=== PATIENT | male | born 1960 | race Caucasian/White ===

== ENCOUNTER 2021-09-23 22:47 | Emergency (ER) | payer OTHER ==
--- OUTSIDE RECORDS SUMMARY | 2021-09-23 22:50 | XMS REPORT | Continuity of Care Document ---
:1960 Author Organization [facility] t Address [address] [place] [address] Care Team Providers Name Role Phone CUCA ARANGO Attending Clinician Unavailable Payers Payer Name Policy Type Policy Number Effective Date Expiration Date [place] [employer] 2 [id number] 2021 00:00:00 Problems This patient has no known problems. Allergies, Adverse Reactions, Alerts This patient has no known allergies or adverse reactions. Medications This patient has no known medications. Procedures This patient has no known procedures. Encounters Start End Encounter Admission Attending Care Care Encounter Source Date/Time Date/Time Type Type Clinicians Facility Department ID 2021-05-01 2021-05-01 Outpatient GADIEL ARANGO [id number] 10:00:00 10:00:00 JOSH valentin Results This patient has no known results.
[2021-09-23] MEDS ORDERED: NA CHLORIDE 0.9% 1,000 ML ONE (23:38)
[2021-09-23 23:56] LABS: Absolute Lymphocytes (CBC) 0.7 K/uL (0.7-4.9); Hematocrit 44.9 % (39.6-49.0); Lymphocytes % 9.6 % (15.3-44.8); MPV 7.2 fL (7.6-11.3)
[2021-09-24 00:09] LABS: Urine Blood 3+ (Negative); Urine Glucose 2+ (Negative); Urine Protein Negative (Negative)
[2021-09-24 00:12] LABS: Albumin 3.4 g/dL (3.4-5.0); Bilirubin Direct 0.1 mg/dL (0-0.2); Bilirubin Total 0.4 mg/dL (0.2-1.0); Potassium 4.2 mmol/L (3.5-5.1); Protein, Total 7.1 g/dL (6.4-8.2)
--- NOTE | 2021-09-24 00:56 | ER ---
Nurse's Notes [facility] Name: Jamie Echavarria Age: 60 yrs Sex: Male : 1960 Arrival Date: 09/23/2021 Time: 22:54 Bed 10 Private MD: Diagnosis: Kidney Stone/ Calculus in bladder Presentation: 09/23 23:11 Chief complaint: Patient states: lower back pain started around 2200 causing some bb nausea. pain at time of onset 10/. once arriving to ER the pain is 1/10. no complaints of nausea. 23:11 Coronavirus screen: Vaccine status: Patient reports being unvaccinated. Client denies bb travel out of the [place] in the last 14 days. At this time, the client does not indicate any symptoms associated with coronavirus-19. Ebola Screen: No symptoms or risks identified at this time. Initial Sepsis Screen: Does the patient meet any 2 criteria? No. Patient's initial sepsis screen is negative. Does the patient have a suspected source of infection? No. Patient's initial sepsis screen is negative. Risk Assessment: Do you want to hurt yourself or someone else? Patient reports no desire to harm self or others. Onset of symptoms was September 23, 2021 at 22:00. 23:11 Method Of Arrival: Ambulatory bb 23:11 Acuity: MARTIN 4 bb Triage Assessment: 23:16 General: Appears in no apparent distress. comfortable, Behavior is calm, cooperative. bb Pain: Complains of pain in lumbar area, left low back and right low back. Neuro: Level of Consciousness is awake, alert, obeys commands, Oriented to person, place, time, situation. Cardiovascular: Respiratory: Airway is patent Trachea midline Respiratory effort is even, unlabored, Respiratory pattern is regular, symmetrical. GI: Reports Patient currently denies. : No deficits noted. Derm: No deficits noted. Musculoskeletal: No deficits noted. Historical: - Allergies: 23:16 No Known Allergies; bb - Home Meds: 23:16 levothyroxine 200 mcg tab [Active]; ramipril 10 mg Oral tab [Active]; Jardiance 25 mg bb oral tab [Active]; celecoxib 200 mg Oral cap [Active]; simvastatin 20 mg Oral tab [Active]; Janumet 50-1,000 mg oral tab [Active]; - PMHx: 23:16 Diabetes mellitus; bb - PSHx: 23:16 Operative procedure on knee; Cholecystectomy; bb - Immunization history:: Adult Immunizations up to date. - Social history:: Smoking status: Patient reports use of chewing tobacco. Screenin:50 Abuse screen: Denies threats or abuse. Nutritional screening: No deficits noted. bb Tuberculosis screening: No symptoms or risk factors identified. Fall Risk None identified. Assessment: 23:50 General: Appears in no apparent distress. obese, Behavior is calm, cooperative. Neuro: bb Level of Consciousness is awake, alert, obeys commands, Oriented to person, place, time, situation. Cardiovascular: Capillary refill < 3 seconds Patient's skin is warm and dry. Respiratory: Respiratory effort is even, unlabored, Respiratory pattern is regular. GI:. GI: Abdomen is obese. Derm: Skin is pink, warm \T\ dry. Musculoskeletal: Circulation, motion, and sensation intact. 09/24 01:47 Reassessment: Patient is alert, oriented x 3, equal unlabored respirations, skin bb warm/dry/pink. pt verbalized understanding of and agrees to plan of care discharge instructions given pt ambulated with steady gait to exit. Vital Signs: 09/23 23:11 BP 125 / 65; Pulse 102; Resp 20; Temp 97.7; Pulse Ox 96% on R/A; Weight 145.15 kg (R); bb Height 6 ft. 1 in. (185.42 cm) (R); Pain /; 09/24 01:24 BP 120 / 63; Pulse 90; Resp 16; Temp 98.8; Pulse Ox 96% ; lt3 09/23 23:11 Body Mass Index 42.22 (145.15 kg, 185.42 cm) bb ED Course: 09/23 22:54 Patient arrived in ED. bp1 23:16 Triage completed. bb 23:16 Arm band placed on. bb 23:30 Guillermo Lamb NP is PHCP. pm1 23:30 Raymond Bella MD is Attending Physician. pm1 23:50 Isabella Ackerman RN is Primary Nurse. bb 23:50 Patient has correct armband on for positive identification. Call light in reach. bb 23:50 Initial lab(s) drawn, by me, sent to lab. Inserted saline lock: 20 gauge in right bb antecubital area, using aseptic technique. Blood collected. 09/24 00:25 CT Stone Protocol In Process Unspecified. EDMS 01:47 No provider procedures requiring assistance completed. IV discontinued, intact, bb bleeding controlled, No redness/swelling at site. Pressure dressing applied. Administered Medications: 09/23 23:54 Drug: NS 0.9% 1000 ml Route: IV; Rate: 1000 ml; Site: right antecubital; bb 09/24 01:00 Follow up: IV Status: Completed infusion; IV Intake: 1000ml bb Intake: 01:00 IV: 1000ml; Total: 1000ml. bb Outcome: 00:56 Discharge ordered by MD. pm1 01:47 Discharged to home ambulatory. bb 01:47 Condition: stable 01:47 Discharge instructions given to patient, Instructed on discharge instructions, follow up and referral plans. medication usage, Demonstrated understanding of instructions, follow-up care, medications, Prescriptions given X 1. 01:50 Patient left the ED. bb Signatures: Dispatcher [employer] EDMS Isabella Ackerman RN RN bb Guillermo Lamb, [employer]ORY [employer]ESS ENGINEER pm1 Katalina Vogel [facility] Radha Wilkerson lt3
--- NOTE | 2021-09-24 00:56 | EDPHYS ---
Physician Documentation [facility] Name: Jamie Echavarria Age: 60 yrs Sex: Male : 1960 Arrival Date: 09/23/2021 Time: 22:54 Bed 10 Private MD: ED Physician Raymond Bella HPI: 09/23 23:33 This 60 yrs old Male presents to ER via Ambulatory with complaints of Low Back Pain, pm1 Nausea. 23:33 The patient presents with pain that is acute, with no known mechanism of injury. The pm1 symptoms are located in the left low back. The pain radiates to the left upper quadrant. The problem was sustained from unknown cause. Onset: The symptoms/episode began/occurred 1.5 hr prior to arrival. Modifying factors: The patient symptoms are alleviated by nothing, the patient symptoms are aggravated by nothing. Associated signs and symptoms: Pertinent positives: nausea, Pertinent negatives: dysuria, fever, vomiting. Severity of symptoms: in the emergency department the symptoms have resolved, in triage room. The patient has not experienced similar symptoms in the past. The patient has not recently seen a physician. Historical: - Allergies: 23:16 No Known Allergies; bb - Home Meds: 23:16 levothyroxine 200 mcg tab [Active]; ramipril 10 mg Oral tab [Active]; Jardiance 25 mg bb oral tab [Active]; celecoxib 200 mg Oral cap [Active]; simvastatin 20 mg Oral tab [Active]; Janumet 50-1,000 mg oral tab [Active]; - PMHx: 23:16 Diabetes mellitus; bb - PSHx: 23:16 Operative procedure on knee; Cholecystectomy; bb - Immunization history:: Adult Immunizations up to date. - Social history:: Smoking status: Patient reports use of chewing tobacco. ROS: 23:33 Constitutional: Negative for fever, chills, and weight loss, Cardiovascular: Negative pm1 for chest pain, palpitations, and edema, Respiratory: Negative for shortness of breath, cough, wheezing, and pleuritic chest pain. 23:33 : Negative for injury, bleeding, discharge, and swelling, MS/Extremity: Negative for injury and deformity, Skin: Negative for injury, rash, and discoloration, Neuro: Negative for headache, weakness, numbness, tingling, and seizure. 23:33 Abdomen/GI: Positive for nausea, Negative for abdominal pain, diarrhea, constipation. 23:33 Back: Positive for flank pain, on the left. 23:33 All other systems are negative. Exam: 23:33 Constitutional: This is a well developed, well nourished patient who is awake, alert, pm1 and in no acute distress. Head/Face: Normocephalic, atraumatic. 23:33 Skin: Warm, dry with normal turgor. Normal color with no rashes, no lesions, and no evidence of cellulitis. MS/ Extremity: Pulses equal, no cyanosis. Neurovascular intact. Full, normal range of motion. 23:33 Eyes: Exam is negative for acute changes, Extraocular movements: no acute changes, Conjunctiva: no acute changes, no injection. 23:33 ENT: Exam is negative for acute changes, Mouth: no acute changes, Lips: normal, moist, Oral mucosa: normal, pink and intact, moist. 23:33 Cardiovascular: Exam negative for acute changes, Rate: normal, Rhythm: regular, Pulses: no pulse deficits are appreciated. 23:33 Respiratory: Exam negative for acute changes, respiratory distress, shortness of breath, Breath sounds: are clear throughout. 23:33 Abdomen/GI: Inspection: abdomen appears normal, Palpation: abdomen is soft and non-tender, in all quadrants. 23:33 Back: CVA tenderness, that is mild, is noted on the left, vertebral tenderness, is not appreciated. 23:33 Neuro: Exam negative for acute changes, Orientation: is normal, Mentation: is normal, Motor: moves all fours. Vital Signs: 23:11 BP 125 / 65; Pulse 102; Resp 20; Temp 97.7; Pulse Ox 96% on R/A; Weight 145.15 kg (R); bb Height 6 ft. 1 in. (185.42 cm) (R); Pain 09/25; 09/24 01:24 BP 120 / 63; Pulse 90; Resp 16; Temp 98.8; Pulse Ox 96% ; lt3 09/23 23:11 Body Mass Index 42.22 (145.15 kg, 185.42 cm) bb MDM: 09/23 23:32 Patient medically screened. pm1 09/24 00:55 Data reviewed: vital signs. Data interpreted: Pulse oximetry: on room air is 96 %. pm1 Interpretation: normal. Counseling: I had a detailed discussion with the patient and/or guardian regarding: the historical points, exam findings, and any diagnostic results supporting the discharge/admit diagnosis, lab results, radiology results, the need for outpatient follow up, a urologist, to return to the emergency department if symptoms worsen or persist or if there are any questions or concerns that arise at home. 09/23 23:33 Order name: Basic Metabolic Panel; Complete Time: 00:19 pm1 09/23 23:33 Order name: CBC with Diff; Complete Time: 00:09 pm1 09/23 23:33 Order name: Hepatic Function; Complete Time: 00:19 pm1 09/23 23:33 Order name: Lipase; Complete Time: 00:19 pm1 09/23 23:33 Order name: CT Stone Protocol pm1 09/24 00:09 Order name: Urine Dipstick-Ancillary; Complete Time: 00:09 EDMS 09/23 23:33 Order name: IV Saline Lock; Complete Time: 23:54 pm1 09/23 23:33 Order name: Labs collected and sent; Complete Time: 23:54 pm1 09/23 23:33 Order name: Urine Dipstick-Ancillary (obtain specimen); Complete Time: 00:10 pm1 Administered Medications: 09/23 23:54 Drug: NS 0.9% 1000 ml Route: IV; Rate: 1000 ml; Site: right antecubital; bb 09/24 01:00 Follow up: IV Status: Completed infusion; IV Intake: 1000ml bb Disposition: 05:33 Co-signature as Attending Physician, Raymond Bella MD I agree with the assessment and kdr plan of care. Disposition Summary: 09/24/21 00:56 Discharge Ordered Location: Home pm1 Problem: new pm1 Symptoms: have improved pm1 Condition: Stable pm1 Diagnosis - Kidney Stone/ Calculus in bladder pm1 Followup: pm1 - With: Emergency Department - When: As needed - Reason: Worsening of condition Followup: pm1 - With: Private Physician - When: 2 - 3 days - Reason: Recheck today's complaints, Continuance of care, Re-evaluation by your physician Discharge Instructions: - Discharge Summary Sheet pm1 - Kidney Stones pm1 - Dietary Guidelines to Help Prevent Kidney Stones pm1 Forms: - Medication Reconciliation Form pm1 - Thank You Letter pm1 - Antibiotic Education pm1 - Prescription Opioid Use pm1 Prescriptions: - Cipro 500 mg Oral Tablet - take 1 tablet by ORAL route every 12 hours for 7 days; 14 tablet; Refills: 0, pm1 Product Selection Permitted Signatures: Dispatcher [employer] Raymond Turk MD MD kdr Ballard, Brenda, SON RN bb Guillermo Lamb, MOLD MAKER [employer] MOLDS [employer]OL[employer] pm1
[2021-09-24 02:11] VITALS: O2SAT 96
[2021-09-24 02:13] VITALS: BP 120/63; TEMP 98.8
--- NOTE | 2021-09-24 15:24 | RAD REPORT ---
EXAM DESCRIPTION: CT - Stone Protocol - 09/24/2021 8:02 am CLINICAL HISTORY: 60 years, Male, FLANK PAIN COMPARISON: 04/01/2015 TECHNIQUE: Multiple transaxial tomograms of the abdomen and pelvis were performed from the lung base s to the symphysis pubis 3 mm slice thickness at the 3 mm interval reconstruction, without administra tion of IV and oral contrast. Multiplanar reformats in the sagittal and coronal plane were generated and reviewed. This exam was performed according to our departmental dose-optimization protocol, which includes auto mated exposure control, adjustment of the mA and/or kV according to patient size and/or use of iterat ute reconstruction technique. FINDINGS: The lack of IV and oral contrast limits evaluation of solid organs, subtle lesions cannot be excluded. The lung bases demonstrate to be clear. Minimal coronary artery calcification and aortic valvular paco cification. Grossly the unopacified liver, pancreas, spleen and adrenal glands demonstrate to be within normal li mits, no significant focal lesions were identified. Surgical clips within the gallbladder fossa cor respond to previous cholecystectomy The right kidney demonstrate no evidence for hydronephrosis and/or nephrolithiasis. The left kidney demonstrate a 4 mm lower pole renal calculus on axial image 83. There is a mid/upper pole renal cyst measuring 4.2 x 3.7 cm on image 64. There is no evidence for left hydronephrosis and/ or left hydroureter. Both kidneys demonstrate bilateral perinephric haziness suggesting fluid/or inflammation. Grossly the unopacified stomach, small bowel and large bowel demonstrate to be within normal limits. There is no evidence for bowel dilatation and/or free air. The appendix is normal. There is minimal d iverticulosis within the left site colon/sigmoid colon. The urinary bladder demonstrate to be suboptimal in distention. There is a 3.6 mm calculus within the right posterior urinary bladder wall corresponding to a urinary bladder calculus. The prostate gland demonstrate to be within normal limits. The aorta demonstrate minimal atheromatous plaque formation. There is no retroperitoneal lymphadeno brianna. There is no evidence for ascites. The rest of the soft tissue demonstrate to be grossly unre markable. IMPRESSION: 3.6 mm calculus within the right posterior urinary bladder wall corresponding to a urina ry bladder calculus-recent passage of a calculus. 4 mm nonobstructing calculus lower pole of the left kidney. Left renal cyst. Status post cholecystectomy. Minimal diverticulosis without evidence for acute diverticulitis. Electronically signed by: Stiven Medina MD 09/24/2021 12:41 AM PEDIATRIC PATHOLOGIST Due to temporary technical issues with the PACS/Fluency reporting system, reports are being signed by the in house radiologists without review as a courtesy to insure prompt reporting. The interpreting radiologist is fully responsible for the content of the report.
== END 2021-09-24 01:50 | disposition home or self-care (01) ==
LOC: ER 22:47
DX: N20.0 Calculus of kidney (principal); N21.0 Calculus in bladder; E11.9 Type 2 diabetes mellitus without complications; F17.220 Nicotine dependence, chewing tobacco, uncomplicated
CPT/HCPCS: 85025; 80048; 36415; 80076; 81003; 83690; 76377; 74176; 96360; 99284; J7030

== ENCOUNTER 2021-10-25 15:33 | Emergency (ER) | payer OTHER ==
--- OUTSIDE RECORDS SUMMARY | 2021-10-25 15:35 | XMS REPORT | Continuity of Care Document ---
:1960 Author Organization [facility] t Address [address] [place] [address] Care Team Providers Name Role Phone CUCA ARANGO Attending Clinician Unavailable Payers Payer Name Policy Type Policy Number Effective Date Expiration Date [place] [employer] 2 [id number] 2021 00:00:00 Problems This patient has no known problems. Allergies, Adverse Reactions, Alerts This patient has no known allergies or adverse reactions. Medications This patient has no known medications. Procedures This patient has no known procedures. Encounters Start End Encounter Admission Attending Care Care Encounter Source Date/Time Date/Time Type Type Clinicians Facility Department ID 2021-05-01 2021-05-01 Outpatient GADIEL ARANGO [id number] 10:00:00 10:00:00 JOSH valentin Results This patient has no known results.
[2021-10-25] MEDS ORDERED: NA CHLORIDE 0.9% 1,000 ML ONE (15:59)
[2021-10-25] MEDS ORDERED: METHYLPREDNISOLONE 125 MG INJ ONE (15:59)
[2021-10-25] MEDS ORDERED: ASPIRIN 81 MG CHEWABLE TABLET ONE (15:59)
[2021-10-25] MEDS ORDERED: AZITHROMYCIN 500 MG INJ IVPB ONE (15:59)
[2021-10-25] MEDS ORDERED: NA CHLORIDE 0.9% 250 ML ONE (15:59)
[2021-10-25] MEDS ORDERED: FAMOTIDINE 20 MG/2 ML VIAL IV ONE (15:59)
[2021-10-25 16:24] LABS: Absolute Lymphocytes (CBC) 0.7 K/uL (0.7-4.9); Hematocrit 44.7 % (39.6-49.0); RBC Red Blood Cell Count 4.67 M/uL (4.33-5.43)
[2021-10-25 16:26] LABS: Protime INR 1.19
--- NOTE | 2021-10-25 16:26 | RAD REPORT ---
EXAM DESCRIPTION: RAD - Chest Single View - 10/25/2021 3:58 pm CLINICAL HISTORY: COUGH COMPARISON: Stone Protocol dated 09/24/2021 FINDINGS: Lines: None. Lungs: Hazy opacity at the right lung base. Pleural: Nonspecific thickening at the right minor fissure. Cardiac: The heart size is within normal limits. Bones: No acute fractures. Other: IMPRESSION: Mild basilar airspace disease could reflect pneumonia.
[2021-10-25 16:39] LABS: Albumin 2.9 g/dL (3.4-5.0); Bilirubin Direct 0.2 mg/dL (0-0.2); Bilirubin Total 0.7 mg/dL (0.2-1.0); C-Reactive Protein 88.7 mg/L (<3.00); Ferritin 877.5 ng/mL (26-388); Potassium 3.9 mmol/L (3.5-5.1); Protein, Total 7.9 g/dL (6.4-8.2); Troponin High Sensitivity 14.1 pg/mL (<58.9)
--- NOTE | 2021-10-25 17:28 | RAD REPORT ---
EXAM DESCRIPTION: CT - Chest For Pe Angio - 10/25/2021 5:12 pm CLINICAL HISTORY: Chest pain;Cough;Dyspnea;PE COMPARISON: Chest Single View dated 10/25/2021 FINDINGS: Chest Wall: No suspicious thyroid nodules or pathologic lymphadenopathy. Lungs: Mild patchy bilateral ground-glass opacities. Pleura: No significant effusions or pneumothorax. Mediastinum/roland: No pathologic lymphadenopathy. Pulmonary arteries/Aorta: No filling defect identified. No aortic aneurysm. Heart: No significant pericardial effusion. Normal heart size. Multi-vessel coronary artery disease. Aortic valve calcifications. Upper abdomen: Cholecystectomy. Bones: No acute abnormality. All CT scans are performed using dose optimization technique as appropriate and may include automated exposure control or mA/KV adjustment according to patient size. IMPRESSION: Negative for pulmonary embolism. Mild patchy bilateral ground-glass opacities a pattern concerning for multifocal pneumonia, particularly Covid-19.
[2021-10-25] MEDS ORDERED: MONTELUKAST 10 MG TAB PO ONE (18:00)
--- NOTE | 2021-10-25 18:17 | EDPHYS ---
Physician Documentation [facility] Name: Jamie Echavarria Age: 61 yrs Sex: Male : 1960 Arrival Date: 10/25/2021 Time: 15:33 Bed 2 Private MD: ED Physician Billy Richard HPI: 10/25 17:46 This 61 yrs old Male presents to ER via Wheelchair with complaints of omar Shortness Of Breath - covid+. 17:46 The patient has shortness of breath at rest, with light activity. Onset: The omar symptoms/episode began/occurred 13 day(s) ago. Duration: The symptoms are continuous, and are steadily getting worse. The patient's shortness of breath is aggravated by coughing, walking. Associated signs and symptoms: Pertinent positives: non-productive cough, fever. Severity of symptoms: At their worst the symptoms were mild moderate in the emergency department the symptoms are unchanged. The patient has not experienced similar symptoms in the past. Historical: - Allergies: 15:46 No Known Allergies; vg1 - Home Meds: 15:46 celecoxib 200 mg Oral cap [Active]; Janumet 50-1,000 mg Oral tab [Active]; Jardiance 25 vg1 mg Oral tab [Active]; levothyroxine 200 mcg tab [Active]; ramipril 10 mg Oral tab [Active]; simvastatin 20 mg Oral tab [Active]; Victoza [Active]; - Immunization history:: Adult Immunizations up to date. - Social history:: Smoking status: Patient denies any tobacco usage or history of. ROS: 17:49 Constitutional: Negative for fever, chills, and weight loss, Eyes: Negative for injury, omar pain, redness, and discharge, ENT: Negative for injury, pain, and discharge, Neck: Negative for injury, pain, and swelling, Cardiovascular: Negative for chest pain, palpitations, and edema, Abdomen/GI: Negative for abdominal pain, nausea, vomiting, diarrhea, and constipation, Back: Negative for injury and pain, : Negative for injury, bleeding, discharge, and swelling, MS/Extremity: Negative for injury and deformity, Skin: Negative for injury, rash, and discoloration, Neuro: Negative for headache, weakness, numbness, tingling, and seizure, Psych: Negative for depression, anxiety, suicide ideation, homicidal ideation, and hallucinations, Allergy/Immunology: Negative for hives, rash, and allergies, Endocrine: Negative for neck swelling, polydipsia, polyuria, polyphagia, and marked weight changes, Hematologic/Lymphatic: Negative for swollen nodes, abnormal bleeding, and unusual bruising. 17:49 Respiratory: Positive for cough, shortness of breath, at rest. Exam: 17:49 Constitutional: This is a well developed, well nourished patient who is awake, alert, omar and in no acute distress. Head/Face: Normocephalic, atraumatic. Eyes: Pupils equal round and reactive to light, extra-ocular motions intact. Lids and lashes normal. Conjunctiva and sclera are non-icteric and not injected. Cornea within normal limits. Periorbital areas with no swelling, redness, or edema. ENT: Nares patent. No nasal discharge, no septal abnormalities noted. Tympanic membranes are normal and external auditory canals are clear. Oropharynx with no redness, swelling, or masses, exudates, or evidence of obstruction, uvula midline. Mucous membranes moist. Neck: Trachea midline, no thyromegaly or masses palpated, and no cervical lymphadenopathy. Supple, full range of motion without nuchal rigidity, or vertebral point tenderness. No Meningismus. Chest/axilla: Normal chest wall appearance and motion. Nontender with no deformity. No lesions are appreciated. Cardiovascular: Regular rate and rhythm with a normal S1 and S2. No gallops, murmurs, or rubs. Normal PMI, no JVD. No pulse deficits. Abdomen/GI: Soft, non-tender, with normal bowel sounds. No distension or tympany. No guarding or rebound. No evidence of tenderness throughout. Back: No spinal tenderness. No costovertebral tenderness. Full range of motion. Male : Normal genitalia with no discharge or lesions. Skin: Warm, dry with normal turgor. Normal color with no rashes, no lesions, and no evidence of cellulitis. MS/ Extremity: Pulses equal, no cyanosis. Neurovascular intact. Full, normal range of motion. Neuro: Awake and alert, GCS 15, oriented to person, place, time, and situation. Cranial nerves II-XII grossly intact. Motor strength 5/5 in all extremities. Sensory grossly intact. Cerebellar exam normal. Normal gait. Psych: Awake, alert, with orientation to person, place and time. Behavior, mood, and affect are within normal limits. 17:49 Respiratory: the patient does not display signs of respiratory distress, Respirations: normal, no acute changes, Breath sounds: decreased breath sounds, that are mild, are located in both bases, rhonchi, that are mild, are scattered, stridor, is not appreciated, + upper airway congestion. Respiratory rate: 20 Vital Signs: 15:44 BP 114 / 77; Pulse 105; Resp 18; Temp 98.4(O); Pulse Ox 96% ; Weight 97.52 kg; Height 6 vg1 ft. 1 in. (185.42 cm); 16:12 BP 119 / 72; Pulse 99; Resp 18; Pulse Ox 94% on R/A; ic1 17:43 BP 125 / 69; Pulse 92; Resp 20; Pulse Ox 96% on R/A; ic1 15:44 Body Mass Index 28.37 (97.52 kg, 185.42 cm) vg1 MDM: 15:38 Patient medically screened. [facility] 17:50 Data reviewed: vital signs, nurses notes. [facility] 10/25 15:43 Order name: Basic Metabolic Panel [facility] 10/25 15:43 Order name: CBC with Diff 10/25 15:43 Order name: LFT's 10/25 15:43 Order name: Magnesium 10/25 15:43 Order name: NT PRO-BNP 10/25 15:43 Order name: PT-INR; Complete Time: 16:51 10/25 15:43 Order name: Troponin HS 10/25 15:43 Order name: Blood Culture Adult (2) 10/25 15:43 Order name: Lipase 10/25 15:43 Order name: CRP 10/25 15:43 Order name: Ferritin 10/25 15:43 Order name: Lactate; Complete Time: 16:51 [facility] 10/25 15:43 Order name: D-Dimer; Complete Time: 16:51 [facility] 10/25 15:44 Order name: Basic Metabolic Panel [facility] 10/25 15:43 Order name: XRAY Chest (1 view); Complete Time: 16:30 10/25 15:43 Order name: EKG; Complete Time: 15:44 [facility] 10/25 15:43 Order name: Cardiac monitoring; Complete Time: 16:03 [facility] 10/25 15:43 Order name: EKG - Nurse/Tech; Complete Time: 16:03 [facility] 10/25 15:43 Order name: IV Saline Lock [facility] 10/25 15:43 Order name: Labs collected and sent [facility] 10/25 15:44 Order name: CBC with Automated Diff; Complete Time: 18:06 EDMS 10/25 16:52 Order name: US Extremity Venous W Compression Ho [facility] 10/25 16:52 Order name: CT Chest For PE Angio; Complete Time: 18:06 [facility] 10/25 15:43 Order name: O2 Sat Monitoring; Complete Time: 16:03 [facility] 10/25 15:44 Order name: Urine Dipstick-Ancillary (obtain specimen) omar Administered Medications: 16:09 Drug: Zithromax (azithromycin) 500 mg Route: IVPB; Infused Over: 1 hrs; Site: right ic1 antecubital; 16:09 Drug: SOLU-Medrol (methylPrednisoLONE) 125 mg Route: IVP; Site: right antecubital; ic1 16:10 Drug: NS 0.9% 1000 ml Route: IV; Rate: 125 ml/hr; Site: right antecubital; ic1 16:10 Drug: Pepcid (famotidine) 40 mg Route: IVP; Site: right antecubital; ic1 16:10 Drug: Aspirin Chewable Tablet 324 mg Route: PO; ic1 18:51 Drug: predniSONE 60 mg Route: PO; ic1 Disposition Summary: 10/25/21 18:16 Discharge Ordered Location: Home omar Problem: new omar Symptoms: have improved omar Condition: Stable omar Diagnosis - Coronavirus infection, unspecified omar - Pneumonia due to SARS-associated coronavirus omar - Fever, unspecified omar - Dyspnea omar - Type 2 diabetes mellitus with hyperglycemia omar - Other obesity omar Followup: omar - With: Private Physician - When: 2 - 3 days - Reason: Recheck today's complaints, Continuance of care, Re-evaluation by your physician Followup: omar - With: - When: 2 - 3 days - Reason: Recheck today's complaints, Re-evaluation by your physician Discharge Instructions: - Discharge Summary Sheet omar - Type 2 Diabetes Mellitus, Diagnosis, Adult omar - Hyperglycemia omar - Viral Respiratory Infection, [id number] omar - Aspirin and Your Heart omar - COVID-19 omar - COVID-19 Frequently Asked Questions omar - 10 Things You Can Do to Manage Your COVID-19 Symptoms at Home - [facility] omar - COVID-19: Quarantine vs. Isolation - [facility] Forms: - Medication Reconciliation Form omar - Thank You Letter omar - Antibiotic Education [facility] - Prescription Opioid Use [facility] Prescriptions: - budesonide 180 mcg/actuation Inhalation aerosol powdr breath activated - inhale 3 puff by INHALATION route 2 times per day; 1 Pump; Refills: 0, Product omar Selection Permitted - fluvoxamine 100 mg Oral tablet - take 1 tablet by ORAL route 2 times per day; 14 tablet; Refills: 0, Product omar Selection Permitted - ivermectin 3 mg Oral tablet - take 5 tablet by ORAL route once daily 15 mg po daily on days 1,3 and 5; 15 [facility] tablet; Refills: 0, Product Selection Permitted - melatonin - take 10 milligram by ORAL route At bedtime; 30 milligram; Refills: 0, Product omar Selection Permitted - Pepcid 20 mg Oral Tablet - take 1 tablet by ORAL route every 12 hours for 30 days; 60 tablet; Refills: 0, [facility] Product Selection Permitted - Singulair 10 mg Oral Tablet - take 1 tablet by ORAL route At bedtime; 30 tablet; Refills: 0, Product omar Selection Permitted - Zithromax 500 mg Oral Tablet - take 1 tablet by ORAL route once daily for 5 days; 5 tablet; Refills: 0, [facility] Product Selection Permitted - Prednisone 20 mg Oral Tablet - take 2 tablets by ORAL route once daily for 5 days; 10 tablet; Refills: 0, [facility] Product Selection Permitted Signatures: Dispatcher [employer] Billy Lau MD MD cha Garcia, Victoria RN RN vg1 Alessandra Weaver RN RN ic1
--- NOTE | 2021-10-25 18:17 | ER ---
Nurse's Notes [facility] Name: Jamie Echavarria Age: 61 yrs Sex: Male : 1960 Arrival Date: 10/25/2021 Time: 15:33 Bed 2 Private MD: Diagnosis: Coronavirus infection, unspecified;Pneumonia due to SARS-associated coronavirus;Fever, unspecified;Dyspnea;Type 2 diabetes mellitus with hyperglycemia;Other obesity Presentation: 10/25 15:44 Chief complaint: Patient states: Tested Covid Positive on ; states has not been vg1 getting any better; states SOB upon exertion, cough, congestion and fever. Coronavirus screen: Client denies travel out of the [place] in the last 14 days. Ebola Screen: Patient negative for fever greater than or equal to 101.5 degrees Fahrenheit, and additional compatible Ebola Virus Disease symptoms. Initial Sepsis Screen: Does the patient meet any 2 criteria? HR > 90 bpm. Does the patient have a suspected source of infection? No. Patient's initial sepsis screen is negative. Risk Assessment: Do you want to hurt yourself or someone else? Patient reports no desire to harm self or others. Onset of symptoms was October 12, 2021. 15:44 Method Of Arrival: Wheelchair vg1 15:44 Acuity: MARTIN 3 vg1 Triage Assessment: 15:46 General: Appears uncomfortable, Behavior is calm, cooperative. Respiratory: Reports vg1 shortness of breath on exertion cough that is Onset: The symptoms/episode began/occurred 10/12/2021, the patient has mild shortness of breath. Historical: - Allergies: 15:46 No Known Allergies; vg1 - Home Meds: 15:46 celecoxib 200 mg Oral cap [Active]; Janumet 50-1,000 mg Oral tab [Active]; Jardiance 25 vg1 mg Oral tab [Active]; levothyroxine 200 mcg tab [Active]; ramipril 10 mg Oral tab [Active]; simvastatin 20 mg Oral tab [Active]; Victoza [Active]; - Immunization history:: Adult Immunizations up to date. - Social history:: Smoking status: Patient denies any tobacco usage or history of. Screenin:40 Abuse screen: Denies threats or abuse. Denies injuries from another. Nutritional ic1 screening: No deficits noted. Tuberculosis screening: No symptoms or risk factors identified. Fall Risk None identified. Assessment: 16:11 Pain: Denies pain. Neuro: Level of Consciousness is awake, alert, obeys commands, ic1 Oriented to person, place, time, situation. Cardiovascular: Rhythm is sinus rhythm. Respiratory: Airway is patent Respiratory effort is even, unlabored, Respiratory: Reports shortness of breath cough that is. GI: No deficits noted. GI: Reports diarrhea. : No deficits noted. EENT: No deficits noted. Derm: No deficits noted. Musculoskeletal: No deficits noted. Vital Signs: 15:44 BP 114 / 77; Pulse 105; Resp 18; Temp 98.4(O); Pulse Ox 96% ; Weight 97.52 kg; Height 6 vg1 ft. 1 in. (185.42 cm); 16:12 BP 119 / 72; Pulse 99; Resp 18; Pulse Ox 94% on R/A; ic1 17:43 BP 125 / 69; Pulse 92; Resp 20; Pulse Ox 96% on R/A; ic1 15:44 Body Mass Index 28.37 (97.52 kg, 185.42 cm) vg1 ED Course: 15:33 Patient arrived in ED. as 15:38 Billy Richard MD is Attending Physician. omar 15:45 Triage completed. vg1 15:46 Arm band placed on. vg1 15:58 XRAY Chest (1 view) In Process Unspecified. EDMS 16:09 Basic Metabolic Panel Sent. ic1 16:09 CBC with Automated Diff Sent. ic1 16:09 D-Dimer Sent. ic1 16:10 Blood Culture Adult (2) Sent. ic1 16:10 CRP Sent. ic1 16:10 Lipase Sent. ic1 16:10 Ferritin Sent. ic1 16:10 Lactate Sent. ic1 16:10 Inserted saline lock: 20 gauge in right antecubital area, using aseptic technique. ic1 Blood collected. 16:10 No provider procedures requiring assistance completed. ic1 16:33 Notified ED physician of a critical lab result(s). D-Dimer 2113. jl7 17:12 CT Chest For PE Angio In Process Unspecified. EDMS 18:14 Jonathan Jorge MD is Referral Physician. omar 18:19 US Extremity Venous W Compression Ho In Process Unspecified. EDMS 18:52 Patient has correct armband on for positive identification. ic1 18:52 IV discontinued, intact, bleeding controlled, No redness/swelling at site. Pressure ic1 dressing applied. Administered Medications: 16:09 Drug: Zithromax (azithromycin) 500 mg Route: IVPB; Infused Over: 1 hrs; Site: right ic1 antecubital; 16:09 Drug: SOLU-Medrol (methylPrednisoLONE) 125 mg Route: IVP; Site: right antecubital; ic1 16:10 Drug: NS 0.9% 1000 ml Route: IV; Rate: 125 ml/hr; Site: right antecubital; ic1 16:10 Drug: Pepcid (famotidine) 40 mg Route: IVP; Site: right antecubital; ic1 16:10 Drug: Aspirin Chewable Tablet 324 mg Route: PO; ic1 18:51 Drug: predniSONE 60 mg Route: PO; ic1 Outcome: 18:16 Discharge ordered by . omar 18:51 Discharged to home ambulatory. ic1 18:51 Condition: stable 18:51 Discharge instructions given to patient, Instructed on discharge instructions, follow up and referral plans. medication usage, Demonstrated understanding of instructions, follow-up care, medications, Prescriptions given X 6 18:52 Patient left the ED. ic1 Signatures: Dispatcher [employer] EDMS Billy Richard MD MD cha Martinez, Amelia as Leal, Jahala RN RN jl7 Sharifa Burgos RN RN vg1 Alessandra Weaver RN RN ic1
--- NOTE | 2021-10-25 18:35 | RAD REPORT ---
EXAM DESCRIPTION: US - Extrem Venous W Compress Ho - 10/25/2021 6:19 pm CLINICAL HISTORY: Pain;Swelling COMPARISON: No comparisons TECHNIQUE: Real-time sonographic evaluation of the lower extremity deep venous systems was performed using color Doppler, grayscale, and compression. FINDINGS: Bilateral lower extremities. Normal compressibility, flow augmentation, phasic flow and spontaneous flow is identified in both the left and right lower extremity deep venous systems. No intraluminal filling defects seen. IMPRESSION: No DVT in either lower extremity.
[2021-10-25] MEDS ORDERED: predniSONE 20 MG TAB ONE (18:51)
[2021-10-25 18:58] VITALS: TEMP 98.4
[2021-10-25 19:00] VITALS: BP 125/69; O2SAT 96
[2021-10-25 23:58] LABS: Magnesium 1.8
== END 2021-10-25 18:52 | disposition home or self-care (01) ==
LOC: ER 15:33
DX: U07.1 COVID-19 (principal); J12.82 Pneumonia due to coronavirus disease 2019; R50.9 Fever, unspecified; E11.65 Type 2 diabetes mellitus with hyperglycemia; E66.8 Other obesity
CPT/HCPCS: 87040 ×2; 85025; 80048; 36415; 83735; 85610; 85379; 80076; 83605; 84484; 82728; 83690; 83880; 86140; 71275; 71045; 93970; Q9967; J7512; J0456; J7050; J7030; J2930; 96374; 96375; 99284

== ENCOUNTER 2025-04-22 08:59 | Observation (INO) | payer OTHER ==
--- OUTSIDE RECORDS SUMMARY | 2025-04-22 09:23 | XMS REPORT | Continuity of Care Document ---
Author Name Unknown Address [address] [facility] [address] [place] [address] [facility] Address [address] [facility] [address] [place] [address] Care Team Providers Care Clinical Director Name Role Phone Marlene Padilla Attending Clinician JOSH Lane Attending Clinician Marlene Romano Admitting Clinician Berenice hutchinson Physician, No Primary or Family Admitting Clinic deep Unavailable Payers Payer Name Policy Type Policy Number Effective Date Expirati on Date Source [employer] HMO/CHOICE COMM [id number] 2002 00:00:00 [employer] 2 [id number] 2021 00:00:00 Allergies, Adverse Reactions, Alerts Allergy Name Allergy Type Status Severity Reaction(s) Onset Date Inactive Date Treating Clinician Comments Source nitrofur antoin DA Active U RASH 03-11 00:00: 00 [facility] nitrogly cerin DA Active MO RASH 03-11 00:00: 00 [facility] Procedures Procedure Date / Time Performed Performing Clinicia n Source GAIT TRAINING/AMBULAT TREATMENT USING ASSIST EQUIP 2025-03-26 00:00:00 [facility]01 [facility] HOME MANAGEMENT TREATMENT USING ASSIST EQUIPMENT 2025-03-23 00:00:00 [facility]01 [facility] REPLACEMENT OF AORTIC VALVE WITH ZOOPLASTIC, OPEN 2025-03-16 00:00:00 [facility]01 [facility] BYPASS 1 COR ART FROM L INT MAMMARY W AUTOL ART, O 2025-03-16 00:00:00 [facility]01 [facility] EXCISION OF RIGHT SAPHENOUS VEIN, PERC ENDO APPROA 2025-03-16 00:00:00 [facility]01 [facility] BYPASS 3 COR ART FROM COR ART WITH AUTOL VN, OPEN 2025-03-16 00:00:00 [facility]01 [facility] EXCISION OF LEFT ATRIAL APPENDAGE, OPEN APPROACH 2025-03-16 00:00:00 [facility]01 [facility] PERFORMANCE OF CARDIAC OUTPUT, CONTINUOUS 2025-03-16 00:00:00 [facility]01 [facility] INSERT INFUSION DEV IN R INT JUGULAR VEIN, PERC 2025-03-16 00:00:00 [facility]01 [facility] INSERTION OF MONITORING DEVICE INTO UP ART, PERC A 2025-03-16 00:00:00 [facility]01 [facility] MONITORING OF ARTERIAL PRESSURE, PERIPHERAL, PERC 2025-03-16 00:00:00 [facility]01 [facility] MONITORING OF ARTERIAL PULSE, PERIPHERAL, PERC ANA PAULA 2025-03-16 00:00:00 [facility]01 [facility] BYPASS 4+ COR ART FROM AORTA WITH AUTOL VN, OPEN A 2025-03-16 00:00:00 [facility]01 [facility] BYPASS 1 COR ART FROM L INT MAMMARY, OPEN APPROACH 2025-03-16 00:00:00 [facility]01 [facility] RESPIRATORY VENTILATION, LESS THAN 24 CONSECUTIVE 2025-03-15 00:00:00 [facility]01 [facility] INSERTION OF ENDOTRACHEAL AIRWAY INTO TRACHEA, VIA 2025-03-15 00:00:00 [facility]01 [facility] Encounters Start Date/Time End Date/Time Encounter Type Admission Type Attending Clinicians Care Facility Care Department Encounter ID Source 2025-03-11 09:30:00 Inpatient Marlene MosherCL [facility] [id number] 54 [facility] 2025-04-08 12:59:00 2025-04-08 12:59:00 Outpatient Marlene Padilla [facility] [id number] 17 [facility] 2025-04-08 12:56:00 2025-04-08 12:56:00 Outpatient Marlene Mosher [facility] [id number] 54 [facility] 2025-04-07 13:32:00 2025-04-07 13:32:00 [id number] [facility] 2025-03-15 06:06:00 2025-03-27 15:25:00 Inpatient Marlene Mosher [facility] INTE.02 [id number] [facility] 2025-03-10 07:58:00 2025-03-10 07:58:00 Outpatient Marlene Mosher [facility]AR [id number] 19 [facility] 2025-03-04 08:50:12 2025-03-04 09:14:56 Outpatient Elective [facility]OUT M[facility]OUT [id number] [facility] 2021-05-01 10:00:00 2021-05-01 10:00:00 Outpatient JOSH ARANGO [id number] Maida Castro Results Test Description Test Time Test Comments Results Result Co mments Source GLUCOSE [id number] 08:43:00* Test Item Value Reference Range Interpretation Comme nts GLUCOSE BEDSIDE (test code = GLUBED) 145 MG/DL 70-110 H Performed by cer tified screwdown operator at [facility] BASIC METABOLIC [id number] 05:21:00* Test Item Value Reference Range Interpretation Comme nts SODIUM (test code = NA) 136 mEq/L 134-147 N POTASSIUM (test code = K) 4.2 mEq/L 3.4-5.0 N CHLORIDE (test code = CL) 105 mEq/L 100-108 N CARBON DIOXIDE (test code = CO2) 22 mEq/l 21-33 N ANION GAP (test code = GAP) 13 0-20 N GLUCOSE (test code = GLU) 150 mg/dL 77-141 H BLOOD UREA NITROGEN (test code = BUN) 16 mg/dL 7-25 N GLOMERULAR FILTRATION RATE (test code = GFR) 67.1 80-90 L The Glomerular Filtration Rate is a calculated parameterbased on serum Creatinine, patient age and sex. GFR valuesless than 60 mL/min/1.73 square meters are indicative ofChronic Kidney Disease. Values less than 15 mL/min/1.73square meters indicate Kidney failure. The calculation forGFR is based on the CKD-EPI (202) calculation. This formulais race indifferent and is the recommended formula for GFRby the National Kidney Foundation for Adults.The GFR will not calculate if the sex is unknown or if thepatient's age is <18 years. CREATININE (test code = CREAT) 1.2 mg/dL 0.6-1.3 N CALCIUM (test code = CA) 8.7 mg/dL 8.0-10.5 N [id number] 05:21:00* Test Item Value Reference Range Interpretation Comme nts MAGNESIUM (test code = MAG) 2.06 mg/dL 1.6-2.6 N CBC W/AUTO [id number] 05:05:00* Test Item Value Reference Range Interpretation Comme nts WHITE BLOOD CELL (test code = WBC) 9.2 x10 3/uL 4.5-11.0 N RED BLOOD CELL (test code = RBC) 3.24 x10 6/uL 4.00-5.60 L HEMOGLOBIN (test code = HGB) 10.3 g/dL 12.5-16.9 L HEMATOCRIT (test code = HCT) 31.6 % 37.5-50.7 L MEAN CELL VOLUME (test code = MCV) 97.5 fL 81.0-99.0 N MEAN CELL HGB (test code = MCH) 31.8 pg 27.0-33.0 N MEAN CELL HGB CONCETRATION (test code = MCHC) 32.6 g/dL 33.0-37.0 L RED CELL DISTRIBUTION WIDTH CV (test code = RDW) 12.7 % 11.5-14.5 N RED CELL DISTRIBUTION WIDTH SD (test code = RDW-SD) 45.3 fL 37.0-54.0 N PLATELET COUNT (test code = PLT) 367 x10 3/uL 150-400 N MEAN PLATELET VOLUME (test c ode = MPV) 8.9 fL 7.0-9.0 N NEUTROPHIL % (test code = NT%) 65.4 % 56.0-77.0 N IMMATURE GRANULOCYTE % (test code = IG%) 1.2 % 0.0-2.0 N LYMPHOCYTE % (test code = LY%) 16.7 % 14.0-32.0 N MONOCYTE % (test code = MO%) 11.9 % 4.8-9.0 H EOSINOPHIL % (test code = EO%) 4.3 % 0.3-3.7 H BASOPHIL % (test code = BA%) 0.5 % 0.0-2.0 N NUCLEATED RBC % (test code = NRBC%) 0.0 % 0-0 N NEUTROPHIL # (test code = NT#) 6.03 x10 3/uL 2.0-7.6 N IMMATURE GRANULOCYTE # (test code = IG#) 0.11 x10 3/uL 0.00-0.03 H LYMPHOCYTE # (test code = LY#) 1.54 x10 3/uL 1.0-3.8 N MONOCYTE # (test code = MO#) 1.10 x10 3/uL 0.1-0.8 H EOSINOPHIL # (test code = EO#) 0.40 x10 3/uL 0.0-0.2 H BASOPHIL # (test code = BA#) 0.05 x10 3/uL 0.0-0.2 N NUCLEATED RBC # (test code = NRBC#) 0.00 x10 3/uL 0.0-0.1 N GLUCOSE [id number] 20:24:00* Test Item Value Reference Range Interpretation Comme [facility] GLUCOSE BEDSIDE (test code = GLUBED) 140 MG/DL 70-110 H Performed by cer tified screwdown operator at [facility] GLUCOSE [id number] 16:59:00* Test Item Value Reference Range Interpretation Comme nts GLUCOSE BEDSIDE (test code = GLUBED) 179 MG/DL 70-110 H Performed by cer tified screwdown operator at [facility] GLUCOSE [id number] 12:09:00* Test Item Value Reference Range Interpretation Comme nts GLUCOSE BEDSIDE (test code = GLUBED) 142 MG/DL 70-110 H Performed by cer tified screwdown operator at [facility] GLUCOSE [id number] 07:41:00* Test Item Value Reference Range Interpretation Comme nts GLUCOSE BEDSIDE (test code = GLUBED) 158 MG/DL 70-110 H Performed by [facility] tified screwdown operator at [facility] BASIC METABOLIC [id number] 06:59:00* Test Item Value Reference Range Interpretation Comme nts SODIUM (test code = NA) 136 mEq/L 134-147 N POTASSIUM (test code = K) 4.1 mEq/L 3.4-5.0 N CHLORIDE (test code = CL) 104 mEq/L 100-108 N CARBON DIOXIDE (test code = CO2) 23 mEq/l 21-33 N ANION GAP (test code = GAP) 13 0-20 N GLUCOSE (test code = GLU) 145 mg/dL 77-141 H BLOOD UREA NITROGEN (test code = BUN) 13 mg/dL 7-25 N GLOMERULAR FILTRATION RATE (test code = GFR) 67.1 80-90 L The Glomerular Filtration Rate is a calculated parameterbased on serum Creatinine, patient age and sex. GFR valuesless than 60 mL/min/1.73 square meters are indicative ofChronic Kidney Disease. Values less than 15 mL/min/1.73square meters indicate Kidney failure. The calculation forGFR is based on the CKD-EPI (202) calculation. This formulais race indifferent and is the recommended formula for GFRby the National Kidney Foundation for Adults.The GFR will not calculate if the sex is unknown or if thepatient's age is <18 years. CREATININE (test code = CREAT) 1.2 mg/dL 0.6-1.3 N CALCIUM (test code = CA) 9.0 mg/dL 8.0-10.5 N [id number] 06:59:00* Test Item Value Reference Range Interpretation Comme nts MAGNESIUM (test code = MAG) 2.17 mg/dL 1.6-2.6 N CBC W/AUTO [id number] 06:44:00* Test Item Value Reference Range Interpretation Comme nts WHITE BLOOD CELL (test code = WBC) 8.4 x10 3/uL 4.5-11.0 N RED BLOOD CELL (test code = RBC) 3.37 x10 6/uL 4.00-5.60 L HEMOGLOBIN (test code = HGB) 10.5 g/dL 12.5-16.9 L HEMATOCRIT (test code = HCT) 32.8 % 37.5-50.7 L MEAN CELL VOLUME (test code = MCV) 97.3 fL 81.0-99.0 N MEAN CELL HGB (test code = MCH) 31.2 pg 27.0-33.0 N MEAN CELL HGB CONCETRATION (test code = MCHC) 32.0 g/dL 33.0-37.0 L RED CELL DISTRIBUTION WIDTH CV (test code = RDW) 12.7 % 11.5-14.5 N RED CELL DISTRIBUTION WIDTH SD (test code = RDW-SD) 45.8 fL 37.0-54.0 N PLATELET COUNT (test code = PLT) 351 x10 3/uL 150-400 N MEAN PLATELET VOLUME (test c ode = MPV) 9.3 fL 7.0-9.0 H NEUTROPHIL % (test code = NT%) 68.1 % 56.0-77.0 N IMMATURE GRANULOCYTE % (test code = IG%) 1.4 % 0.0-2.0 N LYMPHOCYTE % (test code = LY%) 13.9 % 14.0-32.0 L MONOCYTE % (test code = MO%) 12.0 % 4.8-9.0 H EOSINOPHIL % (test code = EO%) 4.0 % 0.3-3.7 H BASOPHIL % (test code = BA%) 0.6 % 0.0-2.0 N NUCLEATED RBC % (test code = NRBC%) 0.0 % 0-0 N NEUTROPHIL # (test code = NT#) 5.72 x10 3/uL 2.0-7.6 N IMMATURE GRANULOCYTE # (test code = IG#) 0.12 x10 3/uL 0.00-0.03 H LYMPHOCYTE # (test code = LY#) 1.17 x10 3/uL 1.0-3.8 N MONOCYTE # (test code = MO#) 1.01 x10 3/uL 0.1-0.8 H EOSINOPHIL # (test code = EO#) 0.34 x10 3/uL 0.0-0.2 H BASOPHIL # (test code = BA#) 0.05 x10 3/uL 0.0-0.2 N NUCLEATED RBC # (test code = NRBC#) 0.00 x10 3/uL 0.0-0.1 N GLUCOSE [id number] 19:56:00* Test Item Value Reference Range Interpretation Comme nts GLUCOSE BEDSIDE (test code = GLUBED) 189 MG/DL 70-110 H Performed by cer tified screwdown operator at [facility] GLUCOSE [id number] 16:55:00* Test Item Value Reference Range Interpretation Comme nts GLUCOSE BEDSIDE (test code = GLUBED) 126 MG/DL 70-110 H Performed by cer tified screwdown operator at [facility] GLUCOSE [id number] 13:32:00* Test Item Value Reference Range Interpretation Comme nts GLUCOSE BEDSIDE (test code = GLUBED) 170 MG/DL 70-110 H Performed by cer tified screwdown operator at [facility] GLUCOSE [id number] 07:51:00* Test Item Value Reference Range Interpretation Comme nts GLUCOSE BEDSIDE (test code = GLUBED) 166 MG/DL 70-110 H Performed by cer tified screwdown operator at [facility] BASIC METABOLIC [id number] 06:22:00* Test Item Value Reference Range Interpretation Comme nts SODIUM (test code = NA) 135 mEq/L 134-147 N POTASSIUM (test code = K) 4.2 mEq/L 3.4-5.0 N CHLORIDE (test code = CL) 101 mEq/L 100-108 N CARBON DIOXIDE (test code = CO2) 26 mEq/l 21-33 N ANION GAP (test code = GAP) 12 0-20 N GLUCOSE (test code = GLU) 145 mg/dL 77-141 H BLOOD UREA NITROGEN (test code = BUN) 15 mg/dL 7-25 N GLOMERULAR FILTRATION RATE (test code = GFR) 74.5 80-90 L The Glomerular Filtration Rate is a calculated parameterbased on serum Creatinine, patient age and sex. GFR valuesless than 60 mL/min/1.73 square meters are indicative ofChronic Kidney Disease. Values less than 15 mL/min/1.73square meters indicate Kidney failure. The calculation forGFR is based on the CKD-EPI (202) calculation. This formulais race indifferent and is the recommended formula for GFRby the National Kidney Foundation for Adults.The GFR will not calculate if the sex is unknown or if thepatient's age is <18 years. CREATININE (test code = CREAT) 1.1 mg/dL 0.6-1.3 N CALCIUM (test code = CA) 8.4 mg/dL 8.0-10.5 N [id number] 06:22:00* Test Item Value Reference Range Interpretation Comme nts MAGNESIUM (test code = MAG) 2.01 mg/dL 1.6-2.6 N CBC W/AUTO [id number] 05:50:00* Test Item Value Reference Range Interpretation Comme nts WHITE BLOOD CELL (test code = WBC) 9.0 x10 3/uL 4.5-11.0 N RED BLOOD CELL (test code = RBC) 3.22 x10 6/uL 4.00-5.60 L HEMOGLOBIN (test code = HGB) 10.3 g/dL 12.5-16.9 L HEMATOCRIT (test code = HCT) 30.7 % 37.5-50.7 L MEAN CELL VOLUME (test code = MCV) 95.3 fL 81.0-99.0 N MEAN CELL HGB (test code = MCH) 32.0 pg 27.0-33.0 N MEAN CELL HGB CONCETRATION (test code = MCHC) 33.6 g/dL 33.0-37.0 N RED CELL DISTRIBUTION WIDTH CV (test code = RDW) 12.6 % 11.5-14.5 N RED CELL DISTRIBUTION WIDTH SD (test code = RDW-SD) 43.8 fL 37.0-54.0 N PLATELET COUNT (test code = PLT) 305 x10 3/uL 150-400 N MEAN PLATELET VOLUME (test c ode = MPV) 9.5 fL 7.0-9.0 H NEUTROPHIL % (test code = NT%) 67.8 % 56.0-77.0 N IMMATURE GRANULOCYTE % (test code = IG%) 1.3 % 0.0-2.0 N LYMPHOCYTE % (test code = LY%) 14.5 % 14.0-32.0 N MONOCYTE % (test code = MO%) 12.5 % 4.8-9.0 H EOSINOPHIL % (test code = EO%) 3.6 % 0.3-3.7 N BASOPHIL % (test code = BA%) 0.3 % 0.0-2.0 N NUCLEATED RBC % (test code = NRBC%) 0.0 % 0-0 N NEUTROPHIL # (test code = NT#) 6.09 x10 3/uL 2.0-7.6 N IMMATURE GRANULOCYTE # (test code = IG#) 0.12 x10 3/uL 0.00-0.03 H LYMPHOCYTE # (test code = LY#) 1.30 x10 3/uL 1.0-3.8 N MONOCYTE # (test code = MO#) 1.12 x10 3/uL 0.1-0.8 H EOSINOPHIL # (test code = EO#) 0.32 x10 3/uL 0.0-0.2 H BASOPHIL # (test code = BA#) 0.03 x10 3/uL 0.0-0.2 N NUCLEATED RBC # (test code = NRBC#) 0.00 x10 3/uL 0.0-0.1 N GLUCOSE [id number] 21:17:00* Test Item Value Reference Range Interpretation Comme nts GLUCOSE BEDSIDE (test code = GLUBED) 215 MG/DL 70-110 H Performed by cer tified screwdown operator at [facility] GLUCOSE [id number] 17:09:00* Test Item Value Reference Range Interpretation Comme nts GLUCOSE BEDSIDE (test code = GLUBED) 142 MG/DL 70-110 H Performed by cer tified screwdown operator at [facility] GLUCOSE [id number] 11:57:00* Test Item Value Reference Range Interpretation Comme nts GLUCOSE BEDSIDE (test code = GLUBED) 234 MG/DL 70-110 H Performed by cer tified screwdown operator at [facility] GLUCOSE [id number] 11:57:00* Test Item Value Reference Range Interpretation Comme nts GLUCOSE BEDSIDE (test code = GLUBED) 168 MG/DL 70-110 H Performed by cer tified screwdown operator at [facility] BASIC METABOLIC [id number] 06:22:00* Test Item Value Reference Range Interpretation Comme nts SODIUM (test code = NA) 136 mEq/L 134-147 N POTASSIUM (test code = K) 4.1 mEq/L 3.4-5.0 N CHLORIDE (test code = CL) 102 mEq/L 100-108 N CARBON DIOXIDE (test code = CO2) 26 mEq/l 21-33 N ANION GAP (test code = GAP) 12 0-20 N GLUCOSE (test code = GLU) 152 mg/dL 77-141 H BLOOD UREA NITROGEN (test code = BUN) 14 mg/dL 7-25 N GLOMERULAR FILTRATION RATE (test code = GFR) 74.5 80-90 L The Glomerular Filtration Rate is a calculated parameterbased on serum Creatinine, patient age and sex. GFR valuesless than 60 mL/min/1.73 square meters are indicative ofChronic Kidney Disease. Values less than 15 mL/min/1.73square meters indicate Kidney failure. The calculation forGFR is based on the CKD-EPI (202) calculation. This formulais race indifferent and is the recommended formula for GFRby the National Kidney Foundation for Adults.The GFR will not calculate if the sex is unknown or if thepatient's age is <18 years. CREATININE (test code = CREAT) 1.1 mg/dL 0.6-1.3 N CALCIUM (test code = CA) 8.8 mg/dL 8.0-10.5 N [id number] 06:22:00* Test Item Value Reference Range Interpretation Comme nts MAGNESIUM (test code = MAG) 1.92 mg/dL 1.6-2.6 N CBC W/AUTO [id number] 05:43:00* Test Item Value Reference Range Interpretation Comme nts WHITE BLOOD CELL (test code = WBC) 8.9 x10 3/uL 4.5-11.0 N RED BLOOD CELL (test code = RBC) 3.20 x10 6/uL 4.00-5.60 L HEMOGLOBIN (test code = HGB) 10.3 g/dL 12.5-16.9 L HEMATOCRIT (test code = HCT) 30.6 % 37.5-50.7 L MEAN CELL VOLUME (test code = MCV) 95.6 fL 81.0-99.0 N MEAN CELL HGB (test code = MCH) 32.2 pg 27.0-33.0 N MEAN CELL HGB CONCETRATION (test code = MCHC) 33.7 g/dL 33.0-37.0 N RED CELL DISTRIBUTION WIDTH CV (test code = RDW) 12.6 % 11.5-14.5 N RED CELL DISTRIBUTION WIDTH SD (test code = RDW-SD) 44.0 fL 37.0-54.0 N PLATELET COUNT (test code = PLT) 263 x10 3/uL 150-400 N MEAN PLATELET VOLUME (test c ode = MPV) 9.6 fL 7.0-9.0 H NEUTROPHIL % (test code = NT%) 65.5 % 56.0-77.0 N IMMATURE GRANULOCYTE % (test code = IG%) 1.3 % 0.0-2.0 N LYMPHOCYTE % (test code = LY%) 15.3 % 14.0-32.0 N MONOCYTE % (test code = MO%) 13.7 % 4.8-9.0 H EOSINOPHIL % (test code = EO%) 3.9 % 0.3-3.7 H BASOPHIL % (test code = BA%) 0.3 % 0.0-2.0 N NUCLEATED RBC % (test code = NRBC%) 0.0 % 0-0 N NEUTROPHIL # (test code = NT#) 5.81 x10 3/uL 2.0-7.6 N IMMATURE GRANULOCYTE # (test code = IG#) 0.12 x10 3/uL 0.00-0.03 H LYMPHOCYTE # (test code = LY#) 1.36 x10 3/uL 1.0-3.8 N MONOCYTE # (test code = MO#) 1.22 x10 3/uL 0.1-0.8 H EOSINOPHIL # (test code = EO#) 0.35 x10 3/uL 0.0-0.2 H BASOPHIL # (test code = BA#) 0.03 x10 3/uL 0.0-0.2 N NUCLEATED RBC # (test code = NRBC#) 0.00 x10 3/uL 0.0-0.1 N GLUCOSE [id number] 20:13:00* Test Item Value Reference Range Interpretation Comme [facility] GLUCOSE BEDSIDE (test code = GLUBED) 231 MG/DL 70-110 H Performed by cer tified screwdown operator at [facility] GLUCOSE [id number] 16:54:00* Test Item Value Reference Range Interpretation Comme nts GLUCOSE BEDSIDE (test code = GLUBED) 189 MG/DL 70-110 H Performed by cer tified screwdown operator at [facility] GLUCOSE [id number] 11:38:00* Test Item Value Reference Range Interpretation Comme nts GLUCOSE BEDSIDE (test code = GLUBED) 192 MG/DL 70-110 H Performed by mk root screwdown operator at [facility] BASIC METABOLIC [id number] 05:57:00* Test Item Value Reference Range Interpretation Comme nts SODIUM (test code = NA) 137 mEq/L 134-147 N POTASSIUM (test code = K) 4.3 mEq/L 3.4-5.0 N CHLORIDE (test code = CL) 102 mEq/L 100-108 N CARBON DIOXIDE (test code = CO2) 25 mEq/l 21-33 N ANION GAP (test code = GAP) 14 0-20 N GLUCOSE (test code = GLU) 173 mg/dL 77-141 H BLOOD UREA NITROGEN (test code = BUN) 17 mg/dL 7-25 N GLOMERULAR FILTRATION RATE (test code = GFR) 67.1 80-90 L The Glomerular Filtration Rate is a calculated parameterbased on serum Creatinine, patient age and sex. GFR valuesless than 60 mL/min/1.73 square meters are indicative ofChronic Kidney Disease. Values less than 15 mL/min/1.73square meters indicate Kidney failure. The calculation forGFR is based on the CKD-EPI (202) calculation. This formulais race indifferent and is the recommended formula for GFRby the National Kidney Foundation for Adults.The GFR will not calculate if the sex is unknown or if thepatient's age is <18 years. CREATININE (test code = CREAT) 1.2 mg/dL 0.6-1.3 N CALCIUM (test code = CA) 9.0 mg/dL 8.0-10.5 N [id number] 05:57:00* Test Item Value Reference Range Interpretation Comme nts MAGNESIUM (test code = MAG) 1.96 mg/dL 1.6-2.6 N CBC W/AUTO [id number] 05:40:00* Test Item Value Reference Range Interpretation Comme nts WHITE BLOOD CELL (test code = WBC) 9.5 x10 3/uL 4.5-11.0 N RED BLOOD CELL (test code = RBC) 3.26 x10 6/uL 4.00-5.60 L HEMOGLOBIN (test code = HGB) 10.3 g/dL 12.5-16.9 L HEMATOCRIT (test code = HCT) 31.3 % 37.5-50.7 L MEAN CELL VOLUME (test code = MCV) 96.0 fL 81.0-99.0 N MEAN CELL HGB (test code = MCH) 31.6 pg 27.0-33.0 N MEAN CELL HGB CONCETRATION (test code = MCHC) 32.9 g/dL 33.0-37.0 L RED CELL DISTRIBUTION WIDTH CV (test code = RDW) 12.7 % 11.5-14.5 N RED CELL DISTRIBUTION WIDTH SD (test code = RDW-SD) 44.7 fL 37.0-54.0 N PLATELET COUNT (test code = PLT) 249 x10 3/uL 150-400 N MEAN PLATELET VOLUME (test c ode = MPV) 9.5 fL 7.0-9.0 H NEUTROPHIL % (test code = NT%) 67.0 % 56.0-77.0 N IMMATURE GRANULOCYTE % (test code = IG%) 0.9 % 0.0-2.0 N LYMPHOCYTE % (test code = LY%) 14.5 % 14.0-32.0 N MONOCYTE % (test code = MO%) 14.3 % 4.8-9.0 H EOSINOPHIL % (test code = EO%) 2.8 % 0.3-3.7 N BASOPHIL % (test code = BA%) 0.5 % 0.0-2.0 N NUCLEATED RBC % (test code = NRBC%) 0.0 % 0-0 N NEUTROPHIL # (test code = NT#) 6.39 x10 3/uL 2.0-7.6 N IMMATURE GRANULOCYTE # (test code = IG#) 0.09 x10 3/uL 0.00-0.03 H LYMPHOCYTE # (test code = LY#) 1.38 x10 3/uL 1.0-3.8 N MONOCYTE # (test code = MO#) 1.36 x10 3/uL 0.1-0.8 H EOSINOPHIL # (test code = EO#) 0.27 x10 3/uL 0.0-0.2 H BASOPHIL # (test code = BA#) 0.05 x10 3/uL 0.0-0.2 N NUCLEATED RBC # (test code = NRBC#) 0.00 x10 3/uL 0.0-0.1 N GLUCOSE [id number] 20:25:00* Test Item Value Reference Range Interpretation Comme nts GLUCOSE BEDSIDE (test code = GLUBED) 186 MG/DL 70-110 H Performed by cer tified screwdown operator at [facility] GLUCOSE [id number] 17:33:00* Test Item Value Reference Range Interpretation Comme nts GLUCOSE BEDSIDE (test code = GLUBED) 153 MG/DL 70-110 H Performed by cer tified screwdown operator at [facility] GLUCOSE [id number] 12:04:00* Test Item Value Reference Range Interpretation Comme nts GLUCOSE BEDSIDE (test code = GLUBED) 287 MG/DL 70-110 H Performed by [facility] tified screwdown operator at [facility] BASIC METABOLIC [id number] 04:51:00* Test Item Value Reference Range Interpretation Comme nts SODIUM (test code = NA) 137 mEq/L 134-147 N POTASSIUM (test code = K) 4.0 mEq/L 3.4-5.0 CHLORIDE (test code = CL) 103 mEq/L 100-108 N CARBON DIOXIDE (test code = CO2) 24 mEq/l 21-33 N ANION GAP (test code = GAP) 14 0-20 N GLUCOSE (test code = GLU) 180 mg/dL 77-141 H BLOOD UREA NITROGEN (test code = BUN) 20 mg/dL 7-25 N GLOMERULAR FILTRATION RATE (test code = GFR) 67.1 80-90 L The Glomerular Filtration Rate is a calculated parameterbased on serum Creatinine, patient age and sex. GFR valuesless than 60 mL/min/1.73 square meters are indicative ofChronic Kidney Disease. Values less than 15 mL/min/1.73square meters indicate Kidney failure. The calculation forGFR is based on the CKD-EPI (2020) calculation. This formulais race indifferent and is the recommended formula for GFRby the National Kidney Foundation for Adults.The GFR will not calculate if the sex is unknown or if thepatient's age is <18 years. CREATININE (test code = CREAT) 1.2 mg/dL 0.6-1.3 N CALCIUM (test code = CA) 8.9 mg/dL 8.0-10.5 N [id number] 04:51:00* Test Item Value Reference Range Interpretation Comme nts PHOSPHOROUS (test code = PHOS) 3.5 MG/DL 2.5-4.9 N [id number] 04:51:00* Test Item Value Reference Range Interpretation Comme nts MAGNESIUM (test code = MAG) 2.14 mg/dL 1.6-2.6 N CALCIUM [id number] 04:51:00* Test Item Value Reference Range Interpretation Comme nts CALCIUM IONIZED (test code = STACY) 1.15 MMOL/L 1.09-1.30 N CBC W/AUTO [id number] 04:10:00* Test Item Value Reference Range Interpretation Comme nts WHITE BLOOD CELL (test code = WBC) 8.0 x10 3/uL 4.5-11.0 N RED BLOOD CELL (test code = RBC) 3.32 x10 6/uL 4.00-5.60 L HEMOGLOBIN (test code = HGB) 10.6 g/dL 12.5-16.9 L HEMATOCRIT (test code = HCT) 31.3 % 37.5-50.7 L MEAN CELL VOLUME (test code = MCV) 94.3 fL 81.0-99.0 N MEAN CELL HGB (test code = MCH) 31.9 pg 27.0-33.0 N MEAN CELL HGB CONCETRATION (test code = MCHC) 33.9 g/dL 33.0-37.0 N RED CELL DISTRIBUTION WIDTH CV (test code = RDW) 12.5 % 11.5-14.5 N RED CELL DISTRIBUTION WIDTH SD (test code = RDW-SD) 43.4 fL 37.0-54.0 N PLATELET COUNT (test code = PLT) 207 x10 3/uL 150-400 N MEAN PLATELET VOLUME (test c ode = MPV) 9.7 fL 7.0-9.0 H NEUTROPHIL % (test code = NT%) 69.0 % 56.0-77.0 N IMMATURE GRANULOCYTE % (test code = IG%) 0.8 % 0.0-2.0 N LYMPHOCYTE % (test code = LY%) 12.5 % 14.0-32.0 L MONOCYTE % (test code = MO%) 14.8 % 4.8-9.0 H EOSINOPHIL % (test code = EO%) 2.6 % 0.3-3.7 N BASOPHIL % (test code = BA%) 0.3 % 0.0-2.0 N NUCLEATED RBC % (test code = NRBC%) 0.0 % 0-0 N NEUTROPHIL # (test code = NT#) 5.52 x10 3/uL 2.0-7.6 N IMMATURE GRANULOCYTE # (test code = IG#) 0.06 x10 3/uL 0.00-0.03 H LYMPHOCYTE # (test code = LY#) 1.00 x10 3/uL 1.0-3.8 N MONOCYTE # (test code = MO#) 1.18 x10 3/uL 0.1-0.8 H EOSINOPHIL # (test code = EO#) 0.21 x10 3/uL 0.0-0.2 H BASOPHIL # (test code = BA#) 0.02 x10 3/uL 0.0-0.2 N NUCLEATED RBC # (test code = NRBC#) 0.00 x10 3/uL 0.0-0.1 N GLUCOSE [id number] 20:24:00* Test Item Value Reference Range Interpretation Comme [facility] GLUCOSE BEDSIDE (test code = GLUBED) 185 MG/DL 70-110 H Performed by cer Knowrom screwdown operator at [facility] GLUCOSE [id number] 16:42:00* Test Item Value Reference Range Interpretation Comme [facility] GLUCOSE BEDSIDE (test code = GLUBED) 179 MG/DL 70-110 H Performed by [employer] screwdown operator at [facility] GLUCOSE [id number] 11:50:00* Test Item Value Reference Range Interpretation Comme [facility] GLUCOSE BEDSIDE (test code = GLUBED) 255 MG/DL 70-110 H Performed by cer Knowrom screwdown operator at [facility] BASIC METABOLIC [id number] 06:24:00* Test Item Value Reference Range Interpretation Comme nts SODIUM (test code = NA) 137 mEq/L 134-147 N POTASSIUM (test code = K) 3.3 mEq/L 3.4-5.0 L CHLORIDE (test code = CL) 98 mEq/L 100-108 L CARBON DIOXIDE (test code = CO2) 29 mEq/l 21-33 N ANION GAP (test code = GAP) 13 0-20 N GLUCOSE (test code = GLU) 190 mg/dL 77-141 H BLOOD UREA NITROGEN (test code = BUN) 24 mg/dL 7-25 N GLOMERULAR FILTRATION RATE (test code = GFR) 55.8 80-90 L The Glomerular Filtration Rate is a calculated parameterbased on serum Creatinine, patient age and sex. GFR valuesless than 60 mL/min/1.73 square meters are indicative ofChronic Kidney Disease. Values less than 15 mL/min/1.73square meters indicate Kidney failure. The calculation forGFR is based on the CKD-EPI (2021) calculation. This formulais race indifferent and is the recommended formula for GFRby the National Kidney Foundation for Adults.The GFR will not calculate if the sex is unknown or if thepatient's age is <18 years. CREATININE (test code = CREAT) 1.4 mg/dL 0.6-1.3 H CALCIUM (test code = CA) 8.6 mg/dL 8.0-10.5 N BASIC METABOLIC [id number] 05:21:00* Test Item Value Reference Range Interpretation Comme nts SODIUM (test code = NA) 136 mEq/L 134-147 N POTASSIUM (test code = K) 5.2 mEq/L 3.4-5.0 H SPECIMEN 1+ HEMOLYZED.Results known to be adversely affected by hemolysis are: Potassium Magnesium LDH Phosphorus CHLORIDE (test code = CL) 98 mEq/L 100-108 L CARBON DIOXIDE (test code = CO2) 29 mEq/l 21-33 N ANION GAP (test code = GAP) 14 0-20 N GLUCOSE (test code = GLU) 190 mg/dL 77-141 H BLOOD UREA NITROGEN (test code = BUN) 23 mg/dL 7-25 N GLOMERULAR FILTRATION RATE (test code = GFR) 51.3 80-90 L The Glomerular Filtration Rate is a calculated parameterbased on serum Creatinine, patient age and sex. GFR valuesless than 60 mL/min/1.73 square meters are indicative ofChronic Kidney Disease. Values less than 15 mL/min/1.73square meters indicate Kidney failure. The calculation forGFR is based on the CKD-EPI (2021) calculation. This formulais race indifferent and is the recommended formula for GFRby the National Kidney Foundation for Adults.The GFR will not calculate if the sex is unknown or if thepatient's age is <18 years. CREATININE (test code = CREAT) 1.5 mg/dL 0.6-1.3 H CALCIUM (test code = CA) 8.3 mg/dL 8.0-10.5 N [id number] 05:21:00* Test Item Value Reference Range Interpretation Comme nts PHOSPHOROUS (test code = PHOS) 3.6 MG/DL 2.5-4.9 N [id number] 05:21:00* Test Item Value Reference Range Interpretation Comme nts MAGNESIUM (test code = MAG) 2.13 mg/dL 1.6-2.6 N CALCIUM [id number] 05:21:00* Test Item Value Reference Range Interpretation Comme nts CALCIUM IONIZED (test code = STACY) 1.07 MMOL/L 1.09-1.30 L CBC W/AUTO [id number] 04:38:00* Test Item Value Reference Range Interpretation Comme nts WHITE BLOOD CELL (test code = WBC) 8.7 x10 3/uL 4.5-11.0 N RED BLOOD CELL (test code = RBC) 3.51 x10 6/uL 4.00-5.60 L HEMOGLOBIN (test code = HGB) 11.4 g/dL 12.5-16.9 L HEMATOCRIT (test code = HCT) 33.3 % 37.5-50.7 L MEAN CELL VOLUME (test code = MCV) 94.9 fL 81.0-99.0 N MEAN CELL HGB (test code = MCH) 32.5 pg 27.0-33.0 N MEAN CELL HGB CONCETRATION (test code = MCHC) 34.2 g/dL 33.0-37.0 N RED CELL DISTRIBUTION WIDTH CV (test code = RDW) 12.6 % 11.5-14.5 N RED CELL DISTRIBUTION WIDTH SD (test code = RDW-SD) 43.9 fL 37.0-54.0 N PLATELET COUNT (test code = PLT) 179 x10 3/uL 150-400 N MEAN PLATELET VOLUME (test c ode = MPV) 10.1 fL 7.0-9.0 H NEUTROPHIL % (test code = NT%) 70.0 % 56.0-77.0 N IMMATURE GRANULOCYTE % (test code = IG%) 0.5 % 0.0-2.0 N LYMPHOCYTE % (test code = LY%) 11.8 % 14.0-32.0 L MONOCYTE % (test code = MO%) 15.0 % 4.8-9.0 H EOSINOPHIL % (test code = EO%) 2.5 % 0.3-3.7 N BASOPHIL % (test code = BA%) 0.2 % 0.0-2.0 N NUCLEATED RBC % (test code = NRBC%) 0.2 % 0-0 H NEUTROPHIL # (test code = NT#) 6.11 x10 3/uL 2.0-7.6 N IMMATURE GRANULOCYTE # (test code = IG#) 0.04 x10 3/uL 0.00-0.03 H LYMPHOCYTE # (test code = LY#) 1.03 x10 3/uL 1.0-3.8 N MONOCYTE # (test code = MO#) 1.31 x10 3/uL 0.1-0.8 H EOSINOPHIL # (test code = EO#) 0.22 x10 3/uL 0.0-0.2 H BASOPHIL # (test code = BA#) 0.02 x10 3/uL 0.0-0.2 N NUCLEATED RBC # (test code = NRBC#) 0.02 x10 3/uL 0.0-0.1 N GLUCOSE [id number] 20:49:00* Test Item Value Reference Range Interpretation Comme nts GLUCOSE BEDSIDE (test code = GLUBED) 218 MG/DL 70-110 H Performed by cer ivett screwdown operator at [facility] BASIC METABOLIC [id number] 17:49:00* Test Item Value Reference Range Interpretation Comme nts SODIUM (test code = NA) 134 mEq/L 134-147 N POTASSIUM (test code = K) 3.5 mEq/L 3.4-5.0 N CHLORIDE (test code = CL) 95 mEq/L 100-108 L CARBON DIOXIDE (test code = CO2) 27 mEq/l 21-33 N ANION GAP (test code = GAP) 15 0-20 N GLUCOSE (test code = GLU) 248 mg/dL 77-141 H BLOOD UREA NITROGEN (test code = BUN) 23 mg/dL 7-25 N GLOMERULAR FILTRATION RATE (test code = GFR) 55.8 80-90 L The Glomerular Filtration Rate is a calculated parameterbased on serum Creatinine, patient age and sex. GFR valuesless than 60 mL/min/1.73 square meters are indicative ofChronic Kidney Disease. Values less than 15 mL/min/1.73square meters indicate Kidney failure. The calculation forGFR is based on the CKD-EPI (202) calculation. This formulais race indifferent and is the recommended formula for GFRby the National Kidney Foundation for Adults.The GFR will not calculate if the sex is unknown or if thepatient's age is <18 years. CREATININE (test code = CREAT) 1.4 mg/dL 0.6-1.3 H CALCIUM (test code = CA) 8.6 mg/dL 8.0-10.5 N GLUCOSE [id number] 16:34:00* Test Item Value Reference Range Interpretation Comme nts GLUCOSE BEDSIDE (test code = GLUBED) 174 MG/DL 70-110 H Performed by [employer] screwdown operator at [facility] GLUCOSE [id number] 11:25:00* Test Item Value Reference Range Interpretation Comme nts GLUCOSE BEDSIDE (test code = GLUBED) 246 MG/DL 70-110 H Performed by [employer] screwdown operator at [facility] GLUCOSE [id number] 07:51:00* Test Item Value Reference Range Interpretation Comme nts GLUCOSE BEDSIDE (test code = GLUBED) 221 MG/DL 70-110 H Performed by [employer] screwdown operator at [facility] BASIC METABOLIC [id number] 02:40:00* Test Item Value Reference Range Interpretation Comme nts SODIUM (test code = NA) 134 mEq/L 134-147 N POTASSIUM (test code = K) 3.6 mEq/L 3.4-5.0 N CHLORIDE (test code = CL) 96 mEq/L 100-108 L CARBON DIOXIDE (test code = CO2) 28 mEq/l 21-33 N ANION GAP (test code = GAP) 14 0-20 N GLUCOSE (test code = GLU) 187 mg/dL 77-141 H BLOOD UREA NITROGEN (test code = BUN) 20 mg/dL 7-25 N GLOMERULAR FILTRATION RATE (test code = GFR) 74.5 80-90 L The Glomerular Filtration Rate is a calculated parameterbased on serum Creatinine, patient age and sex. GFR valuesless than 60 mL/min/1.73 square meters are indicative ofChronic Kidney Disease. Values less than 15 mL/min/1.73square meters indicate Kidney failure. The calculation forGFR is based on the CKD-EPI (2020) calculation. This formulais race indifferent and is the recommended formula for GFRby the National Kidney Foundation for Adults.The GFR will not calculate if the sex is unknown or if thepatient's age is <18 years. CREATININE (test code = CREAT) 1.1 mg/dL 0.6-1.3 N CALCIUM (test code = CA) 8.4 mg/dL 8.0-10.5 N [id number] 02:40:00* Test Item Value Reference Range Interpretation Comme nts PHOSPHOROUS (test code = PHOS) 2.6 MG/DL 2.5-4.9 N [id number] 02:40:00* Test Item Value Reference Range Interpretation Comme nts MAGNESIUM (test code = MAG) 1.83 mg/dL 1.6-2.6 N CALCIUM [id number] 02:40:00* Test Item Value Reference Range Interpretation Comme nts CALCIUM IONIZED (test code = STACY) 1.10 MMOL/L 1.09-1.30 N CBC W/AUTO [id number] 02:26:00* Test Item Value Reference Range Interpretation Comme nts WHITE BLOOD CELL (test code = WBC) 10.4 x10 3/uL 4.5-11.0 N RED BLOOD CELL (test code = RBC) 3.41 x10 6/uL 4.00-5.60 L HEMOGLOBIN (test code = HGB) 10.9 g/dL 12.5-16.9 L HEMATOCRIT (test code = HCT) 32.3 % 37.5-50.7 L MEAN CELL VOLUME (test code = MCV) 94.7 fL 81.0-99.0 MEAN CELL HGB (test code = MCH) 32.0 pg 27.0-33.0 N MEAN CELL HGB CONCETRATION (test code = MCHC) 33.7 g/dL 33.0-37.0 N RED CELL DISTRIBUTION WIDTH CV (test code = RDW) 12.4 % 11.5-14.5 N RED CELL DISTRIBUTION WIDTH SD (test code = RDW-SD) 43.2 fL 37.0-54.0 N PLATELET COUNT (test code = PLT) 144 x10 3/uL 150-400 L MEAN PLATELET VOLUME (test c ode = MPV) 10.2 fL 7.0-9.0 H NEUTROPHIL % (test code = NT%) 73.7 % 56.0-77.0 N IMMATURE GRANULOCYTE % (test code = IG%) 0.7 % 0.0-2.0 N LYMPHOCYTE % (test code = LY%) 10.5 % 14.0-32.0 L MONOCYTE % (test code = MO%) 12.7 % 4.8-9.0 H EOSINOPHIL % (test code = EO%) 2.1 % 0.3-3.7 N BASOPHIL % (test code = BA%) 0.3 % 0.0-2.0 N NUCLEATED RBC % (test code = NRBC%) 0.0 % 0-0 N NEUTROPHIL # (test code = NT#) 7.66 x10 3/uL 2.0-7.6 H IMMATURE GRANULOCYTE # (test code = IG#) 0.07 x10 3/uL 0.00-0.03 H LYMPHOCYTE # (test code = LY#) 1.09 x10 3/uL 1.0-3.8 N MONOCYTE # (test code = MO#) 1.32 x10 3/uL 0.1-0.8 H EOSINOPHIL # (test code = EO#) 0.22 x10 3/uL 0.0-0.2 H BASOPHIL # (test code = BA#) 0.03 x10 3/uL 0.0-0.2 N NUCLEATED RBC # (test code = NRBC#) 0.00 x10 3/uL 0.0-0.1 N GLUCOSE [id number] 20:39:00* Test Item Value Reference Range Interpretation Comme nts GLUCOSE BEDSIDE (test code = GLUBED) 195 MG/DL 70-110 H Performed by cer tified screwdown operator at [facility] GLUCOSE [id number] 16:33:00* Test Item Value Reference Range Interpretation Comme nts GLUCOSE BEDSIDE (test code = GLUBED) 204 MG/DL 70-110 H Performed by cer Knowrom screwdown operator at [facility] GLUCOSE [id number] 12:02:00* Test Item Value Reference Range Interpretation Comme nts GLUCOSE BEDSIDE (test code = GLUBED) 283 MG/DL 70-110 H Performed by [employer] screwdown operator at [facility] BASIC METABOLIC [id number] 05:05:00* Test Item Value Reference Range Interpretation Comme nts SODIUM (test code = NA) 132 mEq/L 134-147 L POTASSIUM (test code = K) 4.5 mEq/L 3.4-5.0 N CHLORIDE (test code = CL) 99 mEq/L 100-108 L CARBON DIOXIDE (test code = CO2) 25 mEq/l 21-33 N ANION GAP (test code = GAP) 13 0-20 N GLUCOSE (test code = GLU) 199 mg/dL 77-141 H BLOOD UREA NITROGEN (test code = BUN) 17 mg/dL 7-25 N GLOMERULAR FILTRATION RATE (test code = GFR) 74.5 80-90 L The Glomerular Filtration Rate is a calculated parameterbased on serum Creatinine, patient age and sex. GFR valuesless than 60 mL/min/1.73 square meters are indicative ofChronic Kidney Disease. Values less than 15 mL/min/1.73square meters indicate Kidney failure. The calculation forGFR is based on the CKD-EPI (2020) calculation. This formulais race indifferent and is the recommended formula for GFRby the National Kidney Foundation for Adults.The GFR will not calculate if the sex is unknown or if thepatient's age is <18 years. CREATININE (test code = CREAT) 1.1 mg/dL 0.6-1.3 N CALCIUM (test code = CA) 8.6 mg/dL 8.0-10.5 N HEPATIC FUNCTION [id number] 05:05:00* Test Item Value Reference Range Interpretation Comme nts TOTAL PROTEIN (test code = PROT) 6.5 g/dL 5.7-8.2 N Note change in REFERENCE RANGE due to change in REAGENT. ALBUMIN (test code = ALB) 3.50 g/dL 3.4-5.0 N BILIRUBIN TOTAL (test code = BILT) 0.80 mg/dL 0.0-1.0 N BILIRUBIN DIRECT (test code = BILD) 0.40 MG/DL 0.1-0.3 H BILIRUBIN INDIRECT (test code = BILIND) 0.40 MG/DL SGOT/AST (test code = AST) 29 IUnit/L 8-34 N SGPT/ALT (test code = ALT) 24 IUnit/L 10-49 N ALKALINE PHOSPHATASE TOTAL (test code = ALKP) 57 IUnit/L 20-125 N [id number] 05:05:00* Test Item Value Reference Range Interpretation Comme nts MAGNESIUM (test code = MAG) 1.93 mg/dL 1.6-2.6 N CBC W/AUTO [id number] 04:32:00* Test Item Value Reference Range Interpretation Comme nts WHITE BLOOD CELL (test code = WBC) 12.4 x10 3/uL 4.5-11.0 H RED BLOOD CELL (test code = RBC) 3.58 x10 6/uL 4.00-5.60 L HEMOGLOBIN (test code = HGB) 11.7 g/dL 12.5-16.9 L HEMATOCRIT (test code = HCT) 35.0 % 37.5-50.7 L MEAN CELL VOLUME (test code = MCV) 97.8 fL 81.0-99.0 N MEAN CELL HGB (test code = MCH) 32.7 pg 27.0-33.0 N MEAN CELL HGB CONCETRATION (test code = MCHC) 33.4 g/dL 33.0-37.0 N RED CELL DISTRIBUTION WIDTH CV (test code = RDW) 12.9 % 11.5-14.5 N RED CELL DISTRIBUTION WIDTH SD (test code = RDW-SD) 46.2 fL 37.0-54.0 N PLATELET COUNT (test code = PLT) 101 x10 3/uL 150-400 L MEAN PLATELET VOLUME (test c ode = MPV) 10.6 fL 7.0-9.0 H NEUTROPHIL % (test code = NT%) 75.0 % 56.0-77.0 N IMMATURE GRANULOCYTE % (test code = IG%) 0.6 % 0.0-2.0 N LYMPHOCYTE % (test code = LY%) 11.0 % 14.0-32.0 L MONOCYTE % (test code = MO%) 12.4 % 4.8-9.0 H EOSINOPHIL % (test code = EO%) 0.7 % 0.3-3.7 N BASOPHIL % (test code = BA%) 0.3 % 0.0-2.0 N NUCLEATED RBC % (test code = NRBC%) 0.0 % 0-0 N NEUTROPHIL # (test code = NT#) 9.26 x10 3/uL 2.0-7.6 H IMMATURE GRANULOCYTE # (test code = IG#) 0.07 x10 3/uL 0.00-0.03 H LYMPHOCYTE # (test code = LY#) 1.36 x10 3/uL 1.0-3.8 N MONOCYTE # (test code = MO#) 1.53 x10 3/uL 0.1-0.8 H EOSINOPHIL # (test code = EO#) 0.09 x10 3/uL 0.0-0.2 N BASOPHIL # (test code = BA#) 0.04 x10 3/uL 0.0-0.2 N NUCLEATED RBC # (test code = NRBC#) 0.00 x10 3/uL 0.0-0.1 N GLUCOSE [id number] 20:21:00* Test Item Value Reference Range Interpretation Comme [facility] GLUCOSE BEDSIDE (test code = GLUBED) 199 MG/DL 70-110 H Performed by cer tified screwdown operator at [facility] GLUCOSE [id number] 16:54:00* Test Item Value Reference Range Interpretation Comme [facility] GLUCOSE BEDSIDE (test code = GLUBED) 236 MG/DL 70-110 H Performed by cer tified screwdown operator at [facility] [id number] 15:29:00* Test Item Value Reference Range Interpretation Comments SURGICAL (test code = SR) RUN DATE: 03/18/25 [facility] - LAB PAGE 1 RUN TIME: 1529 Specimen Inquiry RUN USER: INTERFACE PATIENT: LAKEISHA NORRIS LOC: [place] U #: [id number] AGE/SX: 64/M [place] [facility] [place] DR: Marlene Padilla MD : 58 BED: 1 DIS: STATUS: ADM IN TLOC: SPEC #: [id number] RECD: 03/17/25 STATUS: TA REQ #: [id number] HEMA: 03/16/25- DR: Marlene Padilla MD ENTERED: 03/17/25 SP TYPE: SURGICAL OTHR DR: No Primary or Family Physician Self Referred Gaviota Winston MD, Curtis S DO Lee, Gabriel MD Voloyiannis, Theodoros MDORDERED: [id number], [id number], [id number], ANATOMIC SPEC COPIES TO: No Primary or Family Physician Self Referred Gaviota Winston MD [address] [place] [address] Marlene Padilal MD [address] [place] [address] Thierno Bradley DO [phone] Keenan Carter MD [address] [facility] [address] [place] [address] Earnestine Bean MD [address] [place] [address] [email or web address] PROCEDURES: [id number] (03/18/25-1522) 46563 (03/17/25-929) 28520 (03/18/25-151) CONTINUED ON NEXT PAGE RUN DATE: 03/18/25 [facility] - LAB PAGE 2 RUN TIME: 1529 Specimen Inquiry RUN USER: INTERFACE SPEC #: [id number] PATIENT: LAKEISHA NORRIS #[id number] (Continued) - TISSUES: A. ATRIUM - APPENDAGE, LEFT B. AORTIC VALVE CLINICAL HISTORY SAME FINAL DIAGNOSIS 1. Heart, left atrial appendage, wedge biopsy: - Myocardium with focal mild ischemic change. 2. Aortic valve leaflets, excision: - Fibrous valvular tissue with extensive calcification, dense fibrosis and focal myxoidchange GROSS DESCRIPTION Specimen is received in formalin, in 2 parts each labeled with patient's name, MRN, date ofbirth.1. specimen is labeled left atrial appendage. It consists of an irregular fragment ofsoft cordova-brown -yellow tissue. It measures 3.1 x 2.2 x 0.7 cm in maximal dimensions. Snow Removing Supervisor sections are submitted in cassette A. 2. Specimen is labeled aortic valve leaflets. A it consists of a 3.9 x 3.1 x 0.4 cmaggregate of multiple fragments of soft cordova-askew leaflet like tissue with focalcalcifications. The fragments range from 0.4 cm to 3.2 cm in greatest dimension. Snow Removing Supervisor sections are submitted in cassette B after decalcification. Technical component performed at [facility],[address] [place] [address], [place] [address] Unless gross only, the diagnosis is based upon microscopic examination.Immunohistochemistry: This test was developed and its performance characteristicsdetermined by this laboratory. It has not been approved nor does it need approvalby the [place] FDA. Appropriate positive and negative controls are reviewed and judgedto be acceptable for performedimmunohistochemistry and/or special stains. This laboratoryis certified under the Clinical Laboratory Improvement Amendments (CLIA-88) as qualified toperform high complexity clinical laboratory testing. MICROSCOPIC DESCRIPTION A microscopic examination was performed. CONTINUED ON NEXT PAGE RUN DATE: 03/18/25 [facility] - LAB PAGE 3 RUN TIME: 1529 Specimen Inquiry RUN USER: INTERFACE SPEC #: [id number] PATIENT: LAKEISHA NORRIS #[id number] (Continued) - CLINICAL INFORMATION AORTIC STENOSIS Signed Sommer WeinsteinShelly 03/18/25 1529 END OF REPORT GLUCOSE [id number] 12:03:00* Test Item Value Reference Range Interpretation Comme nts GLUCOSE BEDSIDE (test code = GLUBED) 252 MG/DL 70-110 H Performed by cer ivett screwdown operator at [facility] BASIC METABOLIC [id number] 03:35:00* Test Item Value Reference Range Interpretation Comme [facility] SODIUM (test code = NA) 136 mEq/L 134-147 N POTASSIUM (test code = K) 4.4 mEq/L 3.4-5.0 N CHLORIDE (test code = CL) 102 mEq/L 100-108 N CARBON DIOXIDE (test code = CO2) 24 mEq/l 21-33 N ANION GAP (test code = GAP) 15 0-20 N GLUCOSE (test code = GLU) 174 mg/dL 77-141 H BLOOD UREA NITROGEN (test code = BUN) 12 mg/dL 7-25 N GLOMERULAR FILTRATION RATE (test code = GFR) 74.5 80-90 L The Glomerular Filtration Rate is a calculated parameterbased on serum Creatinine, patient age and sex. GFR valuesless than 60 mL/min/1.73 square meters are indicative ofChronic Kidney Disease. Values less than 15 mL/min/1.73square meters indicate Kidney failure. The calculation forGFR is based on the CKD-EPI (2020) calculation. This formulais race indifferent and is the recommended formula for GFRby the National Kidney Foundation for Adults.The GFR will not calculate if the sex is unknown or if thepatient's age is <18 years. CREATININE (test code = CREAT) 1.1 mg/dL 0.6-1.3 N CALCIUM (test code = CA) 9.0 mg/dL 8.0-10.5 N HEPATIC FUNCTION [id number] 03:35:00* Test Item Value Reference Range Interpretation Comme nts TOTAL PROTEIN (test code = PROT) 6.9 g/dL 5.7-8.2 Note change in REFERENCE RANGE due to change in REAGENT. ALBUMIN (test code = ALB) 4.10 g/dL 3.4-5.0 N BILIRUBIN TOTAL (test code = BILT) 1.20 mg/dL 0.0-1.0 H BILIRUBIN DIRECT (test code = BILD) 0.50 MG/DL 0.1-0.3 H BILIRUBIN INDIRECT (test code = BILIND) 0.70 MG/DL SGOT/AST (test code = AST) 34 IUnit/L 8-34 N SGPT/ALT (test code = ALT) 21 IUnit/L 10-49 N ALKALINE PHOSPHATASE TOTAL (test code = ALKP) 50 IUnit/L 20-125 N [id number] 03:35:00* Test Item Value Reference Range Interpretation Comme nts MAGNESIUM (test code = MAG) 2.09 mg/dL 1.6-2.6 N CBC W/AUTO [id number] 03:20:00* Test Item Value Reference Range Interpretation Comme nts WHITE BLOOD CELL (test code = WBC) 13.6 x10 3/uL 4.5-11.0 H RED BLOOD CELL (test code = RBC) 4.02 x10 6/uL 4.00-5.60 N HEMOGLOBIN (test code = HGB) 13.0 g/dL 12.5-16.9 N HEMATOCRIT (test code = HCT) 40.4 % 37.5-50.7 N MEAN CELL VOLUME (test code = MCV) 100.5 fL 81.0-99.0 H MEAN CELL HGB (test code = MCH) 32.3 pg 27.0-33.0 N MEAN CELL HGB CONCETRATION (test code = MCHC) 32.2 g/dL 33.0-37.0 L RED CELL DISTRIBUTION WIDTH CV (test code = RDW) 13.2 % 11.5-14.5 N RED CELL DISTRIBUTION WIDTH SD (test code = RDW-SD) 48.8 fL 37.0-54.0 N PLATELET COUNT (test code = PLT) 101 x10 3/uL 150-400 L MEAN PLATELET VOLUME (test c ode = MPV) 9.7 fL 7.0-9.0 H NEUTROPHIL % (test code = NT%) 72.3 % 56.0-77.0 N IMMATURE GRANULOCYTE % (test code = IG%) 0.5 % 0.0-2.0 N LYMPHOCYTE % (test code = LY%) 11.9 % 14.0-32.0 L MONOCYTE % (test code = MO%) 14.8 % 4.8-9.0 H EOSINOPHIL % (test code = EO%) 0.1 % 0.3-3.7 L BASOPHIL % (test code = BA%) 0.4 % 0.0-2.0 N NUCLEATED RBC % (test code = NRBC%) 0.0 % 0-0 N NEUTROPHIL # (test code = NT#) 9.79 x10 3/uL 2.0-7.6 H IMMATURE GRANULOCYTE # (test code = IG#) 0.07 x10 3/uL 0.00-0.03 H LYMPHOCYTE # (test code = LY#) 1.61 x10 3/uL 1.0-3.8 N MONOCYTE # (test code = MO#) 2.01 x10 3/uL 0.1-0.8 H EOSINOPHIL # (test code = EO#) 0.02 x10 3/uL 0.0-0.2 N BASOPHIL # (test code = BA#) 0.06 x10 3/uL 0.0-0.2 N NUCLEATED RBC # (test code = NRBC#) 0.00 x10 3/uL 0.0-0.1 N GLUCOSE [id number] 20:54:00* Test Item Value Reference Range Interpretation Comme nts GLUCOSE BEDSIDE (test code = GLUBED) 192 MG/DL 70-110 H Performed by cer tified screwdown operator at [facility] GLUCOSE [id number] 17:31:00* Test Item Value Reference Range Interpretation Comme nts GLUCOSE BEDSIDE (test code = GLUBED) 207 MG/DL 70-110 H Performed by cer tified screwdown operator at [facility] BASIC METABOLIC [id number] 16:06:00* Test Item Value Reference Range Interpretation Comme nts SODIUM (test code = NA) 136 mEq/L 134-147 N POTASSIUM (test code = K) 4.4 mEq/L 3.4-5.0 N CHLORIDE (test code = CL) 104 mEq/L 100-108 N CARBON DIOXIDE (test code = CO2) 23 mEq/l 21-33 N ANION GAP (test code = GAP) 14 0-20 N GLUCOSE (test code = GLU) 210 mg/dL 77-141 H BLOOD UREA NITROGEN (test code = BUN) 14 mg/dL 7-25 N GLOMERULAR FILTRATION RATE (test code = GFR) 74.5 80-90 L The Glomerular Filtration Rate is a calculated parameterbased on serum Creatinine, patient age and sex. GFR valuesless than 60 mL/min/1.73 square meters are indicative ofChronic Kidney Disease. Values less than 15 mL/min/1.73square meters indicate Kidney failure. The calculation forGFR is based on the CKD-EPI (2020) calculation. This formulais race indifferent and is the recommended formula for GFRby the [employer] for Adults.The GFR will not calculate if the sex is unknown or if thepatient's age is <18 years. CREATININE (test code = CREAT) 1.1 mg/dL 0.6-1.3 N CALCIUM (test code = CA) 8.3 mg/dL 8.0-10.5 N [id number] 16:06:00* Test Item Value Reference Range Interpretation Comme nts PHOSPHOROUS (test code = PHOS) 2.2 MG/DL 2.5-4.9 L [id number] 16:06:00* Test Item Value Reference Range Interpretation Comme nts MAGNESIUM (test code = MAG) 1.97 mg/dL 1.6-2.6 N GLUCOSE [id number] 11:53:00* Test Item Value Reference Range Interpretation Comme nts GLUCOSE BEDSIDE (test code = GLUBED) 215 MG/DL 70-110 H Performed by cer tified screwdown operator at [facility] GLUCOSE [id number] 07:33:00* Test Item Value Reference Range Interpretation Comme nts GLUCOSE BEDSIDE (test code = GLUBED) 132 MG/DL 70-110 H Performed by cer tified screwdown operator at [facility] GLUCOSE [id number] 06:30:00* Test Item Value Reference Range Interpretation Comme nts GLUCOSE BEDSIDE (test code = GLUBED) 162 MG/DL 70-110 H Performed by cer tified screwdown operator at [facility] POC ARTERIAL BLOOD [id number] 04:34:00* Test Item Value Reference Range Interpretation Comme [facility] POC ARTERIAL BLOOD GAS PH (test code = POCPHA) 7.423 7.35-7.45 N POC ARTERIAL BLOOD GAS PCO2 (test code = HAICTD2A) 39.9 mmHg 35.0-45 N POC TCO2 ARTERIAL (test code = POCTCO2) 27.1 22-29 N POC ARTERIAL BLOOD GAS PO2 (test code = HWVLU2X) 92.1 mmHg 80-100.0 N POC HCO3 ARTERIAL (test code = TIKECQ4P) 25.9 MMOL/L 22.0-26.0 N POC BASE EXCESS (test code = POCBEA) 1.6 MMOL/L See_Comment N [Automated messa ge] The system which generated this result transmitted reference range: 0-+/-4. The reference range was not used to interpret this result as normal/abnormal. POC O2 SATURATION (test code = POCO2S) 97.0 % 90-100 N ABG DELIVERY (test code = TYLER) Cannula ABG TEMPERATURE (test code = TEMPA) 99.9 F ABG SITE (test code = SITEA) Art Line VALDEMAR'S TEST (test code = ALLENS) N/A BASIC METABOLIC [id number] 04:34:00* Test Item Value Reference Range Interpretation Comme [facility] SODIUM (test code = NA/ABG) 143 mmol/L 134-147 N POTASSIUM (test code = K/ABG) 4.0 mmol/L 3.4-5.0 N CHLORIDE (test code = CL/ABG) 112 mmol/L 100-108 H CREATININE ABG (test code = CREAABG) 1.1 mg/dL 0.6-1.3 N POC IONIZED CALCIUM (test co de = POCCA) 1.19 MMOL/L 1.12-1.32 N POC GLUCOSE (test code = POCGLU) 184 MG/DL 70-110 H HEMOGLOBIN [id number] 04:34:00* Test Item Value Reference Range Interpretation Comme nts HEMOGLOBIN ABG (test code = HGB/ABG) 12.0 G/DL 12.5-16.9 L [id number] 04:34:00* Test Item Value Reference Range Interpretation Comme nts HEMATOCRIT (test code = HCT/ABG) 35 % 38-51 L BASIC METABOLIC [id number] 03:25:00* Test Item Value Reference Range Interpretation Comme nts SODIUM (test code = NA) 141 mEq/L 134-147 N POTASSIUM (test code = K) 4.5 mEq/L 3.4-5.0 N CHLORIDE (test code = CL) 108 mEq/L 100-108 N CARBON DIOXIDE (test code = CO2) 24 mEq/l 21-33 N ANION GAP (test code = GAP) 14 0-20 N GLUCOSE (test code = GLU) 183 mg/dL 77-141 H BLOOD UREA NITROGEN (test code = BUN) 15 mg/dL 7-25 N GLOMERULAR FILTRATION RATE (test code = GFR) 55.8 80-90 L The Glomerular Filtration Rate is a calculated parameterbased on serum Creatinine, patient age and sex. GFR valuesless than 60 mL/min/1.73 square meters are indicative ofChronic Kidney Disease. Values less than 15 mL/min/1.73square meters indicate Kidney failure. The calculation forGFR is based on the CKD-EPI (2020) calculation. This formulais race indifferent and is the recommended formula for GFRby the National [employer] for Adults.The GFR will not calculate if the sex is unknown or if thepatient's age is <18 years. CREATININE (test code = CREAT) 1.4 mg/dL 0.6-1.3 H CALCIUM (test code = CA) 8.4 mg/dL 8.0-10.5 N HEPATIC FUNCTION [id number] 03:25:00* Test Item Value Reference Range Interpretation Comme nts TOTAL PROTEIN (test code = PROT) 5.9 g/dL 5.7-8.2 N Note change in REFERENCE RANGE due to change in REAGENT. ALBUMIN (test code = ALB) 3.50 g/dL 3.4-5.0 N BILIRUBIN TOTAL (test code = BILT) 0.50 mg/dL 0.0-1.0 N BILIRUBIN DIRECT (test code = BILD) 0.20 MG/DL 0.1-0.3 N BILIRUBIN INDIRECT (test code = BILIND) 0.30 MG/DL SGOT/AST (test code = AST) 47 IUnit/L 8-34 H SGPT/ALT (test code = ALT) 17 IUnit/L 10-49 N ALKALINE PHOSPHATASE TOTAL (test code = ALKP) 41 IUnit/L 20-125 N [id number] 03:25:00* Test Item Value Reference Range Interpretation Comme nts MAGNESIUM (test code = MAG) 2.15 mg/dL 1.6-2.6 N CBC W/AUTO [id number] 03:06:00* Test Item Value Reference Range Interpretation Comme nts WHITE BLOOD CELL (test code = WBC) 15.0 x10 3/uL 4.5-11.0 H RED BLOOD CELL (test code = RBC) 3.77 x10 6/uL 4.00-5.60 L HEMOGLOBIN (test code = HGB) 12.3 g/dL 12.5-16.9 L HEMATOCRIT (test code = HCT) 36.6 % 37.5-50.7 L MEAN CELL VOLUME (test code = MCV) 97.1 fL 81.0-99.0 N MEAN CELL HGB (test code = MCH) 32.6 pg 27.0-33.0 N MEAN CELL HGB CONCETRATION (test code = MCHC) 33.6 g/dL 33.0-37.0 N RED CELL DISTRIBUTION WIDTH CV (test code = RDW) 13.2 % 11.5-14.5 N RED CELL DISTRIBUTION WIDTH SD (test code = RDW-SD) 46.9 fL 37.0-54.0 N PLATELET COUNT (test code = PLT) 129 x10 3/uL 150-400 L MEAN PLATELET VOLUME (test code = MPV) 9.7 fL 7.0-9.0 H NEUTROPHIL % (test code = NT%) 80.1 % 56.0-77.0 H IMMATURE GRANULOCYTE % (test code = IG%) 0.5 % 0.0-2.0 N LYMPHOCYTE % (test code = LY%) 7.5 % 14.0-32.0 L MONOCYTE % (test code = MO%) 11.8 % 4.8-9.0 H EOSINOPHIL % (test code = EO%) 0.0 % 0.3-3.7 L BASOPHIL % (test code = BA%) 0.1 % 0.0-2.0 N NUCLEATED RBC % (test code = NRBC%) 0.0 % 0-0 N NEUTROPHIL # (test code = NT#) 12.03 x10 3/uL 2.0-7.6 H IMMATURE GRANULOCYTE # (test code = IG#) 0.08 x10 3/uL 0.00-0.03 H LYMPHOCYTE # (test code = LY#) 1.12 x10 3/uL 1.0-3.8 N MONOCYTE # (test code = MO#) 1.78 x10 3/uL 0.1-0.8 H EOSINOPHIL # (test code = EO#) 0.00 x10 3/uL 0.0-0.2 N BASOPHIL # (test code = BA#) 0.02 x10 3/uL 0.0-0.2 N NUCLEATED RBC # (test code = NRBC#) 0.00 x10 3/uL 0.0-0.1 N GLUCOSE [id number] 01:28:00* Test Item Value Reference Range Interpretation Comme [facility] GLUCOSE BEDSIDE (test code = GLUBED) 177 MG/DL 70-110 H Performed by cer ivett screwdown operator at [facility] POC ARTERIAL BLOOD [id number] 21:19:00* Test Item Value Reference Range Interpretation Comme [facility] POC ARTERIAL BLOOD GAS PH (test code = POCPHA) 7.391 7.35-7.45 N POC ARTERIAL BLOOD GAS PCO2 (test code = UTCCXR6A) 40.6 mmHg 35.0-45 N POC TCO2 ARTERIAL (test code = POCTCO2) 25.6 22-29 N POC ARTERIAL BLOOD GAS PO2 (test code = OBHEI8N) 168.2 mmHg 80-100.0 H POC HCO3 ARTERIAL (test code = CLOYFY0I) 24.4 MMOL/L 22.0-26.0 N POC BASE EXCESS (test code = POCBEA) -0.3 MMOL/L See_Comment L [Automated messa ge] The system which generated this result transmitted reference range: 0-+/-4. The reference range was not used to interpret this result as normal/abnormal. POC O2 SATURATION (test code = POCO2S) 99.5 % 90-100 N FIO2 (test code = FIO2A) 60 % PaO2/FiO2 (test code = ZZW2YCB0) 280.33 mm/Hg ABG DELIVERY (test code = TYLER) BiPAP ABG PEEP (test code = PEEPA) 10 cmH2O ABG TEMPERATURE (test code = TEMPA) 100 F ABG SITE (test code = SITEA) Art Line VALDEMAR'S TEST (test code = ALLENS) N/A BASIC METABOLIC [id number] 21:19:00* Test Item Value Reference Range Interpretation Comme nts SODIUM (test code = NA/ABG) 142 mmol/L 134-147 N POTASSIUM (test code = K/ABG) 4.4 mmol/L 3.4-5.0 N CHLORIDE (test code = CL/ABG) 110 mmol/L 100-108 H CREATININE ABG (test code = CREAABG) 1.0 mg/dL 0.6-1.3 N POC IONIZED CALCIUM (test co de = POCCA) 1.29 MMOL/L 1.12-1.32 N POC GLUCOSE (test code = POCGLU) 184 MG/DL 70-110 H HEMOGLOBIN [id number] 21:19:00* Test Item Value Reference Range Interpretation Comme nts HEMOGLOBIN ABG (test code = HGB/ABG) 12.7 G/DL 12.5-16.9 N [id number] 21:19:00* Test Item Value Reference Range Interpretation Comme nts HEMATOCRIT (test code = HCT/ABG) 37 % 38-51 L POC LACTIC [id number] 21:19:00* Test Item Value Reference Range Interpretation Comme nts POC LACTIC ACID (test code = POCLAC) 2.0 mmol/l 0.9-1.7 H GLUCOSE [id number] 20:12:00* Test Item Value Reference Range Interpretation Comme nts GLUCOSE BEDSIDE (test code = GLUBED) 163 MG/DL 70-110 H Performed by cer tified screwdown operator at [facility] BASIC METABOLIC [id number] 18:54:00* Test Item Value Reference Range Interpretation Comme nts SODIUM (test code = NA) 143 mEq/L 134-147 N POTASSIUM (test code = K) 4.0 mEq/L 3.4-5.0 N CHLORIDE (test code = CL) 107 mEq/L 100-108 N CARBON DIOXIDE (test code = CO2) 24 mEq/l 21-33 N ANION GAP (test code = GAP) 16 0-20 N GLUCOSE (test code = GLU) 185 mg/dL 77-141 H BLOOD UREA NITROGEN (test code = BUN) 13 mg/dL 7-25 N GLOMERULAR FILTRATION RATE (test code = GFR) 67.1 80-90 L The Glomerular Filtration Rate is a calculated parameterbased on serum Creatinine, patient age and sex. GFR valuesless than 60 mL/min/1.73 square meters are indicative ofChronic Kidney Disease. Values less than 15 mL/min/1.73square meters indicate Kidney failure. The calculation forGFR is based on the CKD-EPI (2020) calculation. This formulais race indifferent and is the recommended formula for GFRby the National Kid[employer] Foundation for Adults.The GFR will not calculate if the sex is unknown or if thepatient's age is <18 years. CREATININE (test code = CREAT) 1.2 mg/dL 0.6-1.3 N CALCIUM (test code = CA) 8.8 mg/dL 8.0-10.5 N COMMENTS: On arrivalComment: On [id number] 18:54:00* Test Item Value Reference Range Interpretation Comme nts MAGNESIUM (test code = MAG) 2.69 mg/dL 1.6-2.6 H COMMENTS: On arrivalComment: On arrivalPROTHROMBIN [id number] 18:48:00* Test Item Value Reference Range Interpretation Comme nts PROTHROMBIN TIME PATIENT (test code = PTP) 14.6 SECONDS 9.3-12.9 H INTERNATIONAL NORMAL RATIO (test code = INR) 1.3 0.8-1.2 H TARGET INR BY INDICATION Indication INR1. Prophylaxis of venous thrombosis 2.0 - 3.0 (orthopedic surgery), Prophylaxis of venous thrombosis (other than high-risk surgery), Treatment of Deep Vein Thrombosis/Pulmonary Embolism, Prevention of systemic embolism - Tissue heart valves, Acute Myocardial Infarction (to prevent systemic embolism), Valvular heart disease, Atrial Fibrillation, Bileaflet mechanical valve in aortic position.2. Mechanical prosthetic valves (high risk), 2.5 - 3.5 Presence of Lupus Anticoagulant or Antiphospholipid Antibodies, Prevention of systemic embolism - Acute Myocardial Infarction (to prevent recurrent infarct). COMMENTS: On arrivalTHROMBOPLASTIN TIME [id number] 18:48:00* Test Item Value Reference Range Interpretation Comme nts THROMBOPLASTIN TIME PARTIAL (test code = PTT) 32.1 Seconds 25.0-39.5 N Therapeutic Rang e: 56.0 - 87.0 Seconds Effective 02/11/2025 COMMENTS: On arrivalCBC W/AUTO [id number] 18:37:00* Test Item Value Reference Range Interpretation Comme nts WHITE BLOOD CELL (test code = WBC) 28.0 x10 3/uL 4.5-11.0 H RED BLOOD CELL (test code = RBC) 4.02 x10 6/uL 4.00-5.60 N HEMOGLOBIN (test code = HGB) 13.1 g/dL 12.5-16.9 N HEMATOCRIT (test code = HCT) 39.6 % 37.5-50.7 N MEAN CELL VOLUME (test code = MCV) 98.5 fL 81.0-99.0 N MEAN CELL HGB (test code = MCH) 32.6 pg 27.0-33.0 N MEAN CELL HGB CONCETRATION (test code = MCHC) 33.1 g/dL 33.0-37.0 N RED CELL DISTRIBUTION WIDTH CV (test code = RDW) 13.0 % 11.5-14.5 N RED CELL DISTRIBUTION WIDTH SD (test code = RDW-SD) 46.9 fL 37.0-54.0 N PLATELET COUNT (test code = PLT) 141 x10 3/uL 150-400 L MEAN PLATELET VOLUME (test code = MPV) 10.1 fL 7.0-9.0 H NEUTROPHIL % (test code = NT%) 80.2 % 56.0-77.0 H IMMATURE GRANULOCYTE % (test code = IG%) 1.1 % 0.0-2.0 N LYMPHOCYTE % (test code = LY%) 10.2 % 14.0-32.0 L MONOCYTE % (test code = MO%) 7.9 % 4.8-9.0 N EOSINOPHIL % (test code = EO%) 0.3 % 0.3-3.7 N BASOPHIL % (test code = BA%) 0.3 % 0.0-2.0 N NUCLEATED RBC % (test code = NRBC%) 0.0 % 0-0 N NEUTROPHIL # (test code = NT#) 22.47 x10 3/uL 2.0-7.6 H IMMATURE GRANULOCYTE # (test code = IG#) 0.30 x10 3/uL 0.00-0.03 H LYMPHOCYTE # (test code = LY#) 2.86 x10 3/uL 1.0-3.8 N MONOCYTE # (test code = MO#) 2.22 x10 3/uL 0.1-0.8 H EOSINOPHIL # (test code = EO#) 0.08 x10 3/uL 0.0-0.2 N BASOPHIL # (test code = BA#) 0.08 x10 3/uL 0.0-0.2 N NUCLEATED RBC # (test code = NRBC#) 0.00 x10 3/uL 0.0-0.1 N [facility] [id number] 18:21:00* Test Item Value Reference Range Interpretation Comme nts POC ARTERIAL BLOOD GAS PH (test code = POCPHA) 7.259 7.35-7.45 LL POC ARTERIAL BLOOD GAS PCO2 (test code = SIXQDW8I) 51.7 mmHg 35.0-45 HH POC TCO2 ARTERIAL (test code = POCTCO2) 25.0 22-29 N POC ARTERIAL BLOOD GAS PO2 (test code = LYGCB2T) 320.8 mmHg 80-100.0 HH POC HCO3 ARTERIAL (test code = JNZCXY5O) 23.4 MMOL/L 22.0-26.0 N POC BASE EXCESS (test code = POCBEA) -3.9 MMOL/L See_Comment L [Automated messa ge] The system which generated this result transmitted reference range: 0-+/-4. The reference range was not used to interpret this result as normal/abnormal. POC O2 SATURATION (test code = POCO2S) 99.9 % 90-100 N FIO2 (test code = FIO2A) 100.0 % PaO2/FiO2 (test code = [id number]) 320.80 mm/Hg ABG DELIVERY (test code = TYLER) BiPAP ABG VENT MODE (test code = MODEA) NIV ABG PEEP (test code = PEEPA) 10 cmH2O ABG PRESSURE SUPPORT (test code = PSABG) 18 cmH2O ABG TEMPERATURE (test code = TEMPA) 97.2 F ABG SITE (test code = SITEA) Art Line VALDEMAR'S TEST (test code = ALLENS) N/A BASIC METABOLIC [id number] 18:21:00* Test Item Value Reference Range Interpretation Comme nts SODIUM (test code = NA/ABG) 145 mmol/L 134-147 N POTASSIUM (test code = K/ABG) 4.0 mmol/L 3.4-5.0 N CHLORIDE (test code = CL/ABG) 107 mmol/L 100-108 N CREATININE ABG (test code = CREAABG) 1.0 mg/dL 0.6-1.3 N POC IONIZED CALCIUM (test co de = POCCA) 1.32 MMOL/L 1.12-1.32 N POC GLUCOSE (test code = POCGLU) 210 MG/DL 70-110 H HEMOGLOBIN [id number] 18:21:00* Test Item Value Reference Range Interpretation Comme nts HEMOGLOBIN ABG (test code = HGB/ABG) 13.5 G/DL 12.5-16.9 N [id number] 18:21:00* Test Item Value Reference Range Interpretation Comme nts HEMATOCRIT (test code = HCT/ABG) 40 % 38-51 N [id number] 17:31:00* Test Item Value Reference Range Interpretation Comme nts ACT-ISTAT (test code = ACTI) 112 SEC 74-137 N Performed by cer tified screwdown operator at [facility] BASIC METABOLIC [id number] 17:24:00* Test Item Value Reference Range Interpretation Comme nts SODIUM (test code = NA/ABG) 142 mmol/L 134-147 N POTASSIUM (test code = K/ABG) 3.3 mmol/L 3.4-5.0 L CHLORIDE (test code = CL/ABG) 110 mmol/L 100-108 H CREATININE ABG (test code = CREAABG) 0.8 mg/dL 0.6-1.3 N POC IONIZED CALCIUM (test co de = POCCA) 1.31 MMOL/L 1.12-1.32 N POC GLUCOSE (test code = POCGLU) 221 MG/DL 70-110 H HEMOGLOBIN [id number] 17:24:00* Test Item Value Reference Range Interpretation Comme [facility] HEMOGLOBIN ABG (test code = HGB/ABG) 11.0 G/DL 12.5-16.9 L [id number] 17:24:00* Test Item Value Reference Range Interpretation Comme [facility] HEMATOCRIT (test code = HCT/ABG) 32 % 38-51 L POC LACTIC [id number] 17:24:00* Test Item Value Reference Range Interpretation Comme [facility] POC LACTIC ACID (test code = POCLAC) 3.2 mmol/l 0.9-1.7 H POC ARTERIAL BLOOD [id number] 17:24:00* Test Item Value Reference Range Interpretation Comme [facility] POC ARTERIAL BLOOD GAS PH (test code = POCPHA) 7.358 7.35-7.45 N POC ARTERIAL BLOOD GAS PCO2 (test code = WDYWAE2C) 38.1 mmHg 35.0-45 N POC TCO2 ARTERIAL (test code = POCTCO2) 22.6 22-29 N POC ARTERIAL BLOOD GAS PO2 (test code = OVMFU5A) 179.8 mmHg 80-100.0 H POC HCO3 ARTERIAL (test code = NHYDDG5H) 21.4 MMOL/L 22.0-26.0 L POC BASE EXCESS (test code = POCBEA) -3.7 MMOL/L See_Comment L [Automated messa ge] The system which generated this result transmitted reference range: 0-+/-4. The reference range was not used to interpret this result as normal/abnormal. POC O2 SATURATION (test code = POCO2S) 99.6 % 90-100 N [id number] 17:10:00* Test Item Value Reference Range Interpretation Comme [facility] ACT-ISTAT (test code = ACTI) 469 SEC 74-137 H Performed by cer tified screwdown operator at [facility] POC ARTERIAL BLOOD [id number] 17:05:00* Test Item Value Reference Range Interpretation Comme [facility] POC ARTERIAL BLOOD GAS PH (test code = POCPHA) 7.456 7.35-7.45 H POC ARTERIAL BLOOD GAS PCO2 (test code = YMGQNA1S) 31.1 mmHg 35.0-45 L POC TCO2 ARTERIAL (test code = POCTCO2) 22.8 22-29 N POC ARTERIAL BLOOD GAS PO2 (test code = DXSYY1J) 541.5 mmHg 80-100.0 HH POC HCO3 ARTERIAL (test code = TBFAJM7M) 21.9 MMOL/L 22.0-26.0 L POC BASE EXCESS (test code = POCBEA) -1.4 MMOL/L See_Comment L [Automated messa ge] The system which generated this result transmitted reference range: 0-+/-4. The reference range was not used to interpret this result as normal/abnormal. POC O2 SATURATION (test code = POCO2S) 100.0 % 90-100 N BASIC METABOLIC [id number] 17:05:00* Test Item Value Reference Range Interpretation Comme nts SODIUM (test code = NA/ABG) 139 mmol/L 134-147 N POTASSIUM (test code = K/ABG) 4.2 mmol/L 3.4-5.0 N CHLORIDE (test code = CL/ABG) 107 mmol/L 100-108 N CREATININE ABG (test code = CREAABG) 0.9 mg/dL 0.6-1.3 N POC IONIZED CALCIUM (test co de = POCCA) 1.44 MMOL/L 1.12-1.32 H POC GLUCOSE (test code = POCGLU) 194 MG/DL 70-110 H HEMOGLOBIN [id number] 17:05:00* Test Item Value Reference Range Interpretation Comme nts HEMOGLOBIN ABG (test code = HGB/ABG) 10.8 G/DL 12.5-16.9 L [id number] 17:05:00* Test Item Value Reference Range Interpretation Comme nts HEMATOCRIT (test code = HCT/ABG) 32 % 38-51 L POC LACTIC [id number] 17:05:00* Test Item Value Reference Range Interpretation Comme nts POC LACTIC ACID (test code = POCLAC) 3.0 mmol/l 0.9-1.7 H [id number] 16:27:00* Test Item Value Reference Range Interpretation Comme nts ACT-ISTAT (test code = ACTI) 487 SEC 74-137 H Performed by cer tified screwdown operator at [facility] POC ARTERIAL BLOOD [id number] 16:25:00* Test Item Value Reference Range Interpretation Comme nts POC ARTERIAL BLOOD GAS PH (test code = POCPHA) 7.423 7.35-7.45 N POC ARTERIAL BLOOD GAS PCO2 (test code = ICELJE4D) 35.7 mmHg 35.0-45 N POC TCO2 ARTERIAL (test code = POCTCO2) 24.4 22-29 N POC ARTERIAL BLOOD GAS PO2 (test code = TFPHM4I) 352.6 mmHg 80-100.0 HH POC HCO3 ARTERIAL (test code = TFDZLJ2O) 23.3 MMOL/L 22.0-26.0 N POC BASE EXCESS (test code = POCBEA) -0.8 MMOL/L See_Comment L [Automated messa ge] The system which generated this result transmitted reference range: 0-+/-4. The reference range was not used to interpret this result as normal/abnormal. POC O2 SATURATION (test code = POCO2S) 100.0 % 90-100 N BASIC METABOLIC [id number] 16:25:00* Test Item Value Reference Range Interpretation Comme nts SODIUM (test code = NA/ABG) 142 mmol/L 134-147 N POTASSIUM (test code = K/ABG) 4.7 mmol/L 3.4-5.0 N CHLORIDE (test code = CL/ABG) 106 mmol/L 100-108 N CREATININE ABG (test code = CREAABG) 0.9 mg/dL 0.6-1.3 N POC IONIZED CALCIUM (test co de = POCCA) 1.18 MMOL/L 1.12-1.32 N POC GLUCOSE (test code = POCGLU) 198 MG/DL 70-110 H HEMOGLOBIN [id number] 16:25:00* Test Item Value Reference Range Interpretation Comme nts HEMOGLOBIN ABG (test code = HGB/ABG) 11.6 G/DL 12.5-16.9 L [id number] 16:25:00* Test Item Value Reference Range Interpretation Comme nts HEMATOCRIT (test code = HCT/ABG) 34 % 38-51 L POC LACTIC [id number] 16:25:00* Test Item Value Reference Range Interpretation Comme nts POC LACTIC ACID (test code = POCLAC) 1.7 mmol/l 0.9-1.7 N [id number] 15:51:00* Test Item Value Reference Range Interpretation Comme nts ACT-ISTAT (test code = ACTI) 504 SEC 74-137 H Performed by cer tified screwdown operator at [facility] POC ARTERIAL BLOOD [id number] 15:48:00* Test Item Value Reference Range Interpretation Comme nts POC ARTERIAL BLOOD GAS PH (test code = POCPHA) 7.391 7.35-7.45 N POC ARTERIAL BLOOD GAS PCO2 (test code = HASWQM0H) 42.9 mmHg 35.0-45 N POC TCO2 ARTERIAL (test code = POCTCO2) 27.3 22-29 N POC ARTERIAL BLOOD GAS PO2 (test code = RGBWZ2R) 384.2 mmHg 80-100.0 HH POC HCO3 ARTERIAL (test code = SEAUMS3D) 26.0 MMOL/L 22.0-26.0 N POC BASE EXCESS (test code = POCBEA) 0.8 MMOL/L See_Comment N [Automated messa ge] The system which generated this result transmitted reference range: 0-+/-4. The reference range was not used to interpret this result as normal/abnormal. POC O2 SATURATION (test code = POCO2S) 100.0 % 90-100 N BASIC METABOLIC [id number] 15:48:00* Test Item Value Reference Range Interpretation Comme nts SODIUM (test code = NA/ABG) 141 mmol/L 134-147 N POTASSIUM (test code = K/ABG) 4.1 mmol/L 3.4-5.0 N CHLORIDE (test code = CL/ABG) 106 mmol/L 100-108 N CREATININE ABG (test code = CREAABG) 1.0 mg/dL 0.6-1.3 N POC IONIZED CALCIUM (test co de = POCCA) 1.18 MMOL/L 1.12-1.32 N POC GLUCOSE (test code = POCGLU) 198 MG/DL 70-110 H HEMOGLOBIN [id number] 15:48:00* Test Item Value Reference Range Interpretation Comme nts HEMOGLOBIN ABG (test code = HGB/ABG) 11.8 G/DL 12.5-16.9 L [id number] 15:48:00* Test Item Value Reference Range Interpretation Comme nts HEMATOCRIT (test code = HCT/ABG) 35 % 38-51 L POC LACTIC [id number] 15:48:00* Test Item Value Reference Range Interpretation Comme nts POC LACTIC ACID (test code = POCLAC) 1.8 mmol/l 0.9-1.7 H [id number] 15:13:00* Test Item Value Reference Range Interpretation Comme nts ACT-ISTAT (test code = ACTI) 475 SEC 74-137 H Performed by cer tified screwdown operator at [facility] POC ARTERIAL BLOOD [id number] 15:06:00* Test Item Value Reference Range Interpretation Comme nts POC ARTERIAL BLOOD GAS PH (test code = POCPHA) 7.366 7.35-7.45 N POC ARTERIAL BLOOD GAS PCO2 (test code = TKLZOQ8Y) 44.8 mmHg 35.0-45 N POC TCO2 ARTERIAL (test code = POCTCO2) 27.1 22-29 N POC ARTERIAL BLOOD GAS PO2 (test code = RTOHW4X) 379.2 mmHg 80-100.0 HH POC HCO3 ARTERIAL (test code = NBMWKK1U) 25.7 MMOL/L 22.0-26.0 N POC BASE EXCESS (test code = POCBEA) 0.1 MMOL/L See_Comment N [Automated messa ge] The system which generated this result transmitted reference range: 0-+/-4. The reference range was not used to interpret this result as normal/abnormal. POC O2 SATURATION (test code = POCO2S) 100.0 % 90-100 N BASIC METABOLIC [id number] 15:06:00* Test Item Value Reference Range Interpretation Comme nts SODIUM (test code = NA/ABG) 141 mmol/L 134-147 N POTASSIUM (test code = K/ABG) 4.2 mmol/L 3.4-5.0 N CHLORIDE (test code = CL/ABG) 104 mmol/L 100-108 N CREATININE ABG (test code = CREAABG) 1.0 mg/dL 0.6-1.3 N POC IONIZED CALCIUM (test co de = POCCA) 1.19 MMOL/L 1.12-1.32 N POC GLUCOSE (test code = POCGLU) 185 MG/DL 70-110 H HEMOGLOBIN [id number] 15:06:00* Test Item Value Reference Range Interpretation Comme nts HEMOGLOBIN ABG (test code = HGB/ABG) 11.6 G/DL 12.5-16.9 L [id number] 15:06:00* Test Item Value Reference Range Interpretation Comme nts HEMATOCRIT (test code = HCT/ABG) 34 % 38-51 L POC LACTIC [id number] 15:06:00* Test Item Value Reference Range Interpretation Comme nts POC LACTIC ACID (test code = POCLAC) 1.9 mmol/l 0.9-1.7 H [id number] 14:46:00* Test Item Value Reference Range Interpretation Comme nts ACT-ISTAT (test code = ACTI) 493 SEC 74-137 H Performed by cer tified screwdown operator at [facility] POC ARTERIAL BLOOD [id number] 14:38:00* Test Item Value Reference Range Interpretation Comme nts POC ARTERIAL BLOOD GAS PH (test code = POCPHA) 7.335 7.35-7.45 L POC ARTERIAL BLOOD GAS PCO2 (test code = ZFKUPZ1U) 50.5 mmHg 35.0-45 HH POC TCO2 ARTERIAL (test code = POCTCO2) 28.5 22-29 N POC ARTERIAL BLOOD GAS PO2 (test code = EYXDZ9R) 385.3 mmHg 80-100.0 HH POC HCO3 ARTERIAL (test code = HCUHUW9S) 27.0 MMOL/L 22.0-26.0 H POC BASE EXCESS (test code = POCBEA) 0.5 MMOL/L See_Comment N [Automated messa ge] The system which generated this result transmitted reference range: 0-+/-4. The reference range was not used to interpret this result as normal/abnormal. POC O2 SATURATION (test code = POCO2S) 99.9 % 90-100 N BASIC METABOLIC [id number] 14:38:00* Test Item Value Reference Range Interpretation Comme nts SODIUM (test code = NA/ABG) 141 mmol/L 134-147 N POTASSIUM (test code = K/ABG) 4.4 mmol/L 3.4-5.0 N CHLORIDE (test code = CL/ABG) 105 mmol/L 100-108 N CREATININE ABG (test code = CREAABG) 1.0 mg/dL 0.6-1.3 N POC IONIZED CALCIUM (test co de = POCCA) 1.18 MMOL/L 1.12-1.32 N POC GLUCOSE (test code = POCGLU) 158 MG/DL 70-110 H HEMOGLOBIN [id number] 14:38:00* Test Item Value Reference Range Interpretation Comme nts HEMOGLOBIN ABG (test code = HGB/ABG) 11.6 G/DL 12.5-16.9 L [id number] 14:38:00* Test Item Value Reference Range Interpretation Comme nts HEMATOCRIT (test code = HCT/ABG) 34 % 38-51 L POC LACTIC [id number] 14:38:00* Test Item Value Reference Range Interpretation Comme nts POC LACTIC ACID (test code = POCLAC) 1.3 mmol/l 0.9-1.7 N [id number] 14:10:00* Test Item Value Reference Range Interpretation Comme nts ACT-ISTAT (test code = ACTI) 504 SEC 74-137 H Performed by cer tified screwdown operator at [facility] POC ARTERIAL BLOOD [id number] 14:01:00* Test Item Value Reference Range Interpretation Comme nts POC ARTERIAL BLOOD GAS PH (test code = POCPHA) 7.382 7.35-7.45 N POC ARTERIAL BLOOD GAS PCO2 (test code = NKDXRV9C) 37.0 mmHg 35.0-45 N POC TCO2 ARTERIAL (test code = POCTCO2) 23.1 22-29 N POC ARTERIAL BLOOD GAS PO2 (test code = CXCNR1O) 254.9 mmHg 80-100.0 HH POC HCO3 ARTERIAL (test code = MGLEHQ2Y) 22.0 MMOL/L 22.0-26.0 N POC BASE EXCESS (test code = POCBEA) -2.7 MMOL/L See_Comment L [Automated messa ge] The system which generated this result transmitted reference range: 0-+/-4. The reference range was not used to interpret this result as normal/abnormal. POC O2 SATURATION (test code = POCO2S) 99.9 % 90-100 N BASIC METABOLIC [id number] 14:01:00* Test Item Value Reference Range Interpretation Comme nts SODIUM (test code = NA/ABG) 142 mmol/L 134-147 N POTASSIUM (test code = K/ABG) 3.5 mmol/L 3.4-5.0 N CHLORIDE (test code = CL/ABG) 109 mmol/L 100-108 H CREATININE ABG (test code = CREAABG) 0.8 mg/dL 0.6-1.3 N POC IONIZED CALCIUM (test co de = POCCA) 1.18 MMOL/L 1.12-1.32 N POC GLUCOSE (test code = POCGLU) 160 MG/DL 70-110 H HEMOGLOBIN [id number] 14:01:00* Test Item Value Reference Range Interpretation Comme nts HEMOGLOBIN ABG (test code = HGB/ABG) 13.2 G/DL 12.5-16.9 N [id number] 14:01:00* Test Item Value Reference Range Interpretation Comme nts HEMATOCRIT (test code = HCT/ABG) 39 % 38-51 N POC LACTIC [id number] 14:01:00* Test Item Value Reference Range Interpretation Comme nts POC LACTIC ACID (test code = POCLAC) 1.2 mmol/l 0.9-1.7 N [id number] 12:15:00* Test Item Value Reference Range Interpretation Comme nts ACT-ISTAT (test code = ACTI) 135 SEC 74-137 N Performed by cer tified screwdown operator at [facility] POC ARTERIAL BLOOD [id number] 12:03:00* Test Item Value Reference Range Interpretation Comme nts POC ARTERIAL BLOOD GAS PH (test code = POCPHA) 7.360 7.35-7.45 N POC ARTERIAL BLOOD GAS PCO2 (test code = RDWHZT4A) 40.4 mmHg 35.0-45 N POC TCO2 ARTERIAL (test code = POCTCO2) 24.0 22-29 N POC ARTERIAL BLOOD GAS PO2 (test code = SRBEY1O) 416.2 mmHg 80-100.0 HH POC HCO3 ARTERIAL (test code = KZNDBR5R) 22.8 MMOL/L 22.0-26.0 N POC BASE EXCESS (test code = POCBEA) -2.5 MMOL/L See_Comment L [Automated messa ge] The system which generated this result transmitted reference range: 0-+/-4. The reference range was not used to interpret this result as normal/abnormal. POC O2 SATURATION (test code = POCO2S) 100.0 % 90-100 N BASIC METABOLIC [id number] 12:03:00* Test Item Value Reference Range Interpretation Comme nts SODIUM (test code = NA/ABG) 140 mmol/L 134-147 N POTASSIUM (test code = K/ABG) 3.5 mmol/L 3.4-5.0 N CHLORIDE (test code = CL/ABG) 106 mmol/L 100-108 N CREATININE ABG (test code = CREAABG) 0.9 mg/dL 0.6-1.3 N POC IONIZED CALCIUM (test co de = POCCA) 1.21 MMOL/L 1.12-1.32 N POC GLUCOSE (test code = POCGLU) 211 MG/DL 70-110 H HEMOGLOBIN [id number] 12:03:00* Test Item Value Reference Range Interpretation Comme nts HEMOGLOBIN ABG (test code = HGB/ABG) 13.6 G/DL 12.5-16.9 N [id number] 12:03:00* Test Item Value Reference Range Interpretation Comme nts HEMATOCRIT (test code = HCT/ABG) 40 % 38-51 N POC LACTIC [id number] 12:03:00* Test Item Value Reference Range Interpretation Comme nts POC LACTIC ACID (test code = POCLAC) < 0.3 mmol/l 0.9-1.7 L GLUCOSE [id number] 11:26:00* Test Item Value Reference Range Interpretation Comme nts GLUCOSE BEDSIDE (test code = GLUBED) 217 MG/DL 70-110 H Performed by cer tified screwdown operator at [facility] GLUCOSE [id number] 08:35:00* Test Item Value Reference Range Interpretation Comme nts GLUCOSE BEDSIDE (test code = GLUBED) 157 MG/DL 70-110 H Performed by cer tified screwdown operator at [facility] BASIC METABOLIC [id number] 06:25:00* Test Item Value Reference Range Interpretation Comme nts SODIUM (test code = NA) 138 mEq/L 134-147 N POTASSIUM (test code = K) 4.2 mEq/L 3.4-5.0 N CHLORIDE (test code = CL) 106 mEq/L 100-108 N CARBON DIOXIDE (test code = CO2) 24 mEq/l 21-33 N ANION GAP (test code = GAP) 12 0-20 N GLUCOSE (test code = GLU) 167 mg/dL 77-141 H BLOOD UREA NITROGEN (test code = BUN) 12 mg/dL 7-25 N GLOMERULAR FILTRATION RATE (test code = GFR) 83.5 80-90 N The Glomerular Filtration Rate is a calculated parameterbased on serum Creatinine, patient age and sex. GFR valuesless than 60 mL/min/1.73 square meters are indicative ofChronic Kidney Disease. Values less than 15 mL/min/1.73square meters indicate Kidney failure. The calculation forGFR is based on the CKD-EPI (202) calculation. This formulais race indifferent and is the recommended formula for GFRby the National Kidney Foundation for Adults.The GFR will not calculate if the sex is unknown or if thepatient's age is <18 years. CREATININE (test code = CREAT) 1.0 mg/dL 0.6-1.3 N CALCIUM (test code = CA) 9.1 mg/dL 8.0-10.5 N HEPATIC FUNCTION [id number] 06:25:00* Test Item Value Reference Range Interpretation Comme nts TOTAL PROTEIN (test code = PROT) 6.7 g/dL 5.7-8.2 N Note change in REFERENCE RANGE due to change in REAGENT. ALBUMIN (test code = ALB) 3.70 g/dL 3.4-5.0 N BILIRUBIN TOTAL (test code = BILT) 0.60 mg/dL 0.0-1.0 N BILIRUBIN DIRECT (test code = BILD) 0.20 MG/DL 0.1-0.3 N SGOT/AST (test code = AST) 13 IUnit/L 8-34 N SGPT/ALT (test code = ALT) 16 IUnit/L 10-49 N ALKALINE PHOSPHATASE TOTAL (test code = ALKP) 55 IUnit/L 20-125 N BILIRUBIN INDIRECT (test code = BILIND) 0.40 MG/DL [id number] 06:25:00* Test Item Value Reference Range Interpretation Comme nts MAGNESIUM (test code = MAG) 1.85 mg/dL 1.6-2.6 N CALCIUM [id number] 06:25:00* Test Item Value Reference Range Interpretation Comme nts CALCIUM IONIZED (test code = STACY) 1.22 MMOL/L 1.09-1.30 N BASIC METABOLIC [id number] 04:36:00* Test Item Value Reference Range Interpretation Comme nts SODIUM (test code = NA) 137 mEq/L 134-147 N POTASSIUM (test code = K) 5.2 mEq/L 3.4-5.0 H SPECIMEN 1+ HEMOLYZED.Results known to be adversely affected by hemolysis are: Potassium Magnesium LDH Phosphorus CHLORIDE (test code = CL) 105 mEq/L 100-108 N CARBON DIOXIDE (test code = CO2) 24 mEq/l 21-33 N ANION GAP (test code = GAP) 13 0-20 N GLUCOSE (test code = GLU) 179 mg/dL 77-141 H BLOOD UREA NITROGEN (test code = BUN) 13 mg/dL 7-25 N GLOMERULAR FILTRATION RATE (test code = GFR) 83.5 80-90 N The Glomerular Filtration Rate is a calculated parameterbased on serum Creatinine, patient age and sex. GFR valuesless than 60 mL/min/1.73 square meters are indicative ofChronic Kidney Disease. Values less than 15 mL/min/1.73square meters indicate Kidney failure. The calculation forGFR is based on the CKD-EPI (2020) calculation. This formulais race indifferent and is the recommended formula for GFRby the National Kidney Foundation for Adults.The GFR will not calculate if the sex is unknown or if thepatient's age is <18 years. CREATININE (test code = CREAT) 1.0 mg/dL 0.6-1.3 N CALCIUM (test code = CA) 9.1 mg/dL 8.0-10.5 N COMMENTS: POD #1HEPATIC FUNCTION [id number] 04:36:00* Test Item Value Reference Range Interpretation Comme nts TOTAL PROTEIN (test code = PROT) 6.9 g/dL 5.7-8.2 N Note change in REFERENCE RANGE due to change in REAGENT. ALBUMIN (test code = ALB) 3.70 g/dL 3.4-5.0 N BILIRUBIN TOTAL (test code = BILT) 0.50 mg/dL 0.0-1.0 N BILIRUBIN DIRECT (test code = BILD) 0.20 MG/DL 0.1-0.3 N BILIRUBIN INDIRECT (test code = BILIND) 0.30 MG/DL SGOT/AST (test code = AST) 24 IUnit/L 8-34 N SGPT/ALT (test code = ALT) 17 IUnit/L 10-49 N ALKALINE PHOSPHATASE TOTAL (test code = ALKP) 53 IUnit/L 20-125 N COMMENTS: POD #[id number] 04:36:00* Test Item Value Reference Range Interpretation Comme nts MAGNESIUM (test code = MAG) 1.89 mg/dL 1.6-2.6 N COMMENTS: POD #1CALCIUM [id number] 04:36:00* Test Item Value Reference Range Interpretation Comme nts CALCIUM IONIZED (test code = STACY) 1.19 MMOL/L 1.09-1.30 N COMMENTS: POD #1CBC W/AUTO [id number] 03:23:00* Test Item Value Reference Range Interpretation Comme nts WHITE BLOOD CELL (test code = WBC) 7.4 x10 3/uL 4.5-11.0 N RED BLOOD CELL (test code = RBC) 4.44 x10 6/uL 4.00-5.60 N HEMOGLOBIN (test code = HGB) 14.4 g/dL 12.5-16.9 N HEMATOCRIT (test code = HCT) 42.6 % 37.5-50.7 N MEAN CELL VOLUME (test code = MCV) 95.9 fL 81.0-99.0 N MEAN CELL HGB (test code = MCH) 32.4 pg 27.0-33.0 N MEAN CELL HGB CONCETRATION (test code = MCHC) 33.8 g/dL 33.0-37.0 N RED CELL DISTRIBUTION WIDTH CV (test code = RDW) 13.0 % 11.5-14.5 N RED CELL DISTRIBUTION WIDTH SD (test code = RDW-SD) 46.1 fL 37.0-54.0 N PLATELET COUNT (test code = PLT) 185 x10 3/uL 150-400 N MEAN PLATELET VOLUME (test c ode = MPV) 9.9 fL 7.0-9.0 H NEUTROPHIL % (test code = NT%) 79.0 % 56.0-77.0 H IMMATURE GRANULOCYTE % (test code = IG%) 0.4 % 0.0-2.0 N LYMPHOCYTE % (test code = LY%) 13.1 % 14.0-32.0 L MONOCYTE % (test code = MO%) 7.4 % 4.8-9.0 N EOSINOPHIL % (test code = EO%) 0.0 % 0.3-3.7 L BASOPHIL % (test code = BA%) 0.1 % 0.0-2.0 N NUCLEATED RBC % (test code = NRBC%) 0.0 % 0-0 N NEUTROPHIL # (test code = NT#) 5.83 x10 3/uL 2.0-7.6 N IMMATURE GRANULOCYTE # (test code = IG#) 0.03 x10 3/uL 0.00-0.03 N LYMPHOCYTE # (test code = LY#) 0.97 x10 3/uL 1.0-3.8 L MONOCYTE # (test code = MO#) 0.55 x10 3/uL 0.1-0.8 N EOSINOPHIL # (test code = EO#) 0.00 x10 3/uL 0.0-0.2 N BASOPHIL # (test code = BA#) 0.01 x10 3/uL 0.0-0.2 N NUCLEATED RBC # (test code = NRBC#) 0.00 x10 3/uL 0.0-0.1 N POC ARTERIAL BLOOD [id number] 02:47:00* Test Item Value Reference Range Interpretation Comme nts POC ARTERIAL BLOOD GAS PH (test code = POCPHA) 7.408 7.35-7.45 N POC ARTERIAL BLOOD GAS PCO2 (test code = AEHCUR3B) 40.1 mmHg 35.0-45 N POC TCO2 ARTERIAL (test code = POCTCO2) 26.5 22-29 N POC ARTERIAL BLOOD GAS PO2 (test code = BGMFC2F) 111.5 mmHg 80-100.0 H POC HCO3 ARTERIAL (test code = QOHBFZ0L) 25.3 MMOL/L 22.0-26.0 N POC BASE EXCESS (test code = POCBEA) 0.6 MMOL/L See_Comment N [Automated messa ge] The system which generated this result transmitted reference range: 0-+/-4. The reference range was not used to interpret this result as normal/abnormal. POC O2 SATURATION (test code = POCO2S) 98.4 % 90-100 N ABG DELIVERY (test code = TYLER) Cannula ABG TEMPERATURE (test code = TEMPA) 98 F ABG SITE (test code = SITEA) Art Line BASIC METABOLIC [id number] 02:47:00* Test Item Value Reference Range Interpretation Comme nts SODIUM (test code = NA/ABG) 140 mmol/L 134-147 N POTASSIUM (test code = K/ABG) 4.5 mmol/L 3.4-5.0 N CHLORIDE (test code = CL/ABG) 106 mmol/L 100-108 N CREATININE ABG (test code = CREAABG) 0.8 mg/dL 0.6-1.3 N POC IONIZED CALCIUM (test co de = POCCA) 1.31 MMOL/L 1.12-1.32 N POC GLUCOSE (test code = POCGLU) 184 MG/DL 70-110 H HEMOGLOBIN [id number] 02:47:00* Test Item Value Reference Range Interpretation Comme nts HEMOGLOBIN ABG (test code = HGB/ABG) 15.0 G/DL 12.5-16.9 N [id number] 02:47:00* Test Item Value Reference Range Interpretation Comme nts HEMATOCRIT (test code = HCT/ABG) 44 % 38-51 N GLUCOSE [id number] 18:20:00* Test Item Value Reference Range Interpretation Comme nts GLUCOSE BEDSIDE (test code = GLUBED) 161 MG/DL 70-110 H Performed by cer tified screwdown operator at [facility] BASIC METABOLIC [id number] 16:27:00* Test Item Value Reference Range Interpretation Comme nts SODIUM (test code = NA) 140 mEq/L 134-147 N POTASSIUM (test code = K) 3.7 mEq/L 3.4-5.0 N CHLORIDE (test code = CL) 107 mEq/L 100-108 N CARBON DIOXIDE (test code = CO2) 23 mEq/l 21-33 N ANION GAP (test code = GAP) 14 0-20 N GLUCOSE (test code = GLU) 155 mg/dL 77-141 H BLOOD UREA NITROGEN (test code = BUN) 15 mg/dL 7-25 N GLOMERULAR FILTRATION RATE (test code = GFR) 83.5 80-90 N The Glomerular Filtration Rate is a calculated parameterbased on serum Creatinine, patient age and sex. GFR valuesless than 60 mL/min/1.73 square meters are indicative ofChronic Kidney Disease. Values less than 15 mL/min/1.73square meters indicate Kidney failure. The calculation forGFR is based on the CKD-EPI (2020) calculation. This formulais race indifferent and is the recommended formula for GFRby the National Kidney Foundation for Adults.The GFR will not calculate if the sex is unknown or if thepatient's age is <18 years. CREATININE (test code = CREAT) 1.0 mg/dL 0.6-1.3 N CALCIUM (test code = CA) 8.6 mg/dL 8.0-10.5 N [id number] 16:27:00* Test Item Value Reference Range Interpretation Comme nts MAGNESIUM (test code = MAG) 1.73 mg/dL 1.6-2.6 N PROTHROMBIN [id number] 16:25:00* Test Item Value Reference Range Interpretation Comme nts PROTHROMBIN TIME PATIENT (test code = PTP) 13.4 SECONDS 9.3-12.9 H INTERNATIONAL NORMAL RATIO (test code = INR) 1.2 0.8-1.2 N TARGET INR BY INDICATION Indication INR1. Prophylaxis of venous thrombosis 2.0 - 3.0 (orthopedic surgery), Prophylaxis of venous thrombosis (other than high-risk surgery), Treatment of Deep Vein Thrombosis/Pulmonary Embolism, Prevention of systemic embolism - Tissue heart valves, Acute Myocardial Infarction (to prevent systemic embolism), Valvular heart disease, Atrial Fibrillation, Bileaflet mechanical valve in aortic position.2. Mechanical prosthetic valves (high risk), 2.5 - 3.5 Presence of Lupus Anticoagulant or Antiphospholipid Antibodies, Prevention of systemic embolism - Acute Myocardial Infarction (to prevent recurrent infarct). THROMBOPLASTIN TIME [id number] 16:25:00* Test Item Value Reference Range Interpretation Comme nts THROMBOPLASTIN TIME PARTIAL (test code = PTT) 31.4 Seconds 25.0-39.5 N Therapeutic Rang e: 56.0 - 87.0 Seconds Effective 02/11/2025 CBC W/AUTO [id number] 16:11:00* Test Item Value Reference Range Interpretation Comme nts WHITE BLOOD CELL (test code = WBC) 5.4 x10 3/uL 4.5-11.0 N RED BLOOD CELL (test code = RBC) 4.38 x10 6/uL 4.00-5.60 N HEMOGLOBIN (test code = HGB) 14.3 g/dL 12.5-16.9 N HEMATOCRIT (test code = HCT) 42.1 % 37.5-50.7 N MEAN CELL VOLUME (test code = MCV) 96.1 fL 81.0-99.0 N MEAN CELL HGB (test code = MCH) 32.6 pg 27.0-33.0 N MEAN CELL HGB CONCETRATION (test code = MCHC) 34.0 g/dL 33.0-37.0 N RED CELL DISTRIBUTION WIDTH CV (test code = RDW) 13.0 % 11.5-14.5 N RED CELL DISTRIBUTION WIDTH SD (test code = RDW-SD) 45.9 fL 37.0-54.0 N PLATELET COUNT (test code = PLT) 164 x10 3/uL 150-400 N MEAN PLATELET VOLUME (test c ode = MPV) 9.2 fL 7.0-9.0 H NEUTROPHIL % (test code = NT%) 60.5 % 56.0-77.0 N IMMATURE GRANULOCYTE % (test code = IG%) 0.2 % 0.0-2.0 N LYMPHOCYTE % (test code = LY%) 26.7 % 14.0-32.0 N MONOCYTE % (test code = MO%) 10.0 % 4.8-9.0 H EOSINOPHIL % (test code = EO%) 2.0 % 0.3-3.7 N BASOPHIL % (test code = BA%) 0.6 % 0.0-2.0 N NUCLEATED RBC % (test code = NRBC%) 0.0 % 0-0 N NEUTROPHIL # (test code = NT#) 3.27 x10 3/uL 2.0-7.6 N IMMATURE GRANULOCYTE # (test code = IG#) 0.01 x10 3/uL 0.00-0.03 N LYMPHOCYTE # (test code = LY#) 1.44 x10 3/uL 1.0-3.8 N MONOCYTE # (test code = MO#) 0.54 x10 3/uL 0.1-0.8 N EOSINOPHIL # (test code = EO#) 0.11 x10 3/uL 0.0-0.2 N BASOPHIL # (test code = BA#) 0.03 x10 3/uL 0.0-0.2 N NUCLEATED RBC # (test code = NRBC#) 0.00 x10 3/uL 0.0-0.1 N POC ARTERIAL BLOOD [id number] 15:56:00* Test Item Value Reference Range Interpretation Comme nts POC ARTERIAL BLOOD GAS PH (test code = POCPHA) 7.383 7.35-7.45 N POC ARTERIAL BLOOD GAS PCO2 (test code = KOBVAH5T) 40.1 mmHg 35.0-45 N POC TCO2 ARTERIAL (test code = POCTCO2) 25.6 22-29 N POC ARTERIAL BLOOD GAS PO2 (test code = BZHCM3E) 125.8 mmHg 80-100.0 H POC HCO3 ARTERIAL (test code = NDLBZG7U) 24.2 MMOL/L 22.0-26.0 N POC BASE EXCESS (test code = POCBEA) -1.2 MMOL/L See_Comment L [Automated messa ge] The system which generated this result transmitted reference range: 0-+/-4. The reference range was not used to interpret this result as normal/abnormal. POC O2 SATURATION (test code = POCO2S) 98.9 % 90-100 N FIO2 (test code = FIO2A) 50 % PaO2/FiO2 (test code = RVO5YUS5) 251.60 mm/Hg ABG DELIVERY (test code = TYLER) Adult Vent ABG VENT MODE (test code = MODEA) AC ABG VENT RESP RATE (test code = RRA) 18 /MIN ABG TIDAL VOLUME (test code = TVA) 550 ml ABG PEEP (test code = PEEPA) 5 cmH2O ABG TEMPERATURE (test code = TEMPA) 96.1 F ABG SITE (test code = SITEA) Art Line VALDEMAR'S TEST (test code = ALLENS) N/A BASIC METABOLIC [id number] 15:56:00* Test Item Value Reference Range Interpretation Comme nts SODIUM (test code = NA/ABG) 141 mmol/L 134-147 N POTASSIUM (test code = K/ABG) 3.7 mmol/L 3.4-5.0 N CHLORIDE (test code = CL/ABG) 107 mmol/L 100-108 N CREATININE ABG (test code = CREAABG) 0.9 mg/dL 0.6-1.3 N POC IONIZED CALCIUM (test co de = POCCA) 1.28 MMOL/L 1.12-1.32 N POC GLUCOSE (test code = POCGLU) 167 MG/DL 70-110 H HEMOGLOBIN [id number] 15:56:00* Test Item Value Reference Range Interpretation Comme nts HEMOGLOBIN ABG (test code = HGB/ABG) 14.2 G/DL 12.5-16.9 N [id number] 15:56:00* Test Item Value Reference Range Interpretation Comme nts HEMATOCRIT (test code = HCT/ABG) 42 % 38-51 N [id number] 15:19:00* Test Item Value Reference Range Interpretation Comme nts ACT-ISTAT (test code = ACTI) 124 SEC 74-137 N Performed by cer tified screwdown operator at [facility] POC ARTERIAL BLOOD [id number] 15:17:00* Test Item Value Reference Range Interpretation Comme nts POC ARTERIAL BLOOD GAS PH (test code = POCPHA) 7.362 7.35-7.45 N POC ARTERIAL BLOOD GAS PCO2 (test code = IHQSDE9R) 39.7 mmHg 35.0-45 N POC TCO2 ARTERIAL (test code = POCTCO2) 23.7 22-29 N POC ARTERIAL BLOOD GAS PO2 (test code = DXADN9Y) 175.5 mmHg 80-100.0 H POC HCO3 ARTERIAL (test code = KPSTXF2O) 22.5 MMOL/L 22.0-26.0 N POC BASE EXCESS (test code = POCBEA) -2.7 MMOL/L See_Comment L [Automated messa ge] The system which generated this result transmitted reference range: 0-+/-4. The reference range was not used to interpret this result as normal/abnormal. POC O2 SATURATION (test code = POCO2S) 99.5 % 90-100 N BASIC METABOLIC [id number] 15:17:00* Test Item Value Reference Range Interpretation Comme nts SODIUM (test code = NA/ABG) 143 mmol/L 134-147 N POTASSIUM (test code = K/ABG) 3.7 mmol/L 3.4-5.0 N CHLORIDE (test code = CL/ABG) 110 mmol/L 100-108 H CREATININE ABG (test code = CREAABG) 0.7 mg/dL 0.6-1.3 N POC IONIZED CALCIUM (test co de = POCCA) 1.01 MMOL/L 1.12-1.32 L POC GLUCOSE (test code = POCGLU) 142 MG/DL 70-110 H HEMOGLOBIN [id number] 15:17:00* Test Item Value Reference Range Interpretation Comme nts HEMOGLOBIN ABG (test code = HGB/ABG) 14.0 G/DL 12.5-16.9 N [id number] 15:17:00* Test Item Value Reference Range Interpretation Comme nts HEMATOCRIT (test code = HCT/ABG) 41 % 38-51 N POC LACTIC [id number] 15:17:00* Test Item Value Reference Range Interpretation Comme nts POC LACTIC ACID (test code = POCLAC) 0.5 mmol/l 0.9-1.7 L GLUCOSE [id number] 14:27:00* Test Item Value Reference Range Interpretation Comme nts GLUCOSE BEDSIDE (test code = GLUBED) 137 MG/DL 70-110 H Performed by cer ivett screwdown operator at [facility] LIPID PROFILE (CORONARY RISK)2025-03-15 10:36:00* Test Item Value Reference Range Interpretation Comme nts TRIGLYCERIDES (test code = TRIG) 94 mg/dL 40-150 N CHOLESTEROL (test code = CHOL) 150 mg/dL <200 CHOLESTEROL/HDL RATIO (test code = CHOLHDL) 3.47 RATIO 3.43-4.97 N RISK ASSOCIATED WITH CHOL/HDL RATIOS: RISK MALE FEMALE1/2 AVERAGE 3.43 3.27AVERAGE 4.97 4.442X AVERAGE 9.55 7.053X AVERAGE 23.39 11.04 NOTE THAT THE REFERENCE VALUE IS RELATEDTO RISK LEVELS RECOMMENDED BY THE NATL.HEART, LUNG, AND BLOOD INST. HDL CHOLESTEROL (test code = HDL) 43.2 MG/DL 40-60 N HDL Interpreta tion < 40.0 mg/dL Low (undesirable, high risk)> 60.0 mg/dL High (desirable, low risk) Reference interval for healthy adults was established by theNational Cholesterol Education Program (NCEP). LIPOPROTEIN LDL (test code = LDL) 97.0 mg/dL 0-100 N <100 [id number] 0-129 NEAR OPTIMAL/ABOVE [id number] HIGH>FQ=876 VERY HIGH*Guidelines provided by the National Cholesterol EducationProgram Adult Treatment Panel III GLUCOSE [id number] 10:22:00* Test Item Value Reference Range Interpretation Comme nts GLUCOSE BEDSIDE (test code = GLUBED) 171 MG/DL 70-110 H Performed by cer tified screwdown operator at [facility] UA RFLX MICR CULT IF [id number] 11:56:00* Test Item Value Reference Range Interpretation Comme nts UA COLOR (test code = COLU) YELLOW YEL/STRAW UA APPEARANCE (test code = APPU) CLEAR CLEAR UA GLUCOSE DIPSTICK (test code = DGLUU) 3+ NEGATIVE A UA BILIRUBIN DIPSTICK (test code = BILU) NEGATIVE NEGATIVE UA KETONE DIPSTICK (test code = KETU) NEGATIVE NEGATIVE UA SPECIFIC GRAVITY (test code = SGU) 1.016 1.005-1.030 N UA BLOOD DIPSTICK (test code = KETAN) NEGATIVE NEGATIVE UA PH DIPSTICK (test code = KIKE) 5.0 5.0-7.0 N UA PROTEIN DIPSTICK (test code = PROU) NEGATIVE NEGATIVE UA UROBILINIOGEN DIPSTICK (test code = URO) 0.2 mg/dL 0.2-1.0 UA NITRITE DIPSTICK (test code = LLUVIA) NEGATIVE NEGATIVE UA LEUKOCYTE ESTERASE DIPSTICK (test code = LEUU) NEGATIVE NEGATIVE UA WBC (test code = WBCU) 0-3 WBC/HPF 0-3 UA RBC (test code = RBCU) NONE SEEN RBC/HPF 0-3 UA WBC NO REFLEX (test code = WBCUCL) 0-3 WBC/HPF 0-3 UA BACTERIA (test code = BACU) NONE SEEN /HPF NONE SEEN UA SQUAMOUS CELLS (test code = SQU) 0-5 /HPF NONE SEEN UA MUCUS (test code = MUCU) TRACE /LPF NONE SEEN Indication for culture: RiskForSepsis-no oth srcSpecimen Description: CLEAN CATCHCREATININE W ESTIMATED [id number] 11:43:00* Test Item Value Reference Range Interpretation Comme nts BEDSIDE CREATININE (test code = CREATBED) 1.3 MG/DL 0.6-1.3 N [facility] GLOMERULAR FILTRATION RATE POC (test code = GFRBED) 61 ML/MIN Performed b y certified screwdown operator [facility]The Glomerular Filtration Rate is a calculated parameterbased on serum Creatinine, patient age and sex. GFR valuesless than 60 mL/min/1.73 square meters are indicative ofChronic Kidney Disease. Values less than 15 mL/min/1.73square meters indicate Kidney failure. The calculation forGFR is based on the CKD-EPI (2021) calculation. This formulais race indifferent and is the recommended formula for GFRby the National Kidney Foundation for Adults.The GFR will not calculate if the sex is unknown or if thepatient's age is <18 years.Previously reported result: 61 ML/MINEdited by: VIVEK on 03/11/25:[id number]/ 1143: GFRBED previously reported as: 61 ML/MIN COMPREHENSIVE METABOLIC [id number] 10:43:00* Test Item Value Reference Range Interpretation Comme nts SODIUM (test code = NA) 138 mEq/L 134-147 N POTASSIUM (test code = K) 4.4 mEq/L 3.4-5.0 N CHLORIDE (test code = CL) 105 mEq/L 100-108 N CARBON DIOXIDE (test code = CO2) 24 mEq/l 21-33 N ANION GAP (test code = GAP) 13 0-20 N GLUCOSE (test code = GLU) 119 mg/dL 77-141 N BLOOD UREA NITROGEN (test code = BUN) 22 mg/dL 7-25 N GLOMERULAR FILTRATION RATE (test code = GFR) 61.0 80-90 L The Glomerular Filtration Rate is a calculated parameterbased on serum Creatinine, patient age and sex. GFR valuesless than 60 mL/min/1.73 square meters are indicative ofChronic Kidney Disease. Values less than 15 mL/min/1.73square meters indicate Kidney failure. The calculation forGFR is based on the CKD-EPI (2021) calculation. This formulais race indifferent and is the recommended formula for GFRby the National Kidney Foundation for Adults.The GFR will not calculate if the sex is unknown or if thepatient's age is <18 years. CREATININE (test code = CREAT) 1.3 mg/dL 0.6-1.3 N TOTAL PROTEIN (test code = PROT) 7.8 g/dL 5.7-8.2 N Note change in REFERENCE RANGE due to change in REAGENT. ALBUMIN (test code = ALB) 4.60 g/dL 3.4-5.0 N CALCIUM (test code = CA) 10.0 mg/dL 8.0-10.5 N BILIRUBIN TOTAL (test code = BILT) 0.70 mg/dL 0.0-1.0 N SGOT/AST (test code = AST) 20 IUnit/L 8-34 N SGPT/ALT (test code = ALT) 24 IUnit/L 10-49 N ALKALINE PHOSPHATASE TOTAL (test code = ALKP) 61 IUnit/L 20-125 N B-TYPE NATRIURETIC [id number] 10:42:00* Test Item Value Reference Range Interpretation [facility] B-TYPE NATRIURETIC PEPTIDE ( test code = BNP) 19.0 PG/ML 0-100 N [id number] 10:40:00* Test Item Value Reference Range Interpretation [facility] HGBA1C% (test code = HGBA1C%) 6.1 %A1C 4.8-6.0 H PROTHROMBIN [id number] 10:40:00* Test Item Value Reference Range Interpretation [facility] PROTHROMBIN TIME PATIENT (test code = PTP) 11.7 SECONDS 9.3-12.9 N INTERNATIONAL NORMAL RATIO (test code = INR) 1.0 0.8-1.2 N TARGET INR BY INDICATION Indication INR1. Prophylaxis of venous thrombosis 2.0 - 3.0 (orthopedic surgery), Prophylaxis of venous thrombosis (other than high-risk surgery), Treatment of Deep Vein Thrombosis/Pulmonary Embolism, Prevention of systemic embolism - Tissue heart valves, Acute Myocardial Infarction (to prevent systemic embolism), Valvular heart disease, Atrial Fibrillation, Bileaflet mechanical valve in aortic position.2. Mechanical prosthetic valves (high risk), 2.5 - 3.5 Presence of Lupus Anticoagulant or Antiphospholipid Antibodies, Prevention of systemic embolism - Acute Myocardial Infarction (to prevent recurrent infarct). THROMBOPLASTIN TIME [id number] 10:40:00* Test Item Value Reference Range Interpretation [facility] THROMBOPLASTIN TIME PARTIAL (test code = PTT) 31.6 Seconds 25.0-39.5 N Therapeutic Rang e: 56.0 - 87.0 Seconds Effective 02/11/2025 CBC W/AUTO [id number] 10:26:00* Test Item Value Reference Range Interpretation Comme nts WHITE BLOOD CELL (test code = WBC) 6.3 x10 3/uL 4.5-11.0 N RED BLOOD CELL (test code = RBC) 4.97 x10 6/uL 4.00-5.60 N HEMOGLOBIN (test code = HGB) 15.9 g/dL 12.5-16.9 N HEMATOCRIT (test code = HCT) 48.3 % 37.5-50.7 N MEAN CELL VOLUME (test code = MCV) 97.2 fL 81.0-99.0 N MEAN CELL HGB (test code = MCH) 32.0 pg 27.0-33.0 N MEAN CELL HGB CONCETRATION (test code = MCHC) 32.9 g/dL 33.0-37.0 L RED CELL DISTRIBUTION WIDTH CV (test code = RDW) 13.0 % 11.5-14.5 N RED CELL DISTRIBUTION WIDTH SD (test code = RDW-SD) 46.5 fL 37.0-54.0 N PLATELET COUNT (test code = PLT) 209 x10 3/uL 150-400 N MEAN PLATELET VOLUME (test c ode = MPV) 9.7 fL 7.0-9.0 H NEUTROPHIL % (test code = NT%) 65.3 % 56.0-77.0 N IMMATURE GRANULOCYTE % (test code = IG%) 0.6 % 0.0-2.0 N LYMPHOCYTE % (test code = LY%) 19.8 % 14.0-32.0 N MONOCYTE % (test code = MO%) 11.3 % 4.8-9.0 H EOSINOPHIL % (test code = EO%) 2.4 % 0.3-3.7 N BASOPHIL % (test code = BA%) 0.6 % 0.0-2.0 N NUCLEATED RBC % (test code = NRBC%) 0.0 % 0-0 N NEUTROPHIL # (test code = NT#) 4.08 x10 3/uL 2.0-7.6 N IMMATURE GRANULOCYTE # (test code = IG#) 0.04 x10 3/uL 0.00-0.03 H LYMPHOCYTE # (test code = LY#) 1.24 x10 3/uL 1.0-3.8 N MONOCYTE # (test code = MO#) 0.71 x10 3/uL 0.1-0.8 N EOSINOPHIL # (test code = EO#) 0.15 x10 3/uL 0.0-0.2 N BASOPHIL # (test code = BA#) 0.04 x10 3/uL 0.0-0.2 N NUCLEATED RBC # (test code = NRBC#) 0.00 x10 3/uL 0.0-0.1 N Notes Date/Time Note Provider Source 2025-04-08 13:42:00 [facility] ([facility]) Brief Op Note REPORT#:[id number] REPORT STATUS: Signed REPORT INITIALIZATION DATE:04/08/25 TIME: 1341 PATIENT: LAKEISHA NORRIS UNIT #: [id number] ROOM/BED: : 58 AGE: 64 SEX: M ATTEND: Marlene Padilla MD ADM AUTHOR: Mario Askew REPT SERVICE DT/TIME: 04/08/25 1342 * ALL edits or amendments must be made on the electronic/computer document * Op/Inv Proc Note - Brief Pre-procedure diagnosis: Pleural effusion Post-procedure diagnosis: same as pre procedure dx Procedures performed: Ultrasound guided thoracentesis Primary Surgeon: Idalia Askew PA-C [place] Miner(s): none Anesthesia: local anesthesia Findings: The risks and benefits of Thoracentesis were discussed and consent was granted. Risks of bleeding, infection, damage to solid organs, pneumothorax and hemothorax were discussed and patient s questions were answered. Time out was performed. Procedure site was selected using imaging. Site was prepped and draped in the usual fashion. 1% lidocaine was used to anesthetize the site and needle tract. A 5 Slovenian one-step needle and catheter was used to access the pleural cavity. Pleural fluid was aspirated with vacuum suction. There were no complications. The patient left the room in good condition. 1500 mL of blood tinged fluid were aspirated. Complications: none Estimated blood loss in ml's: none Specimens removed/altered: none at 1348 RPT #:[id number] END OF REPORT [facility] 2025-03-27 13:38:00 [facility] ([facility]) Discharge Summary REPORT#:[id number] REPORT STATUS: Signed REPORT INITIALIZATION DATE:03/27/25 TIME: 133 PATIENT: LAKEISHA NORRIS UNIT #: [id number] ROOM/BED: [place] [id number] : 58 AGE: 64 SEX: M ATTEND: Marlene Padilla MD ADM AUTHOR: Laurent Vuong DO R2 REPT SERVICE DT/TIME: 03/27/25 1338 * ALL edits or amendments must be made on the electronic/computer document * General Information Discharge date: 03/27/25 Discharge diagnosis: 1. Hypertension 2. Hyperlipidemia 3. Diabetes mellitus 4. Hypothyroidism 5. Nicotine dependence 6. Coronary artery disease 7. Moderate Hospital course: Patient is a 64 year old male with a pmhx of HTN, HLD, DM, hypothyroidism, and current chewing tobacco use. Patient initially went to corporate ethics officer Dr. Milian for cardiac clearance for R knee replacement. He was found to have abnormal results on stress testing with inferior and inferiolateral areas of reversible ischemia. Echo shows EF 55-60% with moderate . Patient denies blood thinner use. Left heart cath was completed on 03/05/2025 showing severe multivessel coronary artery disease. Denies hx of chest pain or dypsnea. He ambulates without assistance. Patient will be admitted today for a CABG with aortic valve replacement. Assessment/plan: 1. Hypertension 2. Hyperlipidemia 3. Diabetes mellitus 4. Hypothyroidism 5. Nicotine dependence 6. Coronary artery disease 7. Moderate Admit to CVICU postoperatively Closely monitor hemodynamics Consult hothouse worker Dr. Padilla has seen and examined the patient. The patient will benefit from revascularization to coronary arteries and replacement of aortic valve. Dr. Padilla has explained in great detail the operation, risks, risk STS calculator, benefits, complications, alternatives and complications. The patient acknowledges understanding is willing to proceed with surgery. All questions have been answered. 03/16/25 1. Coronary artery bypass graft surgery x5 (MCGUIRE to LAD, saphenous vein to diagonal, saphenous vein to first marginal, saphenous vein to second marginal, saphenous vein to PDA). 2. Aortic valve replacement (29-mm Inspiris valve). 3. Amputation of left atrial appendage. 4. Posterior pericardiotomy. 5. Endoscopic vein harvest of the right greater saphenous vein. 03/17/25 POD 1 AAO x 3, denies complaints, multimodal pain management On 4LNC, wean as tolerated, encourage I-S use and deep breathing, CXR reviewed, ABG reviewed CTs in place, drained 95/335 cc overnight, will reassess after ambulation Sinus rhythm, monitor hemodynamics closely, epicardial pacing wires on standby, on levo gtt @2 Continue DAPT, metoprolol, amiodarone, and Lipitor Advance diet as tolerated, nutritional supplements, bowel regimen, glycemic control with insulin drip, transition to SSI UOP 660cc overnight, strict I's O's, daily weights DVT Prophylaxis with SCDs, GI prophylaxis with PPI PT/OT, OOB to chair, encourage ambulation Labs reviewed, replace electrolytes as needed Discharge disposition: home with good family support Plan to deline once off insulin and levo gtt Patient seen and examined by Dr Padilla. Plan of care discussed with nurse, patient and interdisciplinary team. All questions answered. 03/18/25 POD 2 AAO x 3, denies complaints, multimodal pain management On 1LNC, wean as tolerated, encourage I-S use and deep breathing, CXR reviewed, ABG reviewed CT in place, drained 60 cc overnight, will DC after ambulation Sinus rhythm, monitor hemodynamics closely, epicardial pacing wires on standby Continue DAPT, metoprolol, amiodarone, and Lipitor Advance diet as tolerated, nutritional supplements, bowel regimen, glycemic control SSI, MOM today UOP 575cc overnight, strict I's O's, daily weights DVT Prophylaxis with SCDs, GI prophylaxis with PPI PT/OT, OOB to chair, encourage ambulation Labs reviewed, replace electrolytes as needed Discharge disposition: home with good family support Continue close monitoring in CCU Patient seen and examined by Dr Padilla. Plan of care discussed with nurse, patient and interdisciplinary team. All questions answered. 03/19/25 POD 3 AAO x 3, reports shortness of breath, denies chest pain On 4LNC, wean as tolerated, encourage I-S use and deep breathing, CXR reviewed, ABG reviewed Went into A-fib RVR, given amio bolus and continued amio gtt, push of metoprolol , monitor hemodynamics closely, epicardial pacing wires on standby Continue DAPT, metoprolol 12.5 Q8H, amiodarone, and Lipitor Tolerating diet, nutritional supplements, bowel regimen, glycemic control SSI, suppository today UOP 1125cc overnight, strict I's O's, daily weights, weight up, Lasix today DVT Prophylaxis with SCDs, GI prophylaxis with PPI DVT study ordered PT/OT, OOB to chair, encourage ambulation Labs reviewed, replace electrolytes as needed Discharge disposition: home with good family support Continue close monitoring in CCU Patient seen and examined by Dr Padilla. Plan of care discussed with nurse, patient and interdisciplinary team. All questions answered. 03/20/25 POD 4 AAO x 3, reports shortness of breath, denies chest pain On RA, encourage I-S use and deep breathing, CXR reviewed, ABG reviewed Back in NSR today, monitor hemodynamics closely, epicardial pacing wires on standby Continue DAPT, metoprolol 12.5 Q8H, amiodarone, and Lipitor Tolerating diet, nutritional supplements, bowel regimen, glycemic control SSI, suppository today Good UOP overnight, strict I's O's, daily weights, on Lasix gtt, weight trending down, Diamox today DVT Prophylaxis with SCDs, GI prophylaxis with PPI PT/OT, OOB to chair, encourage ambulation Labs reviewed, replace electrolytes as needed Discharge disposition: home with good family support Continue close monitoring in CCU Patient seen and examined by Dr Padilla. Plan of care discussed with nurse, patient and interdisciplinary team. All questions answered. 03/21/25 POD 5 AAO x 3, reports shortness of breath, denies chest pain On RA, encourage I-S use and deep breathing, CXR reviewed Back in NSR today, monitor hemodynamics closely, epicardial pacing wires Dc'd, echocardiogram limited Continue DAPT, metoprolol 25mg BID, amiodarone, and Lipitor Tolerating diet, nutritional supplements, bowel regimen, glycemic control SSI, suppository today Good UOP overnight, strict I's O's, daily weights, weight back to baseline DVT Prophylaxis with SCDs, GI prophylaxis with PPI DVT study ordered PT/OT, OOB to chair, encourage ambulation Labs reviewed, replace electrolytes as needed Discharge disposition: home with good family support Okay to transfer to [facility] Patient seen and examined by Dr Padilla. Plan of care discussed with nurse, patient and interdisciplinary team. All questions answered. 03/22/25 POD 6, reports right leg pain, noted swelling AAO x 3, reports shortness of breath, denies chest pain On RA, encourage I-S use and deep breathing, CXR reviewed Back in NSR today, monitor hemodynamics closely, echocardiogram shows Ef 50-54%, small pericardial effusion Continue DAPT, metoprolol 25mg BID, amiodarone, and Lipitor Tolerating diet, nutritional supplements, bowel regimen, glycemic control SSI, suppository today Good UOP overnight, strict I's O's, daily weights, weight back to baseline, Lasix today DVT Prophylaxis with SCDs, GI prophylaxis with PPI DVT study negative, ordered arterial duplex as well as patient's right leg is swollen and extremely painful PT/OT, OOB to chair, encourage ambulation Labs reviewed, replace electrolytes as needed Discharge disposition: home with good family support Okay to transfer to [facility] Patient seen and examined by Dr Padilla. Plan of care discussed with nurse, patient and interdisciplinary team. All questions answered. 03/23/25 POD 7, reports right leg pain, noted swelling AAO x 3, reports shortness of breath, denies chest pain On RA, encourage I-S use and deep breathing, CXR reviewed Back in NSR today, monitor hemodynamics closely, echocardiogram shows Ef 50-54%, small pericardial effusion Continue DAPT, metoprolol 25mg BID, amiodarone, and Lipitor Tolerating diet, nutritional supplements, bowel regimen, glycemic control SSI, reports BM Good UOP overnight, strict I's O's, daily weights, weight below baseline DVT Prophylaxis with SCDs, GI prophylaxis with PPI DVT study negative, arterial duplex- possible mild nonocclusive peripheral arterial disease on right, no evidence of PAD on left. PT/OT, OOB to chair, encourage ambulation Labs reviewed, replace electrolytes as needed Discharge disposition: home with good family support Okay to transfer to [facility] CM working on rehab for patient, patient okay to discharge once approved/chose [facility]. Patient seen and examined by Dr Padilla. Plan of care discussed with nurse, patient and interdisciplinary team. All questions answered. 03/26/25 POD 10 CABG/AVR, continues to report improved right leg pain and swelling, on Cefazolin day 3 AAO x 3, reports shortness of breath, denies chest pain On RA, encourage I-S use and deep breathing NSR today, monitor hemodynamics closely, echocardiogram shows Ef 50-54%, small pericardial effusion Continue DAPT, metoprolol 25mg BID, amiodarone, and Lipitor Tolerating diet, nutritional supplements, bowel regimen, glycemic control SSI, reports BM voiding well,l Good UOP overnight, strict I's O's, daily weights, weight below baseline, 24-hour fluid balance -1850 DVT Prophylaxis with SCDs, GI prophylaxis with PPI DVT study negative, arterial duplex- possible mild nonocclusive peripheral arterial disease on right, no evidence of PAD on left. PT/OT, OOB to chair, encourage ambulation Labs reviewed, replace electrolytes as needed Discharge disposition: home lives alone, consider home health if denied rehab, patient refuses SNF CM working on rehab for patient, patient okay to discharge once approved/chose [facility]. Given post op apt, instructions, all questions answered. Patient seen and examined by Dr Padilla. Plan of care discussed with nurse, patient and interdisciplinary team. All questions answered. 03/27/25 POD 11 CABG/AVR, continues to report improved right leg pain and swelling, on Cefazolin day 3 AAO x 3, reports shortness of breath, denies chest pain On RA, encourage I-S use and deep breathing NSR today, monitor hemodynamics closely, echocardiogram shows Ef 50-54%, small pericardial effusion Continue DAPT, metoprolol 25mg BID, amiodarone, and Lipitor Tolerating diet, nutritional supplements, bowel regimen, glycemic control SSI, reports BM voiding well,l Good UOP overnight, strict I's O's, daily weights, DVT Prophylaxis with SCDs, GI prophylaxis with PPI DVT study negative, arterial duplex- possible mild nonocclusive peripheral arterial disease on right, no evidence of PAD on left. PT/OT, OOB to chair, encourage ambulation Labs reviewed, replace electrolytes as needed Discharge disposition: Patient has found arrangements for someone to watch over him at home for the next week. Patient can DC home today Given post op apt, instructions, all questions answered. Patient seen and examined by Dr Padilla. Plan of care discussed with nurse, patient and interdisciplinary team. All questions answered. Med Rec Med Rec Discharge meds: Continue taking these medications: LEVOTHYROXINE (SYNTHROID) 200 MCG TAB 200 MICROGRAM ORAL DAILY. RAMIPRIL (ALTACE) 10 MG CAP 10 MILLIGRAM ORAL DAILY. EMPAGLIFLOZIN (JARDIANCE) 25 MG TAB 25 MILLIGRAM ORAL DAILY. SIMVASTATIN (SIMVASTATIN) 20 MG TAB 20 MILLIGRAM ORAL BEDTIME. metFORMIN (GLUCOPHAGE) 1,000 MG TAB 1,000 MILLIGRAM ORAL DAILY. TIRZEPATIDE (MOUNJARO PEN (2mL)) 2.5 MG/0.5 ML PEN.INJCTR 2.5 MILLIGRAM SUBCUTANEOUS EVERY 7 DAYS. Start taking the following new medications: CLOPIDOGREL (PLAVIX) 75 MG TAB 75 MILLIGRAM ORAL DAILY. Qty = 30 No Refills FERROUS SULFATE (FEOSOL) 325 MG (65 MG IRON) TAB 325 MILLIGRAM ORAL DAILY. Qty = 30 No Refills AMIODARONE (PACERONE) 200 MG TAB 200 MILLIGRAM ORAL TWICE DAILY AT 9AM AND 5PM. Qty = 30 No Refills Instructions: 200 mg twice daily for 1 week 200mg daily for 1 week ATORVASTATIN (LIPITOR) 40 MG TAB 40 MILLIGRAM ORAL 2100 Qty = 30 No Refills METOPROLOL TARTRATE (LOPRESSOR) 25 MG TAB 25 MILLIGRAM ORAL EVERY 12 HOURS. Qty = 14 No Refills ASPIRIN (ASPIRIN) 81 MG TAB.CHEW 81 MILLIGRAM ORAL DAILY. Qty = 30 No Refills CYANOCOBALAMIN (VITAMIN B-12) 500 MCG TAB 500 MICROGRAM ORAL DAILY. Qty = 30 No Refills Objective VS/I O Last Documented: Result Date Time Pulse Ox 96 03/27 1116 B/P 114/55 03/27 1116 B/P Mean 0.0 03/27 111 O2 Delivery Room air 03/27 1116 Temp 36.5 03/27 1116 Pulse 55 03/27 1116 Resp 16 03/27 1116 FiO2 21 03/24 1142 O2 Flow Rate 1 07/05 0810 24 hour I O ending at 0700: 03/27 0700 03/26 1900 Intake Total 350 550 Output Total 1475 480 Balance -1125 70 Intake, Oral 350 550 Number 0 Bowel Movements Output, Urine 1475 480 Patient 140.3 kg Weight Weight Standing scale Measurement Method PATIENT WEIGHT: Weight (lb): 309 Weight (oz): 4.94 Weight (kg): 140.300 Discharge Instructions PCP )( Discharge to: Home/Self Care Discharge Instructions Additional Discharge Routines: PCP Follow-Up, Attending Follow-Up, Assemblyman Or Woman Follow-Up )( Diet: Resume Home Diet/Feeds, Regular )( Activity: As Tolerated Follow-up Appointments PCP follow up: PCP: No Primary or Family Physician PCP follow up timeframe: In 1-2 weeks Attending Physician: Attending Physician: Marlene Padilla MD Attending physician follow up timeframe: In 1-2 weeks Special instructions: call to confirm appointment, April 07 Quality: Discharge Advanced Care Plan 65 or Older Discussed with: patient Current Medications Current medication review: I attest that the foregoing medication list in the medical record is true, accurate, and complete to the best of my knowledge. at 1340 at 1036 RPT #:[id number] END OF REPORT [facility] 2025-03-27 09:53:00 [facility] Progress Note REPORT#:[id number] REPORT STATUS: Signed REPORT INITIALIZATION DATE:03/27/25 TIME: 952 PATIENT: LAKEISHA NORRIS UNIT #: [id number] ROOM/BED: [place] [address] : 58 AGE: 64 SEX: M ATTEND: Marlene Padilla MD ADM AUTHOR: Yara Graham APRN REPT SERVICE DT/TIME: 03/27/25 0953 * ALL edits or amendments must be made on the electronic/computer document * Subjective Chief complaint: Weak Free Text Subj Notes Free Text Subj Notes: NAD Noted. Objective General VS/I O: 24 hour I O ending at 0700: 03/27 0700 07 1900 Intake Total 350 550 Output Total 1475 480 Balance -1125 70 Intake, Oral 350 550 Number 0 Bowel Movements Output, Urine 1475 480 Patient 140.3 kg Weight Weight Standing scale Measurement Method Vital Signs: Date Time Temp Pulse Resp B/P B/P Pulse O2 O2 Flow FiO2 Mean Ox Delivery Rate 03/27 0757 97.9 56 14 104/55 0.0 99 Room air 03/27 0419 98.6 53 14 105/57 0.0 95 Room air 03/26 2355 98.6 53 14 106/54 0.0 96 Nasal cannula 03/26 1925 94 Room air 03/26 1922 98.2 58 14 109/58 0.0 95 Room air 03/26 1800 56 21 03/26 1745 98.6 80 20 108/62 67 03/26 1700 53 22 03/26 1600 51 22 03/26 1500 55 22 03/26 1400 55 17 03/26 1300 51 21 03/26 1200 55 23 03/26 1127 98.1 84 22 125/56 99 03/26 1100 56 21 03/26 1000 57 17 PATIENT WEIGHT: Weight (lb): 309 Weight (oz): 4.94 Weight (kg): 140.300 Medications: Active Meds + DC'd Last 24 Hrs Sterile Water (WATER FOR INJECTION) 5 ML ASDIR PRN IV Cefazolin Sodium (KEFZOL OR ANCEF) 1 GM Q8H IV Sodium Chloride (SODIUM CHLORIDE) 10 ML Insulin Glargine (Semglee) 5 UNIT BID SUBQ Metoprolol Tartrate (LOPRESSOR) 25 MG Q12HR PO Amiodarone HCl (CORDARONE) 200 MG BID 9A 5P PO Oxycodone HCl (Oxycodone HCl) 10 MG Q4H PRN PRN PO Oxycodone HCl (ROXICODONE) 5 MG Q4H PRN PRN PO (DC) Ipratropium [place] (ATROVENT) 500 MCG RTQ2H PRN PRN INH Cyanocobalamin (Vitamin B-12 500 mcg tab) 500 MCG DAILY PO Ferrous Sulfate (FERROUS SULFATE) 325 MG DAILY PO Bisacodyl (DULCOLAX) 10 MG ONCE PRN RECTAL Insulin Human Lispro (Admelog) 0 AC HS SUBQ Gabapentin (NEURONTIN) 200 MG TID PO Clopidogrel Bisulfate (Plavix) 75 MG DAILY PO Polyethylene Glycol (MIRALAX) 17 GM DAILY PO Levothyroxine Sodium (Synthroid) 200 MCG DAILY 0600 PO Pantoprazole (PROTONIX) 40 MG DAILY@0600 PO Atorvastatin Calcium (LIPITOR) 40 MG 2100 PO Docusate Sodium (COLACE) 100 MG BID PO Sennosides (Senna Lax 8.6 MG TABLET) 17.2 MG BEDTIME PO Aspirin (ASPIRIN) 81 MG DAILY PO Acetaminophen (TYLENOL) 650 MG Q4H PRN PRN PO Acetaminophen (TYLENOL) 650 MG Q4H PRN PRN RECTAL Dextrose/Water (DEXTROSE 10% IN WATER) 125 ML ASDIR PRN IV (CKD) Dextrose/Water (DEXTROSE 10% IN WATER) 250 ML ASDIR PRN IV (CKD) Glucagon (GLUCAGON) 1 MG ASDIR PRN IM Ondansetron HCl (ZOFRAN) 4 MG Q6H PRN PRN IV Physical Exam Head/Eyes: atraumatic Neck: no JVD, no masses or swelling Cardiovascular: CV assessment: regular rate and rhythm Respiratory: decreased breath sounds, on oxygen, no distress Abdomen: obese Genitourinary: urinary catheter, urine Lower extremity: LE assessment: edema Musculoskeletal: normal inspection Neuro/BANKING MANAGER: alert, oriented X 3 Skin: dry Psychiatry: normal affect, normal mood Results Findings/Data: Laboratory Tests 03/27 03/27 03/26 03/26 03/26 0755 441 2007 1640 1158 Chemistry Sodium (134 - 147 mEq/L) 136 Potassium (3.4 - 5.0 mEq/L) 4.2 Chloride (100 - 108 mEq/L) 105 Carbon Dioxide (21 - 33 mEq/l) 22 Anion Gap (0 - 20) 13 BUN (7 - 25 mg/dL) 16 Creatinine (0.6 - 1.3 mg/dL) 1.2 Glomerular Filtr Rate (80 - 90) 67.1 L Glucose (77 - 141 mg/dL) 150 H POC Glucose (70 - 110 MG/DL) 145 H 140 H 179 H 142 H Calcium (8.0 - 10.5 mg/dL) 8.7 Magnesium (1.6 - 2.6 mg/dL) 2.06 Laboratory Tests 03/27 044 Hematology WBC (4.5 - 11.0 x10 3/uL) 9.2 RBC (4.00 - 5.60 x10 6/uL) 3.24 L Hgb (12.5 - 16.9 g/dL) 10.3 L Hct (37.5 - 50.7 %) 31.6 L MCV (81.0 - 99.0 fL) 97.5 MCH (27.0 - 33.0 pg) 31.8 MCHC (33.0 - 37.0 g/dL) 32.6 L RDW (11.5 - 14.5 %) 12.7 Plt Count (150 - 400 x10 3/uL) 367 MPV (7.0 - 9.0 fL) 8.9 Neut % (Auto) (56.0 - 77.0 %) 65.4 Lymph % (Auto) (14.0 - 32.0 %) 16.7 Potter % (Auto) (4.8 - 9.0 %) 11.9 H Eos % (Auto) (0.3 - 3.7 %) 4.3 H Baso % (Auto) (0.0 - 2.0 %) 0.5 Neut # (Auto) (2.0 - 7.6 x10 3/uL) 6.03 Lymph # (Auto) (1.0 - 3.8 x10 3/uL) 1.54 Potter # (Auto) (0.1 - 0.8 x10 3/uL) 1.10 H Eos # (Auto) (0.0 - 0.2 x10 3/uL) 0.40 H Baso # (Auto) (0.0 - 0.2 x10 3/uL) 0.05 Abs Immat Gran (auto) (0.00 - 0.03 x10 3/uL) 0.11 H Immature Gran % (0.0 - 2.0 %) 1.2 Nucleated RBC % (0 - 0 %) 0.0 Nucleated RBCs # (Man) (0.0 - 0.1 x10 3/uL) 0.00 Laboratory Tests 03/27 0442 Chemistry Magnesium (1.6 - 2.6 mg/dL) 2.06 Diagnosis, Assessment Plan Free Text DxA P Notes Free Text DxA P Notes: 1. CAD and aortic valve stenosis s/p CABG x5 plus AVR plus ALAA * DAPT, BB, statin * CXR: Shallow inspiration with mild progression of pulmonary congestion and small left effusion. * post-op care per CTS and critical care * vs stable- in NSR 2. Hypetension * bp soft- monitor 3. Hypelipidemia * continue statin 4. Diabetes mellitus * glycemic control per critical care 5. Rectal bleed attributed to external hemorrhoid * GI and colorectal surgery following continue supportive care dc home when cleared by CTS Weekend Coverage for 03/27/2025 Vital signs stable Continue to monitor MDM per Dr. Ordoñez. at 1454 at 1713 RPT #:[id number] END OF REPORT [facility] 2025-03-27 08:51:00 [facility] ([facility]) Hospitalist Progress Note REPORT#:[id number] REPORT STATUS: Signed REPORT INITIALIZATION DATE:03/27/25 TIME: 850 PATIENT: LAKEISHA NORRIS UNIT #: [id number] ROOM/BED: [place] [address] : 58 AGE: 64 SEX: M ATTEND: Marlene Padilla MD ADM AUTHOR: Phuong Avalos APRN REPT SERVICE DT/TIME: 03/27/25 0851 * ALL edits or amendments must be made on the electronic/computer document * Subjective Chief complaint: RLE pain, swelling Review of Systems Musculoskeletal: Reports: extremity pain, extremity swelling. All systems rev neg: except as noted Objective General VS/I O: Vital Signs: Date Time Temp Pulse Resp B/P B/P Pulse O2 O2 Flow FiO2 Mean Ox Delivery Rate 03/27 0757 36.6 56 14 104/55 0.0 99 Room air 03/27 0419 37.0 53 14 105/57 0.0 95 Room air 03/26 2355 37.0 53 14 106/54 0.0 96 Nasal cannula 03/26 1925 94 Room air 03/26 1922 36.8 58 14 109/58 0.0 95 Room air 03/26 1800 56 21 03/26 1745 37.0 80 20 108/62 67 03/26 1700 53 22 03/26 1600 51 22 03/26 1500 55 22 03/26 1400 55 17 03/26 1300 51 21 03/26 1200 55 23 03/26 1127 36.7 84 22 125/56 99 03/26 1100 56 21 07/11 1000 57 17 03/26 0900 59 16 24 hour I O ending at 0700: 03/27 0700 03/26 1900 Intake Total 350 550 Output Total 1475 480 Balance -1125 70 Intake, Oral 350 550 Number 0 Bowel Movements Output, Urine 1475 480 Patient 140.3 kg Weight Weight Standing scale Measurement Method PATIENT WEIGHT: Weight (lb): 309 Weight (oz): 4.94 Weight (kg): 140.300 Medications: Active Meds + DC'd Last 24 Hrs Sterile Water (WATER FOR INJECTION) 5 ML ASDIR PRN IV Cefazolin Sodium (KEFZOL OR ANCEF) 1 GM Q8H IV Sodium Chloride (SODIUM CHLORIDE) 10 ML Insulin Glargine (Semglee) 5 UNIT BID SUBQ Metoprolol Tartrate (LOPRESSOR) 25 MG Q12HR PO Amiodarone HCl (CORDARONE) 200 MG BID 9A 5P PO Oxycodone HCl (Oxycodone HCl) 10 MG Q4H PRN PRN PO Oxycodone HCl (ROXICODONE) 5 MG Q4H PRN PRN PO (DC) Ipratropium [place] (ATROVENT) 500 MCG RTQ2H PRN PRN INH Cyanocobalamin (Vitamin B-12 500 mcg tab) 500 MCG DAILY PO Ferrous Sulfate (FERROUS SULFATE) 325 MG DAILY PO Bisacodyl (DULCOLAX) 10 MG ONCE PRN RECTAL Insulin Human Lispro (Admelog) 0 AC HS SUBQ Gabapentin (NEURONTIN) 200 MG TID PO Clopidogrel Bisulfate (Plavix) 75 MG DAILY PO Polyethylene Glycol (MIRALAX) 17 GM DAILY PO Levothyroxine Sodium (Synthroid) 200 MCG DAILY 0600 PO Pantoprazole (PROTONIX) 40 MG DAILY@0600 PO Atorvastatin Calcium (LIPITOR) 40 MG 2100 PO Docusate Sodium (COLACE) 100 MG BID PO Sennosides (Senna Lax 8.6 MG TABLET) 17.2 MG BEDTIME PO Aspirin (ASPIRIN) 81 MG DAILY PO Acetaminophen (TYLENOL) 650 MG Q4H PRN PRN PO Acetaminophen (TYLENOL) 650 MG Q4H PRN PRN RECTAL Dextrose/Water (DEXTROSE 10% IN WATER) 125 ML ASDIR PRN IV (CKD) Dextrose/Water (DEXTROSE 10% IN WATER) 250 ML ASDIR PRN IV (CKD) Glucagon (GLUCAGON) 1 MG ASDIR PRN IM Ondansetron HCl (ZOFRAN) 4 MG Q6H PRN PRN IV Physical Exam General appearance: alert, awake, oriented, no acute distress, mental status normal, no respiratory distress Head/Eyes: clear cornea, EOMI Neck: non-tender Cardiovascular: normal heart sounds, regular rate rhythm Respiratory: aerating well, clear to auscultation Abdomen: non-tender, normal bowel sounds, soft, no distention Extremities: edema, moves all, right leg swelling , warm and redness Neuro/BANKING MANAGER: alert, oriented X 3, CNII-XII intact, normal speech, no motor deficits, no sensory deficits Skin: abnormal color, abnormal temperature Psychiatry: normal affect, normal mood Results Findings/Data: Laboratory Tests 03/27 03/27 03/26 03/26 03/26 3805 441 2006 1640 1158 Chemistry Sodium (134 - 147 mEq/L) 136 Potassium (3.4 - 5.0 mEq/L) 4.2 Chloride (100 - 108 mEq/L) 105 Carbon Dioxide (21 - 33 mEq/l) 22 Anion Gap (0 - 20) 13 BUN (7 - 25 mg/dL) 16 Creatinine (0.6 - 1.3 mg/dL) 1.2 Glomerular Filtr Rate (80 - 90) 67.1 L Glucose (77 - 141 mg/dL) 150 H POC Glucose (70 - 110 MG/DL) 145 H 140 H 179 H 142 H Calcium (8.0 - 10.5 mg/dL) 8.7 Magnesium (1.6 - 2.6 mg/dL) 2.06 Laboratory Tests 03/27 442 Hematology WBC (4.5 - 11.0 x10 3/uL) 9.2 RBC (4.00 - 5.60 x10 6/uL) 3.24 L Hgb (12.5 - 16.9 g/dL) 10.3 L Hct (37.5 - 50.7 %) 31.6 L MCV (81.0 - 99.0 fL) 97.5 MCH (27.0 - 33.0 pg) 31.8 MCHC (33.0 - 37.0 g/dL) 32.6 L RDW (11.5 - 14.5 %) 12.7 Plt Count (150 - 400 x10 3/uL) 367 MPV (7.0 - 9.0 fL) 8.9 Neut % (Auto) (56.0 - 77.0 %) 65.4 Lymph % (Auto) (14.0 - 32.0 %) 16.7 Potter % (Auto) (4.8 - 9.0 %) 11.9 H Eos % (Auto) (0.3 - 3.7 %) 4.3 H Baso % (Auto) (0.0 - 2.0 %) 0.5 Neut # (Auto) (2.0 - 7.6 x10 3/uL) 6.03 Lymph # (Auto) (1.0 - 3.8 x10 3/uL) 1.54 Potter # (Auto) (0.1 - 0.8 x10 3/uL) 1.10 H Eos # (Auto) (0.0 - 0.2 x10 3/uL) 0.40 H Baso # (Auto) (0.0 - 0.2 x10 3/uL) 0.05 Abs Immat Gran (auto) (0.00 - 0.03 x10 3/uL) 0.11 H Immature Gran % (0.0 - 2.0 %) 1.2 Nucleated RBC % (0 - 0 %) 0.0 Nucleated RBCs # (Man) (0.0 - 0.1 x10 3/uL) 0.00 Diagnosis, Assessment Plan Free Text DxA P Notes Free text DxA P notes: 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 may be reaction post surgery pain control PT/OT rectal bleeding -- resolve rectal surgeon consult monitor H H DM-- sliding scale now HTN-- stable . on metoprolol hypothyroid -- continue home med 03/18- sit on the chair . no sob . pain is fair control . no fever -- on O2 . hemodynamic stable . chest tube are out -- review lab and image -- continue monitor in ccu 03/19 - cont to mobilize as braden - afib rvr, cont on amio gtt - management per CTS and ICC recs 03/22 Continue PO beta ash and amiodarone, off amio gtt. To floor if OK with cardio team. Continue PT/OT. Pain control PRN. 03/23- leg pain . post CABG continue PT/OT -transfer to CV1 -- HR- back to sinus -- IP rehab --pending as CM 03/24- right leg pain , swelling , redness and tender -- start ancef iv -- doppler -- no DVT --afib /rate control -- continue monitor in cv1 - PT/OT -- rehab consult /CM consult -- rehab evaluation 03/25- less redness and swelling on right leg -- continue antibiotic -- monitor in tele -- rehab --pending insurance 03/26 Continue cardiac meds and rehab therapy. Pending insurance approval for rehab. 03/27 Rehab not approved. Home with [facility]. Labs stable. at 1521 at 2057 RPT #:[id number] END OF REPORT [facility] 2025-03-27 05:47:00 [facility] ([facility]) Rehab Progress Note REPORT#:[id number] REPORT STATUS: Signed REPORT INITIALIZATION DATE:03/27/25 TIME: 546 PATIENT: LAKEISHA NORRIS UNIT #: [id number] ROOM/BED: [place] [phone] : 58 AGE: 64 SEX: M ATTEND: Marlene Padilla MD ADM AUTHOR: Abel Kelly REPT SERVICE DT/TIME: 03/27/25 0547 * ALL edits or amendments must be made on the electronic/computer document * Subjective Chief complaint: PMR follow-up NAD O2 sats 95% on room air Doing well Eating fair Denies RANKIN/N/V/D/CP 14 systems reviewed and neg. except that above. Objective General VS: Vital Signs: Date Time Temp Pulse Resp B/P B/P Pulse O2 O2 Flow FiO2 Mean Ox Delivery Rate 03/27 0419 98.6 53 14 105/57 0.0 95 Room air 03/26 2355 98.6 53 14 106/54 0.0 96 Nasal cannula 03/26 1925 94 Room air 03/26 1922 98.2 58 14 109/58 0.0 95 Room air 03/26 1800 56 21 03/26 1745 98.6 80 20 108/62 67 / 1700 53 22 03/26 1600 51 22 03/26 1500 55 22 03/26 1400 55 17 03/26 1300 51 21 03/26 1200 55 23 03/26 1127 98.1 84 22 125/56 99 / 1100 56 21 03/26 1000 57 17 03/26 0900 59 16 03/26 0800 63 23 03/26 0729 98.1 62 19 107/62 77.4 96 03/26 0700 62 22 03/26 0600 51 13 95 PATIENT WEIGHT: Weight (lb): 309 Weight (oz): 4.94 Weight (kg): 140.300 Medications: Active Meds + DC'd Last 24 Hrs Sterile Water (WATER FOR INJECTION) 5 ML ASDIR PRN IV Cefazolin Sodium (KEFZOL OR ANCEF) 1 GM Q8H IV Sodium Chloride (SODIUM CHLORIDE) 10 ML Insulin Glargine (Semglee) 5 UNIT BID SUBQ Metoprolol Tartrate (LOPRESSOR) 25 MG Q12HR PO Amiodarone HCl (CORDARONE) 200 MG BID 9A 5P PO Oxycodone HCl (Oxycodone HCl) 10 MG Q4H PRN PRN PO Oxycodone HCl (ROXICODONE) 5 MG Q4H PRN PRN PO Ipratropium [place] (ATROVENT) 500 MCG RTQ2H PRN PRN INH Cyanocobalamin (Vitamin B-12 500 mcg tab) 500 MCG DAILY PO Ferrous Sulfate (FERROUS SULFATE) 325 MG DAILY PO Bisacodyl (DULCOLAX) 10 MG ONCE PRN RECTAL Insulin Human Lispro (Admelog) 0 AC HS SUBQ Gabapentin (NEURONTIN) 200 MG TID PO Clopidogrel Bisulfate (Plavix) 75 MG DAILY PO Polyethylene Glycol (MIRALAX) 17 GM DAILY PO Levothyroxine Sodium (Synthroid) 200 MCG DAILY 0600 PO Pantoprazole (PROTONIX) 40 MG DAILY@0600 PO Atorvastatin Calcium (LIPITOR) 40 MG 2100 PO Docusate Sodium (COLACE) 100 MG BID PO Sennosides (Senna Lax 8.6 MG TABLET) 17.2 MG BEDTIME PO Aspirin (ASPIRIN) 81 MG DAILY PO Acetaminophen (TYLENOL) 650 MG Q4H PRN PRN PO Acetaminophen (TYLENOL) 650 MG Q4H PRN PRN RECTAL Dextrose/Water (DEXTROSE 10% IN WATER) 125 ML ASDIR PRN IV (CKD) Dextrose/Water (DEXTROSE 10% IN WATER) 250 ML ASDIR PRN IV (CKD) Glucagon (GLUCAGON) 1 MG ASDIR PRN IM Ondansetron HCl (ZOFRAN) 4 MG Q6H PRN PRN IV Functional Progress Functional progress: Weightbearing: No Restriction Ambulation Distance: 250 FEET Progression: Forward Assistance Level: Supervision or Set-up Gait Deviations: WBOS Antalgic Gait Right Effects of Treatment: Cardio tolerance improved Balance Improved Safety awareness improved Self management improved Tolerance increased Post Treatment Precautions: In Chair Call Light in Reach Nursing Notified Family at Bedside Telephone in Reach Other Review Plan of Care: Yes PT charges: Gait Training 02315 Gait Cmt: PATIENT SITTING IN RECLINER CHAIR UPON ARRIVAL WITH FRIENDS PRESENT. PATIENT REPORTS OF PAIN WITH RLE BUT AGREEABLE TO PT. PATIENT PERFORMED SIT<>STAND WITH SBA USING BUE FOR LIFT OFF. PATIENT AMBULATED 250FT WITH RW AND WC TO FOLLOW SBA WITH NO EPISODES OF LOB. PATIENT DEMONSTRATES ANTALGIC GAIT AND FORWARD FLEXED POSTURE. PATIENT THEN RETURNED BACK TO RECLINER AND LEFT WITH ALL NEEDS. RN NOTIFIED AND AWARE OF TX SESSION. Physical Exam General appearance: alert, awake Psych: alert, normal affect, oriented x 3 HEENT: anicteric, sclera clear Neck: supple, no JVD Cardiovascular: regular rate rhythm, S1/S2 Respiratory: aerating well, clear bilaterally Abdomen: bowel sounds present, non-distended, soft Skin: no rash, surgical incisions healing Musculoskeletal - general: Musculoskeletal - general: normal muscle mass, normal tone Neuro/BANKING MANAGER: alert, oriented X 3 Genitourinary: not examined Results Findings/Data: Laboratory Tests: 03/27 3311 2772 7375 Chemistry Sodium (134 - 147 mEq/L) 136 Potassium (3.4 - 5.0 mEq/L) 4.2 Chloride (100 - 108 mEq/L) 105 Carbon Dioxide (21 - 33 mEq/l) 22 Anion Gap (0 - 20) 13 BUN (7 - 25 mg/dL) 16 Creatinine (0.6 - 1.3 mg/dL) 1.2 Glomerular Filtr Rate (80 - 90) 67.1 L Glucose (77 - 141 mg/dL) 150 H POC Glucose (70 - 110 MG/DL) 140 H 179 H 142 H 158 H Calcium (8.0 - 10.5 mg/dL) 8.7 Magnesium (1.6 - 2.6 mg/dL) 2.06 Hematology WBC (4.5 - 11.0 x10 3/uL) 9.2 RBC (4.00 - 5.60 x10 6/uL) 3.24 L Hgb (12.5 - 16.9 g/dL) 10.3 L Hct (37.5 - 50.7 %) 31.6 L MCV (81.0 - 99.0 fL) 97.5 MCH (27.0 - 33.0 pg) 31.8 MCHC (33.0 - 37.0 g/dL) 32.6 L RDW (11.5 - 14.5 %) 12.7 Plt Count (150 - 400 x10 3/uL) 367 MPV (7.0 - 9.0 fL) 8.9 Neut % (Auto) (56.0 - 77.0 %) 65.4 Lymph % (Auto) (14.0 - 32.0 %) 16.7 Potter % (Auto) (4.8 - 9.0 %) 11.9 H Eos % (Auto) (0.3 - 3.7 %) 4.3 H Baso % (Auto) (0.0 - 2.0 %) 0.5 Neut # (Auto) (2.0 - 7.6 x10 3/uL) 6.03 Lymph # (Auto) (1.0 - 3.8 x10 3/uL) 1.54 Potter # (Auto) (0.1 - 0.8 x10 3/uL) 1.10 H Eos # (Auto) (0.0 - 0.2 x10 3/uL) 0.40 H Baso # (Auto) (0.0 - 0.2 x10 3/uL) 0.05 Abs Immat Gran (auto) (0.00 - 0.03 0.11 H x10 3/uL) Immature Gran % (0.0 - 2.0 %) 1.2 Nucleated RBC % (0 - 0 %) 0.0 Nucleated RBCs # (Man) (0.0 - 0.1 0.00 x10 3/uL) 03/26 0610 Chemistry Sodium (134 - 147 mEq/L) 136 Potassium (3.4 - 5.0 mEq/L) 4.1 Chloride (100 - 108 mEq/L) 104 Carbon Dioxide (21 - 33 mEq/l) 23 Anion Gap (0 - 20) 13 BUN (7 - 25 mg/dL) 13 Creatinine (0.6 - 1.3 mg/dL) 1.2 Glomerular Filtr Rate (80 - 90) 67.1 L Glucose (77 - 141 mg/dL) 145 H Calcium (8.0 - 10.5 mg/dL) 9.0 Magnesium (1.6 - 2.6 mg/dL) 2.17 Hematology WBC (4.5 - 11.0 x10 3/uL) 8.4 RBC (4.00 - 5.60 x10 6/uL) 3.37 L Hgb (12.5 - 16.9 g/dL) 10.5 L Hct (37.5 - 50.7 %) 32.8 L MCV (81.0 - 99.0 fL) 97.3 MCH (27.0 - 33.0 pg) 31.2 MCHC (33.0 - 37.0 g/dL) 32.0 L RDW (11.5 - 14.5 %) 12.7 Plt Count (150 - 400 x10 3/uL) 351 MPV (7.0 - 9.0 fL) 9.3 H Neut % (Auto) (56.0 - 77.0 %) 68.1 Lymph % (Auto) (14.0 - 32.0 %) 13.9 L Potter % (Auto) (4.8 - 9.0 %) 12.0 H Eos % (Auto) (0.3 - 3.7 %) 4.0 H Baso % (Auto) (0.0 - 2.0 %) 0.6 Neut # (Auto) (2.0 - 7.6 x10 3/uL) 5.72 Lymph # (Auto) (1.0 - 3.8 x10 3/uL) 1.17 Potter # (Auto) (0.1 - 0.8 x10 3/uL) 1.01 H Eos # (Auto) (0.0 - 0.2 x10 3/uL) 0.34 H Baso # (Auto) (0.0 - 0.2 x10 3/uL) 0.05 Abs Immat Gran (auto) (0.00 - 0.03 x10 3/uL) 0.12 H Immature Gran % (0.0 - 2.0 %) 1.4 Nucleated RBC % (0 - 0 %) 0.0 Nucleated RBCs # (Man) (0.0 - 0.1 x10 3/uL) 0.00 Diagnosis, Assessment Plan Free Text A P: Multivessel CAD S/p CABG x 5 /post valve replacement Cardiac debility Generalized weakness Impaired mobility, ADLs, balance, and endurance Leukocytosis rectal bleeding rupture thrombosed external hemorrhoid CAD HTN DM HLD hypothyroid Continue PT/OT Out of bed to chair Work on ADLs, strength, bed mobility, transfers, gait Sternal precaution Increase endurance Fall precautions Monitor PO intake and nutrition Strict decubitus precautions Cont. current medications Monitor labs Advance therapies as tolerated IRF consulted. Denied. Home with home health. The patient is supervision with transfers and ambulating 250 feet. He should do well Greater than 50% of time spent examining pt, discussing therapies, poc, goals, medications, labs, disposition. All questions answered. Rehab attestation: . at 0405 RPT #:[id number] END OF REPORT [facility] 2025-03-26 14:07:00 [facility] Cardiothoracic Surgery Prog REPORT#:[id number] REPORT STATUS: Signed REPORT INITIALIZATION DATE:03/26/25 TIME: 1406 PATIENT: LAKEISHA NORRIS UNIT #: [id number] ROOM/BED: [place] [address] : 58 AGE: 64 SEX: M ATTEND: Marlene Padilla MD ADM AUTHOR: Jackelyn Bauman APRN REPT SERVICE DT/TIME: 03/26/25 1407 * ALL edits or amendments must be made on the electronic/computer document * General Post-op: day 9 Status post: 03/16/25 1. Coronary artery bypass graft surgery x5 (MCGUIRE to LAD, saphenous vein to diagonal, saphenous vein to first marginal, saphenous vein to second marginal, saphenous vein to PDA). 2. Aortic valve replacement (29-mm Inspiris valve). 3. Amputation of left atrial appendage. 4. Posterior pericardiotomy. 5. Endoscopic vein harvest of the right greater saphenous vein. Subjective Chief complaint: s/p cabg Review of Systems Constitutional: Reports: fatigue. Denies: chills. Skin: Denies: abrasion, bruising. Allergy/Immun: Denies: allergic reaction. Respiratory: Denies: VALDOVINOS (dyspnea on exertion), parox nocturnal dyspnea. Cardiovascular: Denies: chest pain. GI: Denies: abdominal pain. : Denies: dysuria. Musculoskeletal: Reports: extremity pain, extremity swelling. Denies: arthritis. All systems rev neg: except as marked Objective General VS/I O Last Documented: Result Date Time Pulse Ox 96 03/26 729 B/P 107/62 03/26 729 B/P Mean 77.4 03/26 729 Temp 98.1 03/26 729 Pulse 62 03/26 07 Resp 19 03/26 729 O2 Delivery Room air 03/26 0322 FiO2 21 03/24 1142 O2 Flow Rate 1 03/20 0810 24 hour I O ending at 0700: 03/26 0700 03/25 1900 Intake Total 350 1100 Output Total 1700 1600 Balance -1350 -500 Intake, Oral 350 1100 Output, Urine 1700 1600 Patient 140.3 kg Weight Weight Standing scale Measurement Method PATIENT WEIGHT: Weight (lb): 309 Weight (oz): 4.94 Weight (kg): 140.300 Dietitian Nutrition assessment The data set between the solid lines has been imported from the dietitian's assessment. BMI Calculated: 40.8 Nutrition related diagnosis: Morbid obesity Nutrition diagnosis details: BMI 40 or more Nutrition problem: Increased nutrient needs Nutrition etiology: Acute illness Nutrition signs and symptoms: S/P CABG X 5, W/ AVR Nutrition prescription: 1. CONTINUE CARDIAC DIET. ENCOURAGE PO INTAKE DIET ADHERENCE. 2. PROVIDE ENSURE MAX PROTEIN BID Dietitian name: Suzie Valencia RD, LD Assessment completed: 03/22/25 Physical Exam General appearance: alert, awake, oriented Wound/incision: Location: sternum Site condition: edges approximated, no drainage, no ecchymosis HEENT: anicteric, mucosal membranes moist, pupils reactive to light Neck: full range of motion, non-tender Cardiovascular: BP/pulses equal bilat. Respiratory: symmetric expansion, no distress Abdomen: soft, non-tender Genitourinary: urine Extremities: edema, dry, moves all, normal capillary refill, normal temperature Musculoskeletal: full range of motion, painless range of motion Neuro/BANKING MANAGER: alert, oriented X 3 Skin: dry, intact, normal temperature Psychiatry: normal affect, normal mood Current Medications Medications: Active Meds + DC'd Last 24 Hrs Sterile Water (WATER FOR INJECTION) 5 ML ASDIR PRN IV Cefazolin Sodium (KEFZOL OR ANCEF) 1 GM Q8H IV Sodium Chloride (SODIUM CHLORIDE) 10 ML Insulin Glargine (Semglee) 5 UNIT BID SUBQ Metoprolol Tartrate (LOPRESSOR) 25 MG Q12HR PO Amiodarone HCl (CORDARONE) 200 MG BID 9A 5P PO Oxycodone HCl (Oxycodone HCl) 10 MG Q4H PRN PRN PO Oxycodone HCl (ROXICODONE) 5 MG Q4H PRN PRN PO Ipratropium [place] (ATROVENT) 500 MCG RTQ2H PRN PRN INH Cyanocobalamin (Vitamin B-12 500 mcg tab) 500 MCG DAILY PO Ferrous Sulfate (FERROUS SULFATE) 325 MG DAILY PO Bisacodyl (DULCOLAX) 10 MG ONCE PRN RECTAL Insulin Human Lispro (Admelog) 0 AC HS SUBQ Gabapentin (NEURONTIN) 200 MG TID PO Clopidogrel Bisulfate (Plavix) 75 MG DAILY PO Polyethylene Glycol (MIRALAX) 17 GM DAILY PO Levothyroxine Sodium (Synthroid) 200 MCG DAILY 0600 PO Pantoprazole (PROTONIX) 40 MG DAILY@0600 PO Atorvastatin Calcium (LIPITOR) 40 MG 2100 PO Docusate Sodium (COLACE) 100 MG BID PO Sennosides (Senna Lax 8.6 MG TABLET) 17.2 MG BEDTIME PO Aspirin (ASPIRIN) 81 MG DAILY PO Acetaminophen (TYLENOL) 650 MG Q4H PRN PRN PO Acetaminophen (TYLENOL) 650 MG Q4H PRN PRN RECTAL Dextrose/Water (DEXTROSE 10% IN WATER) 125 ML ASDIR PRN IV (CKD) Dextrose/Water (DEXTROSE 10% IN WATER) 250 ML ASDIR PRN IV (CKD) Glucagon (GLUCAGON) 1 MG ASDIR PRN IM Ondansetron HCl (ZOFRAN) 4 MG Q6H PRN PRN IV Results Findings/Data: Laboratory Tests 03/26 03/26 03/26 03/25 03/25 1158 0722 0610 1932 1640 Chemistry Sodium (134 - 147 mEq/L) 136 Potassium (3.4 - 5.0 mEq/L) 4.1 Chloride (100 - 108 mEq/L) 104 Carbon Dioxide (21 - 33 mEq/l) 23 Anion Gap (0 - 20) 13 BUN (7 - 25 mg/dL) 13 Creatinine (0.6 - 1.3 mg/dL) 1.2 Glomerular Filtr Rate (80 - 90) 67.1 L Glucose (77 - 141 mg/dL) 145 H POC Glucose (70 - 110 MG/DL) 142 H 158 H 189 H 126 H Calcium (8.0 - 10.5 mg/dL) 9.0 Magnesium (1.6 - 2.6 mg/dL) 2.17 Laboratory Tests 03/26 0610 Hematology WBC (4.5 - 11.0 x10 3/uL) 8.4 RBC (4.00 - 5.60 x10 6/uL) 3.37 L Hgb (12.5 - 16.9 g/dL) 10.5 L Hct (37.5 - 50.7 %) 32.8 L MCV (81.0 - 99.0 fL) 97.3 MCH (27.0 - 33.0 pg) 31.2 MCHC (33.0 - 37.0 g/dL) 32.0 L RDW (11.5 - 14.5 %) 12.7 Plt Count (150 - 400 x10 3/uL) 351 MPV (7.0 - 9.0 fL) 9.3 H Neut % (Auto) (56.0 - 77.0 %) 68.1 Lymph % (Auto) (14.0 - 32.0 %) 13.9 L Potter % (Auto) (4.8 - 9.0 %) 12.0 H Eos % (Auto) (0.3 - 3.7 %) 4.0 H Baso % (Auto) (0.0 - 2.0 %) 0.6 Neut # (Auto) (2.0 - 7.6 x10 3/uL) 5.72 Lymph # (Auto) (1.0 - 3.8 x10 3/uL) 1.17 Potter # (Auto) (0.1 - 0.8 x10 3/uL) 1.01 H Eos # (Auto) (0.0 - 0.2 x10 3/uL) 0.34 H Baso # (Auto) (0.0 - 0.2 x10 3/uL) 0.05 Abs Immat Gran (auto) (0.00 - 0.03 x10 3/uL) 0.12 H Immature Gran % (0.0 - 2.0 %) 1.4 Nucleated RBC % (0 - 0 %) 0.0 Nucleated RBCs # (Man) (0.0 - 0.1 x10 3/uL) 0.00 Results: labs reviewed, vital signs stable, rythm personally rev'd, x-ray personally reviewed, current med profile rev'd Treatment Prophylaxis Treatment Prophylaxis CVC/PICC documentation: The data below has been imported from nursing documentation. Any exceptions have been noted below under Provider comments. CVC/PICC insertion date/time: No CVC/PICC Provider comments on imported nursing data: [] Quality: Trauma Gen Surg Advanced Care Plan 65 or Older Discussed with: patient Current Medications Current medication review: I attest that the foregoing medication list in the medical record is true, accurate, and complete to the best of my knowledge. Diagnosis, Assessment Plan Free Text A P: Patient is a 64 year old male with a pmhx of HTN, HLD, DM, hypothyroidism, and current chewing tobacco use. Patient initially went to corporate ethics officer Dr. Milian for cardiac clearance for R knee replacement. He was found to have abnormal results on stress testing with inferior and inferiolateral areas of reversible ischemia. Echo shows EF 55-60% with moderate . Patient denies blood thinner use. Left heart cath was completed on 03/05/2025 showing severe multivessel coronary artery disease. Denies hx of chest pain or dypsnea. He ambulates without assistance. Patient will be admitted today for a CABG with aortic valve replacement. Assessment/plan: 1. Hypertension 2. Hyperlipidemia 3. Diabetes mellitus 4. Hypothyroidism 5. Nicotine dependence 6. Coronary artery disease 7. Moderate Admit to CVICU postoperatively Closely monitor hemodynamics Consult hothouse worker Dr. Padilla has seen and examined the patient. The patient will benefit from revascularization to coronary arteries and replacement of aortic valve. Dr. Padilla has explained in great detail the operation, risks, risk STS calculator, benefits, complications, alternatives and complications. The patient acknowledges understanding is willing to proceed with surgery. All questions have been answered. 03/16/25 1. Coronary artery bypass graft surgery x5 (MCGUIRE to LAD, saphenous vein to diagonal, saphenous vein to first marginal, saphenous vein to second marginal, saphenous vein to PDA). 2. Aortic valve replacement (29-mm Inspiris valve). 3. Amputation of left atrial appendage. 4. Posterior pericardiotomy. 5. Endoscopic vein harvest of the right greater saphenous vein. 03/17/25 POD 1 AAO x 3, denies complaints, multimodal pain management On 4LNC, wean as tolerated, encourage I-S use and deep breathing, CXR reviewed, ABG reviewed CTs in place, drained 95/335 cc overnight, will reassess after ambulation Sinus rhythm, monitor hemodynamics closely, epicardial pacing wires on standby, on levo gtt @2 Continue DAPT, metoprolol, amiodarone, and Lipitor Advance diet as tolerated, nutritional supplements, bowel regimen, glycemic control with insulin drip, transition to SSI UOP 660cc overnight, strict I's O's, daily weights DVT Prophylaxis with SCDs, GI prophylaxis with PPI PT/OT, OOB to chair, encourage ambulation Labs reviewed, replace electrolytes as needed Discharge disposition: home with good family support Plan to deline once off insulin and levo gtt Patient seen and examined by Dr Padilla. Plan of care discussed with nurse, patient and interdisciplinary team. All questions answered. 03/18/25 POD 2 AAO x 3, denies complaints, multimodal pain management On 1LNC, wean as tolerated, encourage I-S use and deep breathing, CXR reviewed, ABG reviewed CT in place, drained 60 cc overnight, will DC after ambulation Sinus rhythm, monitor hemodynamics closely, epicardial pacing wires on standby Continue DAPT, metoprolol, amiodarone, and Lipitor Advance diet as tolerated, nutritional supplements, bowel regimen, glycemic control SSI, MOM today UOP 575cc overnight, strict I's O's, daily weights DVT Prophylaxis with SCDs, GI prophylaxis with PPI PT/OT, OOB to chair, encourage ambulation Labs reviewed, replace electrolytes as needed Discharge disposition: home with good family support Continue close monitoring in CCU Patient seen and examined by Dr Padilla. Plan of care discussed with nurse, patient and interdisciplinary team. All questions answered. 03/19/25 POD 3 AAO x 3, reports shortness of breath, denies chest pain On 4LNC, wean as tolerated, encourage I-S use and deep breathing, CXR reviewed, ABG reviewed Went into A-fib RVR, given amio bolus and continued amio gtt, push of metoprolol , monitor hemodynamics closely, epicardial pacing wires on standby Continue DAPT, metoprolol 12.5 Q8H, amiodarone, and Lipitor Tolerating diet, nutritional supplements, bowel regimen, glycemic control SSI, suppository today UOP 1125cc overnight, strict I's O's, daily weights, weight up, Lasix today DVT Prophylaxis with SCDs, GI prophylaxis with PPI DVT study ordered PT/OT, OOB to chair, encourage ambulation Labs reviewed, replace electrolytes as needed Discharge disposition: home with good family support Continue close monitoring in CCU Patient seen and examined by Dr Padilla. Plan of care discussed with nurse, patient and interdisciplinary team. All questions answered. 03/20/25 POD 4 AAO x 3, reports shortness of breath, denies chest pain On RA, encourage I-S use and deep breathing, CXR reviewed, ABG reviewed Back in NSR today, monitor hemodynamics closely, epicardial pacing wires on standby Continue DAPT, metoprolol 12.5 Q8H, amiodarone, and Lipitor Tolerating diet, nutritional supplements, bowel regimen, glycemic control SSI, suppository today Good UOP overnight, strict I's O's, daily weights, on Lasix gtt, weight trending down, Diamox today DVT Prophylaxis with SCDs, GI prophylaxis with PPI PT/OT, OOB to chair, encourage ambulation Labs reviewed, replace electrolytes as needed Discharge disposition: home with good family support Continue close monitoring in CCU Patient seen and examined by Dr Padilla. Plan of care discussed with nurse, patient and interdisciplinary team. All questions answered. 03/21/25 POD 5 AAO x 3, reports shortness of breath, denies chest pain On RA, encourage I-S use and deep breathing, CXR reviewed Back in NSR today, monitor hemodynamics closely, epicardial pacing wires Dc'd, echocardiogram limited Continue DAPT, metoprolol 25mg BID, amiodarone, and Lipitor Tolerating diet, nutritional supplements, bowel regimen, glycemic control SSI, suppository today Good UOP overnight, strict I's O's, daily weights, weight back to baseline DVT Prophylaxis with SCDs, GI prophylaxis with PPI DVT study ordered PT/OT, OOB to chair, encourage ambulation Labs reviewed, replace electrolytes as needed Discharge disposition: home with good family support Okay to transfer to [facility] Patient seen and examined by Dr Padilla. Plan of care discussed with nurse, patient and interdisciplinary team. All questions answered. 03/22/25 POD 6, reports right leg pain, noted swelling AAO x 3, reports shortness of breath, denies chest pain On RA, encourage I-S use and deep breathing, CXR reviewed Back in NSR today, monitor hemodynamics closely, echocardiogram shows Ef 50-54%, small pericardial effusion Continue DAPT, metoprolol 25mg BID, amiodarone, and Lipitor Tolerating diet, nutritional supplements, bowel regimen, glycemic control SSI, suppository today Good UOP overnight, strict I's O's, daily weights, weight back to baseline, Lasix today DVT Prophylaxis with SCDs, GI prophylaxis with PPI DVT study negative, ordered arterial duplex as well as patient's right leg is swollen and extremely painful PT/OT, OOB to chair, encourage ambulation Labs reviewed, replace electrolytes as needed Discharge disposition: home with good family support Okay to transfer to [facility] Patient seen and examined by Dr Padilla. Plan of care discussed with nurse, patient and interdisciplinary team. All questions answered. 03/23/25 POD 7, reports right leg pain, noted swelling AAO x 3, reports shortness of breath, denies chest pain On RA, encourage I-S use and deep breathing, CXR reviewed Back in NSR today, monitor hemodynamics closely, echocardiogram shows Ef 50-54%, small pericardial effusion Continue DAPT, metoprolol 25mg BID, amiodarone, and Lipitor Tolerating diet, nutritional supplements, bowel regimen, glycemic control SSI, reports BM Good UOP overnight, strict I's O's, daily weights, weight below baseline DVT Prophylaxis with SCDs, GI prophylaxis with PPI DVT study negative, arterial duplex- possible mild nonocclusive peripheral arterial disease on right, no evidence of PAD on left. PT/OT, OOB to chair, encourage ambulation Labs reviewed, replace electrolytes as needed Discharge disposition: home with good family support Okay to transfer to [facility] CM working on rehab for patient, patient okay to discharge once approved/chose [facility]. Patient seen and examined by Dr Padilla. Plan of care discussed with nurse, patient and interdisciplinary team. All questions answered. 03/26/25 POD 10 CABG/AVR, continues to report improved right leg pain and swelling, on Cefazolin day 3 AAO x 3, reports shortness of breath, denies chest pain On RA, encourage I-S use and deep breathing NSR today, monitor hemodynamics closely, echocardiogram shows Ef 50-54%, small pericardial effusion Continue DAPT, metoprolol 25mg BID, amiodarone, and Lipitor Tolerating diet, nutritional supplements, bowel regimen, glycemic control SSI, reports BM voiding well,l Good UOP overnight, strict I's O's, daily weights, weight below baseline, 24-hour fluid balance -1850 DVT Prophylaxis with SCDs, GI prophylaxis with PPI DVT study negative, arterial duplex- possible mild nonocclusive peripheral arterial disease on right, no evidence of PAD on left. PT/OT, OOB to chair, encourage ambulation Labs reviewed, replace electrolytes as needed Discharge disposition: home lives alone, consider home health if denied rehab, patient refuses SNF CM working on rehab for patient, patient okay to discharge once approved/[facility]ose [facility]. Given post op apt, instructions, all questions answered. Patient seen and examined by Dr Padilla. Plan of care discussed with nurse, patient and interdisciplinary team. All questions answered. Code status: full code Plan discussed with: patient, collaborating MD, nurse at 1412 at 1741 RPT #:[id number] END OF REPORT [facility] 2025-03-26 09:41:00 [facility] ([facility] Hospitalist Progress Note REPORT#:[id number] REPORT STATUS: Signed REPORT INITIALIZATION DATE:03/26/25 TIME: 940 PATIENT: LAKEISHA NORRIS UNIT #: [id number] ROOM/BED: [place] [address] : 58 AGE: 64 SEX: M ATTEND: Marlene Padilla MD ADM AUTHOR: Phuong Avalos APRN REPT SERVICE DT/TIME: 03/26/25 09 * ALL edits or amendments must be made on the electronic/computer document * Subjective Chief complaint: RLE pain, swelling Review of Systems Constitutional: Denies: chills, fever. Respiratory: Denies: SOB. Cardiovascular: Denies: chest pain. GI: Denies: nausea, vomiting. Musculoskeletal: Reports: extremity pain, extremity swelling. Neuro: Denies: dizziness, headache. All systems rev neg: except as noted Objective General VS/I O: Vital Signs: Date Time Temp Pulse Resp B/P B/P Pulse O2 O2 Flow FiO2 Mean Ox Delivery Rate 03/26 0729 36.7 62 19 107/62 77.4 96 03/26 0322 36.8 51 17 109/54 0.0 96 Room air 03/25 2304 36.5 56 15 118/56 0.0 95 Room air 03/25 1940 95 Room air 03/25 1806 36.5 59 21 119/56 0.0 95 Room air 03/25 1643 36.6 57 16 108/52 0.0 96 24 hour I O ending at 0700: 03/26 0700 03/25 1900 Intake Total 350 1100 Output Total 1700 1600 Balance -1350 -500 Intake, Oral 350 1100 Output, Urine 1700 1600 Patient 140.3 kg Weight Weight Standing scale Measurement Method PATIENT WEIGHT: Weight (lb): 309 Weight (oz): 4.94 Weight (kg): 140.300 Medications: Active Meds + DC'd Last 24 Hrs Acetazolamide (DIAMOX) 250 MG ONCE ONE IV (DC) Sterile Water (WATER FOR INJECTION) 5 ML ASDIR PRN IV Cefazolin Sodium (KEFZOL OR ANCEF) 1 GM Q8H IV Sodium Chloride (SODIUM CHLORIDE) 10 ML Insulin Glargine (Semglee) 5 UNIT BID SUBQ Metoprolol Tartrate (LOPRESSOR) 25 MG Q12HR PO Amiodarone HCl (CORDARONE) 200 MG BID 9A 5P PO Oxycodone HCl (Oxycodone HCl) 10 MG Q4H PRN PRN PO Oxycodone HCl (ROXICODONE) 5 MG Q4H PRN PRN PO Ipratropium [place] (ATROVENT) 500 MCG RTQ2H PRN PRN INH Cyanocobalamin (Vitamin B-12 500 mcg tab) 500 MCG DAILY PO Ferrous Sulfate (FERROUS SULFATE) 325 MG DAILY PO Bisacodyl (DULCOLAX) 10 MG ONCE PRN RECTAL Insulin Human Lispro (Admelog) 0 AC HS SUBQ Gabapentin (NEURONTIN) 200 MG TID PO Clopidogrel Bisulfate (Plavix) 75 MG DAILY PO Polyethylene Glycol (MIRALAX) 17 GM DAILY PO Levothyroxine Sodium (Synthroid) 200 MCG DAILY 0600 PO Pantoprazole (PROTONIX) 40 MG DAILY@0600 PO Atorvastatin Calcium (LIPITOR) 40 MG 2100 PO Docusate Sodium (COLACE) 100 MG BID PO Sennosides (Senna Lax 8.6 MG TABLET) 17.2 MG BEDTIME PO Aspirin (ASPIRIN) 81 MG DAILY PO Acetaminophen (TYLENOL) 650 MG Q4H PRN PRN PO Acetaminophen (TYLENOL) 650 MG Q4H PRN PRN RECTAL Dextrose/Water (DEXTROSE 10% IN WATER) 125 ML ASDIR PRN IV (CKD) Dextrose/Water (DEXTROSE 10% IN WATER) 250 ML ASDIR PRN IV (CKD) Glucagon (GLUCAGON) 1 MG ASDIR PRN IM Ondansetron HCl (ZOFRAN) 4 MG Q6H PRN PRN IV Physical Exam General appearance: alert, awake, oriented, no acute distress, mental status normal, no respiratory distress Head/Eyes: clear cornea, EOMI Neck: non-tender Cardiovascular: normal heart sounds, regular rate rhythm Respiratory: aerating well, clear to auscultation Abdomen: non-tender, normal bowel sounds, soft, no distention Extremities: edema, moves all, right leg swelling , warm and redness Neuro/BANKING MANAGER: alert, oriented X 3, CNII-XII intact, normal speech, no motor deficits, no sensory deficits Skin: abnormal color, abnormal temperature Psychiatry: normal affect, normal mood Results Findings/Data: Laboratory Tests 03/26 03/26 03/25 03/25 03/25 0722 0610 1932 1640 1116 Chemistry Sodium (134 - 147 mEq/L) 136 Potassium (3.4 - 5.0 mEq/L) 4.1 Chloride (100 - 108 mEq/L) 104 Carbon Dioxide (21 - 33 mEq/l) 23 Anion Gap (0 - 20) 13 BUN (7 - 25 mg/dL) 13 Creatinine (0.6 - 1.3 mg/dL) 1.2 Glomerular Filtr Rate (80 - 90) 67.1 L Glucose (77 - 141 mg/dL) 145 H POC Glucose (70 - 110 MG/DL) 158 H 189 H 126 H 170 H Calcium (8.0 - 10.5 mg/dL) 9.0 Magnesium (1.6 - 2.6 mg/dL) 2.17 Laboratory Tests 03/26 0610 Hematology WBC (4.5 - 11.0 x10 3/uL) 8.4 RBC (4.00 - 5.60 x10 6/uL) 3.37 L Hgb (12.5 - 16.9 g/dL) 10.5 L Hct (37.5 - 50.7 %) 32.8 L MCV (81.0 - 99.0 fL) 97.3 MCH (27.0 - 33.0 pg) 31.2 MCHC (33.0 - 37.0 g/dL) 32.0 L RDW (11.5 - 14.5 %) 12.7 Plt Count (150 - 400 x10 3/uL) 351 MPV (7.0 - 9.0 fL) 9.3 H Neut % (Auto) (56.0 - 77.0 %) 68.1 Lymph % (Auto) (14.0 - 32.0 %) 13.9 L Potter % (Auto) (4.8 - 9.0 %) 12.0 H Eos % (Auto) (0.3 - 3.7 %) 4.0 H Baso % (Auto) (0.0 - 2.0 %) 0.6 Neut # (Auto) (2.0 - 7.6 x10 3/uL) 5.72 Lymph # (Auto) (1.0 - 3.8 x10 3/uL) 1.17 Potter # (Auto) (0.1 - 0.8 x10 3/uL) 1.01 H Eos # (Auto) (0.0 - 0.2 x10 3/uL) 0.34 H Baso # (Auto) (0.0 - 0.2 x10 3/uL) 0.05 Abs Immat Gran (auto) (0.00 - 0.03 x10 3/uL) 0.12 H Immature Gran % (0.0 - 2.0 %) 1.4 Nucleated RBC % (0 - 0 %) 0.0 Nucleated RBCs # (Man) (0.0 - 0.1 x10 3/uL) 0.00 Diagnosis, Assessment Plan Free Text DxA P Notes Free text DxA P notes: 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 may be reaction post surgery pain control PT/OT rectal bleeding -- resolve rectal surgeon consult monitor H H DM-- sliding scale now HTN-- stable . on metoprolol hypothyroid -- continue home med 03/18- sit on the chair . no sob . pain is fair control . no fever -- on O2 . hemodynamic stable . chest tube are out -- review lab and image -- continue monitor in ccu 03/19 - cont to mobilize as braden - afib rvr, cont on amio gtt - management per CTS and ICC recs 03/22 Continue PO beta ash and amiodarone, off amio gtt. To floor if OK with cardio team. Continue PT/OT. Pain control PRN. 03/23- leg pain . post CABG continue PT/OT -transfer to 1 -- HR- back to sinus -- IP rehab --pending as CM 03/24- right leg pain , swelling , redness and tender -- start ancef iv -- doppler -- no DVT --afib /rate control -- continue monitor in cv1 - PT/OT -- rehab consult /CM consult -- rehab evaluation 03/25- less redness and swelling on right leg -- continue antibiotic -- monitor in tele -- rehab --pending insurance 03/26 Continue cardiac meds and rehab therapy. Pending insurance approval for rehab. at 1140 at 1617 RPT #:[id number] END OF REPORT [facility] 2025-03-26 07:25:00 [facility] Cardiology Progress Note REPORT#:[id number] REPORT STATUS: Signed REPORT INITIALIZATION DATE:03/26/25 TIME: 724 PATIENT: LAKEISHA NORRIS UNIT #: [id number] ROOM/BED: [place] [address] : 58 AGE: 64 SEX: M ATTEND: Marlene Padilla MD ADM AUTHOR: Candelaria Ordoñez MD REPT SERVICE DT/TIME: 03/26/25724 * ALL edits or amendments must be made on the electronic/computer document * Subjective Chief complaint: Weak Objective General VS/I O: 24 hour I O ending at 0700: 03/26 0700 03/25 1900 Intake Total 350 1100 Output Total 1700 1600 Balance -1350 -500 Intake, Oral 350 1100 Output, Urine 1700 1600 Patient 140.3 kg Weight Weight Standing scale Measurement Method Vital Signs: Date Time Temp Pulse Resp B/P B/P Pulse O2 O2 Flow FiO2 Mean Ox Delivery Rate 03/26 0322 98.2 51 17 109/54 0.0 96 Room air 03/25 2304 97.7 56 15 118/56 0.0 95 Room air 03/25 1940 95 Room air 03/25 1806 97.7 59 21 119/56 0.0 95 Room air 03/25 1643 97.9 57 16 108/52 0.0 96 PATIENT WEIGHT: Weight (lb): 309 Weight (oz): 4.94 Weight (kg): 140.300 Medications: Active Meds + DC'd Last 24 Hrs Acetazolamide (DIAMOX) 250 MG ONCE ONE IV (DC) Sterile Water (WATER FOR INJECTION) 5 ML ASDIR PRN IV Cefazolin Sodium (KEFZOL OR ANCEF) 1 GM Q8H IV Sodium Chloride (SODIUM CHLORIDE) 10 ML Insulin Glargine (Semglee) 5 UNIT BID SUBQ Metoprolol Tartrate (LOPRESSOR) 25 MG Q12HR PO Amiodarone HCl (CORDARONE) 200 MG BID 9A 5P PO Oxycodone HCl (Oxycodone HCl) 10 MG Q4H PRN PRN PO Oxycodone HCl (ROXICODONE) 5 MG Q4H PRN PRN PO Ipratropium [place] (ATROVENT) 500 MCG RTQ2H PRN PRN INH Cyanocobalamin (Vitamin B-12 500 mcg tab) 500 MCG DAILY PO Ferrous Sulfate (FERROUS SULFATE) 325 MG DAILY PO Bisacodyl (DULCOLAX) 10 MG ONCE PRN RECTAL Insulin Human Lispro (Admelog) 0 AC HS SUBQ Gabapentin (NEURONTIN) 200 MG TID PO Clopidogrel Bisulfate (Plavix) 75 MG DAILY PO Polyethylene Glycol (MIRALAX) 17 GM DAILY PO Levothyroxine Sodium (Synthroid) 200 MCG DAILY 0600 PO Pantoprazole (PROTONIX) 40 MG DAILY@0600 PO Atorvastatin Calcium (LIPITOR) 40 MG 2100 PO Docusate Sodium (COLACE) 100 MG BID PO Sennosides (Senna Lax 8.6 MG TABLET) 17.2 MG BEDTIME PO Aspirin (ASPIRIN) 81 MG DAILY PO Acetaminophen (TYLENOL) 650 MG Q4H PRN PRN PO Acetaminophen (TYLENOL) 650 MG Q4H PRN PRN RECTAL Dextrose/Water (DEXTROSE 10% IN WATER) 125 ML ASDIR PRN IV (CKD) Dextrose/Water (DEXTROSE 10% IN WATER) 250 ML ASDIR PRN IV (CKD) Glucagon (GLUCAGON) 1 MG ASDIR PRN IM Ondansetron HCl (ZOFRAN) 4 MG Q6H PRN PRN IV Physical Exam General appearance: alert, awake Head/Eyes: atraumatic Neck: no JVD, no masses or swelling Cardiovascular: CV assessment: regular rate and rhythm Respiratory: decreased breath sounds, on oxygen, no distress Abdomen: obese Genitourinary: urinary catheter, urine Lower extremity: LE assessment: edema Musculoskeletal: normal inspection Neuro/BANKING MANAGER: alert, oriented X 3 Skin: dry Psychiatry: normal affect, normal mood Diagnosis, Assessment Plan Free Text DxA P Notes Free Text DxA P Notes: 1. CAD and aortic valve stenosis s/p CABG x5 plus AVR plus ALAA * DAPT, BB, statin * CXR: Shallow inspiration with mild progression of pulmonary congestion and small left effusion. * post-op care per CTS and critical care * vs stable- in NSR 2. Hypetension * bp soft- monitor 3. Hypelipidemia * continue statin 4. Diabetes mellitus * glycemic control per critical care 5. Rectal bleed attributed to external hemorrhoid * GI and colorectal surgery following continue supportive care dc home when cleared by CTS Coverage for at 0725 RPT #:[id number] END OF REPORT [facility] 2025-03-26 05:54:00 [facility] ([facility] Rehab Progress Note REPORT#:[id number] REPORT STATUS: Signed REPORT INITIALIZATION DATE:03/26/25 TIME: 553 PATIENT: LAKEISHA NORRIS UNIT #: [id number] [place] [facility] [place] 58 AGE: 64 SEX: M ATTEND: Marlene Padilla MD ADM AUTHOR: Abel Kelly REPT SERVICE DT/TIME: 03/26/25 0554 * ALL edits or amendments must be made on the electronic/computer document * Subjective Chief complaint: PMR follow-up NAD Doing well Eating fair Denies RANKIN/N/V/D/CP 14 systems reviewed and neg. except that above. Objective General VS: Vital Signs: Date Time Temp Pulse Resp B/P B/P Pulse O2 O2 Flow FiO2 Mean Ox Delivery Rate 03/26 0322 98.2 51 17 109/54 0.0 96 Room air 03/25 2304 97.7 56 15 118/56 0.0 95 Room air 03/25 1940 95 Room air 03/25 1806 97.7 59 21 119/56 0.0 95 Room air 03/25 1643 97.9 57 16 108/52 0.0 96 03/25 0702 98.6 64 20 123/67 0.0 96 PATIENT WEIGHT: Weight (lb): 312 Weight (oz): 2.79 Weight (kg): 141.600 Medications: Active Meds + DC'd Last 24 Hrs Acetazolamide (DIAMOX) 250 MG ONCE ONE IV (DC) Sterile Water (WATER FOR INJECTION) 5 ML ASDIR PRN IV Cefazolin Sodium (KEFZOL OR ANCEF) 1 GM Q8H IV Sodium Chloride (SODIUM CHLORIDE) 10 ML Insulin Glargine (Semglee) 5 UNIT BID SUBQ Metoprolol Tartrate (LOPRESSOR) 25 MG Q12HR PO Amiodarone HCl (CORDARONE) 200 MG BID 9A 5P PO Oxycodone HCl (Oxycodone HCl) 10 MG Q4H PRN PRN PO Oxycodone HCl (ROXICODONE) 5 MG Q4H PRN PRN PO Ipratropium [place] (ATROVENT) 500 MCG RTQ2H PRN PRN INH Cyanocobalamin (Vitamin B-12 500 mcg tab) 500 MCG DAILY PO Ferrous Sulfate (FERROUS SULFATE) 325 MG DAILY PO Bisacodyl (DULCOLAX) 10 MG ONCE PRN RECTAL Insulin Human Lispro (Admelog) 0 AC HS SUBQ Gabapentin (NEURONTIN) 200 MG TID PO Clopidogrel Bisulfate (Plavix) 75 MG DAILY PO Polyethylene Glycol (MIRALAX) 17 GM DAILY PO Levothyroxine Sodium (Synthroid) 200 MCG DAILY 0600 PO Pantoprazole (PROTONIX) 40 MG DAILY@0600 PO Atorvastatin Calcium (LIPITOR) 40 MG 2100 PO Docusate Sodium (COLACE) 100 MG BID PO Sennosides (Senna Lax 8.6 MG TABLET) 17.2 MG BEDTIME PO Aspirin (ASPIRIN) 81 MG DAILY PO Acetaminophen (TYLENOL) 650 MG Q4H PRN PRN PO Acetaminophen (TYLENOL) 650 MG Q4H PRN PRN RECTAL Dextrose/Water (DEXTROSE 10% IN WATER) 125 ML ASDIR PRN IV (CKD) Dextrose/Water (DEXTROSE 10% IN WATER) 250 ML ASDIR PRN IV (CKD) Glucagon (GLUCAGON) 1 MG ASDIR PRN IM Ondansetron HCl (ZOFRAN) 4 MG Q6H PRN PRN IV Functional Progress Functional progress: Weightbearing: No Restriction Ambulation Distance: 250 FEET Progression: Forward Assistance Level: Supervision or Set-up Gait Deviations: WBOS Antalgic Gait Right AMPAC Mobility: No Document Pain/Education: No Advanced Progression: No Effects of Treatment: Cardio tolerance improved Balance Improved Safety awareness improved Self management improved Tolerance increased Post Treatment Precautions: In Chair Call Light in Reach Nursing Notified Family at Bedside Telephone in Reach Other Review Plan of Care: Yes PT charges: Gait Training [id number] X 2 Gait Cmt: GAIT WITH RW X 250 FEET EXTRA TIME, SUPERVISION FOR SAFETY, PT. SOB AND FATIGUED TO TRY A SECOND LAP. Physical Exam General appearance: alert, awake Psych: alert, normal affect, oriented x 3 HEENT: anicteric, sclera clear Neck: supple, no JVD Cardiovascular: regular rate rhythm, S1/S2 Respiratory: aerating well, clear bilaterally Abdomen: bowel sounds present, non-distended, soft Skin: no rash, surgical incisions healing Musculoskeletal - general: Musculoskeletal - general: normal muscle mass, normal tone Neuro/BANKING MANAGER: alert, oriented X 3 Genitourinary: not examined Results Findings/Data: Laboratory Tests 03/25 03/25 03/25 03/25 03/25 1932 1640 1116 0708 0429 Chemistry Sodium (134 - 147 mEq/L) 135 Potassium (3.4 - 5.0 mEq/L) 4.2 Chloride (100 - 108 mEq/L) 101 Carbon Dioxide (21 - 33 mEq/l) 26 Anion Gap (0 - 20) 12 BUN (7 - 25 mg/dL) 15 Creatinine (0.6 - 1.3 mg/dL) 1.1 Glomerular Filtr Rate (80 - 90) 74.5 L Glucose (77 - 141 mg/dL) 145 H POC Glucose (70 - 110 MG/DL) 189 H 126 H 170 H 166 H Calcium (8.0 - 10.5 mg/dL) 8.4 Magnesium (1.6 - 2.6 mg/dL) 2.01 03/24 03/24 03/24 03/24 03/24 1906 1636 1109 0703 0359 Chemistry Sodium (134 - 147 mEq/L) 136 Potassium (3.4 - 5.0 mEq/L) 4.1 Chloride (100 - 108 mEq/L) 102 Carbon Dioxide (21 - 33 mEq/l) 26 Anion Gap (0 - 20) 12 BUN (7 - 25 mg/dL) 14 Creatinine (0.6 - 1.3 mg/dL) 1.1 Glomerular Filtr Rate (80 - 90) 74.5 L Glucose (77 - 141 mg/dL) 152 H POC Glucose (70 - 110 MG/DL) 215 H 142 H 234 H 168 H Calcium (8.0 - 10.5 mg/dL) 8.8 Magnesium (1.6 - 2.6 mg/dL) 1.92 03/23 03/23 03/23 195 1614 1057 Chemistry POC Glucose (70 - 110 MG/DL) 231 H 189 H 192 H Laboratory Tests 03/25 03/24 0429 0359 Hematology WBC (4.5 - 11.0 x10 3/uL) 9.0 8.9 RBC (4.00 - 5.60 x10 6/uL) 3.22 L 3.20 L Hgb (12.5 - 16.9 g/dL) 10.3 L 10.3 L Hct (37.5 - 50.7 %) 30.7 L 30.6 L MCV (81.0 - 99.0 fL) 95.3 95.6 MCH (27.0 - 33.0 pg) 32.0 32.2 MCHC (33.0 - 37.0 g/dL) 33.6 33.7 RDW (11.5 - 14.5 %) 12.6 12.6 Plt Count (150 - 400 x10 3/uL) 305 263 MPV (7.0 - 9.0 fL) 9.5 H 9.6 H Neut % (Auto) (56.0 - 77.0 %) 67.8 65.5 Lymph % (Auto) (14.0 - 32.0 %) 14.5 15.3 Potter % (Auto) (4.8 - 9.0 %) 12.5 H 13.7 H Eos % (Auto) (0.3 - 3.7 %) 3.6 3.9 H Baso % (Auto) (0.0 - 2.0 %) 0.3 0.3 Neut # (Auto) (2.0 - 7.6 x10 3/uL) 6.09 5.81 Lymph # (Auto) (1.0 - 3.8 x10 3/uL) 1.30 1.36 Potter # (Auto) (0.1 - 0.8 x10 3/uL) 1.12 H 1.22 H Eos # (Auto) (0.0 - 0.2 x10 3/uL) 0.32 H 0.35 H Baso # (Auto) (0.0 - 0.2 x10 3/uL) 0.03 0.03 Abs Immat Gran (auto) (0.00 - 0.03 x10 3/uL) 0.12 H 0.12 H Immature Gran % (0.0 - 2.0 %) 1.3 1.3 Nucleated RBC % (0 - 0 %) 0.0 0.0 Nucleated RBCs # (Man) (0.0 - 0.1 x10 3/uL) 0.00 0.00 Laboratory Tests: 03/25 03/25 03/25 03/25 1932 1640 1116 0708 Chemistry POC Glucose (70 - 110 MG/DL) 189 H 126 H 170 H 166 H Diagnosis, Assessment Plan Free Text A P: Multivessel CAD S/p CABG x 5 /post valve replacement Cardiac debility Generalized weakness Impaired mobility, ADLs, balance, and endurance Leukocytosis rectal bleeding rupture thrombosed external hemorrhoid CAD HTN DM HLD hypothyroid Continue PT/OT Out of bed to chair Work on ADLs, strength, bed mobility, transfers, gait Sternal precaution Increase endurance Fall precautions Monitor PO intake and nutrition Strict decubitus precautions Cont. current medications Monitor labs Advance therapies as tolerated IRF consulted. Await insurance approval. Patient supervision with transfers and ambulating 250 feet. Greater than 50% of time spent examining pt, discussing therapies, poc, goals, medications, labs, disposition. All questions answered. Rehab attestation: . at 1909 RPT #:[id number] END OF REPORT [facility] 2025-03-25 13:22:00 [facility] ([facility]) Cardiology Progress Note REPORT#:[id number] REPORT STATUS: Signed REPORT INITIALIZATION DATE:03/25/25 TIME: 1322 PATIENT: LAKEISHA NORRIS UNIT #: [id number] ROOM/BED: [place] [id number] : 58 AGE: 64 SEX: M ATTEND: Marlene Padilla MD ADM AUTHOR: Candelaria Ordoñez MD REPT SERVICE DT/TIME: 03/25/25 1322 * ALL edits or amendments must be made on the electronic/computer document * Subjective Chief complaint: Weak Objective General VS/I O: 24 hour I O ending at 0700: 03/25 0700 03/24 1900 Intake Total 350 430 Output Total 1000 1250 Balance -650 -820 Intake, Oral 350 430 Number 1 Bowel Movements Output, Urine 1000 1250 Patient 141.6 kg Weight Weight Standing scale Measurement Method Vital Signs: Date Time Temp Pulse Resp B/P B/P Pulse O2 O2 Flow FiO2 Mean Ox Delivery Rate 03/25 0702 98.6 64 20 123/67 0.0 96 03/25 0431 98.1 59 16 116/57 0.0 100 Room air 03/25 0200 58 25 95 / 0000 58 15 92 / 2349 98.8 57 16 114/55 0.0 98 Room air 03/24 1950 95 Room air 03/24 1906 98.6 65 18 106/58 0.0 98 Room air 03/24 1825 65 / 1639 99.0 57 14 106/58 0.0 95 Room air 03/24 1635 58 20 106/58 79 98 PATIENT WEIGHT: Weight (lb): 312 Weight (oz): 2.79 Weight (kg): 141.600 Medications: Active Meds + DC'd Last 24 Hrs Acetazolamide (DIAMOX) 250 MG ONCE ONE IV (DC) Sterile Water (WATER FOR INJECTION) 5 ML ASDIR PRN IV Cefazolin Sodium (KEFZOL OR ANCEF) 1 GM Q8H IV Sodium Chloride (SODIUM CHLORIDE) 10 ML Insulin Glargine (Semglee) 5 UNIT BID SUBQ Metoprolol Tartrate (LOPRESSOR) 25 MG Q12HR PO Amiodarone HCl (CORDARONE) 200 MG BID 9A 5P PO Oxycodone HCl (Oxycodone HCl) 10 MG Q4H PRN PRN PO Oxycodone HCl (ROXICODONE) 5 MG Q4H PRN PRN PO Ipratropium [place] (ATROVENT) 500 MCG RTQ2H PRN PRN INH Cyanocobalamin (Vitamin B-12 500 mcg tab) 500 MCG DAILY PO Ferrous Sulfate (FERROUS SULFATE) 325 MG DAILY PO Bisacodyl (DULCOLAX) 10 MG ONCE PRN RECTAL Magnesium Hydroxide (MILK OF MAGNESIA) 30 ML ONCE PRN PO (DC) Insulin Human Lispro (Admelog) 0 AC HS SUBQ Gabapentin (NEURONTIN) 200 MG TID PO Clopidogrel Bisulfate (Plavix) 75 MG DAILY PO Polyethylene Glycol (MIRALAX) 17 GM DAILY PO Levothyroxine Sodium (Synthroid) 200 MCG DAILY 0600 PO Pantoprazole (PROTONIX) 40 MG DAILY@0600 PO Atorvastatin Calcium (LIPITOR) 40 MG 2100 PO Docusate Sodium (COLACE) 100 MG BID PO Sennosides (Senna Lax 8.6 MG TABLET) 17.2 MG BEDTIME PO Aspirin (ASPIRIN) 81 MG DAILY PO Acetaminophen (TYLENOL) 650 MG Q4H PRN PRN PO Acetaminophen (TYLENOL) 650 MG Q4H PRN PRN RECTAL Dextrose/Water (DEXTROSE 10% IN WATER) 125 ML ASDIR PRN IV (CKD) Dextrose/Water (DEXTROSE 10% IN WATER) 250 ML ASDIR PRN IV (CKD) Glucagon (GLUCAGON) 1 MG ASDIR PRN IM Ondansetron HCl (ZOFRAN) 4 MG Q6H PRN PRN IV Physical Exam General appearance: alert, awake Head/Eyes: atraumatic Neck: no JVD, no masses or swelling Cardiovascular: CV assessment: regular rate and rhythm Respiratory: decreased breath sounds, on oxygen, no distress Abdomen: obese Genitourinary: urinary catheter, urine Lower extremity: LE assessment: edema Musculoskeletal: normal inspection Neuro/BANKING MANAGER: alert, oriented X 3 Skin: dry Psychiatry: normal affect, normal mood Results Findings/Data: Laboratory Tests 03/25 03/25 03/24 03/24 0708 0429 1906 1636 Chemistry Sodium (134 - 147 mEq/L) 135 Potassium (3.4 - 5.0 mEq/L) 4.2 Chloride (100 - 108 mEq/L) 101 Carbon Dioxide (21 - 33 mEq/l) 26 Anion Gap (0 - 20) 12 BUN (7 - 25 mg/dL) 15 Creatinine (0.6 - 1.3 mg/dL) 1.1 Glomerular Filtr Rate (80 - 90) 74.5 L Glucose (77 - 141 mg/dL) 145 H POC Glucose (70 - 110 MG/DL) 166 H 215 H 142 H Calcium (8.0 - 10.5 mg/dL) 8.4 Magnesium (1.6 - 2.6 mg/dL) 2.01 Laboratory Tests 03/25 429 Hematology WBC (4.5 - 11.0 x10 3/uL) 9.0 RBC (4.00 - 5.60 x10 6/uL) 3.22 L Hgb (12.5 - 16.9 g/dL) 10.3 L Hct (37.5 - 50.7 %) 30.7 L MCV (81.0 - 99.0 fL) 95.3 MCH (27.0 - 33.0 pg) 32.0 MCHC (33.0 - 37.0 g/dL) 33.6 RDW (11.5 - 14.5 %) 12.6 Plt Count (150 - 400 x10 3/uL) 305 MPV (7.0 - 9.0 fL) 9.5 H Neut % (Auto) (56.0 - 77.0 %) 67.8 Lymph % (Auto) (14.0 - 32.0 %) 14.5 Potter % (Auto) (4.8 - 9.0 %) 12.5 H Eos % (Auto) (0.3 - 3.7 %) 3.6 Baso % (Auto) (0.0 - 2.0 %) 0.3 Neut # (Auto) (2.0 - 7.6 x10 3/uL) 6.09 Lymph # (Auto) (1.0 - 3.8 x10 3/uL) 1.30 Potter # (Auto) (0.1 - 0.8 x10 3/uL) 1.12 H Eos # (Auto) (0.0 - 0.2 x10 3/uL) 0.32 H Baso # (Auto) (0.0 - 0.2 x10 3/uL) 0.03 Abs Immat Gran (auto) (0.00 - 0.03 x10 3/uL) 0.12 H Immature Gran % (0.0 - 2.0 %) 1.3 Nucleated RBC % (0 - 0 %) 0.0 Nucleated RBCs # (Man) (0.0 - 0.1 x10 3/uL) 0.00 Laboratory Tests 03/25 0429 Chemistry Magnesium (1.6 - 2.6 mg/dL) 2.01 Diagnosis, Assessment Plan Free Text DxA P Notes Free Text DxA P Notes: 1. CAD and aortic valve stenosis s/p CABG x5 plus AVR plus ALAA * DAPT, BB, statin * CXR: Shallow inspiration with mild progression of pulmonary congestion and small left effusion. * post-op care per CTS and critical care * vs stable- in NSR 2. Hypetension * bp soft- monitor 3. Hypelipidemia * continue statin 4. Diabetes mellitus * glycemic control per critical care 5. Rectal bleed attributed to external hemorrhoid * GI and colorectal surgery following continue supportive care dc home when cleared by CTS Coverage for at 1323 RPT #:[id number] END OF REPORT [facility] 2025-03-25 13:17:00 [facility] ([facility] Hospitalist Progress Note REPORT#:[id number] REPORT STATUS: Signed REPORT INITIALIZATION DATE:03/25/25 TIME: 1316 PATIENT: LAKEISHA NORRIS UNIT #: [id number] ROOM/BED: [place] [id number] : 58 AGE: 64 SEX: M ATTEND: Marlene Padilla MD ADM AUTHOR: Shara Celestin MD REPT SERVICE DT/TIME: 03/25/25 1317 * ALL edits or amendments must be made on the electronic/computer document * Subjective Chief complaint: less redness on leg Review of Systems Musculoskeletal: Reports: extremity pain, extremity swelling. All systems rev neg: except as noted Objective General VS/I O: Vital Signs: Date Time Temp Pulse Resp B/P B/P Pulse O2 O2 Flow FiO2 Mean Ox Delivery Rate 03/25 0702 37.0 64 20 123/67 0.0 96 03/25 0431 36.7 59 16 116/57 0.0 100 Room air 03/25 0200 58 25 95 03/25 0000 58 15 92 03/24 2349 37.1 57 16 114/55 0.0 98 Room air 03/24 1950 95 Room air 03/24 1906 37.0 65 18 106/58 0.0 98 Room air 03/24 1825 65 03/24 1639 37.2 57 14 106/58 0.0 95 Room air 03/24 1635 58 20 106/58 79 98 24 hour I O ending at 0700: 03/25 0700 03/24 1900 Intake Total 350 430 Output Total 1000 1250 Balance -650 -820 Intake, Oral 350 430 Number 1 Bowel Movements Output, Urine 1000 1250 Patient 141.6 kg Weight Weight Standing scale Measurement Method PATIENT WEIGHT: Weight (lb): 312 Weight (oz): 2.79 Weight (kg): 141.600 Medications: Active Meds + DC'd Last 24 Hrs Acetazolamide (DIAMOX) 250 MG ONCE ONE IV (DC) Sterile Water (WATER FOR INJECTION) 5 ML ASDIR PRN IV Cefazolin Sodium (KEFZOL OR ANCEF) 1 GM Q8H IV Sodium Chloride (SODIUM CHLORIDE) 10 ML Insulin Glargine (Semglee) 5 UNIT BID SUBQ Metoprolol Tartrate (LOPRESSOR) 25 MG Q12HR PO Amiodarone HCl (CORDARONE) 200 MG BID 9A 5P PO Oxycodone HCl (Oxycodone HCl) 10 MG Q4H PRN PRN PO Oxycodone HCl (ROXICODONE) 5 MG Q4H PRN PRN PO Ipratropium [place] (ATROVENT) 500 MCG RTQ2H PRN PRN INH Cyanocobalamin (Vitamin B-12 500 mcg tab) 500 MCG DAILY PO Ferrous Sulfate (FERROUS SULFATE) 325 MG DAILY PO Bisacodyl (DULCOLAX) 10 MG ONCE PRN RECTAL Magnesium Hydroxide (MILK OF MAGNESIA) 30 ML ONCE PRN PO (DC) Insulin Human Lispro (Admelog) 0 AC HS SUBQ Gabapentin (NEURONTIN) 200 MG TID PO Clopidogrel Bisulfate (Plavix) 75 MG DAILY PO Polyethylene Glycol (MIRALAX) 17 GM DAILY PO Levothyroxine Sodium (Synthroid) 200 MCG DAILY 0600 PO Pantoprazole (PROTONIX) 40 MG DAILY@0600 PO Atorvastatin Calcium (LIPITOR) 40 MG 2100 PO Docusate Sodium (COLACE) 100 MG BID PO Sennosides (Senna Lax 8.6 MG TABLET) 17.2 MG BEDTIME PO Aspirin (ASPIRIN) 81 MG DAILY PO Acetaminophen (TYLENOL) 650 MG Q4H PRN PRN PO Acetaminophen (TYLENOL) 650 MG Q4H PRN PRN RECTAL Dextrose/Water (DEXTROSE 10% IN WATER) 125 ML ASDIR PRN IV (CKD) Dextrose/Water (DEXTROSE 10% IN WATER) 250 ML ASDIR PRN IV (CKD) Glucagon (GLUCAGON) 1 MG ASDIR PRN IM Ondansetron HCl (ZOFRAN) 4 MG Q6H PRN PRN IV Physical Exam General appearance: alert, awake, oriented Head/Eyes: clear cornea, EOMI Neck: non-tender Cardiovascular: normal heart sounds, regular rate rhythm Respiratory: aerating well, clear to auscultation Abdomen: non-tender, normal bowel sounds, soft, no distention Extremities: edema, moves all, right leg swelling , warm and redness Neuro/BANKING MANAGER: alert, oriented X 3, CNII-XII intact, normal speech, no motor deficits, no sensory deficits Skin: abnormal color, abnormal temperature Psychiatry: normal affect, normal mood Results Findings/Data: Laboratory Tests 03/25 03/25 03/24 03/24 0708 0429 1906 1636 Chemistry Sodium (134 - 147 mEq/L) 135 Potassium (3.4 - 5.0 mEq/L) 4.2 Chloride (100 - 108 mEq/L) 101 Carbon Dioxide (21 - 33 mEq/l) 26 Anion Gap (0 - 20) 12 BUN (7 - 25 mg/dL) 15 Creatinine (0.6 - 1.3 mg/dL) 1.1 Glomerular Filtr Rate (80 - 90) 74.5 L Glucose (77 - 141 mg/dL) 145 H POC Glucose (70 - 110 MG/DL) 166 H 215 H 142 H Calcium (8.0 - 10.5 mg/dL) 8.4 Magnesium (1.6 - 2.6 mg/dL) 2.01 Laboratory Tests 03/25 0429 Hematology WBC (4.5 - 11.0 x10 3/uL) 9.0 RBC (4.00 - 5.60 x10 6/uL) 3.22 L Hgb (12.5 - 16.9 g/dL) 10.3 L Hct (37.5 - 50.7 %) 30.7 L MCV (81.0 - 99.0 fL) 95.3 MCH (27.0 - 33.0 pg) 32.0 MCHC (33.0 - 37.0 g/dL) 33.6 RDW (11.5 - 14.5 %) 12.6 Plt Count (150 - 400 x10 3/uL) 305 MPV (7.0 - 9.0 fL) 9.5 H Neut % (Auto) (56.0 - 77.0 %) 67.8 Lymph % (Auto) (14.0 - 32.0 %) 14.5 Potter % (Auto) (4.8 - 9.0 %) 12.5 H Eos % (Auto) (0.3 - 3.7 %) 3.6 Baso % (Auto) (0.0 - 2.0 %) 0.3 Neut # (Auto) (2.0 - 7.6 x10 3/uL) 6.09 Lymph # (Auto) (1.0 - 3.8 x10 3/uL) 1.30 Potter # (Auto) (0.1 - 0.8 x10 3/uL) 1.12 H Eos # (Auto) (0.0 - 0.2 x10 3/uL) 0.32 H Baso # (Auto) (0.0 - 0.2 x10 3/uL) 0.03 Abs Immat Gran (auto) (0.00 - 0.03 x10 3/uL) 0.12 H Immature Gran % (0.0 - 2.0 %) 1.3 Nucleated RBC % (0 - 0 %) 0.0 Nucleated RBCs # (Man) (0.0 - 0.1 x10 3/uL) 0.00 Diagnosis, Assessment Plan Free Text DxA P Notes Free text DxA P notes: 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 may be reaction post surgery pain control PT/OT rectal bleeding -- resolve rectal surgeon consult monitor H H DM-- sliding scale now HTN-- stable . on metoprolol hypothyroid -- continue home med 03/18- sit on the chair . no sob . pain is fair control . no fever -- on O2 . hemodynamic stable . chest tube are out -- review lab and image -- continue monitor in ccu 03/19 - cont to mobilize as braden - afib rvr, cont on amio gtt - management per CTS and ICC recs 03/22 Continue PO beta ash and amiodarone, off amio gtt. To floor if OK with cardio team. Continue PT/OT. Pain control PRN. 03/23- leg pain . post CABG continue PT/OT -transfer to 1 -- HR- back to sinus -- IP rehab --pending as CM 03/24- right leg pain , swelling , redness and tender -- start ancef iv -- doppler -- no DVT --afib /rate control -- continue monitor in cv1 - PT/OT -- rehab consult /CM consult -- rehab evaluation 03/25- less redness and swelling on right leg -- continue antibiotic -- monitor in tele -- rehab --pending insurance at 1320 RPT #:[id number] END OF REPORT [facility] 2025-03-25 10:33:00 [facility] ([facility]) Adult General Consultation REPORT#:[id number] REPORT STATUS: Signed REPORT INITIALIZATION DATE:03/25/25 TIME: 103 PATIENT: LAKEISHA NORRIS UNIT #: [id number] ROOM/BED: 3348-1 : 58 AGE: 64 SEX: M ATTEND: Marlene Padilla MD ADM AUTHOR: Kell Kelly NP REPT SERVICE DT/TIME: 03/25/25 1033 * ALL edits or amendments must be made on the electronic/computer document * History of Present Illness Requesting Clinician: IM Reason for consult: PMR eval and support Chief complaint: Weakness PCP: PCP: No Primary or Family Physician HPI: 64 year old male with a pmhx of HTN, HLD, DM, hypothyroidism, and current chewing tobacco use. Patient initially went to corporate ethics officer Dr. Milian for cardiac clearance for R knee replacement. He was found to have abnormal results on stress testing with inferior and inferiolateral areas of reversible ischemia and is now CABG x 5 //post valve replacement. We have been consulted for PMR eval and support. History - Adult longitudinal Additional medical history: 1. Hypertension 2. Diabetes mellitus 3. Hyperlipidemia 4. Hypothyroidism 5. Aortic valve stenosis Additional surgical history: reviewed and n/c Additional family history: Unobtainable Alcohol use: unknown Drug use: Denies recreational drugs Smoking status for patients 13 years old or older: Light tobacco smoker Medications: Home Medications: Medication Dose/Rte/Freq Days Qty Entered Last Max Daily Dose Reviewed LEVOTHYROXINE 200 MCG PO DAILY 03/11/25 03/15/25 (SYNTHROID) 0949 1008 Strength: 200 MCG TAB RAMIPRIL (ALTACE) 10 MG PO DAILY 03/11/25 03/15/25 Strength: 10 MG CAP 1044 1008 EMPAGLIFLOZIN 25 MG PO DAILY 03/11/25 03/15/25 (JARDIANCE) 1044 1008 Strength: 25 MG TAB SIMVASTATIN 20 MG PO BEDTIME 03/11/25 03/15/25 Strength: 20 MG TAB 1045 1008 metFORMIN (GLUCOPHAGE) 1,000 MG PO DAILY 03/11/25 03/15/25 Strength: 1,000 MG TAB 1045 1008 TIRZEPATIDE 2.5 MG SUBQ Q7D 03/11/25 03/15/25 (MOUNJARO PEN (2mL)) 1045 1008 Strength: 2.5 MG/0.5 ML PEN.INJCTR Current Hospital Medications: Anti-Infective Agents Sig/Beatrice Start time Last Medication Dose Route Stop Time Status Admin Cefazolin Sodium 1 GM Q8H 03/24 1215 AC 03/25 (KEFZOL OR ANCEF) IV 03/31 1214 1135 Sodium Chloride 10 ML (SODIUM CHLORIDE) Autonomic Drugs Sig/Beatrice Start time Last Medication Dose Route Stop Time Status Admin Ipratropium [place] 500 MCG RTQ2H PRN PRN 03/19 1444 AC (ATROVENT) INH 06/17 1443 Blood Formation,Coagulation Sig/Beatrice Start time Last Medication Dose Route Stop Time Status Admin Ferrous Sulfate 325 MG DAILY 03/19 09 AC 03/25 (FERROUS SULFATE) PO 06/17 0859 0808 Clopidogrel Bisulfate 75 MG DAILY 03/17 09 AC 03/25 (Plavix) PO 06/15 0859 0808 Cardiovascular Drugs Sig/Beatrice Start time Last Medication Dose Route Stop Time Status Admin Metoprolol Tartrate 25 MG Q12HR 03/23 2100 AC 03/25 (LOPRESSOR) PO 06/21 205 0808 Amiodarone HCl 200 MG BID 9A 5P 03/23 1700 AC 03/25 (CORDARONE) PO 06/21 165 165 Atorvastatin Calcium 40 MG 2100 03/16 2100 AC 03/24 (LIPITOR) PO 04/15 2059 202 Central Nervous System Agents Sig/Beatrice Start time Last Medication Dose Route Stop Time Status Admin Oxycodone HCl 10 MG Q4H PRN PRN 03/23 0945 AC 03/25 (Oxycodone HCl) PO 03/28 0944 1755 Oxycodone HCl 5 MG Q4H PRN PRN 03/22 0800 AC 03/25 (ROXICODONE) PO 03/27 0759 0646 Gabapentin 200 MG TID 03/17 1000 AC 03/25 (NEURONTIN) PO 06/15 0959 1654 Aspirin 81 MG DAILY 03/16 2044 AC 03/25 (ASPIRIN) PO 06/14 2043 0807 Acetaminophen 650 MG Q4H PRN PRN 03/16 1445 AC 03/18 (TYLENOL) PO 06/14 1444 1039 Acetaminophen 650 MG Q4H PRN PRN 03/16 1445 AC (TYLENOL) RECTAL 06/14 1444 Electrolytic, Caloric, And Felix Sig/Beatrice Start time Last Medication Dose Route Stop Time Status Admin Dextrose/Water 125 ML ASDIR PRN 03/16 1445 CKD (DEXTROSE 10% IN IV 06/14 1444 WATER) Dextrose/Water 250 ML ASDIR PRN 03/16 1445 CKD (DEXTROSE 10% IN IV 06/14 1444 WATER) Eye, Ear, Nose And Throat (Een Sig/Beatrice Start time Last Medication Dose Route Stop Time Status Admin Acetazolamide 250 MG ONCE ONE 03/25 1015 DC 03/25 (DIAMOX) IV 03/25 1016 1135 Gastrointestinal Drugs Sig/Beatrice Start time Last Medication Dose Route Stop Time Status Admin Bisacodyl 10 MG ONCE PRN 03/18 1200 AC 03/20 (DULCOLAX) RECTAL 06/16 1159 0507 Polyethylene Glycol 17 GM DAILY 03/17 09 AC 03/25 (MIRALAX) PO 06/15 0859 0807 Pantoprazole 40 MG DAILY@0600 03/17 0600 AC 03/25 (PROTONIX) PO 06/15 0559 0645 Docusate Sodium 100 MG BID 03/16 2100 AC 03/25 (COLACE) PO 06/14 2059 0808 Sennosides 17.2 MG BEDTIME 03/16 2100 AC 03/24 (Senna Lax 8.6 MG PO 06/14 TABLET) Ondansetron HCl 4 MG Q6H PRN PRN 03/16 1445 AC (ZOFRAN) IV 06/14 1444 Hormones And Synthetic Substit Sig/Beatrice Start time Last Medication Dose Route Stop Time Status Admin Insulin Glargine 5 UNIT BID 03/23 2100 AC 03/25 (Semglee) SUBQ 06/21 205 0809 Insulin Human Lispro 0 AC HS 03/17 1130 AC 03/25 (Admelog) SUBQ 06/15 1129 1134 Levothyroxine Sodium 200 MCG DAILY 00 03/17 0600 AC 03/25 (Synthroid) PO 06/15 0559 0645 Glucagon 1 MG ASDIR PRN 03/16 1445 AC (GLUCAGON) IM 06/14 1444 Pharmaceutical Aids Sig/Beatrice Start time Last Medication Dose Route Stop Time Status Admin Sterile Water 5 ML ASDIR PRN 03/25 1015 AC 03/25 (WATER FOR INJECTION) IV 06/23 1014 1135 Vitamins Sig/Beatrice Start time Last Medication Dose Route Stop Time Status Admin Cyanocobalamin 500 MCG DAILY 03/19 09 AC 03/25 (Vitamin B-12 500 PO 06/17 0859 0807 mcg tab) Allergies: Coded Allergies: nitroglycerin (Intermediate, RASH 03/11/25) Ambulatory status: Independent Review of Systems Constitutional: generalized weakness. Skin: other (surgical incision). Allergy/Immun: Denies: allergic reaction, anaphylaxis, hives, itching, rhinorrhea, sneezing, other. Eyes: Denies: redness, discharge, visual loss/blurred, itching, diplopia, eye pain, photophobia, swelling, other. ENT: Denies: ear drainage. Respiratory: Denies: VALDOVINOS (dyspnea on exertion), hemoptysis, non productive cough, parox nocturnal dyspnea, pleurisy, pleuritic pain, pneumonia, productive cough (sputum ), SOB, wheezing, other. Cardiovascular: Denies: chest pain, VALDOVINOS (dyspnea on exertion), edema, orthopnea, palpitations, parox nocturnal dyspnea, other. GI: Denies: abdominal pain, anorexia, constipation, diarrhea, dysphagia, GERD, hematemesis, hematochezia, hiatal hernia, melena, nausea, rectal pain, vomiting, other. : Denies: dysuria, flank pain, frequency, hematuria, nocturia, penile discharge, penile lesion, testicular pain, testicular swelling, urgency, urinary retention, other. Musculoskeletal: extremity swelling (RLE ), other (RLE with erythema ). Heme: Denies: adenopathy, bleeding, bruising, petechiae, other. Endocrine: Denies: cold intolerance, heat intolerance, polydipsia, polyphagia, polyuria, weight gain, weight loss, other. Neuro: gait problem, weakness. Psych: Denies: agitation, anxiety, auditory hallucination, change in mental status, confusion, delusional, depression, homicidal ideation, hostile, insomnia, stress , suicidal ideation, visual hallucination, other. Objective VS/I O: Last Documented: Result Date Time Pulse Ox 95 03/25 1806 B/P 119/56 03/25 1806 B/P Mean 0.0 03/25 1806 O2 Delivery Room air 03/25 1806 Temp 97.7 03/25 1806 Pulse 59 03/25 1806 Resp 21 03/25 1806 FiO2 21 03/24 1142 O2 Flow Rate 1 03/20 0810 24 hour I O ending at 0700: 03/25 0700 03/24 1900 Intake Total 350 430 Output Total 1000 1250 Balance -650 -820 Intake, Oral 350 430 Number 1 Bowel Movements Output, Urine 1000 1250 Patient 141.6 kg Weight Weight Standing scale Measurement Method PATIENT WEIGHT: Weight (lb): 312 Weight (oz): 2.79 Weight (kg): 141.600 General appearance: obese, alert, awake, oriented Head/Eyes: atraumatic, clear cornea, normocephalic, normal conjunctiva/sclera ENT: normal dentition, normal ear left, normal ear right, normal nose, normal pharynx, normal sinus Neck: non-tender Cardiovascular: regular rate rhythm, normal heart sounds Respiratory: clear to auscultation Abdomen: soft, non-tender, no distention Abdomen quadrants: LLQ normal bowel sounds, LUQ normal bowel sounds, RLQ normal bowel sounds, RUQ normal bowel sounds Extremities: moves all, no calf tenderness Musculoskeletal: decreased ROM, Moving all ext AG -pt on sternal precautions Neuro/BANKING MANAGER: alert, oriented X 3, CNII-XII grossly intact, normal speech, no motor deficits, no sensory deficits Skin: dry, intact, no rash, surgical sternal incision D/I, RLE -swelling and erythema Psychiatry: normal affect, normal judgment/insight, normal mood, not homicidal, not suicidal, no hallucinations Results Findings/Data: Laboratory Tests: 03/25 03/25 03/25 03/25 03/24 1640 1116 0708 0429 1906 Chemistry Sodium (134 - 147 mEq/L) 135 Potassium (3.4 - 5.0 mEq/L) 4.2 Chloride (100 - 108 mEq/L) 101 Carbon Dioxide (21 - 33 mEq/l) 26 Anion Gap (0 - 20) 12 BUN (7 - 25 mg/dL) 15 Creatinine (0.6 - 1.3 mg/dL) 1.1 Glomerular Filtr Rate (80 - 90) 74.5 L Glucose (77 - 141 mg/dL) 145 H POC Glucose (70 - 110 MG/DL) 126 H 170 H 166 H 215 H Calcium (8.0 - 10.5 mg/dL) 8.4 Magnesium (1.6 - 2.6 mg/dL) 2.01 Hematology WBC (4.5 - 11.0 x10 3/uL) 9.0 RBC (4.00 - 5.60 x10 6/uL) 3.22 L Hgb (12.5 - 16.9 g/dL) 10.3 L Hct (37.5 - 50.7 %) 30.7 L MCV (81.0 - 99.0 fL) 95.3 MCH (27.0 - 33.0 pg) 32.0 MCHC (33.0 - 37.0 g/dL) 33.6 RDW (11.5 - 14.5 %) 12.6 Plt Count (150 - 400 x10 3/uL) 305 MPV (7.0 - 9.0 fL) 9.5 H Neut % (Auto) (56.0 - 77.0 %) 67.8 Lymph % (Auto) (14.0 - 32.0 %) 14.5 Potter % (Auto) (4.8 - 9.0 %) 12.5 H Eos % (Auto) (0.3 - 3.7 %) 3.6 Baso % (Auto) (0.0 - 2.0 %) 0.3 Neut # (Auto) (2.0 - 7.6 x10 3/uL) 6.09 Lymph # (Auto) (1.0 - 3.8 x10 3/uL) 1.30 Potter # (Auto) (0.1 - 0.8 x10 3/uL) 1.12 H Eos # (Auto) (0.0 - 0.2 x10 3/uL) 0.32 H Baso # (Auto) (0.0 - 0.2 x10 3/uL) 0.03 Abs Immat Gran (auto) (0.00 - 0.03 0.12 H x10 3/uL) Immature Gran % (0.0 - 2.0 %) 1.3 Nucleated RBC % (0 - 0 %) 0.0 Nucleated RBCs # (Man) (0.0 - 0.1 0.00 x10 3/uL) Diagnosis, Assessment Plan Free Text DxA P Notes Free Text DxA P Notes: 64 year old male with a pmhx of HTN, HLD, DM, hypothyroidism, and current chewing tobacco use. Patient initially went to corporate ethics officer Dr. Milian for cardiac clearance for R knee replacement. He was found to have abnormal results on stress testing with inferior and inferiolateral areas of reversible ischemia. CABG x 5 /post valve replacement Cardiac debility Generalized weakness Impaired mobility, ADLs, balance, and endurance Leukocytosis rectal bleeding rupture thrombosed external hemorrhoid CAD HTN DM HLD hypothyroid Plan: Continue postop care per CV surgery Pain management Sternal precautions Continue PT/OT Out of bed to chair Work on ADLs, strength, bed mobility, transfers, gait DVT prophylaxis on SCD Strict fall and safety precautions Monitor p.o. intake and nutrition Strict decubitus precautions Monitor labs IRF consult submitted to insurance on 03/22 -pending answer CLOF: Transfers: SPV Gait 200ft SPV RW Discussed Pending insurance We thak you for consult at 1843 RPT #:[id number] END OF REPORT [facility] 2025-03-25 10:00:00 [facility] ([facility]) Cardiothoracic Surgery Prog REPORT#:[id number] REPORT STATUS: Signed REPORT INITIALIZATION DATE:03/25/25 TIME: 999 PATIENT: LAKEISHA NORRIS UNIT #: [id number] ROOM/BED: [place] [id number] : 58 AGE: 64 SEX: M ATTEND: Marlene Padilla MD ADM AUTHOR: Sharifa Baker APRN-HEEL COVER SPLITTER REPT SERVICE DT/TIME: 03/25/25 1000 * ALL edits or amendments must be made on the electronic/computer document * General Post-op: day 8 Status post: 03/16/25 1. Coronary artery bypass graft surgery x5 (MCGUIRE to LAD, saphenous vein to diagonal, saphenous vein to first marginal, saphenous vein to second marginal, saphenous vein to PDA). 2. Aortic valve replacement (29-mm Inspiris valve). 3. Amputation of left atrial appendage. 4. Posterior pericardiotomy. 5. Endoscopic vein harvest of the right greater saphenous vein. Subjective Chief complaint: s/p cabg Review of Systems Constitutional: Reports: fatigue. Denies: chills. Skin: Denies: abrasion, bruising. Allergy/Immun: Denies: allergic reaction. Respiratory: Denies: VALDOVINOS (dyspnea on exertion), parox nocturnal dyspnea. Cardiovascular: Denies: chest pain. GI: Denies: abdominal pain. : Denies: dysuria. Musculoskeletal: Reports: extremity pain, extremity swelling. Denies: arthritis. All systems rev neg: except as marked Objective General VS/I O Last Documented: Result Date Time Pulse Ox 96 03/25 702 B/P 123/67 03/25 702 B/P Mean 0.0 03/25 702 Temp 98.6 03/25 702 Pulse 64 03/25 702 Resp 20 03/25 702 O2 Delivery Room air 03/25 0431 FiO2 21 03/24 1142 O2 Flow Rate 1 03/20 0810 24 hour I O ending at 0700: 03/25 0700 03/24 1900 Intake Total 350 430 Output Total 1000 1250 Balance -650 -820 Intake, Oral 350 430 Number 1 Bowel Movements Output, Urine 1000 1250 Patient 141.6 kg Weight Weight Standing scale Measurement Method PATIENT WEIGHT: Weight (lb): 312 Weight (oz): 2.79 Weight (kg): 141.600 Dietitian Nutrition assessment The data set between the solid lines has been imported from the dietitian's assessment. BMI Calculated: 41.2 Nutrition related diagnosis: Morbid obesity Nutrition diagnosis details: BMI 40 or more Nutrition problem: Increased nutrient needs Nutrition etiology: Acute illness Nutrition signs and symptoms: S/P CABG X 5, W/ AVR Nutrition prescription: 1. CONTINUE CARDIAC DIET. ENCOURAGE PO INTAKE DIET ADHERENCE. 2. PROVIDE ENSURE MAX PROTEIN BID Dietitian name: Suzie Valencia RD, LD Assessment completed: 03/22/25 Physical Exam General appearance: alert, awake, oriented Wound/incision: Location: sternum Site condition: dressing clean dry, no drainage, no ecchymosis HEENT: anicteric, mucosal membranes moist, pupils reactive to light Neck: full range of motion, non-tender Cardiovascular: BP/pulses equal bilat. Respiratory: symmetric expansion, no distress Abdomen: soft, non-tender Genitourinary: urine Extremities: edema, dry, moves all, normal capillary refill, normal temperature Musculoskeletal: full range of motion, painless range of motion Neuro/BANKING MANAGER: alert, oriented X 3 Skin: dry, intact, normal temperature Current Medications Medications: Active Meds + DC'd Last 24 Hrs Cefazolin Sodium (KEFZOL OR ANCEF) 1 GM Q8H IV Sodium Chloride (SODIUM CHLORIDE) 10 ML Insulin Glargine (Semglee) 5 UNIT BID SUBQ Metoprolol Tartrate (LOPRESSOR) 25 MG Q12HR PO Amiodarone HCl (CORDARONE) 200 MG BID 9A 5P PO Oxycodone HCl (Oxycodone HCl) 10 MG Q4H PRN PRN PO Oxycodone HCl (ROXICODONE) 5 MG Q4H PRN PRN PO Ipratropium [place] (ATROVENT) 500 MCG RTQ2H PRN PRN INH Cyanocobalamin (Vitamin B-12 500 mcg tab) 500 MCG DAILY PO Ferrous Sulfate (FERROUS SULFATE) 325 MG DAILY PO Bisacodyl (DULCOLAX) 10 MG ONCE PRN RECTAL Magnesium Hydroxide (MILK OF MAGNESIA) 30 ML ONCE PRN PO (DC) Insulin Human Lispro (Admelog) 0 AC HS SUBQ Gabapentin (NEURONTIN) 200 MG TID PO Clopidogrel Bisulfate (Plavix) 75 MG DAILY PO Polyethylene Glycol (MIRALAX) 17 GM DAILY PO Levothyroxine Sodium (Synthroid) 200 MCG DAILY 0600 PO Pantoprazole (PROTONIX) 40 MG DAILY@0600 PO Atorvastatin Calcium (LIPITOR) 40 MG 2100 PO Docusate Sodium (COLACE) 100 MG BID PO Sennosides (Senna Lax 8.6 MG TABLET) 17.2 MG BEDTIME PO Aspirin (ASPIRIN) 81 MG DAILY PO Acetaminophen (TYLENOL) 650 MG Q4H PRN PRN PO Acetaminophen (TYLENOL) 650 MG Q4H PRN PRN RECTAL Dextrose/Water (DEXTROSE 10% IN WATER) 125 ML ASDIR PRN IV (CKD) Dextrose/Water (DEXTROSE 10% IN WATER) 250 ML ASDIR PRN IV (CKD) Glucagon (GLUCAGON) 1 MG ASDIR PRN IM Ondansetron HCl (ZOFRAN) 4 MG Q6H PRN PRN IV Results Findings/Data: Laboratory Tests 03/25 03/25 03/24 03/24 03/24 0708 0429 1906 1636 1109 Chemistry Sodium (134 - 147 mEq/L) 135 Potassium (3.4 - 5.0 mEq/L) 4.2 Chloride (100 - 108 mEq/L) 101 Carbon Dioxide (21 - 33 mEq/l) 26 Anion Gap (0 - 20) 12 BUN (7 - 25 mg/dL) 15 Creatinine (0.6 - 1.3 mg/dL) 1.1 Glomerular Filtr Rate (80 - 90) 74.5 L Glucose (77 - 141 mg/dL) 145 H POC Glucose (70 - 110 MG/DL) 166 H 215 H 142 H 234 H Calcium (8.0 - 10.5 mg/dL) 8.4 Magnesium (1.6 - 2.6 mg/dL) 2.01 Laboratory Tests 03/25 0429 Hematology WBC (4.5 - 11.0 x10 3/uL) 9.0 RBC (4.00 - 5.60 x10 6/uL) 3.22 L Hgb (12.5 - 16.9 g/dL) 10.3 L Hct (37.5 - 50.7 %) 30.7 L MCV (81.0 - 99.0 fL) 95.3 MCH (27.0 - 33.0 pg) 32.0 MCHC (33.0 - 37.0 g/dL) 33.6 RDW (11.5 - 14.5 %) 12.6 Plt Count (150 - 400 x10 3/uL) 305 MPV (7.0 - 9.0 fL) 9.5 H Neut % (Auto) (56.0 - 77.0 %) 67.8 Lymph % (Auto) (14.0 - 32.0 %) 14.5 Potter % (Auto) (4.8 - 9.0 %) 12.5 H Eos % (Auto) (0.3 - 3.7 %) 3.6 Baso % (Auto) (0.0 - 2.0 %) 0.3 Neut # (Auto) (2.0 - 7.6 x10 3/uL) 6.09 Lymph # (Auto) (1.0 - 3.8 x10 3/uL) 1.30 Potter # (Auto) (0.1 - 0.8 x10 3/uL) 1.12 H Eos # (Auto) (0.0 - 0.2 x10 3/uL) 0.32 H Baso # (Auto) (0.0 - 0.2 x10 3/uL) 0.03 Abs Immat Gran (auto) (0.00 - 0.03 x10 3/uL) 0.12 H Immature Gran % (0.0 - 2.0 %) 1.3 Nucleated RBC % (0 - 0 %) 0.0 Nucleated RBCs # (Man) (0.0 - 0.1 x10 3/uL) 0.00 Results: labs reviewed, vital signs stable, dontem personally rev'd, current med profile rev'd Diagnosis, Assessment Plan Free Text A P: Patient is a 64 year old male with a pmhx of HTN, HLD, DM, hypothyroidism, and current chewing tobacco use. Patient initially went to corporate ethics officer Dr. Milian for cardiac clearance for R knee replacement. He was found to have abnormal results on stress testing with inferior and inferiolateral areas of reversible ischemia. Echo shows EF 55-60% with moderate . Patient denies blood thinner use. Left heart cath was completed on 03/05/2025 showing severe multivessel coronary artery disease. Denies hx of chest pain or dypsnea. He ambulates without assistance. Patient will be admitted today for a CABG with aortic valve replacement. Assessment/plan: 1. Hypertension 2. Hyperlipidemia 3. Diabetes mellitus 4. Hypothyroidism 5. Nicotine dependence 6. Coronary artery disease 7. Moderate Admit to CVICU postoperatively Closely monitor hemodynamics Consult hothouse worker Dr. Padilla has seen and examined the patient. The patient will benefit from revascularization to coronary arteries and replacement of aortic valve. Dr. Padilla has explained in great detail the operation, risks, risk STS calculator, benefits, complications, alternatives and complications. The patient acknowledges understanding is willing to proceed with surgery. All questions have been answered. 03/16/25 1. Coronary artery bypass graft surgery x5 (MCGUIRE to LAD, saphenous vein to diagonal, saphenous vein to first marginal, saphenous vein to second marginal, saphenous vein to PDA). 2. Aortic valve replacement (29-mm Inspiris valve). 3. Amputation of left atrial appendage. 4. Posterior pericardiotomy. 5. Endoscopic vein harvest of the right greater saphenous vein. 03/17/25 POD 1 AAO x 3, denies complaints, multimodal pain management On 4LNC, wean as tolerated, encourage I-S use and deep breathing, CXR reviewed, ABG reviewed CTs in place, drained 95/335 cc overnight, will reassess after ambulation Sinus rhythm, monitor hemodynamics closely, epicardial pacing wires on standby, on levo gtt @2 Continue DAPT, metoprolol, amiodarone, and Lipitor Advance diet as tolerated, nutritional supplements, bowel regimen, glycemic control with insulin drip, transition to SSI UOP 660cc overnight, strict I's O's, daily weights DVT Prophylaxis with SCDs, GI prophylaxis with PPI PT/OT, OOB to chair, encourage ambulation Labs reviewed, replace electrolytes as needed Discharge disposition: home with good family support Plan to deline once off insulin and levo gtt Patient seen and examined by Dr Padilla. Plan of care discussed with nurse, patient and interdisciplinary team. All questions answered. 03/18/25 POD 2 AAO x 3, denies complaints, multimodal pain management On 1LNC, wean as tolerated, encourage I-S use and deep breathing, CXR reviewed, ABG reviewed CT in place, drained 60 cc overnight, will DC after ambulation Sinus rhythm, monitor hemodynamics closely, epicardial pacing wires on standby Continue DAPT, metoprolol, amiodarone, and Lipitor Advance diet as tolerated, nutritional supplements, bowel regimen, glycemic control SSI, MOM today UOP 575cc overnight, strict I's O's, daily weights DVT Prophylaxis with SCDs, GI prophylaxis with PPI PT/OT, OOB to chair, encourage ambulation Labs reviewed, replace electrolytes as needed Discharge disposition: home with good family support Continue close monitoring in CCU Patient seen and examined by Dr Padilla. Plan of care discussed with nurse, patient and interdisciplinary team. All questions answered. 03/19/25 POD 3 AAO x 3, reports shortness of breath, denies chest pain On 4LNC, wean as tolerated, encourage I-S use and deep breathing, CXR reviewed, ABG reviewed Went into A-fib RVR, given amio bolus and continued amio gtt, push of metoprolol , monitor hemodynamics closely, epicardial pacing wires on standby Continue DAPT, metoprolol 12.5 Q8H, amiodarone, and Lipitor Tolerating diet, nutritional supplements, bowel regimen, glycemic control SSI, suppository today UOP 1125cc overnight, strict I's O's, daily weights, weight up, Lasix today DVT Prophylaxis with SCDs, GI prophylaxis with PPI DVT study ordered PT/OT, OOB to chair, encourage ambulation Labs reviewed, replace electrolytes as needed Discharge disposition: home with good family support Continue close monitoring in CCU Patient seen and examined by Dr Padilla. Plan of care discussed with nurse, patient and interdisciplinary team. All questions answered. 03/20/25 POD 4 AAO x 3, reports shortness of breath, denies chest pain On RA, encourage I-S use and deep breathing, CXR reviewed, ABG reviewed Back in NSR today, monitor hemodynamics closely, epicardial pacing wires on standby Continue DAPT, metoprolol 12.5 Q8H, amiodarone, and Lipitor Tolerating diet, nutritional supplements, bowel regimen, glycemic control SSI, suppository today Good UOP overnight, strict I's O's, daily weights, on Lasix gtt, weight trending down, Diamox today DVT Prophylaxis with SCDs, GI prophylaxis with PPI PT/OT, OOB to chair, encourage ambulation Labs reviewed, replace electrolytes as needed Discharge disposition: home with good family support Continue close monitoring in CCU Patient seen and examined by Dr Padilla. Plan of care discussed with nurse, patient and interdisciplinary team. All questions answered. 03/21/25 POD 5 AAO x 3, reports shortness of breath, denies chest pain On RA, encourage I-S use and deep breathing, CXR reviewed Back in NSR today, monitor hemodynamics closely, epicardial pacing wires Dc'd, echocardiogram limited Continue DAPT, metoprolol 25mg BID, amiodarone, and Lipitor Tolerating diet, nutritional supplements, bowel regimen, glycemic control SSI, suppository today Good UOP overnight, strict I's O's, daily weights, weight back to baseline DVT Prophylaxis with SCDs, GI prophylaxis with PPI DVT study ordered PT/OT, OOB to chair, encourage ambulation Labs reviewed, replace electrolytes as needed Discharge disposition: home with good family support Okay to transfer to [facility] Patient seen and examined by Dr Padilla. Plan of care discussed with nurse, patient and interdisciplinary team. All questions answered. 03/22/25 POD 6, reports right leg pain, noted swelling AAO x 3, reports shortness of breath, denies chest pain On RA, encourage I-S use and deep breathing, CXR reviewed Back in NSR today, monitor hemodynamics closely, echocardiogram shows Ef 50-54%, small pericardial effusion Continue DAPT, metoprolol 25mg BID, amiodarone, and Lipitor Tolerating diet, nutritional supplements, bowel regimen, glycemic control SSI, suppository today Good UOP overnight, strict I's O's, daily weights, weight back to baseline, Lasix today DVT Prophylaxis with SCDs, GI prophylaxis with PPI DVT study negative, ordered arterial duplex as well as patient's right leg is swollen and extremely painful PT/OT, OOB to chair, encourage ambulation Labs reviewed, replace electrolytes as needed Discharge disposition: home with good family support Okay to transfer to [facility] Patient seen and examined by Dr Padilla. Plan of care discussed with nurse, patient and interdisciplinary team. All questions answered. 03/23/25 POD 7, reports right leg pain, noted swelling AAO x 3, reports shortness of breath, denies chest pain On RA, encourage I-S use and deep breathing, CXR reviewed Back in NSR today, monitor hemodynamics closely, echocardiogram shows Ef 50-54%, small pericardial effusion Continue DAPT, metoprolol 25mg BID, amiodarone, and Lipitor Tolerating diet, nutritional supplements, bowel regimen, glycemic control SSI, reports BM Good UOP overnight, strict I's O's, daily weights, weight below baseline DVT Prophylaxis with SCDs, GI prophylaxis with PPI DVT study negative, arterial duplex- possible mild nonocclusive peripheral arterial disease on right, no evidence of PAD on left. PT/OT, OOB to chair, encourage ambulation Labs reviewed, replace electrolytes as needed Discharge disposition: home with good family support Okay to transfer to [facility] CM working on rehab for patient, patient okay to discharge once approved/chose [facility]. Patient seen and examined by Dr Padilla. Plan of care discussed with nurse, patient and interdisciplinary team. All questions answered. 03/25/25 POD 9, reports improved right leg pain and swelling AAO x 3, reports shortness of breath, denies chest pain On RA, encourage I-S use and deep breathing, CXR reviewed NSR today, monitor hemodynamics closely, echocardiogram shows Ef 50-54%, small pericardial effusion Continue DAPT, metoprolol 25mg BID, amiodarone, and Lipitor Tolerating diet, nutritional supplements, bowel regimen, glycemic control SSI, reports BM Good UOP overnight, strict I's O's, daily weights, Diamox today, weight below baseline DVT Prophylaxis with SCDs, GI prophylaxis with PPI DVT study negative, arterial duplex- possible mild nonocclusive peripheral arterial disease on right, no evidence of PAD on left. PT/OT, OOB to chair, encourage ambulation Labs reviewed, replace electrolytes as needed Discharge disposition: home with good family support CM working on rehab for patient, patient okay to discharge once approved/chose [facility]. Given post op apt, instructions, all questions answered. Patient seen and examined by Dr Padilla. Plan of care discussed with nurse, patient and interdisciplinary team. All questions answered. Code status: full code Plan discussed with: patient, collaborating MD, nurse, interdisc care team at 1003 at 1740 RPT #:[id number] END OF REPORT [facility] 2025-03-24 14:04:00 [facility] ([facility] Cardiology Progress Note REPORT#:[id number] REPORT STATUS: Signed REPORT INITIALIZATION DATE:03/24/25 TIME: 1403 PATIENT: LAKEISHA NORRIS UNIT #: [id number] ROOM/BED: [place] [id number] : 58 AGE: 64 SEX: M ATTEND: Marlene Padilla MD ADM AUTHOR: Candelaria Ordoñez MD REPT SERVICE DT/TIME: 03/24/25 1404 * ALL edits or amendments must be made on the electronic/computer document * Subjective Chief complaint: Weak Objective General VS/I O: 24 hour I O ending at 0700: 03/24 0700 03/23 1900 Intake Total 250 Output Total 2225 Balance -1974 Intake, Oral 250 Output, Urine 2225 Patient 140.1 kg Weight Weight Standing scale Measurement Method Vital Signs: Date Time Temp Pulse Resp B/P B/P Pulse O2 O2 Flow FiO2 Mean Ox Delivery Rate 03/24 1142 94 Room air 21 07/09 1111 98.2 55 15 99/57 0.0 95 Room air 07/09 0705 98.8 61 14 107/54 0.0 94 Room air 07/09 0607 67 16 95 07/09 0522 61 27 95 07/09 0500 58 18 96 07/09 0423 98.2 55 14 119/58 0.0 97 Room air 07/09 0420 56 20 119/58 79 97 07/09 0400 55 16 95 07/09 0300 54 18 97 07/09 0200 52 15 94 07/09 0100 54 14 94 07/09 0000 58 18 95 07/08 2315 59 16 130/61 88 93 07/08 2315 98.4 60 19 130/61 0.0 93 Room air 07/08 2300 58 20 96 07/08 2200 57 19 96 07/08 2100 61 20 96 07/08 2000 61 22 95 07/08 1900 63 28 95 07/08 1806 97.7 63 19 125/61 0.0 97 Room air 07/08 1804 125/61 87 98 07/08 1617 97.5 58 12 127/60 0.0 98 07/08 1615 57 7 127/60 87 98 07/08 1608 97 Room air 21 PATIENT WEIGHT: Weight (lb): 308 Weight (oz): 13.88 Weight (kg): 140.100 Medications: Active Meds + DC'd Last 24 Hrs Cefazolin Sodium (KEFZOL OR ANCEF) 1 GM Q8H IV Sodium Chloride (SODIUM CHLORIDE) 10 ML Insulin Glargine (Semglee) 5 UNIT BID SUBQ Metoprolol Tartrate (LOPRESSOR) 25 MG Q12HR PO Amiodarone HCl (CORDARONE) 200 MG BID 9A 5P PO Oxycodone HCl (Oxycodone HCl) 10 MG Q4H PRN PRN PO Oxycodone HCl (ROXICODONE) 5 MG Q4H PRN PRN PO Ipratropium [place] (ATROVENT) 500 MCG RTQ2H PRN PRN INH Cyanocobalamin (Vitamin B-12 500 mcg tab) 500 MCG DAILY PO Ferrous Sulfate (FERROUS SULFATE) 325 MG DAILY PO Bisacodyl (DULCOLAX) 10 MG ONCE PRN RECTAL Magnesium Hydroxide (MILK OF MAGNESIA) 30 ML ONCE PRN PO Insulin Human Lispro (Admelog) 0 AC HS SUBQ Gabapentin (NEURONTIN) 200 MG TID PO Clopidogrel Bisulfate (Plavix) 75 MG DAILY PO Polyethylene Glycol (MIRALAX) 17 GM DAILY PO Levothyroxine Sodium (Synthroid) 200 MCG DAILY 0600 PO Pantoprazole (PROTONIX) 40 MG DAILY@0600 PO Atorvastatin Calcium (LIPITOR) 40 MG 2100 PO Docusate Sodium (COLACE) 100 MG BID PO Sennosides (Senna Lax 8.6 MG TABLET) 17.2 MG BEDTIME PO Aspirin (ASPIRIN) 81 MG DAILY PO Acetaminophen (TYLENOL) 650 MG Q4H PRN PRN PO Acetaminophen (TYLENOL) 650 MG Q4H PRN PRN RECTAL Dextrose/Water (DEXTROSE 10% IN WATER) 125 ML ASDIR PRN IV (CKD) Dextrose/Water (DEXTROSE 10% IN WATER) 250 ML ASDIR PRN IV (CKD) Glucagon (GLUCAGON) 1 MG ASDIR PRN IM Ondansetron HCl (ZOFRAN) 4 MG Q6H PRN PRN IV Physical Exam General appearance: alert, awake Head/Eyes: atraumatic Neck: no JVD, no masses or swelling Cardiovascular: CV assessment: regular rate and rhythm Respiratory: decreased breath sounds, on oxygen, no distress Abdomen: obese Genitourinary: urinary catheter, urine Lower extremity: LE assessment: edema Musculoskeletal: normal inspection Neuro/BANKING MANAGER: alert, oriented X 3 Skin: dry Psychiatry: normal affect, normal mood Results Findings/Data: Laboratory Tests 03/24 03/24 03/24 03/23 03/23 1109 0703 0359 1952 1614 Chemistry Sodium (134 - 147 mEq/L) 136 Potassium (3.4 - 5.0 mEq/L) 4.1 Chloride (100 - 108 mEq/L) 102 Carbon Dioxide (21 - 33 mEq/l) 26 Anion Gap (0 - 20) 12 BUN (7 - 25 mg/dL) 14 Creatinine (0.6 - 1.3 mg/dL) 1.1 Glomerular Filtr Rate (80 - 90) 74.5 L Glucose (77 - 141 mg/dL) 152 H POC Glucose (70 - 110 MG/DL) 234 H 168 H 231 H 189 H Calcium (8.0 - 10.5 mg/dL) 8.8 Magnesium (1.6 - 2.6 mg/dL) 1.92 Laboratory Tests 07/09 0359 Hematology WBC (4.5 - 11.0 x10 3/uL) 8.9 RBC (4.00 - 5.60 x10 6/uL) 3.20 L Hgb (12.5 - 16.9 g/dL) 10.3 L Hct (37.5 - 50.7 %) 30.6 L MCV (81.0 - 99.0 fL) 95.6 MCH (27.0 - 33.0 pg) 32.2 MCHC (33.0 - 37.0 g/dL) 33.7 RDW (11.5 - 14.5 %) 12.6 Plt Count (150 - 400 x10 3/uL) 263 MPV (7.0 - 9.0 fL) 9.6 H Neut % (Auto) (56.0 - 77.0 %) 65.5 Lymph % (Auto) (14.0 - 32.0 %) 15.3 Potter % (Auto) (4.8 - 9.0 %) 13.7 H Eos % (Auto) (0.3 - 3.7 %) 3.9 H Baso % (Auto) (0.0 - 2.0 %) 0.3 Neut # (Auto) (2.0 - 7.6 x10 3/uL) 5.81 Lymph # (Auto) (1.0 - 3.8 x10 3/uL) 1.36 Potter # (Auto) (0.1 - 0.8 x10 3/uL) 1.22 H Eos # (Auto) (0.0 - 0.2 x10 3/uL) 0.35 H Baso # (Auto) (0.0 - 0.2 x10 3/uL) 0.03 Abs Immat Gran (auto) (0.00 - 0.03 x10 3/uL) 0.12 H Immature Gran % (0.0 - 2.0 %) 1.3 Nucleated RBC % (0 - 0 %) 0.0 Nucleated RBCs # (Man) (0.0 - 0.1 x10 3/uL) 0.00 Laboratory Tests 03/24 359 Chemistry Magnesium (1.6 - 2.6 mg/dL) 1.92 Diagnosis, Assessment Plan Free Text DxA P Notes Free Text DxA P Notes: 1. CAD and aortic valve stenosis s/p CABG x5 plus AVR plus ALAA * DAPT, BB, statin * CXR: Shallow inspiration with mild progression of pulmonary congestion and small left effusion. * post-op care per CTS and critical care * vs stable- in NSR 2. Hypetension * bp soft- monitor 3. Hypelipidemia * continue statin 4. Diabetes mellitus * glycemic control per critical care 5. Rectal bleed attributed to external hemorrhoid * GI and colorectal surgery following continue supportive care dc home when cleared by CTS Coverage for at 1404 RPT #:[id number] END OF REPORT [facility] 2025-03-24 13:12:00 [facility] ([facility]) Hospitalist Progress Note REPORT#:[id number] REPORT STATUS: Signed REPORT INITIALIZATION DATE:03/24/25 TIME: 1311 PATIENT: LAKEISHA NORRIS UNIT #: [id number] ROOM/BED: [place] [address] : 58 AGE: 64 SEX: M ATTEND: Marlene Padilla MD ADM AUTHOR: Shara Celestin MD REPT SERVICE DT/TIME: 03/24/25 1312 * ALL edits or amendments must be made on the electronic/computer document * Subjective Chief complaint: right leg swelling , warm and redness . Review of Systems Musculoskeletal: Reports: extremity pain, extremity swelling. All systems rev neg: except as noted Objective General VS/I O: Vital Signs: Date Time Temp Pulse Resp B/P B/P Pulse O2 O2 Flow FiO2 Mean Ox Delivery Rate 03/24 1142 94 Room air 21 03/24 1111 36.8 55 15 99/57 0.0 95 Room air 07/ 0705 37.1 61 14 107/54 0.0 94 Room air 07/09 0607 67 16 95 / 0522 61 27 95 07/ 0500 58 18 96 07/ 0423 36.8 55 14 119/58 0.0 97 Room air 07/ 0420 56 20 119/58 79 97 07/ 0400 55 16 95 07/ 0300 54 18 97 07/ 0200 52 15 94 07/ 0100 54 14 94 07/ 0000 58 18 95 07/08 2315 59 16 130/61 88 93 07/08 2315 36.9 60 19 130/61 0.0 93 Room air 07/08 2300 58 20 96 07/08 2200 57 19 96 07/08 2100 61 20 96 07/08 2000 61 22 95 07/08 1900 63 28 95 07/08 1806 36.5 63 19 125/61 0.0 97 Room air 07/08 1804 125/61 87 98 07/08 1617 36.4 58 12 127/60 0.0 98 07/08 1615 57 7 127/60 87 98 07/08 1608 97 Room air 21 24 hour I O ending at 0700: 03/24 0700 03/23 1900 Intake Total 250 Output Total 2225 Balance -1975 Intake, Oral 250 Output, Urine 2225 Patient 140.1 kg Weight Weight Standing scale Measurement Method PATIENT WEIGHT: Weight (lb): 308 Weight (oz): 13.88 Weight (kg): 140.100 Medications: Active Meds + DC'd Last 24 Hrs Cefazolin Sodium (KEFZOL OR ANCEF) 1 GM Q8H IV Sodium Chloride (SODIUM CHLORIDE) 10 ML Insulin Glargine (Semglee) 5 UNIT BID SUBQ Metoprolol Tartrate (LOPRESSOR) 25 MG Q12HR PO Amiodarone HCl (CORDARONE) 200 MG BID 9A 5P PO Oxycodone HCl (Oxycodone HCl) 10 MG Q4H PRN PRN PO Oxycodone HCl (ROXICODONE) 5 MG Q4H PRN PRN PO Ipratropium [place] (ATROVENT) 500 MCG RTQ2H PRN PRN INH Cyanocobalamin (Vitamin B-12 500 mcg tab) 500 MCG DAILY PO Ferrous Sulfate (FERROUS SULFATE) 325 MG DAILY PO Bisacodyl (DULCOLAX) 10 MG ONCE PRN RECTAL Magnesium Hydroxide (MILK OF MAGNESIA) 30 ML ONCE PRN PO Insulin Human Lispro (Admelog) 0 AC HS SUBQ Gabapentin (NEURONTIN) 200 MG TID PO Clopidogrel Bisulfate (Plavix) 75 MG DAILY PO Polyethylene Glycol (MIRALAX) 17 GM DAILY PO Levothyroxine Sodium (Synthroid) 200 MCG DAILY 0600 PO Pantoprazole (PROTONIX) 40 MG DAILY@0600 PO Atorvastatin Calcium (LIPITOR) 40 MG 2100 PO Docusate Sodium (COLACE) 100 MG BID PO Sennosides (Senna Lax 8.6 MG TABLET) 17.2 MG BEDTIME PO Aspirin (ASPIRIN) 81 MG DAILY PO Acetaminophen (TYLENOL) 650 MG Q4H PRN PRN PO Acetaminophen (TYLENOL) 650 MG Q4H PRN PRN RECTAL Dextrose/Water (DEXTROSE 10% IN WATER) 125 ML ASDIR PRN IV (CKD) Dextrose/Water (DEXTROSE 10% IN WATER) 250 ML ASDIR PRN IV (CKD) Glucagon (GLUCAGON) 1 MG ASDIR PRN IM Ondansetron HCl (ZOFRAN) 4 MG Q6H PRN PRN IV Physical Exam General appearance: alert Head/Eyes: clear cornea, EOMI Neck: non-tender Cardiovascular: normal heart sounds, regular rate rhythm Respiratory: aerating well, clear to auscultation Abdomen: non-tender, normal bowel sounds, soft, no distention Extremities: edema, moves all, right leg swelling , warm and redness Neuro/BANKING MANAGER: alert, oriented X 3, CNII-XII intact, normal speech, no motor deficits, no sensory deficits Skin: abnormal color, abnormal temperature Psychiatry: normal affect, normal mood Results Findings/Data: Laboratory Tests 03/24 03/24 03/24 03/23 03/23 1109 0703 0359 1952 1614 Chemistry Sodium (134 - 147 mEq/L) 136 Potassium (3.4 - 5.0 mEq/L) 4.1 Chloride (100 - 108 mEq/L) 102 Carbon Dioxide (21 - 33 mEq/l) 26 Anion Gap (0 - 20) 12 BUN (7 - 25 mg/dL) 14 Creatinine (0.6 - 1.3 mg/dL) 1.1 Glomerular Filtr Rate (80 - 90) 74.5 L Glucose (77 - 141 mg/dL) 152 H POC Glucose (70 - 110 MG/DL) 234 H 168 H 231 H 189 H Calcium (8.0 - 10.5 mg/dL) 8.8 Magnesium (1.6 - 2.6 mg/dL) 1.92 Laboratory Tests 03/24 0359 Hematology WBC (4.5 - 11.0 x10 3/uL) 8.9 RBC (4.00 - 5.60 x10 6/uL) 3.20 L Hgb (12.5 - 16.9 g/dL) 10.3 L Hct (37.5 - 50.7 %) 30.6 L MCV (81.0 - 99.0 fL) 95.6 MCH (27.0 - 33.0 pg) 32.2 MCHC (33.0 - 37.0 g/dL) 33.7 RDW (11.5 - 14.5 %) 12.6 Plt Count (150 - 400 x10 3/uL) 263 MPV (7.0 - 9.0 fL) 9.6 H Neut % (Auto) (56.0 - 77.0 %) 65.5 Lymph % (Auto) (14.0 - 32.0 %) 15.3 Potter % (Auto) (4.8 - 9.0 %) 13.7 H Eos % (Auto) (0.3 - 3.7 %) 3.9 H Baso % (Auto) (0.0 - 2.0 %) 0.3 Neut # (Auto) (2.0 - 7.6 x10 3/uL) 5.81 Lymph # (Auto) (1.0 - 3.8 x10 3/uL) 1.36 Potter # (Auto) (0.1 - 0.8 x10 3/uL) 1.22 H Eos # (Auto) (0.0 - 0.2 x10 3/uL) 0.35 H Baso # (Auto) (0.0 - 0.2 x10 3/uL) 0.03 Abs Immat Gran (auto) (0.00 - 0.03 x10 3/uL) 0.12 H Immature Gran % (0.0 - 2.0 %) 1.3 Nucleated RBC % (0 - 0 %) 0.0 Nucleated RBCs # (Man) (0.0 - 0.1 x10 3/uL) 0.00 Radiology data: Recent Impressions: RADIOLOGY - XR CHEST 1 V 03/22 0616 Report Impression - Status: SIGNED Entered: 03/22/2025 08 IMPRESSION: Shallow inspiration with mild progression of pulmonary congestion and small left effusion. Electronically signed by: Emerson De La Cruz MD 03/22/2025 08:09 AM CDT Impression By: Nora - Emerson A Oria, M.D. ULTRASOUND - DUP VEIN LEANA 03/22 0818 Report Impression - Status: SIGNED Entered: 03/22/2025 0852 IMPRESSION: No evidence of deep venous thrombosis. Electronically signed by: Elkin Garcia MD 03/22/2025 08:50 AM CDT RP Impression By: Raheem - Elkin Garcia M.D. ULTRASOUND - DUP LE ART LEANA 03/22 1552 Report Impression - Status: SIGNED Entered: 03/22/2025 1657 IMPRESSION: On the right, possible mild nonocclusive peripheral arterial disease. On the left, no sonographic evidence of hemodynamically significant peripheral arterial disease. Electronically signed by: Pio Noyola MD 03/22/2025 04:54 PM CDT RP Impression By: [email or web address] - Pio Noyola M.D. Diagnosis, Assessment Plan Free Text DxA P Notes Free text DxA P notes: 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 may be reaction post surgery pain control PT/OT rectal bleeding -- resolve rectal surgeon consult monitor H H DM-- sliding scale now HTN-- stable . on metoprolol hypothyroid -- continue home med 03/18- sit on the chair . no sob . pain is fair control . no fever -- on O2 . hemodynamic stable . chest tube are out -- review lab and image -- continue monitor in ccu 03/19 - cont to mobilize as braden - afib rvr, cont on amio gtt - management per CTS and ICC recs 03/22 Continue PO beta ash and amiodarone, off amio gtt. To floor if OK with cardio team. Continue PT/OT. Pain control PRN. 03/23- leg pain . post CABG continue PT/OT -transfer to [facility] -- HR- back to sinus -- IP rehab --pending as CM 03/24- right leg pain , swelling , redness and tender -- start ancef iv -- doppler -- no DVT --afib /rate control -- continue monitor in cv1 - PT/OT -- rehab consult /CM consult -- rehab evaluation at 1318 RPT #:[id number] END OF REPORT [facility] 2025-03-23 12:26:00 [facility] Hospitalist Progress Note REPORT#:[id number] REPORT STATUS: Signed REPORT INITIALIZATION DATE:03/23/25 TIME: 1226 PATIENT: LAKEISHA NORRIS UNIT #: [id number] ROOM/BED: [place] [id number] : 58 AGE: 64 SEX: M ATTEND: Marlene Padlila MD ADM AUTHOR: Shara Celestin MD REPT SERVICE DT/TIME: 03/23/25 1226 * ALL edits or amendments must be made on the electronic/computer document * Subjective Chief complaint: leg pain . sit on chair . Review of Systems Musculoskeletal: Reports: extremity pain. All systems rev neg: except as noted Objective General VS/I O: Vital Signs: Date Time Temp Pulse Resp B/P B/P Pulse O2 O2 Flow FiO2 Mean Ox Delivery Rate 03/23 1147 36.6 57 19 147/70 0.0 97 07/08 1100 59 23 119/59 79 97 07/08 1003 58 21 118/65 85 96 07/08 0901 60 24 132/60 87 95 07/08 0800 61 20 115/70 87 95 07/08 0800 37.2 60 22 100 07/08 0724 97 Room air 07/08 0700 62 21 117/60 81 96 07/08 0647 63 26 116/62 83 96 07/08 0400 36.7 Room air 07/08 0400 55 21 121/57 82 96 07/08 0300 54 19 116/59 81 94 07/08 0200 59 18 119/56 80 96 07/08 0100 61 21 124/58 84 96 07/08 0015 95 Room air 07/08 0000 36.9 Room air 07/08 0000 63 24 121/62 85 97 07/07 2300 62 17 126/60 87 94 07/07 2200 59 17 140/63 90 96 03/22 2100 60 19 125/58 84 95 03/22 2035 97 Room air 03/22 2000 36.7 Room air 03/22 2000 58 22 124/63 87 95 03/22 1900 60 19 119/57 82 95 03/22 1701 65 26 123/56 81 98 03/22 1600 36.7 57 22 100 03/22 1425 62 29 133/63 90 98 03/22 1401 57 29 141/63 90 99 03/22 1300 55 17 159/71 102 98 24 hour I O ending at 0700: 03/23 0703/22 1900 Intake Total 350 Output Total 1600 Balance -1250 Intake, Oral 350 Number Voids 3 Output, Urine 1600 PATIENT WEIGHT: Weight (lb): 309 Weight (oz): 8.46 Weight (kg): 140.400 Medications: Active Meds + DC'd Last 24 Hrs Insulin Glargine (Semglee) 5 UNIT BID SUBQ Metoprolol Tartrate (LOPRESSOR) 25 MG Q12HR PO Amiodarone HCl (CORDARONE) 200 MG BID 9A 5P PO Insulin Glargine (Semglee) 10 UNIT BID SUBQ (DC) Oxycodone HCl (Oxycodone HCl) 10 MG Q4H PRN PRN PO Oxycodone HCl (ROXICODONE) 5 MG Q4H PRN PRN PO Metoprolol Tartrate (LOPRESSOR) 25 MG Q8H PO (DC) Sterile Water (WATER FOR INJECTION) 5 ML ASDIR PRN IV (DC) Potassium Chloride (POTASSIUM CHLORIDE 20MEQ TAB.ER) 20 MEQ ONCE PRN PO (DC) Ipratropium [place] (ATROVENT) 500 MCG RTQ2H PRN PRN INH Cyanocobalamin (Vitamin B-12 500 mcg tab) 500 MCG DAILY PO Ferrous Sulfate (FERROUS SULFATE) 325 MG DAILY PO Amiodarone HCl (NEXTERONE 360MG/D5W 200ML) 200 ML ASDIR IV (DC) Bisacodyl (DULCOLAX) 10 MG ONCE PRN RECTAL Magnesium Hydroxide (MILK OF MAGNESIA) 30 ML ONCE PRN PO Insulin Human Lispro (Admelog) 0 AC HS SUBQ Gabapentin (NEURONTIN) 200 MG TID PO Clopidogrel Bisulfate (Plavix) 75 MG DAILY PO Polyethylene Glycol (MIRALAX) 17 GM DAILY PO Levothyroxine Sodium (Synthroid) 200 MCG DAILY 0600 PO Pantoprazole (PROTONIX) 40 MG DAILY@0600 PO Atorvastatin Calcium (LIPITOR) 40 MG 2100 PO Docusate Sodium (COLACE) 100 MG BID PO Sennosides (Senna Lax 8.6 MG TABLET) 17.2 MG BEDTIME PO Aspirin (ASPIRIN) 81 MG DAILY PO Amiodarone HCl (CORDARONE) 200 MG TID PO (DC) Acetaminophen (TYLENOL) 650 MG Q4H PRN PRN PO Acetaminophen (TYLENOL) 650 MG Q4H PRN PRN RECTAL Calcium Chloride (CALCIUM CHLORIDE) 1 GM ASDIR PRN IV (DC) Dextrose/Water (DEXTROSE 10% IN WATER) 125 ML ASDIR PRN IV (CKD) Dextrose/Water (DEXTROSE 10% IN WATER) 250 ML ASDIR PRN IV (CKD) Glucagon (GLUCAGON) 1 MG ASDIR PRN IM Magnesium Sulfate (MAGNESIUM SULFATE 4GM/SWFI 100ML) 100 ML ASDIR PRN IV (DC) Magnesium Sulfate (MAGNESIUM SULFATE 2GM/SWFI 50ML) 50 ML ASDIR PRN IV ( DC) Magnesium Sulfate/Dextrose (MAGNESIUM SULFATE 1GM/D5W 100ML) 100 ML ASDIR PRN IV (DC) Ondansetron HCl (ZOFRAN) 4 MG Q6H PRN PRN IV Potassium Chloride (KCL 20MEQ/SWFI 100ML) 100 ML ASDIR PRN IV (DC) Sodium Bicarbonate (SODIUM BICARBONATE) 50 MEQ ASDIR PRN IV (DC) Physical Exam General appearance: alert, awake, oriented Head/Eyes: clear cornea, EOMI Neck: non-tender Cardiovascular: normal heart sounds, regular rate rhythm Respiratory: aerating well, clear to auscultation Abdomen: non-tender, normal bowel sounds, soft, no distention Extremities: moves all, no edema Neuro/BANKING MANAGER: alert, oriented X 3, CNII-XII intact, normal speech, no motor deficits, no sensory deficits Skin: dry, intact Psychiatry: normal affect, normal mood Results Findings/Data: Laboratory Tests 03/23 03/23 03/22 03/22 1057 0358 1955 1636 Chemistry Sodium (134 - 147 mEq/L) 137 Potassium (3.4 - 5.0 mEq/L) 4.3 Chloride (100 - 108 mEq/L) 102 Carbon Dioxide (21 - 33 mEq/l) 25 Anion Gap (0 - 20) 14 BUN (7 - 25 mg/dL) 17 Creatinine (0.6 - 1.3 mg/dL) 1.2 Glomerular Filtr Rate (80 - 90) 67.1 L Glucose (77 - 141 mg/dL) 173 H POC Glucose (70 - 110 MG/DL) 192 H 186 H 153 H Calcium (8.0 - 10.5 mg/dL) 9.0 Magnesium (1.6 - 2.6 mg/dL) 1.96 Laboratory Tests 03/23 0358 Hematology WBC (4.5 - 11.0 x10 3/uL) 9.5 RBC (4.00 - 5.60 x10 6/uL) 3.26 L Hgb (12.5 - 16.9 g/dL) 10.3 L Hct (37.5 - 50.7 %) 31.3 L MCV (81.0 - 99.0 fL) 96.0 MCH (27.0 - 33.0 pg) 31.6 MCHC (33.0 - 37.0 g/dL) 32.9 L RDW (11.5 - 14.5 %) 12.7 Plt Count (150 - 400 x10 3/uL) 249 MPV (7.0 - 9.0 fL) 9.5 H Neut % (Auto) (56.0 - 77.0 %) 67.0 Lymph % (Auto) (14.0 - 32.0 %) 14.5 Potter % (Auto) (4.8 - 9.0 %) 14.3 H Eos % (Auto) (0.3 - 3.7 %) 2.8 Baso % (Auto) (0.0 - 2.0 %) 0.5 Neut # (Auto) (2.0 - 7.6 x10 3/uL) 6.39 Lymph # (Auto) (1.0 - 3.8 x10 3/uL) 1.38 Potter # (Auto) (0.1 - 0.8 x10 3/uL) 1.36 H Eos # (Auto) (0.0 - 0.2 x10 3/uL) 0.27 H Baso # (Auto) (0.0 - 0.2 x10 3/uL) 0.05 Abs Immat Gran (auto) (0.00 - 0.03 x10 3/uL) 0.09 H Immature Gran % (0.0 - 2.0 %) 0.9 Nucleated RBC % (0 - 0 %) 0.0 Nucleated RBCs # (Man) (0.0 - 0.1 x10 3/uL) 0.00 Radiology data: Recent Impressions: ULTRASOUND - DUP LE ART LEANA 03/22 1552 Report Impression - Status: SIGNED Entered: 03/22/2025 0225 IMPRESSION: On the right, possible mild nonocclusive peripheral arterial disease. On the left, no sonographic evidence of hemodynamically significant peripheral arterial disease. Electronically signed by: Pio Noyola MD 03/22/2025 04:54 PM CDT RP Impression By: [email or web address] - Pio Noyola M.D. 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 may be reaction post surgery pain control PT/OT rectal bleeding -- resolve rectal surgeon consult monitor H H DM-- sliding scale now HTN-- stable . on metoprolol hypothyroid -- continue home med 03/18- sit on the chair . no sob . pain is fair control . no fever -- on O2 . hemodynamic stable . chest tube are out -- review lab and image -- continue monitor in ccu 03/19 - cont to mobilize as braden - afib rvr, cont on amio gtt - management per CTS and ICC recs 03/22 Continue PO beta ash and amiodarone, off amio gtt. To floor if OK with cardio team. Continue PT/OT. Pain control PRN. 03/23- leg pain . post CABG continue PT/OT -transfer to [facility] -- HR- back to sinus -- IP rehab --pending as CM at 1230 RPT #:[id number] END OF REPORT [facility] 2025-03-23 10:36:00 [facility] ([facility] Cardiology Progress Note REPORT#:[id number] REPORT STATUS: Signed REPORT INITIALIZATION DATE:03/23/25 TIME: 103 PATIENT: LAKEISHA NORRIS UNIT #: [id number] ROOM/BED: [id number] : 58 AGE: 64 SEX: M ATTEND: Marlene Padilla MD ADM AUTHOR: Yara Graham APRN REPT SERVICE DT/TIME: 03/23/25 1036 * ALL edits or amendments must be made on the electronic/computer document * Subjective Chief complaint: Weak Free Text Subj Notes Free Text Subj Notes: NAD noted. Objective General VS/I O: 24 hour I O ending at 0700: 03/23 0700 07/ 1900 Intake Total 350 Output Total 1600 Balance -1250 Intake, Oral 350 Number Voids 3 Output, Urine 1600 Vital Signs: Date Time Temp Pulse Resp B/P B/P Pulse O2 O2 Flow FiO2 Mean Ox Delivery Rate 03/23 0800 99.0 60 22 100 07/08 0724 97 Room air 07/08 0400 98.1 Room air 07/08 0400 55 21 121/57 82 96 07/08 0300 54 19 116/59 81 94 07/08 0200 59 18 119/56 80 96 07/08 0100 61 21 124/58 84 96 07/08 0015 95 Room air 07/08 0000 98.4 Room air 07/08 0000 63 24 121/62 85 97 07/07 2300 62 17 126/60 87 94 07/07 2200 59 17 140/63 90 96 07/07 2100 60 19 125/58 84 95 07/07 2035 97 Room air 07/07 2000 98.0 Room air 07/07 2000 58 22 124/63 87 95 07/07 1900 60 19 119/57 82 95 07/07 1701 65 26 123/56 81 98 07/07 1600 98.1 57 22 100 07/07 1425 62 29 133/63 90 98 07/07 1401 57 29 141/63 90 99 07/07 1300 55 17 159/71 102 98 07/07 1201 60 26 132/67 91 99 07/07 1200 97.8 63 22 100 07/07 1100 59 29 129/67 91 98 PATIENT WEIGHT: Weight (lb): 309 Weight (oz): 8.46 Weight (kg): 140.400 Medications: Active Meds + DC'd Last 24 Hrs Insulin Glargine (Semglee) 10 UNIT BID SUBQ Oxycodone HCl (Oxycodone HCl) 10 MG Q4H PRN PRN PO Oxycodone HCl (ROXICODONE) 5 MG Q4H PRN PRN PO Metoprolol Tartrate (LOPRESSOR) 25 MG Q8H PO Sterile Water (WATER FOR INJECTION) 5 ML ASDIR PRN IV Potassium Chloride (POTASSIUM CHLORIDE 20MEQ TAB.ER) 20 MEQ ONCE PRN PO Ipratropium [place] (ATROVENT) 500 MCG RTQ2H PRN PRN INH Cyanocobalamin (Vitamin B-12 500 mcg tab) 500 MCG DAILY PO Ferrous Sulfate (FERROUS SULFATE) 325 MG DAILY PO Amiodarone HCl (NEXTERONE 360MG/D5W 200ML) 200 ML ASDIR IV (CKD) Bisacodyl (DULCOLAX) 10 MG ONCE PRN RECTAL Magnesium Hydroxide (MILK OF MAGNESIA) 30 ML ONCE PRN PO Insulin Human Lispro (Admelog) 0 AC HS SUBQ Gabapentin (NEURONTIN) 200 MG TID PO Clopidogrel Bisulfate (Plavix) 75 MG DAILY PO Polyethylene Glycol (MIRALAX) 17 GM DAILY PO Levothyroxine Sodium (Synthroid) 200 MCG DAILY 0600 PO Pantoprazole (PROTONIX) 40 MG DAILY@0600 PO Atorvastatin Calcium (LIPITOR) 40 MG 2100 PO Docusate Sodium (COLACE) 100 MG BID PO Sennosides (Senna Lax 8.6 MG TABLET) 17.2 MG BEDTIME PO Aspirin (ASPIRIN) 81 MG DAILY PO Amiodarone HCl (CORDARONE) 200 MG TID PO Acetaminophen (TYLENOL) 650 MG Q4H PRN PRN PO Acetaminophen (TYLENOL) 650 MG Q4H PRN PRN RECTAL Calcium Chloride (CALCIUM CHLORIDE) 1 GM ASDIR PRN IV Dextrose/Water (DEXTROSE 10% IN WATER) 125 ML ASDIR PRN IV (CKD) Dextrose/Water (DEXTROSE 10% IN WATER) 250 ML ASDIR PRN IV (CKD) Glucagon (GLUCAGON) 1 MG ASDIR PRN IM Magnesium Sulfate (MAGNESIUM SULFATE 4GM/SWFI 100ML) 100 ML ASDIR PRN IV Magnesium Sulfate (MAGNESIUM SULFATE 2GM/SWFI 50ML) 50 ML ASDIR PRN IV Magnesium Sulfate/Dextrose (MAGNESIUM SULFATE 1GM/D5W 100ML) 100 ML ASDIR PRN IV Ondansetron HCl (ZOFRAN) 4 MG Q6H PRN PRN IV Potassium Chloride (KCL 20MEQ/SWFI 100ML) 100 ML ASDIR PRN IV Sodium Bicarbonate (SODIUM BICARBONATE) 50 MEQ ASDIR PRN IV Physical Exam Head/Eyes: atraumatic Neck: no JVD, no masses or swelling Cardiovascular: CV assessment: regular rate and rhythm Respiratory: decreased breath sounds, on oxygen, no distress Abdomen: obese Genitourinary: urinary catheter, urine Lower extremity: LE assessment: edema Musculoskeletal: normal inspection Neuro/BANKING MANAGER: alert, oriented X 3 Skin: dry Psychiatry: normal affect, normal mood Results Findings/Data: Laboratory Tests 03/23 1955 1636 1115 Chemistry Sodium (134 - 147 mEq/L) 137 Potassium (3.4 - 5.0 mEq/L) 4.3 Chloride (100 - 108 mEq/L) 102 Carbon Dioxide (21 - 33 mEq/l) 25 Anion Gap (0 - 20) 14 BUN (7 - 25 mg/dL) 17 Creatinine (0.6 - 1.3 mg/dL) 1.2 Glomerular Filtr Rate (80 - 90) 67.1 L Glucose (77 - 141 mg/dL) 173 H POC Glucose (70 - 110 MG/DL) 186 H 153 H 287 H Calcium (8.0 - 10.5 mg/dL) 9.0 Magnesium (1.6 - 2.6 mg/dL) 1.96 Laboratory Tests 03/23 358 Hematology WBC (4.5 - 11.0 x10 3/uL) 9.5 RBC (4.00 - 5.60 x10 6/uL) 3.26 L Hgb (12.5 - 16.9 g/dL) 10.3 L Hct (37.5 - 50.7 %) 31.3 L MCV (81.0 - 99.0 fL) 96.0 MCH (27.0 - 33.0 pg) 31.6 MCHC (33.0 - 37.0 g/dL) 32.9 L RDW (11.5 - 14.5 %) 12.7 Plt Count (150 - 400 x10 3/uL) 249 MPV (7.0 - 9.0 fL) 9.5 H Neut % (Auto) (56.0 - 77.0 %) 67.0 Lymph % (Auto) (14.0 - 32.0 %) 14.5 Potter % (Auto) (4.8 - 9.0 %) 14.3 H Eos % (Auto) (0.3 - 3.7 %) 2.8 Baso % (Auto) (0.0 - 2.0 %) 0.5 Neut # (Auto) (2.0 - 7.6 x10 3/uL) 6.39 Lymph # (Auto) (1.0 - 3.8 x10 3/uL) 1.38 Potter # (Auto) (0.1 - 0.8 x10 3/uL) 1.36 H Eos # (Auto) (0.0 - 0.2 x10 3/uL) 0.27 H Baso # (Auto) (0.0 - 0.2 x10 3/uL) 0.05 Abs Immat Gran (auto) (0.00 - 0.03 x10 3/uL) 0.09 H Immature Gran % (0.0 - 2.0 %) 0.9 Nucleated RBC % (0 - 0 %) 0.0 Nucleated RBCs # (Man) (0.0 - 0.1 x10 3/uL) 0.00 Laboratory Tests 03/23 0358 Chemistry Magnesium (1.6 - 2.6 mg/dL) 1.96 Radiology data: Recent Impressions: ULTRASOUND - DUP LE ART LEANA 03/22 1552 Report Impression - Status: SIGNED Entered: 03/22/2025 5389 IMPRESSION: On the right, possible mild nonocclusive peripheral arterial disease. On the left, no sonographic evidence of hemodynamically significant peripheral arterial disease. Electronically signed by: Pio Noyola MD 03/22/2025 04:54 PM T Impression By: [email or web address] - Pio Noyola M.D. Diagnosis, Assessment Plan Free Text DxA P Notes Free Text DxA P Notes: 1. CAD and aortic valve stenosis s/p CABG x5 plus AVR plus ALAA * DAPT, BB, statin * CXR: Shallow inspiration with mild progression of pulmonary congestion and small left effusion. * post-op care per CTS and critical care * vs stable- in NSR 2. Hypetension * bp soft- monitor 3. Hypelipidemia * continue statin 4. Diabetes mellitus * glycemic control per critical care 5. Rectal bleed attributed to external hemorrhoid * GI and colorectal surgery following continue supportive care ok to tx to floor- dc home when cleared by CTS Coverage for MDM by Dr. Ordoñez at 1717 at 1811 RPT #:[id number] END OF REPORT [facility] 2025-03-23 09:02:00 [facility] Cardiothoracic Surgery Prog REPORT#:[id number] REPORT STATUS: Signed REPORT INITIALIZATION DATE:03/23/25 TIME: 901 PATIENT: LAKEISHA NORRIS UNIT #: [id number] ROOM/BED: [place] [address] : 58 AGE: 64 SEX: M ATTEND: Marlene Padilla MD ADM AUTHOR: Sharifa Baker APRN-HEEL COVER SPLITTER REPT SERVICE DT/TIME: 03/23/25 0902 * ALL edits or amendments must be made on the electronic/computer document * General Post-op: day 7 Status post: 03/16/25 1. Coronary artery bypass graft surgery x5 (MCGUIRE to LAD, saphenous vein to diagonal, saphenous vein to first marginal, saphenous vein to second marginal, saphenous vein to PDA). 2. Aortic valve replacement (29-mm Inspiris valve). 3. Amputation of left atrial appendage. 4. Posterior pericardiotomy. 5. Endoscopic vein harvest of the right greater saphenous vein. Subjective Chief complaint: s/p cabg Review of Systems Constitutional: Reports: fatigue. Denies: chills. Skin: Denies: abrasion, bruising. Allergy/Immun: Denies: allergic reaction. Respiratory: Denies: VALDOVINOS (dyspnea on exertion), parox nocturnal dyspnea. Cardiovascular: Denies: chest pain. GI: Denies: abdominal pain. : Denies: dysuria. Musculoskeletal: Reports: extremity pain, extremity swelling. Denies: arthritis. All systems rev neg: except as marked Objective General VS/I O Last Documented: Result Date Time Pulse Ox 100 03/23 0800 Temp 99.0 03/23 0800 Pulse 60 03/23 0800 Resp 22 03/23 0800 O2 Delivery Room air 03/23 0724 B/P 121/57 03/23 0400 B/P Mean 82 03/23 0400 O2 Flow Rate 1 03/20 0810 FiO2 36 03/17 1938 24 hour I O ending at 0700: 03/23 0700 03/22 1900 Intake Total 350 Output Total 1600 Balance -1250 Intake, Oral 350 Number Voids 3 Output, Urine 1600 PATIENT WEIGHT: Weight (lb): 309 Weight (oz): 8.46 Weight (kg): 140.400 Dietitian Nutrition assessment The data set between the solid lines has been imported from the dietitian's assessment. BMI Calculated: 40.8 Nutrition related diagnosis: Morbid obesity Nutrition diagnosis details: BMI 40 or more Nutrition problem: Increased nutrient needs Nutrition etiology: Acute illness Nutrition signs and symptoms: S/P CABG X 5, W/ AVR Nutrition prescription: 1. CONTINUE CARDIAC DIET. ENCOURAGE PO INTAKE DIET ADHERENCE. 2. PROVIDE ENSURE MAX PROTEIN BID Dietitian name: Suzie Valencia RD, LD Assessment completed: 03/22/25 Physical Exam General appearance: alert, awake, oriented Wound/incision: Location: sternum Site condition: dressing clean dry, no drainage, no ecchymosis HEENT: anicteric, mucosal membranes moist, pupils reactive to light Neck: full range of motion, non-tender Cardiovascular: BP/pulses equal bilat. Respiratory: symmetric expansion, no distress Abdomen: soft, non-tender Genitourinary: urine Extremities: edema, dry, moves all, normal capillary refill, normal temperature Musculoskeletal: full range of motion, painless range of motion Neuro/BANKING MANAGER: alert, oriented X 3 Skin: dry, intact, normal temperature Current Medications Medications: Active Meds + DC'd Last 24 Hrs Oxycodone HCl (ROXICODONE) 5 MG Q4H PRN PRN PO Metoprolol Tartrate (LOPRESSOR) 25 MG Q8H PO Sterile Water (WATER FOR INJECTION) 5 ML ASDIR PRN IV Potassium Chloride (POTASSIUM CHLORIDE 20MEQ TAB.ER) 20 MEQ ONCE PRN PO Ipratropium [place] (ATROVENT) 500 MCG RTQ2H PRN PRN INH Cyanocobalamin (Vitamin B-12 500 mcg tab) 500 MCG DAILY PO Ferrous Sulfate (FERROUS SULFATE) 325 MG DAILY PO Amiodarone HCl (NEXTERONE 360MG/D5W 200ML) 200 ML ASDIR IV (CKD) Bisacodyl (DULCOLAX) 10 MG ONCE PRN RECTAL Magnesium Hydroxide (MILK OF MAGNESIA) 30 ML ONCE PRN PO Insulin Human Lispro (Admelog) 0 AC HS SUBQ Gabapentin (NEURONTIN) 200 MG TID PO Clopidogrel Bisulfate (Plavix) 75 MG DAILY PO Polyethylene Glycol (MIRALAX) 17 GM DAILY PO Levothyroxine Sodium (Synthroid) 200 MCG DAILY 0600 PO Pantoprazole (PROTONIX) 40 MG DAILY@0600 PO Atorvastatin Calcium (LIPITOR) 40 MG 2100 PO Docusate Sodium (COLACE) 100 MG BID PO Sennosides (Senna Lax 8.6 MG TABLET) 17.2 MG BEDTIME PO Aspirin (ASPIRIN) 81 MG DAILY PO Amiodarone HCl (CORDARONE) 200 MG TID PO Acetaminophen (TYLENOL) 650 MG Q4H PRN PRN PO Acetaminophen (TYLENOL) 650 MG Q4H PRN PRN RECTAL Calcium Chloride (CALCIUM CHLORIDE) 1 GM ASDIR PRN IV Dextrose/Water (DEXTROSE 10% IN WATER) 125 ML ASDIR PRN IV (CKD) Dextrose/Water (DEXTROSE 10% IN WATER) 250 ML ASDIR PRN IV (CKD) Glucagon (GLUCAGON) 1 MG ASDIR PRN IM Magnesium Sulfate (MAGNESIUM SULFATE 4GM/SWFI 100ML) 100 ML ASDIR PRN IV Magnesium Sulfate (MAGNESIUM SULFATE 2GM/SWFI 50ML) 50 ML ASDIR PRN IV Magnesium Sulfate/Dextrose (MAGNESIUM SULFATE 1GM/D5W 100ML) 100 ML ASDIR PRN IV Ondansetron HCl (ZOFRAN) 4 MG Q6H PRN PRN IV Potassium Chloride (KCL 20MEQ/SWFI 100ML) 100 ML ASDIR PRN IV Sodium Bicarbonate (SODIUM BICARBONATE) 50 MEQ ASDIR PRN IV Results Findings/Data: Laboratory Tests 03/23 1955 1636 1115 Chemistry Sodium (134 - 147 mEq/L) 137 Potassium (3.4 - 5.0 mEq/L) 4.3 Chloride (100 - 108 mEq/L) 102 Carbon Dioxide (21 - 33 mEq/l) 25 Anion Gap (0 - 20) 14 BUN (7 - 25 mg/dL) 17 Creatinine (0.6 - 1.3 mg/dL) 1.2 Glomerular Filtr Rate (80 - 90) 67.1 L Glucose (77 - 141 mg/dL) 173 H POC Glucose (70 - 110 MG/DL) 186 H 153 H 287 H Calcium (8.0 - 10.5 mg/dL) 9.0 Magnesium (1.6 - 2.6 mg/dL) 1.96 Laboratory Tests 03/23 358 Hematology WBC (4.5 - 11.0 x10 3/uL) 9.5 RBC (4.00 - 5.60 x10 6/uL) 3.26 L Hgb (12.5 - 16.9 g/dL) 10.3 L Hct (37.5 - 50.7 %) 31.3 L MCV (81.0 - 99.0 fL) 96.0 MCH (27.0 - 33.0 pg) 31.6 MCHC (33.0 - 37.0 g/dL) 32.9 L RDW (11.5 - 14.5 %) 12.7 Plt Count (150 - 400 x10 3/uL) 249 MPV (7.0 - 9.0 fL) 9.5 H Neut % (Auto) (56.0 - 77.0 %) 67.0 Lymph % (Auto) (14.0 - 32.0 %) 14.5 Potter % (Auto) (4.8 - 9.0 %) 14.3 H Eos % (Auto) (0.3 - 3.7 %) 2.8 Baso % (Auto) (0.0 - 2.0 %) 0.5 Neut # (Auto) (2.0 - 7.6 x10 3/uL) 6.39 Lymph # (Auto) (1.0 - 3.8 x10 3/uL) 1.38 Potter # (Auto) (0.1 - 0.8 x10 3/uL) 1.36 H Eos # (Auto) (0.0 - 0.2 x10 3/uL) 0.27 H Baso # (Auto) (0.0 - 0.2 x10 3/uL) 0.05 Abs Immat Gran (auto) (0.00 - 0.03 x10 3/uL) 0.09 H Immature Gran % (0.0 - 2.0 %) 0.9 Nucleated RBC % (0 - 0 %) 0.0 Nucleated RBCs # (Man) (0.0 - 0.1 x10 3/uL) 0.00 Radiology data: Recent Impressions: ULTRASOUND - DUP LE ART LEANA 03/22 1552 Report Impression - Status: SIGNED Entered: 03/22/2025 4927 IMPRESSION: On the right, possible mild nonocclusive peripheral arterial disease. On the left, no sonographic evidence of hemodynamically significant peripheral arterial disease. Electronically signed by: Pio Noyola MD 03/22/2025 04:54 PM CDT RP Impression By: [email or web address] - Pio Noyola M.D. Results: labs reviewed, vital signs stable, rythm personally rev'd, current med profile rev'd Diagnosis, Assessment Plan Free Text A P: Patient is a 64 year old male with a pmhx of HTN, HLD, DM, hypothyroidism, and current chewing tobacco use. Patient initially went to corporate ethics officer Dr. Milian for cardiac clearance for R knee replacement. He was found to have abnormal results on stress testing with inferior and inferiolateral areas of reversible ischemia. Echo shows EF 55-60% with moderate . Patient denies blood thinner use. Left heart cath was completed on 03/05/2025 showing severe multivessel coronary artery disease. Denies hx of chest pain or dypsnea. He ambulates without assistance. Patient will be admitted today for a CABG with aortic valve replacement. Assessment/plan: 1. Hypertension 2. Hyperlipidemia 3. Diabetes mellitus 4. Hypothyroidism 5. Nicotine dependence 6. Coronary artery disease 7. Moderate Admit to CVICU postoperatively Closely monitor hemodynamics Consult hothouse worker Dr. Padilla has seen and examined the patient. The patient will benefit from revascularization to coronary arteries and replacement of aortic valve. Dr. Padilla has explained in great detail the operation, risks, risk STS calculator, benefits, complications, alternatives and complications. The patient acknowledges understanding is willing to proceed with surgery. All questions have been answered. 03/16/25 1. Coronary artery bypass graft surgery x5 (MCGUIRE to LAD, saphenous vein to diagonal, saphenous vein to first marginal, saphenous vein to second marginal, saphenous vein to PDA). 2. Aortic valve replacement (29-mm Inspiris valve). 3. Amputation of left atrial appendage. 4. Posterior pericardiotomy. 5. Endoscopic vein harvest of the right greater saphenous vein. 03/17/25 POD 1 AAO x 3, denies complaints, multimodal pain management On 4LNC, wean as tolerated, encourage I-S use and deep breathing, CXR reviewed, ABG reviewed CTs in place, drained 95/335 cc overnight, will reassess after ambulation Sinus rhythm, monitor hemodynamics closely, epicardial pacing wires on standby, on levo gtt @2 Continue DAPT, metoprolol, amiodarone, and Lipitor Advance diet as tolerated, nutritional supplements, bowel regimen, glycemic control with insulin drip, transition to SSI UOP 660cc overnight, strict I's O's, daily weights DVT Prophylaxis with SCDs, GI prophylaxis with PPI PT/OT, OOB to chair, encourage ambulation Labs reviewed, replace electrolytes as needed Discharge disposition: home with good family support Plan to deline once off insulin and levo gtt Patient seen and examined by Dr Padilla. Plan of care discussed with nurse, patient and interdisciplinary team. All questions answered. 03/18/25 POD 2 AAO x 3, denies complaints, multimodal pain management On 1LNC, wean as tolerated, encourage I-S use and deep breathing, CXR reviewed, ABG reviewed CT in place, drained 60 cc overnight, will DC after ambulation Sinus rhythm, monitor hemodynamics closely, epicardial pacing wires on standby Continue DAPT, metoprolol, amiodarone, and Lipitor Advance diet as tolerated, nutritional supplements, bowel regimen, glycemic control SSI, MOM today UOP 575cc overnight, strict I's O's, daily weights DVT Prophylaxis with SCDs, GI prophylaxis with PPI PT/OT, OOB to chair, encourage ambulation Labs reviewed, replace electrolytes as needed Discharge disposition: home with good family support Continue close monitoring in CCU Patient seen and examined by Dr Padilla. Plan of care discussed with nurse, patient and interdisciplinary team. All questions answered. 03/19/25 POD 3 AAO x 3, reports shortness of breath, denies chest pain On 4LNC, wean as tolerated, encourage I-S use and deep breathing, CXR reviewed, ABG reviewed Went into A-fib RVR, given amio bolus and continued amio gtt, push of metoprolol , monitor hemodynamics closely, epicardial pacing wires on standby Continue DAPT, metoprolol 12.5 Q8H, amiodarone, and Lipitor Tolerating diet, nutritional supplements, bowel regimen, glycemic control SSI, suppository today UOP 1125cc overnight, strict I's O's, daily weights, weight up, Lasix today DVT Prophylaxis with SCDs, GI prophylaxis with PPI DVT study ordered PT/OT, OOB to chair, encourage ambulation Labs reviewed, replace electrolytes as needed Discharge disposition: home with good family support Continue close monitoring in CCU Patient seen and examined by Dr Padilla. Plan of care discussed with nurse, patient and interdisciplinary team. All questions answered. 03/20/25 POD 4 AAO x 3, reports shortness of breath, denies chest pain On RA, encourage I-S use and deep breathing, CXR reviewed, ABG reviewed Back in NSR today, monitor hemodynamics closely, epicardial pacing wires on standby Continue DAPT, metoprolol 12.5 Q8H, amiodarone, and Lipitor Tolerating diet, nutritional supplements, bowel regimen, glycemic control SSI, suppository today Good UOP overnight, strict I's O's, daily weights, on Lasix gtt, weight trending down, Diamox today DVT Prophylaxis with SCDs, GI prophylaxis with PPI PT/OT, OOB to chair, encourage ambulation Labs reviewed, replace electrolytes as needed Discharge disposition: home with good family support Continue close monitoring in CCU Patient seen and examined by Dr Padilla. Plan of care discussed with nurse, patient and interdisciplinary team. All questions answered. 03/21/25 POD 5 AAO x 3, reports shortness of breath, denies chest pain On RA, encourage I-S use and deep breathing, CXR reviewed Back in NSR today, monitor hemodynamics closely, epicardial pacing wires Dc'd, echocardiogram limited Continue DAPT, metoprolol 25mg BID, amiodarone, and Lipitor Tolerating diet, nutritional supplements, bowel regimen, glycemic control SSI, suppository today Good UOP overnight, strict I's O's, daily weights, weight back to baseline DVT Prophylaxis with SCDs, GI prophylaxis with PPI DVT study ordered PT/OT, OOB to chair, encourage ambulation Labs reviewed, replace electrolytes as needed Discharge disposition: home with good family support Okay to transfer to [facility] Patient seen and examined by Dr Padilla. Plan of care discussed with nurse, patient and interdisciplinary team. All questions answered. 03/22/25 POD 6, reports right leg pain, noted swelling AAO x 3, reports shortness of breath, denies chest pain On RA, encourage I-S use and deep breathing, CXR reviewed Back in NSR today, monitor hemodynamics closely, echocardiogram shows Ef 50-54%, small pericardial effusion Continue DAPT, metoprolol 25mg BID, amiodarone, and Lipitor Tolerating diet, nutritional supplements, bowel regimen, glycemic control SSI, suppository today Good UOP overnight, strict I's O's, daily weights, weight back to baseline, Lasix today DVT Prophylaxis with SCDs, GI prophylaxis with PPI DVT study negative, ordered arterial duplex as well as patient's right leg is swollen and extremely painful PT/OT, OOB to chair, encourage ambulation Labs reviewed, replace electrolytes as needed Discharge disposition: home with good family support Okay to transfer to [facility] Patient seen and examined by Dr Padilla. Plan of care discussed with nurse, patient and interdisciplinary team. All questions answered. 03/23/25 POD 7, reports right leg pain, noted swelling AAO x 3, reports shortness of breath, denies chest pain On RA, encourage I-S use and deep breathing, CXR reviewed Back in NSR today, monitor hemodynamics closely, echocardiogram shows Ef 50-54%, small pericardial effusion Continue DAPT, metoprolol 25mg BID, amiodarone, and Lipitor Tolerating diet, nutritional supplements, bowel regimen, glycemic control SSI, reports BM Good UOP overnight, strict I's O's, daily weights, weight below baseline DVT Prophylaxis with SCDs, GI prophylaxis with PPI DVT study negative, arterial duplex- possible mild nonocclusive peripheral arterial disease on right, no evidence of PAD on left. PT/OT, OOB to chair, encourage ambulation Labs reviewed, replace electrolytes as needed Discharge disposition: home with good family support Okay to transfer to [address] working on rehab for patient, patient okay to discharge once approved/chose [facility]. Patient seen and examined by Dr Padilla. Plan of care discussed with nurse, patient and interdisciplinary team. All questions answered. Code status: full code Plan discussed with: patient, collaborating MD, nurse, interdisc care team at 0906 at 0951 RPT #:[id number] END OF REPORT [facility] 2025-03-22 14:06:00 [facility] ([facility]) Cardiothoracic Surgery Prog REPORT#:[id number] REPORT STATUS: Signed REPORT INITIALIZATION DATE:03/22/25 TIME: 1405 PATIENT: LAKEISHA NORRIS UNIT #: [id number] ROOM/BED: [place] [id number] : 59 AGE: 64 SEX: M ATTEND: Marlene Padilla MD ADM AUTHOR: Sharifa Baker REPT SERVICE DT/TIME: 03/22/25 1406 * ALL edits or amendments must be made on the electronic/computer document * General Post-op: day 6 Status post: 03/16/25 1. Coronary artery bypass graft surgery x5 (MCGUIRE to LAD, saphenous vein to diagonal, saphenous vein to first marginal, saphenous vein to second marginal, saphenous vein to PDA). 2. Aortic valve replacement (29-mm Inspiris valve). 3. Amputation of left atrial appendage. 4. Posterior pericardiotomy. 5. Endoscopic vein harvest of the right greater saphenous vein. Subjective Chief complaint: s/p cabg Review of Systems Constitutional: Reports: fatigue. Denies: chills. Skin: Denies: abrasion, bruising. Allergy/Immun: Denies: allergic reaction. Respiratory: Denies: VALDOVINOS (dyspnea on exertion), parox nocturnal dyspnea. Cardiovascular: Denies: chest pain. GI: Denies: abdominal pain. : Denies: dysuria. Musculoskeletal: Reports: extremity pain, extremity swelling. Denies: arthritis. All systems rev neg: except as marked Objective General VS/I O Last Documented: Result Date Time Pulse Ox 100 03/22 1200 Temp 97.8 03/22 1200 Pulse 63 03/22 1200 Resp 22 03/22 1200 B/P 129/67 03/22 1100 B/P Mean 91 03/22 1100 O2 Delivery Room air 03/22 0530 O2 Flow Rate 1 03/20 0810 FiO2 36 03/17 1938 24 hour I O ending at 0700: 03/22 0700 03/21 1900 Intake Total 480 480 Output Total 1950 700 Balance -1470 -220 Intake, Oral 480 480 Number 0 Bowel Movements Number Voids 3 Output, Stool 0 Output, Urine 1950 700 Patient 140.4 kg Weight Weight Standing scale Measurement Method PATIENT WEIGHT: Weight (lb): 309 Weight (oz): 8.46 Weight (kg): 140.400 Dietitian Nutrition assessment The data set between the solid lines has been imported from the dietitian's assessment. BMI Calculated: 40.8 Nutrition related diagnosis: Morbid obesity Nutrition diagnosis details: BMI 40 or more Nutrition problem: Increased nutrient needs Nutrition etiology: Acute illness Nutrition signs and symptoms: S/P CABG X 5, W/ AVR Nutrition prescription: 1. CONTINUE CARDIAC DIET. ENCOURAGE PO INTAKE DIET ADHERENCE. 2. PROVIDE ENSURE MAX PROTEIN BID 3. RD TO PROVIDE HEART HEALTHY, DIABETIC DIET EDUCATION FEASIBLE Dietitian name: Fatoumata Tavares, DIET Assessment completed: 03/17/25 Physical Exam General appearance: alert, awake, oriented Wound/incision: Location: sternum Site condition: dressing clean dry, no drainage, no ecchymosis HEENT: anicteric, mucosal membranes moist, pupils reactive to light Neck: full range of motion, non-tender Cardiovascular: irregularly irregular, BP/pulses equal bilat. Respiratory: decreased breath sounds Abdomen: soft, non-tender Genitourinary: urine Extremities: edema, dry, moves all, normal capillary refill, normal temperature Musculoskeletal: full range of motion, painless range of motion Neuro/BANKING MANAGER: alert, oriented X 3 Skin: dry, intact, normal temperature Current Medications Medications: Active Meds + DC'd Last 24 Hrs Furosemide (LASIX 40 mg/4 mL INJECTION) 40 MG ONCE ONE IV (DC) Oxycodone HCl (ROXICODONE) 5 MG Q4H PRN PRN PO Calcium Gluconate (Calcium Gluconate 1 GM/NS 50 mL (B2)) 50 ML ONCE ONE IV (DC) Metoprolol Tartrate (LOPRESSOR) 25 MG Q8H PO Sterile Water (WATER FOR INJECTION) 5 ML ASDIR PRN IV Potassium Chloride (POTASSIUM CHLORIDE 20MEQ TAB.ER) 20 MEQ ONCE PRN PO Ipratropium [place] (ATROVENT) 500 MCG RTQ2H PRN PRN INH Cyanocobalamin (Vitamin B-12 500 mcg tab) 500 MCG DAILY PO Ferrous Sulfate (FERROUS SULFATE) 325 MG DAILY PO Amiodarone HCl (NEXTERONE 360MG/D5W 200ML) 200 ML ASDIR IV (CKD) Bisacodyl (DULCOLAX) 10 MG ONCE PRN RECTAL Magnesium Hydroxide (MILK OF MAGNESIA) 30 ML ONCE PRN PO Insulin Human Lispro (Admelog) 0 AC HS SUBQ Gabapentin (NEURONTIN) 200 MG TID PO Clopidogrel Bisulfate (Plavix) 75 MG DAILY PO Polyethylene Glycol (MIRALAX) 17 GM DAILY PO Levothyroxine Sodium (Synthroid) 200 MCG DAILY 0600 PO Pantoprazole (PROTONIX) 40 MG DAILY@0600 PO Atorvastatin Calcium (LIPITOR) 40 MG 2100 PO Docusate Sodium (COLACE) 100 MG BID PO Sennosides (Senna Lax 8.6 MG TABLET) 17.2 MG BEDTIME PO Aspirin (ASPIRIN) 81 MG DAILY PO Amiodarone HCl (CORDARONE) 200 MG TID PO Acetaminophen (TYLENOL) 650 MG Q4H PRN PRN PO Acetaminophen (TYLENOL) 650 MG Q4H PRN PRN RECTAL Calcium Chloride (CALCIUM CHLORIDE) 1 GM ASDIR PRN IV Dextrose/Water (DEXTROSE 10% IN WATER) 125 ML ASDIR PRN IV (CKD) Dextrose/Water (DEXTROSE 10% IN WATER) 250 ML ASDIR PRN IV (CKD) Glucagon (GLUCAGON) 1 MG ASDIR PRN IM Magnesium Sulfate (MAGNESIUM SULFATE 4GM/SWFI 100ML) 100 ML ASDIR PRN IV Magnesium Sulfate (MAGNESIUM SULFATE 2GM/SWFI 50ML) 50 ML ASDIR PRN IV Magnesium Sulfate/Dextrose (MAGNESIUM SULFATE 1GM/D5W 100ML) 100 ML ASDIR PRN IV Ondansetron HCl (ZOFRAN) 4 MG Q6H PRN PRN IV Oxycodone HCl (ROXICODONE) 5 MG Q4H PRN PRN PO (DC) Oxycodone HCl (ROXICODONE) 10 MG Q4H PRN PRN PO (DC) Potassium Chloride (KCL 20MEQ/SWFI 100ML) 100 ML ASDIR PRN IV Sodium Bicarbonate (SODIUM BICARBONATE) 50 MEQ ASDIR PRN IV Results Findings/Data: Laboratory Tests 03/22 03/22 03/21 03/21 1115 0339 2011 1624 Chemistry Sodium (134 - 147 mEq/L) 137 Potassium (3.4 - 5.0 mEq/L) 4.0 Chloride (100 - 108 mEq/L) 103 Carbon Dioxide (21 - 33 mEq/l) 24 Anion Gap (0 - 20) 14 BUN (7 - 25 mg/dL) 20 Creatinine (0.6 - 1.3 mg/dL) 1.2 Glomerular Filtr Rate (80 - 90) 67.1 L Glucose (77 - 141 mg/dL) 180 H POC Glucose (70 - 110 MG/DL) 287 H 185 H 179 H Calcium (8.0 - 10.5 mg/dL) 8.9 Ionized Calcium Vasquez (1.09 - 1.30 MMOL/L) 1.15 Phosphorus (2.5 - 4.9 MG/DL) 3.5 Magnesium (1.6 - 2.6 mg/dL) 2.14 Laboratory Tests 03/22 0339 Hematology WBC (4.5 - 11.0 x10 3/uL) 8.0 RBC (4.00 - 5.60 x10 6/uL) 3.32 L Hgb (12.5 - 16.9 g/dL) 10.6 L Hct (37.5 - 50.7 %) 31.3 L MCV (81.0 - 99.0 fL) 94.3 MCH (27.0 - 33.0 pg) 31.9 MCHC (33.0 - 37.0 g/dL) 33.9 RDW (11.5 - 14.5 %) 12.5 Plt Count (150 - 400 x10 3/uL) 207 MPV (7.0 - 9.0 fL) 9.7 H Neut % (Auto) (56.0 - 77.0 %) 69.0 Lymph % (Auto) (14.0 - 32.0 %) 12.5 L Potter % (Auto) (4.8 - 9.0 %) 14.8 H Eos % (Auto) (0.3 - 3.7 %) 2.6 Baso % (Auto) (0.0 - 2.0 %) 0.3 Neut # (Auto) (2.0 - 7.6 x10 3/uL) 5.52 Lymph # (Auto) (1.0 - 3.8 x10 3/uL) 1.00 Potter # (Auto) (0.1 - 0.8 x10 3/uL) 1.18 H Eos # (Auto) (0.0 - 0.2 x10 3/uL) 0.21 H Baso # (Auto) (0.0 - 0.2 x10 3/uL) 0.02 Abs Immat Gran (auto) (0.00 - 0.03 x10 3/uL) 0.06 H Immature Gran % (0.0 - 2.0 %) 0.8 Nucleated RBC % (0 - 0 %) 0.0 Nucleated RBCs # (Man) (0.0 - 0.1 x10 3/uL) 0.00 Radiology data: Recent Impressions: RADIOLOGY - XR CHEST 1 V 03/22 0616 Report Impression - Status: SIGNED Entered: 03/22/2025 0811 IMPRESSION: Shallow inspiration with mild progression of pulmonary congestion and small left effusion. Electronically signed by: Emerson De La Cruz MD 03/22/2025 08:09 AM CDT RP Impression By: [email or web address] - Emerson De La Cruz M.D. ULTRASOUND - DUP VEIN LEANA 03/22 0818 Report Impression - Status: SIGNED Entered: 03/22/2025 0852 IMPRESSION: No evidence of deep venous thrombosis. Electronically signed by: Elkin Garcia MD 03/22/2025 08:50 AM CDT RP Impression By: [email or web address] - Elkin Garcia M.D. Results: labs reviewed, vital signs stable, rythm personally rev'd, current med profile rev'd Diagnosis, Assessment Plan Free Text A P: Patient is a 64 year old male with a pmhx of HTN, HLD, DM, hypothyroidism, and current chewing tobacco use. Patient initially went to corporate ethics officer Dr. Milian for cardiac clearance for R knee replacement. He was found to have abnormal results on stress testing with inferior and inferiolateral areas of reversible ischemia. Echo shows EF 55-60% with moderate . Patient denies blood thinner use. Left heart cath was completed on 03/05/2025 showing severe multivessel coronary artery disease. Denies hx of chest pain or dypsnea. He ambulates without assistance. Patient will be admitted today for a CABG with aortic valve replacement. Assessment/plan: 1. Hypertension 2. Hyperlipidemia 3. Diabetes mellitus 4. Hypothyroidism 5. Nicotine dependence 6. Coronary artery disease 7. Moderate Admit to CVICU postoperatively Closely monitor hemodynamics Consult hothouse worker Dr. Padilla has seen and examined the patient. The patient will benefit from revascularization to coronary arteries and replacement of aortic valve. Dr. Padilla has explained in great detail the operation, risks, risk STS calculator, benefits, complications, alternatives and complications. The patient acknowledges understanding is willing to proceed with surgery. All questions have been answered. 03/16/25 1. Coronary artery bypass graft surgery x5 (MCGUIRE to LAD, saphenous vein to diagonal, saphenous vein to first marginal, saphenous vein to second marginal, saphenous vein to PDA). 2. Aortic valve replacement (29-mm Inspiris valve). 3. Amputation of left atrial appendage. 4. Posterior pericardiotomy. 5. Endoscopic vein harvest of the right greater saphenous vein. 03/17/25 POD 1 AAO x 3, denies complaints, multimodal pain management On 4LNC, wean as tolerated, encourage I-S use and deep breathing, CXR reviewed, ABG reviewed CTs in place, drained 95/335 cc overnight, will reassess after ambulation Sinus rhythm, monitor hemodynamics closely, epicardial pacing wires on standby, on levo gtt @2 Continue DAPT, metoprolol, amiodarone, and Lipitor Advance diet as tolerated, nutritional supplements, bowel regimen, glycemic control with insulin drip, transition to SSI UOP 660cc overnight, strict I's O's, daily weights DVT Prophylaxis with SCDs, GI prophylaxis with PPI PT/OT, OOB to chair, encourage ambulation Labs reviewed, replace electrolytes as needed Discharge disposition: home with good family support Plan to deline once off insulin and levo gtt Patient seen and examined by Dr Padilla. Plan of care discussed with nurse, patient and interdisciplinary team. All questions answered. 03/18/25 POD 2 AAO x 3, denies complaints, multimodal pain management On 1LNC, wean as tolerated, encourage I-S use and deep breathing, CXR reviewed, ABG reviewed CT in place, drained 60 cc overnight, will DC after ambulation Sinus rhythm, monitor hemodynamics closely, epicardial pacing wires on standby Continue DAPT, metoprolol, amiodarone, and Lipitor Advance diet as tolerated, nutritional supplements, bowel regimen, glycemic control SSI, MOM today UOP 575cc overnight, strict I's O's, daily weights DVT Prophylaxis with SCDs, GI prophylaxis with PPI PT/OT, OOB to chair, encourage ambulation Labs reviewed, replace electrolytes as needed Discharge disposition: home with good family support Continue close monitoring in CCU Patient seen and examined by Dr Padilla. Plan of care discussed with nurse, patient and interdisciplinary team. All questions answered. 03/19/25 POD 3 AAO x 3, reports shortness of breath, denies chest pain On 4LNC, wean as tolerated, encourage I-S use and deep breathing, CXR reviewed, ABG reviewed Went into A-fib RVR, given amio bolus and continued amio gtt, push of metoprolol , monitor hemodynamics closely, epicardial pacing wires on standby Continue DAPT, metoprolol 12.5 Q8H, amiodarone, and Lipitor Tolerating diet, nutritional supplements, bowel regimen, glycemic control SSI, suppository today UOP 1125cc overnight, strict I's O's, daily weights, weight up, Lasix today DVT Prophylaxis with SCDs, GI prophylaxis with PPI DVT study ordered PT/OT, OOB to chair, encourage ambulation Labs reviewed, replace electrolytes as needed Discharge disposition: home with good family support Continue close monitoring in CCU Patient seen and examined by Dr Padilla. Plan of care discussed with nurse, patient and interdisciplinary team. All questions answered. 03/20/25 POD 4 AAO x 3, reports shortness of breath, denies chest pain On RA, encourage I-S use and deep breathing, CXR reviewed, ABG reviewed Back in NSR today, monitor hemodynamics closely, epicardial pacing wires on standby Continue DAPT, metoprolol 12.5 Q8H, amiodarone, and Lipitor Tolerating diet, nutritional supplements, bowel regimen, glycemic control SSI, suppository today Good UOP overnight, strict I's O's, daily weights, on Lasix gtt, weight trending down, Diamox today DVT Prophylaxis with SCDs, GI prophylaxis with PPI PT/OT, OOB to chair, encourage ambulation Labs reviewed, replace electrolytes as needed Discharge disposition: home with good family support Continue close monitoring in CCU Patient seen and examined by Dr Padilla. Plan of care discussed with nurse, patient and interdisciplinary team. All questions answered. 03/21/25 POD 5 AAO x 3, reports shortness of breath, denies chest pain On RA, encourage I-S use and deep breathing, CXR reviewed Back in NSR today, monitor hemodynamics closely, epicardial pacing wires Dc'd, echocardiogram limited Continue DAPT, metoprolol 25mg BID, amiodarone, and Lipitor Tolerating diet, nutritional supplements, bowel regimen, glycemic control SSI, suppository today Good UOP overnight, strict I's O's, daily weights, weight back to baseline DVT Prophylaxis with SCDs, GI prophylaxis with PPI DVT study ordered PT/OT, OOB to chair, encourage ambulation Labs reviewed, replace electrolytes as needed Discharge disposition: home with good family support Okay to transfer to [facility] Patient seen and examined by Dr Padilla. Plan of care discussed with nurse, patient and interdisciplinary team. All questions answered. 03/22/25 POD 6, reports right leg pain, noted swelling AAO x 3, reports shortness of breath, denies chest pain On RA, encourage I-S use and deep breathing, CXR reviewed Back in NSR today, monitor hemodynamics closely, echocardiogram shows Ef 50-54%, small pericardial effusion Continue DAPT, metoprolol 25mg BID, amiodarone, and Lipitor Tolerating diet, nutritional supplements, bowel regimen, glycemic control SSI, suppository today Good UOP overnight, strict I's O's, daily weights, weight back to baseline, Lasix today DVT Prophylaxis with SCDs, GI prophylaxis with PPI DVT study negative, ordered arterial duplex as well as patient's right leg is swollen and extremely painful PT/OT, OOB to chair, encourage ambulation Labs reviewed, replace electrolytes as needed Discharge disposition: home with good family support Okay to transfer to [facility] Patient seen and examined by Dr Padilla. Plan of care discussed with nurse, patient and interdisciplinary team. All questions answered. Orders: Procedure Date/time Status PHOSPHOROUS 03/22 400 Complete CALCIUM IONIZED 03/22 400 Complete Code status: full code Plan discussed with: patient, collaborating MD, nurse, interdisc care team at 1430 at 0951 RPT #:[id number] END OF REPORT [facility] 2025-03-22 10:20:00 [facility] ([facility]) Hospitalist Progress Note REPORT#:[id number] REPORT STATUS: Signed REPORT INITIALIZATION DATE:03/22/25 TIME: 1020 PATIENT: LAKEISHA NORRIS UNIT #: [id number] ROOM/BED: 3305-1 : 58 AGE: 64 SEX: M ATTEND: Marlene Padilla MD ADM AUTHOR: Phuong Avalos APRN REPT SERVICE DT/TIME: 03/22/25 1020 * ALL edits or amendments must be made on the electronic/computer document * Subjective Chief complaint: FU S/P CABG Up in chair, RLE pain Review of Systems Constitutional: Reports: generalized weakness. Denies: chills, fever. Respiratory: Denies: SOB. Cardiovascular: Denies: chest pain. GI: Denies: nausea, vomiting. Musculoskeletal: Reports: extremity pain, extremity swelling. All systems rev neg: except as noted Objective General VS/I O: Vital Signs: Date Time Temp Pulse Resp B/P B/P Pulse O2 O2 Flow FiO2 Mean Ox Delivery Rate 07/ 0807 61 19 146/69 99 99 07/07 0800 36.7 63 20 98 07/07 0700 62 22 113/59 78 97 07/07 0603 63 19 144/69 99 98 07/07 0530 97 Room air 07/07 0500 54 17 127/70 89 96 07/07 0400 36.9 07/07 0400 56 19 144/65 94 96 07/07 0300 54 17 128/58 84 95 07/07 0201 53 19 123/61 86 96 07/07 0100 56 17 137/65 93 94 07/07 0011 98 Room air 07/07 0000 36.9 07/07 0000 53 17 132/61 88 96 07/06 2301 55 19 127/64 86 94 07/06 2201 54 21 127/58 83 95 07/06 2100 54 20 127/59 85 98 07/06 2000 37.0 07/06 2000 54 16 126/59 85 100 07/06 1900 56 20 121/57 82 96 07/06 1600 36.7 07/06 1600 58 21 140/68 93 97 07/06 1500 55 20 123/58 84 98 07/06 1401 60 19 119/63 85 96 07/06 1302 58 32 136/71 97 97 07/06 1200 36.7 07/06 1200 59 25 115/60 80 95 07/06 1102 57 26 131/66 91 97 24 hour I O ending at 0700: 0707 0700 07/06 1900 Intake Total 480 480 Output Total 1950 700 Balance -1470 -220 Intake, Oral 480 480 Number 0 Bowel Movements Number Voids 3 Output, Stool 0 Output, Urine 1950 700 Patient 140.4 kg Weight Weight Standing scale Measurement Method PATIENT WEIGHT: Weight (lb): 309 Weight (oz): 8.46 Weight (kg): 140.400 Medications: Active Meds + DC'd Last 24 Hrs Furosemide (LASIX 40 mg/4 mL INJECTION) 40 MG ONCE ONE IV (DC) Oxycodone HCl (ROXICODONE) 5 MG Q4H PRN PRN PO Calcium Gluconate (Calcium Gluconate 1 GM/NS 50 mL (B2)) 50 ML ONCE ONE IV (DC) Metoprolol Tartrate (LOPRESSOR) 25 MG Q8H PO Metoprolol Tartrate (LOPRESSOR) 25 MG BID PO (DC) Sterile Water (WATER FOR INJECTION) 5 ML ASDIR PRN IV Potassium Chloride (POTASSIUM CHLORIDE 20MEQ TAB.ER) 20 MEQ ONCE PRN PO Ipratropium [place] (ATROVENT) 500 MCG RTQ2H PRN PRN INH Cyanocobalamin (Vitamin B-12 500 mcg tab) 500 MCG DAILY PO Ferrous Sulfate (FERROUS SULFATE) 325 MG DAILY PO Amiodarone HCl (NEXTERONE 360MG/D5W 200ML) 200 ML ASDIR IV (CKD) Bisacodyl (DULCOLAX) 10 MG ONCE PRN RECTAL Magnesium Hydroxide (MILK OF MAGNESIA) 30 ML ONCE PRN PO Insulin Human Lispro (Admelog) 0 AC HS SUBQ Gabapentin (NEURONTIN) 200 MG TID PO Clopidogrel Bisulfate (Plavix) 75 MG DAILY PO Polyethylene Glycol (MIRALAX) 17 GM DAILY PO Levothyroxine Sodium (Synthroid) 200 MCG DAILY 0600 PO Pantoprazole (PROTONIX) 40 MG DAILY@0600 PO Atorvastatin Calcium (LIPITOR) 40 MG 2100 PO Docusate Sodium (COLACE) 100 MG BID PO Sennosides (Senna Lax 8.6 MG TABLET) 17.2 MG BEDTIME PO Aspirin (ASPIRIN) 81 MG DAILY PO Amiodarone HCl (CORDARONE) 200 MG TID PO Acetaminophen (TYLENOL) 650 MG Q4H PRN PRN PO Acetaminophen (TYLENOL) 650 MG Q4H PRN PRN RECTAL Calcium Chloride (CALCIUM CHLORIDE) 1 GM ASDIR PRN IV Dextrose/Water (DEXTROSE 10% IN WATER) 125 ML ASDIR PRN IV (CKD) Dextrose/Water (DEXTROSE 10% IN WATER) 250 ML ASDIR PRN IV (CKD) Glucagon (GLUCAGON) 1 MG ASDIR PRN IM Magnesium Sulfate (MAGNESIUM SULFATE 4GM/SWFI 100ML) 100 ML ASDIR PRN IV Magnesium Sulfate (MAGNESIUM SULFATE 2GM/SWFI 50ML) 50 ML ASDIR PRN IV Magnesium Sulfate/Dextrose (MAGNESIUM SULFATE 1GM/D5W 100ML) 100 ML ASDIR PRN IV Ondansetron HCl (ZOFRAN) 4 MG Q6H PRN PRN IV Oxycodone HCl (ROXICODONE) 5 MG Q4H PRN PRN PO (DC) Oxycodone HCl (ROXICODONE) 10 MG Q4H PRN PRN PO (DC) Potassium Chloride (KCL 20MEQ/SWFI 100ML) 100 ML ASDIR PRN IV Sodium Bicarbonate (SODIUM BICARBONATE) 50 MEQ ASDIR PRN IV Physical Exam General appearance: alert, awake, oriented, no acute distress, mental status normal, no respiratory distress Head/Eyes: clear cornea, EOMI Neck: non-tender Cardiovascular: normal heart sounds, regular rate rhythm Respiratory: aerating well, clear to auscultation Abdomen: non-tender, normal bowel sounds, soft, no distention Extremities: moves all, no edema Neuro/BANKING MANAGER: alert, oriented X 3, CNII-XII intact, normal speech, no motor deficits, no sensory deficits Skin: dry, intact Psychiatry: normal affect, normal mood Results Findings/Data: Laboratory Tests 03/22 1624 1139 Chemistry Sodium (134 - 147 mEq/L) 137 Potassium (3.4 - 5.0 mEq/L) 4.0 Chloride (100 - 108 mEq/L) 103 Carbon Dioxide (21 - 33 mEq/l) 24 Anion Gap (0 - 20) 14 BUN (7 - 25 mg/dL) 20 Creatinine (0.6 - 1.3 mg/dL) 1.2 Glomerular Filtr Rate (80 - 90) 67.1 L Glucose (77 - 141 mg/dL) 180 H POC Glucose (70 - 110 MG/DL) 185 H 179 H 255 H Calcium (8.0 - 10.5 mg/dL) 8.9 Ionized Calcium Vasquez (1.09 - 1.30 MMOL/L) 1.15 Phosphorus (2.5 - 4.9 MG/DL) 3.5 Magnesium (1.6 - 2.6 mg/dL) 2.14 Laboratory Tests 03/22 339 Hematology WBC (4.5 - 11.0 x10 3/uL) 8.0 RBC (4.00 - 5.60 x10 6/uL) 3.32 L Hgb (12.5 - 16.9 g/dL) 10.6 L Hct (37.5 - 50.7 %) 31.3 L MCV (81.0 - 99.0 fL) 94.3 MCH (27.0 - 33.0 pg) 31.9 MCHC (33.0 - 37.0 g/dL) 33.9 RDW (11.5 - 14.5 %) 12.5 Plt Count (150 - 400 x10 3/uL) 207 MPV (7.0 - 9.0 fL) 9.7 H Neut % (Auto) (56.0 - 77.0 %) 69.0 Lymph % (Auto) (14.0 - 32.0 %) 12.5 L Potter % (Auto) (4.8 - 9.0 %) 14.8 H Eos % (Auto) (0.3 - 3.7 %) 2.6 Baso % (Auto) (0.0 - 2.0 %) 0.3 Neut # (Auto) (2.0 - 7.6 x10 3/uL) 5.52 Lymph # (Auto) (1.0 - 3.8 x10 3/uL) 1.00 Potter # (Auto) (0.1 - 0.8 x10 3/uL) 1.18 H Eos # (Auto) (0.0 - 0.2 x10 3/uL) 0.21 H Baso # (Auto) (0.0 - 0.2 x10 3/uL) 0.02 Abs Immat Gran (auto) (0.00 - 0.03 x10 3/uL) 0.06 H Immature Gran % (0.0 - 2.0 %) 0.8 Nucleated RBC % (0 - 0 %) 0.0 Nucleated RBCs # (Man) (0.0 - 0.1 x10 3/uL) 0.00 Radiology data: Recent Impressions: RADIOLOGY - XR CHEST 1 V 03/22 0616 Report Impression - Status: SIGNED Entered: 03/22/2025 0811 IMPRESSION: Shallow inspiration with mild progression of pulmonary congestion and small left effusion. Electronically signed by: Emerson De La Cruz MD 03/22/2025 08:09 AM [facility] Impression By: [email or web address] - Emerson De La Cruz M.D. ULTRASOUND - DUP VEIN LEANA 03/22 0818 Report Impression - Status: SIGNED Entered: 03/22/2025 0852 IMPRESSION: No evidence of deep venous thrombosis. Electronically signed by: Elkin Garcia MD 03/22/2025 08:50 AM CDT RP Impression By: [email or web address] - Elkin Garcia M.D. 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 may be reaction post surgery pain control PT/OT rectal bleeding -- resolve rectal surgeon consult monitor H H DM-- sliding scale now HTN-- stable . on metoprolol hypothyroid -- continue home med 03/18- sit on the chair . no sob . pain is fair control . no fever -- on O2 . hemodynamic stable . chest tube are out -- review lab and image -- continue monitor in ccu 03/19 - cont to mobilize as braden - afib rvr, cont on amio gtt - management per CTS and ICC recs 03/22 Continue PO beta ash and amiodarone, off amio gtt. To floor if OK with cardio team. Continue PT/OT. Pain control PRN. at 1307 at 1701 RPT #:[id number] END OF REPORT [facility] 2025-03-22 09:00:00 [facility] ([facility] Cardiology Progress Note REPORT#:[id number] REPORT STATUS: Signed REPORT INITIALIZATION DATE:03/22/25 TIME: 0900 PATIENT: LAKEISHA NORRIS UNIT #: [id number] ROOM/BED: [place] [address] : 58 AGE: 64 SEX: M ATTEND: Marlene Padilla MD ADM AUTHOR: Yara Graham APRN REPT SERVICE DT/TIME: 03/22/25 0900 * ALL edits or amendments must be made on the electronic/computer document * Subjective Free Text Subj Notes Free Text Subj Notes: NAD noted. Objective General VS/I O: 24 hour I O ending at 0700: 03/22 0700 07 1900 Intake Total 480 480 Output Total 1950 700 Balance -1470 -220 Intake, Oral 480 480 Number 0 Bowel Movements Number Voids 3 Output, Stool 0 Output, Urine 1950 700 Patient 140.4 kg Weight Weight Standing scale Measurement Method Vital Signs: Date Time Temp Pulse Resp B/P B/P Pulse O2 O2 Flow FiO2 Mean Ox Delivery Rate 03/22 0807 61 19 146/69 99 99 07/07 0800 98.0 63 20 98 07/07 0700 62 22 113/59 78 97 07/07 0603 63 19 144/69 99 98 07/07 0530 97 Room air 07/07 0500 54 17 127/70 89 96 07/07 0400 98.5 07/07 0400 56 19 144/65 94 96 07/07 0300 54 17 128/58 84 95 07/07 0201 53 19 123/61 86 96 07/07 0100 56 17 137/65 93 94 07/07 0011 98 Room air 07/07 0000 98.5 07/07 0000 53 17 132/61 88 96 07/06 2301 55 19 127/64 86 94 07/06 2201 54 21 127/58 83 95 07/06 2100 54 20 127/59 85 98 07/06 2000 98.6 07/06 2000 54 16 126/59 85 100 07/06 1900 56 20 121/57 82 96 07/06 1600 98.0 07/06 1600 58 21 140/68 93 97 07/06 1500 55 20 123/58 84 98 07/06 1401 60 19 119/63 85 96 07/06 1302 58 32 136/71 97 97 07/06 1200 98.0 07/06 1200 59 25 115/60 80 95 07/06 1102 57 26 131/66 91 97 07/06 1000 56 20 112/60 81 95 07/06 0941 98 Room air 07/06 0901 57 23 109/58 77 97 PATIENT WEIGHT: Weight (lb): 309 Weight (oz): 8.46 Weight (kg): 140.400 Medications: Active Meds + DC'd Last 24 Hrs Furosemide (LASIX 40 mg/4 mL INJECTION) 40 MG ONCE ONE IV (DC) Oxycodone HCl (ROXICODONE) 5 MG Q4H PRN PRN PO Calcium Gluconate (Calcium Gluconate 1 GM/NS 50 mL (B2)) 50 ML ONCE ONE IV (DC) Metoprolol Tartrate (LOPRESSOR) 25 MG Q8H PO Metoprolol Tartrate (LOPRESSOR) 25 MG BID PO (DC) Sterile Water (WATER FOR INJECTION) 5 ML ASDIR PRN IV Potassium Chloride (POTASSIUM CHLORIDE 20MEQ TAB.ER) 20 MEQ ONCE PRN PO Ipratropium [place] (ATROVENT) 500 MCG RTQ2H PRN PRN INH Cyanocobalamin (Vitamin B-12 500 mcg tab) 500 MCG DAILY PO Ferrous Sulfate (FERROUS SULFATE) 325 MG DAILY PO Amiodarone HCl (NEXTERONE 360MG/D5W 200ML) 200 ML ASDIR IV (CKD) Bisacodyl (DULCOLAX) 10 MG ONCE PRN RECTAL Magnesium Hydroxide (MILK OF MAGNESIA) 30 ML ONCE PRN PO Insulin Human Lispro (Admelog) 0 AC HS SUBQ Gabapentin (NEURONTIN) 200 MG TID PO Clopidogrel Bisulfate (Plavix) 75 MG DAILY PO Polyethylene Glycol (MIRALAX) 17 GM DAILY PO Levothyroxine Sodium (Synthroid) 200 MCG DAILY 0600 PO Pantoprazole (PROTONIX) 40 MG DAILY@0600 PO Atorvastatin Calcium (LIPITOR) 40 MG 2100 PO Docusate Sodium (COLACE) 100 MG BID PO Mupirocin (BACTROBAN 2% 22 GM OINTMENT) 1 APPLIC BID NASAL (DC) Sennosides (Senna Lax 8.6 MG TABLET) 17.2 MG BEDTIME PO Aspirin (ASPIRIN) 81 MG DAILY PO Amiodarone HCl (CORDARONE) 200 MG TID PO Acetaminophen (TYLENOL) 650 MG Q4H PRN PRN PO Acetaminophen (TYLENOL) 650 MG Q4H PRN PRN RECTAL Calcium Chloride (CALCIUM CHLORIDE) 1 GM ASDIR PRN IV Dextrose/Water (DEXTROSE 10% IN WATER) 125 ML ASDIR PRN IV (CKD) Dextrose/Water (DEXTROSE 10% IN WATER) 250 ML ASDIR PRN IV (CKD) Glucagon (GLUCAGON) 1 MG ASDIR PRN IM Magnesium Sulfate (MAGNESIUM SULFATE 4GM/SWFI 100ML) 100 ML ASDIR PRN IV Magnesium Sulfate (MAGNESIUM SULFATE 2GM/SWFI 50ML) 50 ML ASDIR PRN IV Magnesium Sulfate/Dextrose (MAGNESIUM SULFATE 1GM/D5W 100ML) 100 ML ASDIR PRN IV Ondansetron HCl (ZOFRAN) 4 MG Q6H PRN PRN IV Oxycodone HCl (ROXICODONE) 5 MG Q4H PRN PRN PO (DC) Oxycodone HCl (ROXICODONE) 10 MG Q4H PRN PRN PO (DC) Potassium Chloride (KCL 20MEQ/SWFI 100ML) 100 ML ASDIR PRN IV Sodium Bicarbonate (SODIUM BICARBONATE) 50 MEQ ASDIR PRN IV Physical Exam Head/Eyes: atraumatic Neck: no JVD, no masses or swelling Cardiovascular: CV assessment: regular rate and rhythm Respiratory: decreased breath sounds, on oxygen, no distress Abdomen: obese Genitourinary: urinary catheter, urine Lower extremity: LE assessment: edema Musculoskeletal: normal inspection Neuro/BANKING MANAGER: alert, oriented X 3 Skin: dry Psychiatry: normal affect, normal mood Results Findings/Data: Laboratory Tests 03/22 1139 Chemistry Sodium (134 - 147 mEq/L) 137 Potassium (3.4 - 5.0 mEq/L) 4.0 Chloride (100 - 108 mEq/L) 103 Carbon Dioxide (21 - 33 mEq/l) 24 Anion Gap (0 - 20) 14 BUN (7 - 25 mg/dL) 20 Creatinine (0.6 - 1.3 mg/dL) 1.2 Glomerular Filtr Rate (80 - 90) 67.1 L Glucose (77 - 141 mg/dL) 180 H POC Glucose (70 - 110 MG/DL) 185 H 179 H 255 H Calcium (8.0 - 10.5 mg/dL) 8.9 Ionized Calcium Vasquez (1.09 - 1.30 MMOL/L) 1.15 Phosphorus (2.5 - 4.9 MG/DL) 3.5 Magnesium (1.6 - 2.6 mg/dL) 2.14 Laboratory Tests 03/22 339 Hematology WBC (4.5 - 11.0 x10 3/uL) 8.0 RBC (4.00 - 5.60 x10 6/uL) 3.32 L Hgb (12.5 - 16.9 g/dL) 10.6 L Hct (37.5 - 50.7 %) 31.3 L MCV (81.0 - 99.0 fL) 94.3 MCH (27.0 - 33.0 pg) 31.9 MCHC (33.0 - 37.0 g/dL) 33.9 RDW (11.5 - 14.5 %) 12.5 Plt Count (150 - 400 x10 3/uL) 207 MPV (7.0 - 9.0 fL) 9.7 H Neut % (Auto) (56.0 - 77.0 %) 69.0 Lymph % (Auto) (14.0 - 32.0 %) 12.5 L Potter % (Auto) (4.8 - 9.0 %) 14.8 H Eos % (Auto) (0.3 - 3.7 %) 2.6 Baso % (Auto) (0.0 - 2.0 %) 0.3 Neut # (Auto) (2.0 - 7.6 x10 3/uL) 5.52 Lymph # (Auto) (1.0 - 3.8 x10 3/uL) 1.00 Potter # (Auto) (0.1 - 0.8 x10 3/uL) 1.18 H Eos # (Auto) (0.0 - 0.2 x10 3/uL) 0.21 H Baso # (Auto) (0.0 - 0.2 x10 3/uL) 0.02 Abs Immat Gran (auto) (0.00 - 0.03 x10 3/uL) 0.06 H Immature Gran % (0.0 - 2.0 %) 0.8 Nucleated RBC % (0 - 0 %) 0.0 Nucleated RBCs # (Man) (0.0 - 0.1 x10 3/uL) 0.00 Laboratory Tests 03/22 0339 Chemistry Magnesium (1.6 - 2.6 mg/dL) 2.14 Radiology data: Recent Impressions: RADIOLOGY - XR CHEST 1 V 03/22 0616 Report Impression - Status: SIGNED Entered: 03/22/2025 0811 IMPRESSION: Shallow inspiration with mild progression of pulmonary congestion and small left effusion. Electronically signed by: Emerson De La Cruz MD 03/22/2025 08:09 AM CDT RP Impression By: [email or web address] - Emerson De La Cruz M.D. ULTRASOUND - DUP VEIN LEANA 03/22 818 Report Impression - Status: SIGNED Entered: 03/22/2025 0852 IMPRESSION: No evidence of deep venous thrombosis. Electronically signed by: Elkin Garcia MD 03/22/2025 08:50 AM CDT RP Impression By: KarlV - Elkin Garcia M.D. Diagnosis, Assessment Plan Free Text DxA P Notes Free Text DxA P Notes: 1. CAD and aortic valve stenosis s/p CABG x5 plus AVR plus ALAA * DAPT, BB, statin * CXR: Shallow inspiration with mild progression of pulmonary congestion and small left effusion. * post-op care per CTS and critical care * vs stable- in NSR 2. Hypetension * bp soft- monitor 3. Hypelipidemia * continue statin 4. Diabetes mellitus * glycemic control per critical care 5. Rectal bleed attributed to external hemorrhoid * GI and colorectal surgery following continue supportive care ok to tx to floor- dc home when cleared by CTS Coverage for MDM by Dr. Ordoñez at 1516 at 1720 RPT #:[id number] END OF REPORT [facility] 2025-03-21 23:41:00 [facility] ([facility]) Hospitalist Progress Note REPORT#:[id number] REPORT STATUS: Signed REPORT INITIALIZATION DATE:03/21/25 TIME: 2340 PATIENT: LAKEISHA NORRIS UNIT #: [id number] ROOM/BED: [address] : 58 AGE: 64 SEX: M ATTEND: Marlene Padilla MD ADM AUTHOR: Brooke Muñoz REPT SERVICE DT/TIME: 03/21/25 234 * ALL edits or amendments must be made on the electronic/computer document * Subjective Chief complaint: post op day 5 CABG oob to chair no new complaints Review of Systems Constitutional: Reports: generalized weakness. Denies: chills, fatigue, fever. Respiratory: Denies: SOB. Cardiovascular: Denies: chest pain. GI: Denies: abdominal pain, nausea, vomiting. All systems rev neg: except as noted Objective General VS/I O: Vital Signs: Date Time Temp Pulse Resp B/P B/P Pulse O2 O2 Flow FiO2 Mean Ox Delivery Rate 03/22 1600 98.1 57 22 100 07/07 1425 62 29 133/63 90 98 07/07 1401 57 29 141/63 90 99 07/07 1300 55 17 159/71 102 98 07/07 1201 60 26 132/67 91 99 07/07 1200 97.8 63 22 100 07/07 1100 59 29 129/67 91 98 07/07 1000 61 22 137/62 89 95 07/07 0900 61 21 146/69 99 97 07/07 0807 61 19 146/69 99 99 07/07 0800 98.0 63 20 98 07/07 0700 62 22 113/59 78 97 07/07 0603 63 19 144/69 99 98 07/07 0530 97 Room air 07/07 0500 54 17 127/70 89 96 07/07 0400 98.5 07/07 0400 56 19 144/65 94 96 07/07 0300 54 17 128/58 84 95 07/07 0201 53 19 123/61 86 96 07/07 0100 56 17 137/65 93 94 07/07 0011 98 Room air 07/07 0000 98.5 07/07 0000 53 17 132/61 88 96 07/06 2301 55 19 127/64 86 94 07/06 2201 54 21 127/58 83 95 07/06 2100 54 20 127/59 85 98 07/06 1999 98.6 07/06 1999 54 16 126/59 85 100 07/06 1900 56 20 121/57 82 96 24 hour I O ending at 0700: 0707 0700 07/06 1900 Intake Total 480 480 Output Total 1950 700 Balance -1470 -220 Intake, Oral 480 480 Number 0 Bowel Movements Number Voids 3 Output, Stool 0 Output, Urine 1950 700 Patient 140.4 kg Weight Weight Standing scale Measurement Method PATIENT WEIGHT: Weight (lb): 309 Weight (oz): 8.46 Weight (kg): 140.400 Physical Exam General appearance: awake Head/Eyes: clear cornea, EOMI Neck: non-tender Cardiovascular: normal heart sounds, regular rate rhythm Respiratory: aerating well, clear to auscultation Abdomen: non-tender, normal bowel sounds, soft, no distention Extremities: moves all, no edema Neuro/BANKING MANAGER: alert, oriented X 3, CNII-XII intact, normal speech, no motor deficits, no sensory deficits Skin: dry, intact Diagnosis, Assessment Plan Free Text DxA P Notes Free text DxA P notes: multiple vessels disease/post CABG /post valve replacement luecocytosis rectal bleeding rupture thrombosed external hemmoid CAD HTN DM HLD hypothyroid CV surgeon -- post CABG/valve replace chest tube in place -- manage as surgeon off drip ASA/plavix/ lipitor /metoprolol no fever . may be reaction post surgery pain control PT/OT rectal bleeding -- resolve rectal surgeon consult monitor H H DM-- sliding scale now HTN-- stable . on metoprolol hypothyroid -- continue home med 03/18- sit on the chair . no sob . pain is fair control . no fever -- on O2 . hemodynamic stable . chest tube are out -- review lab and image -- continue monitor in ccu 03/19 - cont to mobilize as braden - afib rvr, cont on amio gtt - management per CTS and ICC recs 03/21 - epicardial pacing wires Dc'd - repeat echo today - still in nsr - cont medical management - cts note reviewed at 1649 at 1700 RPT #:[id number] END OF REPORT [facility] 2025-03-21 21:35:00 [id number] [address] PATIENT NAME: LAKEISHA NORRIS ADMIT DATE: 03/15/25 ACCOUNT NO: [id number] [place] [facility] [place] 64 REPORT TYPE: eECHOCARDIOGRAM REPORT SEX: M ADMITTING PHYSICIAN:Marlene Padilla MD ATTENDING PHYSICIAN:Marlene Padilla MD *[address] [address] Limited Transthoracic Echocardiogram Patient: Lakeisha Norris Study Date: 03/21/2025 BP: 115 / 60 URN: [id number] Location: : 1960 Age: 64 Gender: M Height: 73 in / 185.4 cm Weight: 311 lb / 141.1 kg BMI/BSA: 41 kg/m 2 / 2.75 m 2 *Ordering Physician: * Sharifa Baker *Interpreting Physician: * Candelaria Ordoñez MD *[employer]: * JESSICA Liu Indications: S/P PACING WIRES, R/O EFFUSION. Study data: Transthoracic echocardiogram, limited study. Procedure: A transthoracic echocardiogram was performed. Images were obtained using a [employer] cardiac ultrasound machine. The study was technically limited due to poor acoustic window availability. Limited 2D and limited spectral Doppler. Location: CCU Patient status: Inpatient. Patient room number: 3305. Study status: [facility]. Heart rate: 60 bpm. Findings Left ventricle: The cavity size is normal. Systolic function is normal. The estimated ejection fraction is 50-54%. Right ventricle: Systolic function is severely reduced. TAPSE is 0.9 cm. PATIENT NAME: LAKEISHA NORRIS Pericardium: A small pericardial effusion is identified posterior to the heart. Systemic veins: Inferior vena cava: The IVC is normal-sized. Respirophasic diameter changes are blunted (< 50%). Measurements Left ventricle Value Ref CHIOMA, LAX 4.1 cm 4.2 - 5.8 ESD, LAX 2.6 cm 2.5 - 4.0 FS, LAX 36 % 25 - 43 CHIOMA major ax, A2C 9.3 cm --------- ESD major ax, A2C 9.0 cm --------- IVS, ED 1.3 cm 0.6 - 1.0 PW, ED 1.4 cm 0.6 - 1.0 IVS/PW, ED 0.87 --------- EF 66 % 52 - 72 Right ventricle Value Ref TAPSE, MM 0.9 cm >=1.7 Conclusions Summary: 1. Left ventricle: The cavity size is normal. Systolic function is normal. The estimated ejection fraction is 50-54%. 2. Right ventricle: Systolic function is severely reduced. TAPSE is 0.9 cm. 3. Pericardium, extracardiac: A small pericardial effusion is identified posterior to the heart. Electronically signed by Candelaria Ordoñez MD 03/21/2025 21:35 at 2135 PATIENT NAME: LAKEISHA NORRIS [facility] 2025-03-21 09:32:00 [facility] Cardiothoracic Surgery Prog REPORT#:[id number] REPORT STATUS: Signed REPORT INITIALIZATION DATE:03/21/25 TIME: 931 PATIENT: LAKEISHA NORRIS UNIT #: [id number] ROOM/BED: [place] [address] : 58 AGE: 64 SEX: M ATTEND: Marlene Padilla MD ADM AUTHOR: Sharifa BakerHEEL COVER SPLITTER REPT SERVICE DT/TIME: 03/21/25 0932 * ALL edits or amendments must be made on the electronic/computer document * General Post-op: day 5 Status post: 03/16/25 1. Coronary artery bypass graft surgery x5 (MCGUIRE to LAD, saphenous vein to diagonal, saphenous vein to first marginal, saphenous vein to second marginal, saphenous vein to PDA). 2. Aortic valve replacement (29-mm Inspiris valve). 3. Amputation of left atrial appendage. 4. Posterior pericardiotomy. 5. Endoscopic vein harvest of the right greater saphenous vein. Subjective Chief complaint: s/p cabg Review of Systems Constitutional: Reports: fatigue. Denies: chills. Skin: Denies: abrasion, bruising. Allergy/Immun: Denies: allergic reaction. Respiratory: Denies: VALDOVINOS (dyspnea on exertion), parox nocturnal dyspnea. Cardiovascular: Denies: chest pain. GI: Denies: abdominal pain. : Denies: dysuria. Musculoskeletal: Denies: arthritis. All systems rev neg: except as marked Objective General VS/I O Last Documented: Result Date Time Temp 98.7 07 0800 Pulse Ox 96 03/21 0402 Pulse 55 03/21 0402 Resp 16 03/21 0402 B/P 118/59 03/21 0400 B/P Mean 84 03/21 0400 O2 Delivery Room air 03/20 1934 O2 Flow Rate 1 03/20 0810 FiO2 36 07/02 1938 24 hour I O ending at 0700: 03/21 0700 0705 1900 Intake Total 405.70 1454.30 Output Total 3850 2200 Balance -3444.30 -745.70 Intake, IV 305.70 94.30 Intake, Oral 100 1360 Output, Urine 3850 2200 Patient 141.1 kg Weight Weight Standing scale Measurement Method PATIENT WEIGHT: Weight (lb): 311 Weight (oz): 1.16 Weight (kg): 141.100 Dietitian Nutrition assessment The data set between the solid lines has been imported from the dietitian's assessment. BMI Calculated: 41.0 Nutrition related diagnosis: Morbid obesity Nutrition diagnosis details: BMI 40 or more Nutrition problem: Increased nutrient needs Nutrition etiology: Acute illness Nutrition signs and symptoms: S/P CABG X 5, W/ AVR Nutrition prescription: 1. CONTINUE CARDIAC DIET. ENCOURAGE PO INTAKE DIET ADHERENCE. 2. PROVIDE ENSURE MAX PROTEIN BID 3. RD TO PROVIDE HEART HEALTHY, DIABETIC DIET EDUCATION FEASIBLE Dietitian name: Fatoumata Romainemk, DIET Assessment completed: 03/17/25 Physical Exam General appearance: alert, awake, oriented Wound/incision: Location: sternum Site condition: dressing clean dry, no drainage, no ecchymosis HEENT: anicteric, mucosal membranes moist, pupils reactive to light Neck: full range of motion, non-tender Cardiovascular: irregularly irregular, BP/pulses equal bilat. Respiratory: decreased breath sounds Abdomen: soft, non-tender Genitourinary: urine Extremities: dry, moves all, normal capillary refill, normal temperature Musculoskeletal: full range of motion, painless range of motion Neuro/BANKING MANAGER: alert, oriented X 3 Skin: dry, intact, normal temperature Current Medications Medications: Active Meds + DC'd Last 24 Hrs Metoprolol Tartrate (LOPRESSOR) 25 MG BID PO Metoprolol Tartrate (LOPRESSOR) 5 MG ONCE ONE IV (DC) Potassium Chloride (POTASSIUM CHLORIDE 20MEQ TAB.ER) 20 MEQ ONCE ONE PO (DC) Potassium Chloride (POTASSIUM CHLORIDE 20MEQ TAB.ER) 40 MEQ ONCE ONE PO (DC) Potassium Chloride (POTASSIUM CHLORIDE 20MEQ TAB.ER) 40 MEQ ONCE ONE PO (DC) Metoprolol Tartrate (LOPRESSOR) 5 MG ONCE ONE IV (DC) Acetazolamide (DIAMOX) 250 MG ONCE ONE IV (DC) Sterile Water (WATER FOR INJECTION) 5 ML ASDIR PRN IV Potassium Chloride (POTASSIUM CHLORIDE 20MEQ TAB.ER) 20 MEQ ONCE PRN PO Metoprolol Tartrate (LOPRESSOR) 12.5 MG Q8H PO (DC) Ipratropium [place] (ATROVENT) 500 MCG RTQ2H PRN PRN INH Furosemide (LASIX) 240 MG Q24H IV (DC) Sodium Chloride (SODIUM CHLORIDE 0.9%) 24 ML Cyanocobalamin (Vitamin B-12 500 mcg tab) 500 MCG DAILY PO Ferrous Sulfate (FERROUS SULFATE) 325 MG DAILY PO Amiodarone HCl (NEXTERONE 360MG/D5W 200ML) 200 ML ASDIR IV (CKD) Bisacodyl (DULCOLAX) 10 MG ONCE PRN RECTAL Magnesium Hydroxide (MILK OF MAGNESIA) 30 ML ONCE PRN PO Insulin Human Lispro (Admelog) 0 AC HS SUBQ Gabapentin (NEURONTIN) 200 MG TID PO Clopidogrel Bisulfate (Plavix) 75 MG DAILY PO Polyethylene Glycol (MIRALAX) 17 GM DAILY PO Levothyroxine Sodium (Synthroid) 200 MCG DAILY 0600 PO Pantoprazole (PROTONIX) 40 MG DAILY@0600 PO Atorvastatin Calcium (LIPITOR) 40 MG 2100 PO Docusate Sodium (COLACE) 100 MG BID PO Mupirocin (BACTROBAN 2% 22 GM OINTMENT) 1 APPLIC BID NASAL (DC) Sennosides (Senna Lax 8.6 MG TABLET) 17.2 MG BEDTIME PO Aspirin (ASPIRIN) 81 MG DAILY PO Amiodarone HCl (CORDARONE) 200 MG TID PO Acetaminophen (TYLENOL) 650 MG Q4H PRN PRN PO Acetaminophen (TYLENOL) 650 MG Q4H PRN PRN RECTAL Calcium Chloride (CALCIUM CHLORIDE) 1 GM ASDIR PRN IV Dextrose/Water (DEXTROSE 10% IN WATER) 125 ML ASDIR PRN IV (CKD) Dextrose/Water (DEXTROSE 10% IN WATER) 250 ML ASDIR PRN IV (CKD) Glucagon (GLUCAGON) 1 MG ASDIR PRN IM Magnesium Sulfate (MAGNESIUM SULFATE 4GM/SWFI 100ML) 100 ML ASDIR PRN IV Magnesium Sulfate (MAGNESIUM SULFATE 2GM/SWFI 50ML) 50 ML ASDIR PRN IV Magnesium Sulfate/Dextrose (MAGNESIUM SULFATE 1GM/D5W 100ML) 100 ML ASDIR PRN IV Ondansetron HCl (ZOFRAN) 4 MG Q6H PRN PRN IV Oxycodone HCl (ROXICODONE) 5 MG Q4H PRN PRN PO Oxycodone HCl (ROXICODONE) 10 MG Q4H PRN PRN PO Potassium Chloride (KCL 20MEQ/SWFI 100ML) 100 ML ASDIR PRN IV Sodium Bicarbonate (SODIUM BICARBONATE) 50 MEQ ASDIR PRN IV Results Findings/Data: Laboratory Tests 03/21 03/21 03/20 03/20 03/20 0539 0416 2036 1714 1621 Chemistry Sodium (134 - 147 mEq/L) 137 136 134 Potassium (3.4 - 5.0 mEq/L) 3.3 L 5.2 H 3.5 Chloride (100 - 108 mEq/L) 98 L 98 L 95 L Carbon Dioxide (21 - 33 mEq/l) 29 29 27 Anion Gap (0 - 20) 13 14 15 BUN (7 - 25 mg/dL) 24 23 23 Creatinine (0.6 - 1.3 mg/dL) 1.4 H 1.5 H 1.4 H Glomerular Filtr Rate (80 - 90) 55.8 L 51.3 L 55.8 L Glucose (77 - 141 mg/dL) 190 H 190 H 248 H POC Glucose (70 - 110 MG/DL) 218 H 174 H Calcium (8.0 - 10.5 mg/dL) 8.6 8.3 8.6 Ionized Calcium Vasquez (1.09 - 1.30 1.07 L MMOL/L) Phosphorus (2.5 - 4.9 MG/DL) 3.6 Magnesium (1.6 - 2.6 mg/dL) 2.13 03/20 1113 Chemistry POC Glucose (70 - 110 MG/DL) 246 H Laboratory Tests 03/21 0416 Hematology WBC (4.5 - 11.0 x10 3/uL) 8.7 RBC (4.00 - 5.60 x10 6/uL) 3.51 L Hgb (12.5 - 16.9 g/dL) 11.4 L Hct (37.5 - 50.7 %) 33.3 L MCV (81.0 - 99.0 fL) 94.9 MCH (27.0 - 33.0 pg) 32.5 MCHC (33.0 - 37.0 g/dL) 34.2 RDW (11.5 - 14.5 %) 12.6 Plt Count (150 - 400 x10 3/uL) 179 MPV (7.0 - 9.0 fL) 10.1 H Neut % (Auto) (56.0 - 77.0 %) 70.0 Lymph % (Auto) (14.0 - 32.0 %) 11.8 L Potter % (Auto) (4.8 - 9.0 %) 15.0 H Eos % (Auto) (0.3 - 3.7 %) 2.5 Baso % (Auto) (0.0 - 2.0 %) 0.2 Neut # (Auto) (2.0 - 7.6 x10 3/uL) 6.11 Lymph # (Auto) (1.0 - 3.8 x10 3/uL) 1.03 Potter # (Auto) (0.1 - 0.8 x10 3/uL) 1.31 H Eos # (Auto) (0.0 - 0.2 x10 3/uL) 0.22 H Baso # (Auto) (0.0 - 0.2 x10 3/uL) 0.02 Abs Immat Gran (auto) (0.00 - 0.03 x10 3/uL) 0.04 H Immature Gran % (0.0 - 2.0 %) 0.5 Nucleated RBC % (0 - 0 %) 0.2 H Nucleated RBCs # (Man) (0.0 - 0.1 x10 3/uL) 0.02 Results: labs reviewed, vital signs stable, rythm personally rev'd, current med profile rev'd Diagnosis, Assessment Plan Free Text A P: Patient is a 64 year old male with a pmhx of HTN, HLD, DM, hypothyroidism, and current chewing tobacco use. Patient initially went to corporate ethics officer Dr. Milian for cardiac clearance for R knee replacement. He was found to have abnormal results on stress testing with inferior and inferiolateral areas of reversible ischemia. Echo shows EF 55-60% with moderate . Patient denies blood thinner use. Left heart cath was completed on 03/05/2025 showing severe multivessel coronary artery disease. Denies hx of chest pain or dypsnea. He ambulates without assistance. Patient will be admitted today for a CABG with aortic valve replacement. Assessment/plan: 1. Hypertension 2. Hyperlipidemia 3. Diabetes mellitus 4. Hypothyroidism 5. Nicotine dependence 6. Coronary artery disease 7. Moderate Admit to CVICU postoperatively Closely monitor hemodynamics Consult hothouse worker Dr. Padilla has seen and examined the patient. The patient will benefit from revascularization to coronary arteries and replacement of aortic valve. Dr. Padilla has explained in great detail the operation, risks, risk STS calculator, benefits, complications, alternatives and complications. The patient acknowledges understanding is willing to proceed with surgery. All questions have been answered. 03/16/25 1. Coronary artery bypass graft surgery x5 (MCGUIRE to LAD, saphenous vein to diagonal, saphenous vein to first marginal, saphenous vein to second marginal, saphenous vein to PDA). 2. Aortic valve replacement (29-mm Inspiris valve). 3. Amputation of left atrial appendage. 4. Posterior pericardiotomy. 5. Endoscopic vein harvest of the right greater saphenous vein. 03/17/25 POD 1 AAO x 3, denies complaints, multimodal pain management On 4LNC, wean as tolerated, encourage I-S use and deep breathing, CXR reviewed, ABG reviewed CTs in place, drained 95/335 cc overnight, will reassess after ambulation Sinus rhythm, monitor hemodynamics closely, epicardial pacing wires on standby, on levo gtt @2 Continue DAPT, metoprolol, amiodarone, and Lipitor Advance diet as tolerated, nutritional supplements, bowel regimen, glycemic control with insulin drip, transition to SSI UOP 660cc overnight, strict I's O's, daily weights DVT Prophylaxis with SCDs, GI prophylaxis with PPI PT/OT, OOB to chair, encourage ambulation Labs reviewed, replace electrolytes as needed Discharge disposition: home with good family support Plan to deline once off insulin and levo gtt Patient seen and examined by Dr Padilla. Plan of care discussed with nurse, patient and interdisciplinary team. All questions answered. 03/18/25 POD 2 AAO x 3, denies complaints, multimodal pain management On 1LNC, wean as tolerated, encourage I-S use and deep breathing, CXR reviewed, ABG reviewed CT in place, drained 60 cc overnight, will DC after ambulation Sinus rhythm, monitor hemodynamics closely, epicardial pacing wires on standby Continue DAPT, metoprolol, amiodarone, and Lipitor Advance diet as tolerated, nutritional supplements, bowel regimen, glycemic control SSI, MOM today UOP 575cc overnight, strict I's O's, daily weights DVT Prophylaxis with SCDs, GI prophylaxis with PPI PT/OT, OOB to chair, encourage ambulation Labs reviewed, replace electrolytes as needed Discharge disposition: home with good family support Continue close monitoring in CCU Patient seen and examined by Dr Padilla. Plan of care discussed with nurse, patient and interdisciplinary team. All questions answered. 03/19/25 POD 3 AAO x 3, reports shortness of breath, denies chest pain On 4LNC, wean as tolerated, encourage I-S use and deep breathing, CXR reviewed, ABG reviewed Went into A-fib RVR, given amio bolus and continued amio gtt, push of metoprolol , monitor hemodynamics closely, epicardial pacing wires on standby Continue DAPT, metoprolol 12.5 Q8H, amiodarone, and Lipitor Tolerating diet, nutritional supplements, bowel regimen, glycemic control SSI, suppository today UOP 1125cc overnight, strict I's O's, daily weights, weight up, Lasix today DVT Prophylaxis with SCDs, GI prophylaxis with PPI DVT study ordered PT/OT, OOB to chair, encourage ambulation Labs reviewed, replace electrolytes as needed Discharge disposition: home with good family support Continue close monitoring in CCU Patient seen and examined by Dr Padilla. Plan of care discussed with nurse, patient and interdisciplinary team. All questions answered. 03/20/25 POD 4 AAO x 3, reports shortness of breath, denies chest pain On RA, encourage I-S use and deep breathing, CXR reviewed, ABG reviewed Back in NSR today, monitor hemodynamics closely, epicardial pacing wires on standby Continue DAPT, metoprolol 12.5 Q8H, amiodarone, and Lipitor Tolerating diet, nutritional supplements, bowel regimen, glycemic control SSI, suppository today Good UOP overnight, strict I's O's, daily weights, on Lasix gtt, weight trending down, Diamox today DVT Prophylaxis with SCDs, GI prophylaxis with PPI PT/OT, OOB to chair, encourage ambulation Labs reviewed, replace electrolytes as needed Discharge disposition: home with good family support Continue close monitoring in CCU Patient seen and examined by Dr Padilla. Plan of care discussed with nurse, patient and interdisciplinary team. All questions answered. 03/21/25 POD 5 AAO x 3, reports shortness of breath, denies chest pain On RA, encourage I-S use and deep breathing, CXR reviewed Back in NSR today, monitor hemodynamics closely, epicardial pacing wires Dc'd, echocardiogram limited Continue DAPT, metoprolol 25mg BID, amiodarone, and Lipitor Tolerating diet, nutritional supplements, bowel regimen, glycemic control SSI, suppository today Good UOP overnight, strict I's O's, daily weights, weight back to baseline DVT Prophylaxis with SCDs, GI prophylaxis with PPI DVT study ordered PT/OT, OOB to chair, encourage ambulation Labs reviewed, replace electrolytes as needed Discharge disposition: home with good family support Okay to transfer to [facility] Patient seen and examined by Dr Padilla. Plan of care discussed with nurse, patient and interdisciplinary team. All questions answered. Code status: full code Plan discussed with: patient, collaborating MD, nurse, interdisc care team at 0936 at [id number] RPT #:[id number] END OF REPORT [facility] 2025-03-21 08:35:00 [facility] Cardiology Progress Note REPORT#:[id number] REPORT STATUS: Signed REPORT INITIALIZATION DATE:03/21/25 TIME: 08 PATIENT: LAKEISHA NORRIS UNIT #: [id number] ROOM/BED: [place] [id number] : 58 AGE: 64 SEX: M ATTEND: Marlene Padilla MD ADM AUTHOR: Janice Mathew NP REPT SERVICE DT/TIME: 03/21/25 0835 * ALL edits or amendments must be made on the electronic/computer document * Subjective Chief complaint: Weak Objective General VS/I O: Laboratory Tests 03/21/25 0539: [Embedded Image Not Available] 03/21/25 0416: [Embedded Image Not Available] 03/20/25 1714: [Embedded Image Not Available] 03/20/25 0200: [Embedded Image Not Available] Current Medications Sig/Beatrice Start time Last Medication Dose Route Stop Time Status Admin Metoprolol Tartrate 25 MG BID 03/21 900 AC 03/21 PO 06/19 08 0744 Metoprolol Tartrate 5 MG ONCE ONE 03/21 08 DC IV 03/21 0816 Potassium Chloride 20 MEQ ONCE ONE 03/21 0815 DC 03/21 PO 03/21 0816 0927 Potassium Chloride 40 MEQ ONCE ONE 03/21 0715 DC 03/21 PO 03/21 0716 0741 Potassium Chloride 40 MEQ ONCE ONE 03/20 1830 DC 03/20 PO 03/20 1831 2029 Metoprolol Tartrate 5 MG ONCE ONE 03/20 1445 DC 03/20 IV 03/20 1446 1449 Acetazolamide 250 MG ONCE ONE 03/20 1400 DC 03/20 IV 03/20 1401 1425 Sterile Water 5 ML ASDIR PRN 03/20 1400 AC IV 06/18 1359 Potassium Chloride 20 MEQ ONCE PRN 03/20 0245 AC 03/20 PO 06/18 0244 0255 Metoprolol Tartrate 12.5 MG Q8H 03/19 1700 DC 03/20 PO 06/17 1659 2159 Ipratropium [place] 500 MCG RTQ2H PRN PRN 03/19 1444 AC INH 06/17 1443 Furosemide 240 MG Q24H 03/19 1345 DC 03/20 Sodium Chloride 24 ML IV 06/17 1344 1425 Cyanocobalamin 500 MCG DAILY 03/19 900 AC 03/21 PO 06/17 0859 0744 Ferrous Sulfate 325 MG DAILY 03/19 900 AC 03/21 PO 06/17 0859 0743 Amiodarone HCl 200 ML ASDIR 03/18 1800 CKD 03/20 IV 06/16 1759 2030 Bisacodyl 10 MG ONCE PRN 03/18 1200 AC 03/20 RECTAL 06/16 1159 0507 Magnesium Hydroxide 30 ML ONCE PRN 03/18 1200 AC PO Insulin Human Lispro 0 AC HS 03/17 1130 AC 03/21 SUBQ 06/15 1129 0743 Gabapentin 200 MG TID 03/17 1000 AC 03/21 PO 06/15 0959 0742 Clopidogrel Bisulfate 75 MG DAILY 03/17 09 AC 03/21 PO 06/15 0859 0744 Polyethylene Glycol 17 GM DAILY 03/17 09 AC 03/19 PO 06/15 0859 0801 Levothyroxine Sodium 200 MCG DAILY 03/17 06 AC 03/21 PO 06/15 0559 0531 Pantoprazole 40 MG DAILY@03/17 06 AC 03/21 PO 06/15 0559 0531 Atorvastatin Calcium 40 MG 2100 03/16 2100 AC 03/20 PO 04/15 205 2029 Docusate Sodium 100 MG BID 03/16 2100 AC 03/20 PO 06/14 205 0750 Mupirocin 1 APPLIC BID 03/16 2100 DC 03/21 NASAL 03/21 0901 0742 Sennosides 17.2 MG BEDTIME 03/16 2100 AC 03/19 PO 06/14 205 2034 Aspirin 81 MG DAILY 03/16 204 AC 03/21 PO 06/14 2043 0742 Amiodarone HCl 200 MG TID 03/16 1500 AC 03/21 PO 06/14 1459 0744 Acetaminophen 650 MG Q4H PRN PRN 03/16 1445 AC 03/18 PO 06/14 1444 1039 Acetaminophen 650 MG Q4H PRN PRN 03/16 1445 AC RECTAL 06/14 1444 Calcium Chloride 1 GM ASDIR PRN 03/16 1445 AC IV 06/14 1444 Dextrose/Water 125 ML ASDIR PRN 03/16 1445 CKD IV 06/14 1444 Dextrose/Water 250 ML ASDIR PRN 03/16 1445 CKD IV 06/14 1444 Glucagon 1 MG ASDIR PRN 03/16 1445 AC IM 06/14 1444 Magnesium Sulfate 100 ML ASDIR PRN 03/16 1445 AC IV 06/14 1444 Magnesium Sulfate 50 ML ASDIR PRN 03/16 1445 AC 03/20 IV 06/14 1444 0255 Magnesium Sulfate/ 100 ML ASDIR PRN 03/16 1445 AC 03/21 Dextrose IV 06/14 1444 0643 Ondansetron HCl 4 MG Q6H PRN PRN 03/16 1445 AC IV 06/14 1444 Oxycodone HCl 5 MG Q4H PRN PRN 03/16 1445 AC 03/17 PO 03/21 1444 0643 Oxycodone HCl 10 MG Q4H PRN PRN 03/16 1445 AC 03/20 PO 03/21 1444 1546 Potassium Chloride 100 ML ASDIR PRN 03/16 1445 AC IV 06/14 1444 Sodium Bicarbonate 50 MEQ ASDIR PRN 03/16 1445 AC IV 06/14 1444 24 hour I O ending at 0700: 03/21 0700 07 1900 Intake Total 405.70 1454.30 Output Total 3850 2200 Balance -3444.30 -745.70 Intake, IV 305.70 94.30 Intake, Oral 100 1360 Output, Urine 3850 2200 Patient 141.1 kg Weight Weight Standing scale Measurement Method Vital Signs: Date Time Temp Pulse Resp B/P B/P Pulse O2 O2 Flow FiO2 Mean Ox Delivery Rate 03/21 0800 37.1 07/06 0402 55 16 96 07/06 0400 37.1 07/06 0400 56 18 118/59 84 95 07/06 0300 53 19 113/59 82 97 07/06 0200 54 15 111/59 82 97 07/06 0100 53 15 106/56 74 95 07/06 0000 55 16 108/56 79 95 07/05 2300 105 17 102/60 77 97 07/05 2200 105 26 92/60 72 100 07/05 2100 99 20 123/57 82 91 07/05 2000 56 17 121/58 83 98 07/05 1934 94 Room air 07/05 1700 112 21 115/69 84 96 07/05 1600 36.7 07/05 1600 115 9 126/64 81 100 07/05 1500 108 21 110/70 83 96 07/05 1400 67 23 121/59 83 95 07/05 1301 68 31 138/68 94 97 07/05 1200 36.7 07/05 1200 65 22 116/76 90 96 07/05 1101 65 24 114/58 78 97 PATIENT WEIGHT: Weight (lb): 311 Weight (oz): 1.16 Weight (kg): 141.100 Physical Exam General appearance: alert, awake, oriented, no acute distress, pleasant Head/Eyes: atraumatic Neck: no JVD, no masses or swelling Cardiovascular: CV assessment: regular rate and rhythm Respiratory: decreased breath sounds, on oxygen, no distress Abdomen: obese Genitourinary: urinary catheter, urine Lower extremity: LE assessment: edema Musculoskeletal: normal inspection Neuro/BANKING MANAGER: alert, oriented X 3 Skin: dry Psychiatry: normal affect, normal mood Diagnosis, Assessment Plan Free Text DxA P Notes Free Text DxA P Notes: 1. CAD and aortic valve stenosis s/p CABG x5 plus AVR plus ALAA * DAPT, BB, statin * post-op care per CTS and critical care * vs stable- in NSR 2. Hypetension * bp soft- monitor 3. Hypelipidemia * continue statin 4. Diabetes mellitus * glycemic control per critical care 5. Rectal bleed attributed to external hemorrhoid * GI and colorectal surgery following continue supportive care ok to tx to floor- dc home when cleared by CTS MDM by Dr. Bee at 1051 at 1123 RPT #:[id number] END OF REPORT [facility] 2025-03-20 23:01:00 [facility] Hospitalist Progress Note REPORT#:[id number] REPORT STATUS: Signed REPORT INITIALIZATION DATE:03/20/25 TIME: 2300 PATIENT: LAKEISHA NORRIS UNIT #: [id number] ROOM/BED: [place] [id number] : 58 AGE: 64 SEX: M ATTEND: Marlene Padilla MD ADM AUTHOR: Brooke Muñoz REPT SERVICE DT/TIME: 03/20/252300 * ALL edits or amendments must be made on the electronic/computer document * Subjective Chief complaint: post op day 4 CABG doing okay oob as often as possible ros neg f/c, n/v, cp Objective General VS/I O: Vital Signs: Date Time Temp Pulse Resp B/P B/P Pulse O2 O2 Flow FiO2 Mean Ox Delivery Rate 03/20 1934 94 Room air 07/05 1700 112 21 115/69 84 96 07/05 1600 98.0 07/05 1600 115 9 126/64 81 100 07/05 1500 108 21 110/70 83 96 07/05 1400 67 23 121/59 83 95 07/05 1301 68 31 138/68 94 97 07/05 1200 98.0 07/05 1200 65 22 116/76 90 96 07/05 1101 65 24 114/58 78 97 07/05 1000 63 21 123/59 85 97 07/05 0900 63 23 115/59 81 96 07/05 0810 94 Nasal 1 cannula 07/05 0800 98.0 07/05 0701 67 21 109/54 77 97 07/05 0602 72 18 146/67 97 07/05 0600 77 48 07/05 0500 63 19 115/57 80 95 07/05 0400 64 17 110/59 81 94 07/05 0300 64 24 128/65 90 97 07/05 0200 63 16 128/69 90 95 07/05 0100 65 18 127/64 88 97 07/05 0000 High flow 2 nasal cannula 07/05 0000 67 18 123/62 85 97 24 hour I O ending at 0700: 03/20 0700 03/19 1900 Intake Total 1040.00 Output Total 2550 1600 Balance -1510.00 -1600 Intake, IV 560.00 Intake, Oral 480 Number 1 Bowel Movements Number 1 Incontinent Voids Number Voids 5 Output, Urine 2550 1600 PATIENT WEIGHT: Weight (lb): 324 Weight (oz): 8.33 Weight (kg): 147.200 Physical Exam General appearance: awake Head/Eyes: clear cornea, EOMI Neck: non-tender Cardiovascular: normal heart sounds, regular rate rhythm Respiratory: aerating well, clear to auscultation Abdomen: non-tender, normal bowel sounds, soft, no distention Extremities: moves all, no edema Neuro/BANKING MANAGER: alert, oriented X 3, CNII-XII intact, normal speech, no motor deficits, no sensory deficits Skin: dry, intact Results Findings/Data: Laboratory Tests 03/20 03/20 03/20 03/20 03/20 2036 1714 1621 1113 0737 Chemistry Sodium (134 - 147 mEq/L) 134 Potassium (3.4 - 5.0 mEq/L) 3.5 Chloride (100 - 108 mEq/L) 95 L Carbon Dioxide (21 - 33 mEq/l) 27 Anion Gap (0 - 20) 15 BUN (7 - 25 mg/dL) 23 Creatinine (0.6 - 1.3 mg/dL) 1.4 H Glomerular Filtr Rate (80 - 90) 55.8 L Glucose (77 - 141 mg/dL) 248 H POC Glucose (70 - 110 MG/DL) 218 H 174 H 246 H 221 H Calcium (8.0 - 10.5 mg/dL) 8.6 03/20 200 Chemistry Sodium (134 - 147 mEq/L) 134 Potassium (3.4 - 5.0 mEq/L) 3.6 Chloride (100 - 108 mEq/L) 96 L Carbon Dioxide (21 - 33 mEq/l) 28 Anion Gap (0 - 20) 14 BUN (7 - 25 mg/dL) 20 Creatinine (0.6 - 1.3 mg/dL) 1.1 Glomerular Filtr Rate (80 - 90) 74.5 L Glucose (77 - 141 mg/dL) 187 H Calcium (8.0 - 10.5 mg/dL) 8.4 Ionized Calcium Vasquez (1.09 - 1.30 MMOL/L) 1.10 Phosphorus (2.5 - 4.9 MG/DL) 2.6 Magnesium (1.6 - 2.6 mg/dL) 1.83 Laboratory Tests 03/20 200 Hematology WBC (4.5 - 11.0 x10 3/uL) 10.4 RBC (4.00 - 5.60 x10 6/uL) 3.41 L Hgb (12.5 - 16.9 g/dL) 10.9 L Hct (37.5 - 50.7 %) 32.3 L MCV (81.0 - 99.0 fL) 94.7 MCH (27.0 - 33.0 pg) 32.0 MCHC (33.0 - 37.0 g/dL) 33.7 RDW (11.5 - 14.5 %) 12.4 Plt Count (150 - 400 x10 3/uL) 144 L MPV (7.0 - 9.0 fL) 10.2 H Neut % (Auto) (56.0 - 77.0 %) 73.7 Lymph % (Auto) (14.0 - 32.0 %) 10.5 L Potter % (Auto) (4.8 - 9.0 %) 12.7 H Eos % (Auto) (0.3 - 3.7 %) 2.1 Baso % (Auto) (0.0 - 2.0 %) 0.3 Neut # (Auto) (2.0 - 7.6 x10 3/uL) 7.66 H Lymph # (Auto) (1.0 - 3.8 x10 3/uL) 1.09 Potter # (Auto) (0.1 - 0.8 x10 3/uL) 1.32 H Eos # (Auto) (0.0 - 0.2 x10 3/uL) 0.22 H Baso # (Auto) (0.0 - 0.2 x10 3/uL) 0.03 Abs Immat Gran (auto) (0.00 - 0.03 x10 3/uL) 0.07 H Immature Gran % (0.0 - 2.0 %) 0.7 Nucleated RBC % (0 - 0 %) 0.0 Nucleated RBCs # (Man) (0.0 - 0.1 x10 3/uL) 0.00 Radiology data: Recent Impressions: RADIOLOGY - XR CHEST 1 V 03/20 06 Report Impression - Status: SIGNED Entered: 03/20/20252017 IMPRESSION: There is no significant change the chest. Electronically signed by: Guille Perez MD 03/20/2025 08:15 PM CDT RP Impression By: [email or web address] - Guille Perez M.D. 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 may be reaction post surgery pain control PT/OT rectal bleeding -- resolve rectal surgeon consult monitor H H DM-- sliding scale now HTN-- stable . on metoprolol hypothyroid -- continue home med 03/18- sit on the chair . no sob . pain is fair control . no fever -- on O2 . hemodynamic stable . chest tube are out -- review lab and image -- continue monitor in ccu 03/19 - cont to mobilize as braden - afib rvr, cont on amio gtt - management per CTS and ICC recs 03/20 - NSR again - Continue DAPT, metoprolol 12.5 Q8H, amiodarone, and Lipitor - dispo per cts - cont to ambulat/oob as braden at 1646 at 1700 RPT #:[id number] END OF REPORT [facility] 2025-03-20 14:20:00 [facility] Cardiothoracic Surgery Prog REPORT#:[id number] REPORT STATUS: Signed REPORT INITIALIZATION DATE:03/20/25 TIME: 142 PATIENT: LAKEISHA NORRIS UNIT #: [id number] ROOM/BED: [place] [phone] : 58 AGE: 64 SEX: M ATTEND: Marlene Padilla MD ADM AUTHOR: Sharifa Baker APRN-HEEL COVER SPLITTER REPT SERVICE DT/TIME: 03/20/25 1420 * ALL edits or amendments must be made on the electronic/computer document * General Post-op: day 4 Status post: 03/16/25 1. Coronary artery bypass graft surgery x5 (MCGUIRE to LAD, saphenous vein to diagonal, saphenous vein to first marginal, saphenous vein to second marginal, saphenous vein to PDA). 2. Aortic valve replacement (29-mm Inspiris valve). 3. Amputation of left atrial appendage. 4. Posterior pericardiotomy. 5. Endoscopic vein harvest of the right greater saphenous vein. Subjective Chief complaint: s/p cabg Review of Systems Constitutional: Reports: fatigue. Denies: chills. Skin: Denies: abrasion, bruising. Allergy/Immun: Denies: allergic reaction. Respiratory: Denies: VALDOVINOS (dyspnea on exertion), parox nocturnal dyspnea. Cardiovascular: Denies: chest pain. GI: Denies: abdominal pain. : Denies: dysuria. Musculoskeletal: Denies: arthritis. All systems rev neg: except as marked Objective General VS/I O Last Documented: Result Date Time Temp 98.0 03/20 1200 Pulse Ox 94 03/20 810 O2 Delivery Nasal cannula 03/20 810 O2 Flow Rate 1 03/20 0810 B/P 109/54 03/20 07 B/P Mean 77 03/20 07 Pulse 67 03/20 07 Resp 21 03/20 07 FiO2 36 03/17 1938 24 hour I O ending at 0700: 03/20 0700 03/19 1900 Intake Total 1040.00 Output Total 2550 1600 Balance -1510.00 -1600 Intake, IV 560.00 Intake, Oral 480 Number 1 Bowel Movements Number 1 Incontinent Voids Number Voids 5 Output, Urine 2550 1600 PATIENT WEIGHT: Weight (lb): 324 Weight (oz): 8.33 Weight (kg): 147.200 Dietitian Nutrition assessment The data set between the solid lines has been imported from the dietitian's assessment. BMI Calculated: 42.8 Nutrition related diagnosis: Morbid obesity Nutrition diagnosis details: BMI 40 or more Nutrition problem: Increased nutrient needs Nutrition etiology: Acute illness Nutrition signs and symptoms: S/P CABG X 5, W/ AVR Nutrition prescription: 1. CONTINUE CARDIAC DIET. ENCOURAGE PO INTAKE DIET ADHERENCE. 2. PROVIDE ENSURE MAX PROTEIN BID 3. RD TO PROVIDE HEART HEALTHY, DIABETIC DIET EDUCATION FEASIBLE Dietitian name: Fatoumata Tavares, DIET Assessment completed: 03/17/25 Physical Exam General appearance: alert, awake, oriented Wound/incision: Location: sternum Site condition: dressing clean dry, no drainage, no ecchymosis HEENT: anicteric, mucosal membranes moist, pupils reactive to light Neck: full range of motion, non-tender Cardiovascular: irregularly irregular, BP/pulses equal bilat. Respiratory: decreased breath sounds Abdomen: soft, non-tender Genitourinary: urine Extremities: dry, moves all, normal capillary refill, normal temperature Musculoskeletal: full range of motion, painless range of motion Neuro/BANKING MANAGER: alert, oriented X 3 Skin: dry, intact, normal temperature Current Medications Medications: Active Meds + DC'd Last 24 Hrs Acetazolamide (DIAMOX) 250 MG ONCE ONE IV (DC) Sterile Water (WATER FOR INJECTION) 5 ML ASDIR PRN IV Potassium Chloride (POTASSIUM CHLORIDE 20MEQ TAB.ER) 20 MEQ ONCE PRN PO Metoprolol Tartrate (LOPRESSOR) 12.5 MG Q8H PO Ipratropium [place] (ATROVENT) 500 MCG RTQ2H PRN PRN INH Furosemide (LASIX) 240 MG Q24H IV (CKD) Sodium Chloride (SODIUM CHLORIDE 0.9%) 24 ML Cyanocobalamin (Vitamin B-12 500 mcg tab) 500 MCG DAILY PO Ferrous Sulfate (FERROUS SULFATE) 325 MG DAILY PO Amiodarone HCl (NEXTERONE 360MG/D5W 200ML) 200 ML ASDIR IV (CKD) Bisacodyl (DULCOLAX) 10 MG ONCE PRN RECTAL Magnesium Hydroxide (MILK OF MAGNESIA) 30 ML ONCE PRN PO Insulin Human Lispro (Admelog) 0 AC HS SUBQ Gabapentin (NEURONTIN) 200 MG TID PO Clopidogrel Bisulfate (Plavix) 75 MG DAILY PO Polyethylene Glycol (MIRALAX) 17 GM DAILY PO Levothyroxine Sodium (Synthroid) 200 MCG DAILY 0600 PO Pantoprazole (PROTONIX) 40 MG DAILY@0600 PO Atorvastatin Calcium (LIPITOR) 40 MG 2100 PO Docusate Sodium (COLACE) 100 MG BID PO Mupirocin (BACTROBAN 2% 22 GM OINTMENT) 1 APPLIC BID NASAL Sennosides (Senna Lax 8.6 MG TABLET) 17.2 MG BEDTIME PO Aspirin (ASPIRIN) 81 MG DAILY PO Ipratropium [place] (ATROVENT) 500 MCG RTQ4H INH (DC) Amiodarone HCl (CORDARONE) 200 MG TID PO Acetaminophen (TYLENOL) 650 MG Q4H PRN PRN PO Acetaminophen (TYLENOL) 650 MG Q4H PRN PRN RECTAL Calcium Chloride (CALCIUM CHLORIDE) 1 GM ASDIR PRN IV Dextrose/Water (DEXTROSE 10% IN WATER) 125 ML ASDIR PRN IV (CKD) Dextrose/Water (DEXTROSE 10% IN WATER) 250 ML ASDIR PRN IV (CKD) Glucagon (GLUCAGON) 1 MG ASDIR PRN IM Magnesium Sulfate (MAGNESIUM SULFATE 4GM/SWFI 100ML) 100 ML ASDIR PRN IV Magnesium Sulfate (MAGNESIUM SULFATE 2GM/SWFI 50ML) 50 ML ASDIR PRN IV Magnesium Sulfate/Dextrose (MAGNESIUM SULFATE 1GM/D5W 100ML) 100 ML ASDIR PRN IV Ondansetron HCl (ZOFRAN) 4 MG Q6H PRN PRN IV Oxycodone HCl (ROXICODONE) 5 MG Q4H PRN PRN PO Oxycodone HCl (ROXICODONE) 10 MG Q4H PRN PRN PO Potassium Chloride (KCL 20MEQ/SWFI 100ML) 100 ML ASDIR PRN IV Sodium Bicarbonate (SODIUM BICARBONATE) 50 MEQ ASDIR PRN IV Results Findings/Data: Laboratory Tests 03/20 03/20 03/20 03/19 03/19 1113 0737 0200 1957 1620 Chemistry Sodium (134 - 147 mEq/L) 134 Potassium (3.4 - 5.0 mEq/L) 3.6 Chloride (100 - 108 mEq/L) 96 L Carbon Dioxide (21 - 33 mEq/l) 28 Anion Gap (0 - 20) 14 BUN (7 - 25 mg/dL) 20 Creatinine (0.6 - 1.3 mg/dL) 1.1 Glomerular Filtr Rate (80 - 90) 74.5 L Glucose (77 - 141 mg/dL) 187 H POC Glucose (70 - 110 MG/DL) 246 H 221 H 195 H 204 H Calcium (8.0 - 10.5 mg/dL) 8.4 Ionized Calcium Vasquez (1.09 - 1.30 1.10 MMOL/L) Phosphorus (2.5 - 4.9 MG/DL) 2.6 Magnesium (1.6 - 2.6 mg/dL) 1.83 Laboratory Tests 03/20 0200 Hematology WBC (4.5 - 11.0 x10 3/uL) 10.4 RBC (4.00 - 5.60 x10 6/uL) 3.41 L Hgb (12.5 - 16.9 g/dL) 10.9 L Hct (37.5 - 50.7 %) 32.3 L MCV (81.0 - 99.0 fL) 94.7 MCH (27.0 - 33.0 pg) 32.0 MCHC (33.0 - 37.0 g/dL) 33.7 RDW (11.5 - 14.5 %) 12.4 Plt Count (150 - 400 x10 3/uL) 144 L MPV (7.0 - 9.0 fL) 10.2 H Neut % (Auto) (56.0 - 77.0 %) 73.7 Lymph % (Auto) (14.0 - 32.0 %) 10.5 L Potter % (Auto) (4.8 - 9.0 %) 12.7 H Eos % (Auto) (0.3 - 3.7 %) 2.1 Baso % (Auto) (0.0 - 2.0 %) 0.3 Neut # (Auto) (2.0 - 7.6 x10 3/uL) 7.66 H Lymph # (Auto) (1.0 - 3.8 x10 3/uL) 1.09 Potter # (Auto) (0.1 - 0.8 x10 3/uL) 1.32 H Eos # (Auto) (0.0 - 0.2 x10 3/uL) 0.22 H Baso # (Auto) (0.0 - 0.2 x10 3/uL) 0.03 Abs Immat Gran (auto) (0.00 - 0.03 x10 3/uL) 0.07 H Immature Gran % (0.0 - 2.0 %) 0.7 Nucleated RBC % (0 - 0 %) 0.0 Nucleated RBCs # (Man) (0.0 - 0.1 x10 3/uL) 0.00 Results: labs reviewed, vital signs stable, rythm personally rev'd, current med profile rev'd Diagnosis, Assessment Plan Free Text A P: Patient is a 64 year old male with a pmhx of HTN, HLD, DM, hypothyroidism, and current chewing tobacco use. Patient initially went to corporate ethics officer Dr. Milian for cardiac clearance for R knee replacement. He was found to have abnormal results on stress testing with inferior and inferiolateral areas of reversible ischemia. Echo shows EF 55-60% with moderate . Patient denies blood thinner use. Left heart cath was completed on 03/05/2025 showing severe multivessel coronary artery disease. Denies hx of chest pain or dypsnea. He ambulates without assistance. Patient will be admitted today for a CABG with aortic valve replacement. Assessment/plan: 1. Hypertension 2. Hyperlipidemia 3. Diabetes mellitus 4. Hypothyroidism 5. Nicotine dependence 6. Coronary artery disease 7. Moderate Admit to CVICU postoperatively Closely monitor hemodynamics Consult hothouse worker Dr. Padilla has seen and examined the patient. The patient will benefit from revascularization to coronary arteries and replacement of aortic valve. Dr. Padilla has explained in great detail the operation, risks, risk STS calculator, benefits, complications, alternatives and complications. The patient acknowledges understanding is willing to proceed with surgery. All questions have been answered. 03/16/25 1. Coronary artery bypass graft surgery x5 (MCGUIRE to LAD, saphenous vein to diagonal, saphenous vein to first marginal, saphenous vein to second marginal, saphenous vein to PDA). 2. Aortic valve replacement (29-mm Inspiris valve). 3. Amputation of left atrial appendage. 4. Posterior pericardiotomy. 5. Endoscopic vein harvest of the right greater saphenous vein. 03/17/25 POD 1 AAO x 3, denies complaints, multimodal pain management On 4LNC, wean as tolerated, encourage I-S use and deep breathing, CXR reviewed, ABG reviewed CTs in place, drained 95/335 cc overnight, will reassess after ambulation Sinus rhythm, monitor hemodynamics closely, epicardial pacing wires on standby, on levo gtt @2 Continue DAPT, metoprolol, amiodarone, and Lipitor Advance diet as tolerated, nutritional supplements, bowel regimen, glycemic control with insulin drip, transition to SSI UOP 660cc overnight, strict I's O's, daily weights DVT Prophylaxis with SCDs, GI prophylaxis with PPI PT/OT, OOB to chair, encourage ambulation Labs reviewed, replace electrolytes as needed Discharge disposition: home with good family support Plan to deline once off insulin and levo gtt Patient seen and examined by Dr Padilla. Plan of care discussed with nurse, patient and interdisciplinary team. All questions answered. 03/18/25 POD 2 AAO x 3, denies complaints, multimodal pain management On 1LNC, wean as tolerated, encourage I-S use and deep breathing, CXR reviewed, ABG reviewed CT in place, drained 60 cc overnight, will DC after ambulation Sinus rhythm, monitor hemodynamics closely, epicardial pacing wires on standby Continue DAPT, metoprolol, amiodarone, and Lipitor Advance diet as tolerated, nutritional supplements, bowel regimen, glycemic control SSI, MOM today UOP 575cc overnight, strict I's O's, daily weights DVT Prophylaxis with SCDs, GI prophylaxis with PPI PT/OT, OOB to chair, encourage ambulation Labs reviewed, replace electrolytes as needed Discharge disposition: home with good family support Continue close monitoring in CCU Patient seen and examined by Dr Padilla. Plan of care discussed with nurse, patient and interdisciplinary team. All questions answered. 03/19/25 POD 3 AAO x 3, reports shortness of breath, denies chest pain On 4LNC, wean as tolerated, encourage I-S use and deep breathing, CXR reviewed, ABG reviewed Went into A-fib RVR, given amio bolus and continued amio gtt, push of metoprolol , monitor hemodynamics closely, epicardial pacing wires on standby Continue DAPT, metoprolol 12.5 Q8H, amiodarone, and Lipitor Tolerating diet, nutritional supplements, bowel regimen, glycemic control SSI, suppository today UOP 1125cc overnight, strict I's O's, daily weights, weight up, Lasix today DVT Prophylaxis with SCDs, GI prophylaxis with PPI DVT study ordered PT/OT, OOB to chair, encourage ambulation Labs reviewed, replace electrolytes as needed Discharge disposition: home with good family support Continue close monitoring in CCU Patient seen and examined by Dr Padilla. Plan of care discussed with nurse, patient and interdisciplinary team. All questions answered. 03/20/25 POD 4 AAO x 3, reports shortness of breath, denies chest pain On RA, encourage I-S use and deep breathing, CXR reviewed, ABG reviewed Back in NSR today, monitor hemodynamics closely, epicardial pacing wires on standby Continue DAPT, metoprolol 12.5 Q8H, amiodarone, and Lipitor Tolerating diet, nutritional supplements, bowel regimen, glycemic control SSI, suppository today Good UOP overnight, strict I's O's, daily weights, on Lasix gtt, weight trending down, Diamox today DVT Prophylaxis with SCDs, GI prophylaxis with PPI PT/OT, OOB to chair, encourage ambulation Labs reviewed, replace electrolytes as needed Discharge disposition: home with good family support Continue close monitoring in CCU Patient seen and examined by Dr Padilla. Plan of care discussed with nurse, patient and interdisciplinary team. All questions answered. Code status: full code Plan discussed with: patient, collaborating MD, nurse, interdisc care team at 1424 at 1854 RPT #:[id number] END OF REPORT [facility] 2025-03-20 12:46:00 [facility] Cardiology Progress Note REPORT#:[id number] REPORT STATUS: Signed REPORT INITIALIZATION DATE:03/20/25 TIME: 1246 PATIENT: LAKEISHA NORRIS UNIT #: [id number] ROOM/BED: [place] [id number] : 58 AGE: 64 SEX: M ATTEND: Marlene Padilla MD ADM AUTHOR: Janice Mathew TRAVELING PHLEBOTOMIST REPT SERVICE DT/TIME: 03/20/25 1246 * ALL edits or amendments must be made on the electronic/computer document * Subjective Chief complaint: Weak Objective General VS/I O: Laboratory Tests 03/20/25 0200: [Embedded Image Not Available] 03/19/25 0305: [Embedded Image Not Available] Current Medications Sig/Beatrice Start time Last Medication Dose Route Stop Time Status Admin Potassium Chloride 20 MEQ ONCE PRN 03/20 0245 AC 03/20 PO 06/18 0244 0255 Metoprolol Tartrate 12.5 MG Q8H 03/19 1700 AC 03/20 PO 06/17 1659 0751 Ipratropium [place] 500 MCG RTQ2H PRN PRN 03/19 1444 AC INH 06/17 1443 Furosemide 240 MG Q24H 03/19 1345 CKD 03/19 Sodium Chloride 24 ML IV 06/17 1344 1345 Furosemide 40 MG BID 9A 5P 03/19 1045 DC 03/19 IV 06/17 1044 1104 Cyanocobalamin 500 MCG DAILY 03/19 0900 AC 03/20 PO 06/17 0859 0750 Ferrous Sulfate 325 MG DAILY 03/19 0900 AC 03/20 PO 06/17 0859 0751 Amiodarone HCl 200 ML ASDIR 03/18 1800 CKD 03/20 IV 06/16 1759 0331 Bisacodyl 10 MG ONCE PRN 03/18 1200 AC 03/20 RECTAL 06/16 1159 0507 Magnesium Hydroxide 30 ML ONCE PRN 03/18 1200 AC PO Insulin Human Lispro 0 AC HS 03/17 1130 AC 03/20 SUBQ 06/15 1129 1215 Gabapentin 200 MG TID 03/17 1000 AC 03/20 PO 06/15 0959 0751 Clopidogrel Bisulfate 75 MG DAILY 03/17 09 AC 03/20 PO 06/15 0859 0750 Polyethylene Glycol 17 GM DAILY 03/17 09 AC 03/19 PO 06/15 0859 0801 Levothyroxine Sodium 200 MCG DAILY 0600 03/17 0600 AC 03/20 PO 06/15 0559 0619 Pantoprazole 40 MG DAILY@03/17 0600 AC 03/20 PO 06/15 0559 0619 Atorvastatin Calcium 40 MG 2100 03/16 2100 AC 03/19 PO 04/15 205 2034 Docusate Sodium 100 MG BID 03/16 2100 AC 03/20 PO 06/14 205 0750 Mupirocin 1 APPLIC BID 03/16 2100 AC 03/20 NASAL 03/21 0901 0751 Sennosides 17.2 MG BEDTIME 03/16 2100 AC 03/19 PO 06/14 205 2034 Aspirin 81 MG DAILY 03/16 204 AC 03/20 PO 06/14 2043 0750 Ipratropium [place] 500 MCG RTQ4H 03/16 1600 DC 03/19 INH 03/19 1444 0726 Amiodarone HCl 200 MG TID 03/16 1500 AC 03/20 PO 06/14 1459 0751 Acetaminophen 650 MG Q4H PRN PRN 03/16 1445 AC 03/18 PO 06/14 1444 1039 Acetaminophen 650 MG Q4H PRN PRN 03/16 1445 AC RECTAL 06/14 1444 Calcium Chloride 1 GM ASDIR PRN 03/16 1445 AC IV 06/14 1444 Dextrose/Water 125 ML ASDIR PRN 03/16 1445 CKD IV 06/14 1444 Dextrose/Water 250 ML ASDIR PRN 03/16 1445 CKD IV 06/14 1444 Glucagon 1 MG ASDIR PRN 03/16 1445 AC IM 06/14 1444 Magnesium Sulfate 100 ML ASDIR PRN 03/16 1445 AC IV 06/14 1444 Magnesium Sulfate 50 ML ASDIR PRN 03/16 1445 AC 07/05 IV 06/14 1444 0255 Magnesium Sulfate/ 100 ML ASDIR PRN 03/16 1445 AC 03/18 Dextrose IV 06/14 1444 0541 Ondansetron HCl 4 MG Q6H PRN PRN 03/16 1445 AC IV 06/14 1444 Oxycodone HCl 5 MG Q4H PRN PRN 03/16 1445 AC 03/17 PO 03/21 1444 0643 Oxycodone HCl 10 MG Q4H PRN PRN 03/16 1445 AC 03/19 PO 03/21 1444 1103 Potassium Chloride 100 ML ASDIR PRN 03/16 1445 AC IV 06/14 1444 Sodium Bicarbonate 50 MEQ ASDIR PRN 03/16 1445 AC IV 06/14 1444 24 hour I O ending at 0700: 03/20 0700 03/19 1900 Intake Total 1040.00 Output Total 2550 1600 Balance -1510.00 -1600 Intake, IV 560.00 Intake, Oral 480 Number 1 Bowel Movements Number 1 Incontinent Voids Number Voids 5 Output, Urine 2550 1600 Vital Signs: Date Time Temp Pulse Resp B/P B/P Pulse O2 O2 Flow FiO2 Mean Ox Delivery Rate 03/20 0810 94 Nasal 1 cannula 03/20 0800 36.7 07/ 0701 67 21 109/54 77 97 07/05 0602 72 18 146/67 97 07/05 0600 77 48 07/05 0500 63 19 115/57 80 95 07/05 0400 64 17 110/59 81 94 07/05 0300 64 24 128/65 90 97 07/05 0200 63 16 128/69 90 95 07/05 0100 65 18 127/64 88 97 07/05 0000 High flow 2 nasal cannula 07/05 0000 67 18 123/62 85 97 07/04 2300 66 22 119/60 81 97 07/04 2200 67 16 110/61 80 96 07/04 2100 69 25 127/62 87 98 03/19 2018 98 Nasal 2 cannula 03/19 2000 36.7 03/19 2000 High flow 2 nasal cannula 03/19 2000 68 25 128/67 91 97 03/19 1900 66 19 112/58 78 99 07/ 1700 68 28 129/60 87 97 07/04 1600 36.7 07 1600 69 19 124/67 87 99 07/04 1500 71 23 121/71 90 99 07/04 1420 68 20 134/82 103 99 07/04 1300 67 16 102/64 78 95 PATIENT WEIGHT: Weight (lb): 324 Weight (oz): 8.33 Weight (kg): 147.200 Physical Exam General appearance: alert, awake, oriented, no acute distress Head/Eyes: atraumatic Neck: no JVD, no masses or swelling Cardiovascular: CV assessment: regular rate and rhythm Respiratory: decreased breath sounds, on oxygen, no distress Abdomen: obese Lower extremity: LE assessment: edema Musculoskeletal: normal inspection Neuro/BANKING MANAGER: alert, oriented X 3 Skin: dry Psychiatry: normal affect, normal mood Diagnosis, Assessment Plan Free Text DxA P Notes Free Text DxA P Notes: 1. CAD and aortic valve stenosis s/p CABG x5 plus AVR plus ALAA * DAPT, BB, statin * post-op care per CTS and critical care * on lasix and amiodarone gtt * vs stable 2. Hypetension * bp soft- monitor 3. Hypelipidemia * continue statin 4. Diabetes mellitus * glycemic control per critical care 5. Rectal bleed attributed to external hemorrhoid * GI and colorectal surgery following continue supportive care MDMby Dr. Bee at 1249 at 1123 RPT #:[id number] END OF REPORT [facility] 2025-03-20 01:06:00 [facility] ([facility]) Hospitalist Progress Note REPORT#:[id number] REPORT STATUS: Signed REPORT INITIALIZATION DATE:03/20/25 TIME: 010 PATIENT: LAKEISHA NORRIS UNIT #: [id number] ROOM/BED: [place] [phone] : 58 AGE: 64 SEX: M ATTEND: Marlene Padilla MD ADM AUTHOR: Brooke Muñoz REPT SERVICE DT/TIME: 03/19/25 1500 * ALL edits or amendments must be made on the electronic/computer document * Subjective Chief complaint: post op CABG Comments: seen examined, POD 3 still has some sob, remains on o2 via nc - cxr reviewed, no significant change went into a fib, on amio gtt tolerating diet good uop, no BM ros neg f/c, n/v Objective General VS/I O: Vital Signs: Date Time Temp Pulse Resp B/P B/P Pulse O2 O2 Flow FiO2 Mean Ox Delivery Rate 03/19 2018 98 Nasal 2 cannula 03/19 2000 98.0 03/19 2000 High flow 2 nasal cannula 07/ 1700 68 28 129/60 87 97 07/04 1600 98.0 07/04 1600 69 19 124/67 87 99 07/04 1500 71 23 121/71 90 99 07/04 1420 68 20 134/82 103 99 07/04 1300 67 16 102/64 78 95 07/04 1238 96 Nasal 2 cannula 07/04 1200 98.0 07/04 1100 68 26 110/70 84 96 07/04 1000 68 25 102/71 82 95 07/04 0900 115 32 101/67 78 95 07/04 0822 132 33 116/75 89 94 07/04 0800 98.0 07/04 0800 Nasal 4 cannula 07/04 0727 95 Nasal 4 cannula 07/04 0700 136 23 113/70 86 95 07/04 0400 Nasal 4 cannula 24 hour I O ending at 0700: 07/05 0700 07/04 1900 Intake Total Output Total 1600 Balance -1600 Output, Urine 1600 PATIENT WEIGHT: Weight (lb): 324 Weight (oz): 8.33 Weight (kg): 147.200 Physical Exam General appearance: awake Head/Eyes: clear cornea, EOMI Neck: non-tender Cardiovascular: normal heart sounds, regular rate rhythm Respiratory: aerating well, clear to auscultation Abdomen: non-tender, normal bowel sounds, soft, no distention Extremities: moves all, no edema Neuro/BANKING MANAGER: alert, oriented X 3, CNII-XII intact, normal speech, no motor deficits, no sensory deficits Skin: dry, intact Results Findings/Data: Laboratory Tests 03/19 03/19 03/19 03/19 1957 1620 1150 0305 Chemistry Sodium (134 - 147 mEq/L) 132 L Potassium (3.4 - 5.0 mEq/L) 4.5 Chloride (100 - 108 mEq/L) 99 L Carbon Dioxide (21 - 33 mEq/l) 25 Anion Gap (0 - 20) 13 BUN (7 - 25 mg/dL) 17 Creatinine (0.6 - 1.3 mg/dL) 1.1 Glomerular Filtr Rate (80 - 90) 74.5 L Glucose (77 - 141 mg/dL) 199 H POC Glucose (70 - 110 MG/DL) 195 H 204 H 283 H Calcium (8.0 - 10.5 mg/dL) 8.6 Magnesium (1.6 - 2.6 mg/dL) 1.93 Total Bilirubin (0.0 - 1.0 mg/dL) 0.80 Direct Bilirubin (0.1 - 0.3 MG/DL) 0.40 H Indirect Bilirubin (MG/DL) 0.40 AST (8 - 34 IUnit/L) 29 ALT (10 - 49 IUnit/L) 24 Total Alk Phosphatase (20 - 125 IUnit/L) 57 Total Protein (5.7 - 8.2 g/dL) 6.5 Albumin (3.4 - 5.0 g/dL) 3.50 Laboratory Tests 03/19 0305 Hematology WBC (4.5 - 11.0 x10 3/uL) 12.4 H RBC (4.00 - 5.60 x10 6/uL) 3.58 L Hgb (12.5 - 16.9 g/dL) 11.7 L Hct (37.5 - 50.7 %) 35.0 L MCV (81.0 - 99.0 fL) 97.8 MCH (27.0 - 33.0 pg) 32.7 MCHC (33.0 - 37.0 g/dL) 33.4 RDW (11.5 - 14.5 %) 12.9 Plt Count (150 - 400 x10 3/uL) 101 L MPV (7.0 - 9.0 fL) 10.6 H Neut % (Auto) (56.0 - 77.0 %) 75.0 Lymph % (Auto) (14.0 - 32.0 %) 11.0 L Potter % (Auto) (4.8 - 9.0 %) 12.4 H Eos % (Auto) (0.3 - 3.7 %) 0.7 Baso % (Auto) (0.0 - 2.0 %) 0.3 Neut # (Auto) (2.0 - 7.6 x10 3/uL) 9.26 H Lymph # (Auto) (1.0 - 3.8 x10 3/uL) 1.36 Potter # (Auto) (0.1 - 0.8 x10 3/uL) 1.53 H Eos # (Auto) (0.0 - 0.2 x10 3/uL) 0.09 Baso # (Auto) (0.0 - 0.2 x10 3/uL) 0.04 Abs Immat Gran (auto) (0.00 - 0.03 x10 3/uL) 0.07 H Immature Gran % (0.0 - 2.0 %) 0.6 Nucleated RBC % (0 - 0 %) 0.0 Nucleated RBCs # (Man) (0.0 - 0.1 x10 3/uL) 0.00 Radiology data: Recent Impressions: RADIOLOGY - XR CHEST 1 V 03/19 0646 Report Impression - Status: SIGNED Entered: 03/19/20252216 IMPRESSION: Slight improvement in the central interstitial infiltrates. Trace right pleural effusion. Electronically signed by: Linh Ayala MD 03/19/2025 10:14 PM CDT Impression By: Krystyna - Linh Ayala M.D. 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 may be reaction post surgery pain control PT/OT rectal bleeding -- resolve rectal surgeon consult monitor H H DM-- sliding scale now HTN-- stable . on metoprolol hypothyroid -- continue home med 03/18- sit on the chair . no sob . pain is fair control . no fever -- on O2 . hemodynamic stable . chest tube are out -- review lab and image -- continue monitor in ccu 03/19 - cont to mobilize as braden - afib rvr, cont on amio gtt - management per CTS and ICC recs at 1015 at 1152 RPT #:[id number] END OF REPORT [facility] 2025-03-19 12:46:00 [facility] ([facility]) Cardiology Progress Note REPORT#:[id number] REPORT STATUS: Signed REPORT INITIALIZATION DATE:03/19/25 TIME: 124 PATIENT: LAKEISHA NORRIS UNIT #: [id number] ROOM/BED: [place] [phone] : 58 AGE: 64 SEX: M ATTEND: Marlene Padilla MD ADM AUTHOR: Candelaria Ordoñez MD REPT SERVICE DT/TIME: 03/19/25 1246 * ALL edits or amendments must be made on the electronic/computer document * Subjective Chief complaint: Weak Objective General VS/I O: 24 hour I O ending at 0700: 03/19 0700 03/18 1900 Intake Total 534.00 340.00 Output Total 1125 300 Balance -591.00 40.00 Intake, IV 294.00 100.00 Intake, Oral 240 240 Output, Urine 1125 300 Patient 147.2 kg Weight Weight Standing scale Measurement Method Vital Signs: Date Time Temp Pulse Resp B/P B/P Pulse O2 O2 Flow FiO2 Mean Ox Delivery Rate 03/19 1238 96 Nasal 2 cannula 03/19 1200 98.0 07/04 1100 68 26 110/70 84 96 07/04 1000 68 25 102/71 82 95 07/04 0900 115 32 101/67 78 95 07/04 0822 132 33 116/75 89 94 07/04 0800 98.0 07/04 0800 Nasal 4 cannula / 0727 95 Nasal 4 cannula 03/19 0700 136 23 113/70 86 95 07/04 0400 Nasal 4 cannula 03/19 0000 Nasal 4 cannula 03/18 2000 98.0 03/18 2000 Nasal 4 cannula 03/18 1948 95 High flow 4 nasal cannula 03/18 1833 129 19 94 07/03 1830 122 21 126/69 91 94 07/03 1825 114 22 124/82 97 93 07/03 1820 114 27 110/80 90 93 07/03 1815 122 26 110/72 85 93 07/03 1810 125 22 111/77 89 93 07/03 1805 133 25 112/70 88 94 07/03 1800 119 30 126/71 90 94 07/03 1755 116 22 122/68 87 95 07/03 1751 133 26 130/70 89 94 07/03 1747 136 31 128/102 109 94 07/03 1700 86 29 140/84 106 94 07/03 1600 Nasal 4 cannula 07/ 1600 98.8 84 27 126/75 96 98 07/03 1502 82 21 127/73 94 97 07/03 1400 82 17 92 07/03 1300 84 28 93 PATIENT WEIGHT: Weight (lb): 324 Weight (oz): 8.33 Weight (kg): 147.200 Medications: Active Meds + DC'd Last 24 Hrs Metoprolol Tartrate (LOPRESSOR) 12.5 MG Q8H PO Ipratropium [place] (ATROVENT) 500 MCG RTQ2H PRN PRN INH Bisacodyl (DULCOLAX) 10 MG ONCE ONE RECTAL (DC) Furosemide (LASIX 40 mg/4 mL INJECTION) 40 MG BID 9A 5P IV Cyanocobalamin (Vitamin B-12 500 mcg tab) 500 MCG DAILY PO Ferrous Sulfate (FERROUS SULFATE) 325 MG DAILY PO Bisacodyl (DULCOLAX) 10 MG ONCE ONE RECTAL (DC) Magnesium Hydroxide (MILK OF MAGNESIA) 30 ML ONCE ONE PO (DC) Magnesium Sulfate/Dextrose (MAGNESIUM SULFATE 1GM/D5W 100ML) 100 ML ONCE ONE IV (DC) Metoprolol Tartrate (LOPRESSOR) 5 MG ONCE ONE IV (DC) Furosemide (LASIX 20MG INJ) 20 MG ONCE ONE IV (DC) Amiodarone HCl (NEXTERONE 360MG/D5W 200ML) 200 ML ASDIR IV (CKD) Amiodarone HCl (NEXTERONE 150MG/D5W 100ML) 100 ML .STK-MED ONE IV (DC) Amiodarone HCl (NEXTERONE 150MG/D5W 100ML) 100 ML STAT STA IV (DC) Metoprolol Tartrate (LOPRESSOR) 2.5 MG ONCE ONE IV (DC) Bisacodyl (DULCOLAX) 10 MG ONCE PRN RECTAL Magnesium Hydroxide (MILK OF MAGNESIA) 30 ML ONCE PRN PO Insulin Human Lispro (Admelog) 0 AC HS SUBQ Gabapentin (NEURONTIN) 200 MG TID PO Clopidogrel Bisulfate (Plavix) 75 MG DAILY PO Polyethylene Glycol (MIRALAX) 17 GM DAILY PO Levothyroxine Sodium (Synthroid) 200 MCG DAILY 0600 PO Pantoprazole (PROTONIX) 40 MG DAILY@0600 PO Atorvastatin Calcium (LIPITOR) 40 MG 2100 PO Docusate Sodium (COLACE) 100 MG BID PO Metoprolol Tartrate (LOPRESSOR) 12.5 MG Q12HR PO (DC) Mupirocin (BACTROBAN 2% 22 GM OINTMENT) 1 APPLIC BID NASAL Sennosides (Senna Lax 8.6 MG TABLET) 17.2 MG BEDTIME PO Aspirin (ASPIRIN) 81 MG DAILY PO Ipratropium [place] (ATROVENT) 500 MCG RTQ4H INH Amiodarone HCl (CORDARONE) 200 MG TID PO Acetaminophen (TYLENOL) 650 MG Q4H PRN PRN PO Acetaminophen (TYLENOL) 650 MG Q4H PRN PRN RECTAL Calcium Chloride (CALCIUM CHLORIDE) 1 GM ASDIR PRN IV Dextrose/Water (DEXTROSE 10% IN WATER) 125 ML ASDIR PRN IV (CKD) Dextrose/Water (DEXTROSE 10% IN WATER) 250 ML ASDIR PRN IV (CKD) Glucagon (GLUCAGON) 1 MG ASDIR PRN IM Magnesium Sulfate (MAGNESIUM SULFATE 4GM/SWFI 100ML) 100 ML ASDIR PRN IV Magnesium Sulfate (MAGNESIUM SULFATE 2GM/SWFI 50ML) 50 ML ASDIR PRN IV Magnesium Sulfate/Dextrose (MAGNESIUM SULFATE 1GM/D5W 100ML) 100 ML ASDIR PRN IV Ondansetron HCl (ZOFRAN) 4 MG Q6H PRN PRN IV Oxycodone HCl (ROXICODONE) 5 MG Q4H PRN PRN PO Oxycodone HCl (ROXICODONE) 10 MG Q4H PRN PRN PO Potassium Chloride (KCL 20MEQ/SWFI 100ML) 100 ML ASDIR PRN IV Sodium Bicarbonate (SODIUM BICARBONATE) 50 MEQ ASDIR PRN IV Physical Exam General appearance: alert, awake Neck: no JVD, no masses or swelling Cardiovascular: CV assessment: regular rate and rhythm Respiratory: decreased breath sounds, on oxygen, no distress Abdomen: obese Genitourinary: urinary catheter, urine Lower extremity: LE assessment: no edema Musculoskeletal: normal inspection Neuro/BANKING MANAGER: alert, oriented X 3 Skin: dry Psychiatry: normal affect, normal mood Results Findings/Data: Laboratory Tests 03/19 03/19 03/18 03/18 1150 0305 2005 1633 Chemistry Sodium (134 - 147 mEq/L) 132 L Potassium (3.4 - 5.0 mEq/L) 4.5 Chloride (100 - 108 mEq/L) 99 L Carbon Dioxide (21 - 33 mEq/l) 25 Anion Gap (0 - 20) 13 BUN (7 - 25 mg/dL) 17 Creatinine (0.6 - 1.3 mg/dL) 1.1 Glomerular Filtr Rate (80 - 90) 74.5 L Glucose (77 - 141 mg/dL) 199 H POC Glucose (70 - 110 MG/DL) 283 H 199 H 236 H Calcium (8.0 - 10.5 mg/dL) 8.6 Magnesium (1.6 - 2.6 mg/dL) 1.93 Total Bilirubin (0.0 - 1.0 mg/dL) 0.80 Direct Bilirubin (0.1 - 0.3 MG/DL) 0.40 H Indirect Bilirubin (MG/DL) 0.40 AST (8 - 34 IUnit/L) 29 ALT (10 - 49 IUnit/L) 24 Total Alk Phosphatase (20 - 125 IUnit/L) 57 Total Protein (5.7 - 8.2 g/dL) 6.5 Albumin (3.4 - 5.0 g/dL) 3.50 Laboratory Tests 03/19 0305 Hematology WBC (4.5 - 11.0 x10 3/uL) 12.4 H RBC (4.00 - 5.60 x10 6/uL) 3.58 L Hgb (12.5 - 16.9 g/dL) 11.7 L Hct (37.5 - 50.7 %) 35.0 L MCV (81.0 - 99.0 fL) 97.8 MCH (27.0 - 33.0 pg) 32.7 MCHC (33.0 - 37.0 g/dL) 33.4 RDW (11.5 - 14.5 %) 12.9 Plt Count (150 - 400 x10 3/uL) 101 L MPV (7.0 - 9.0 fL) 10.6 H Neut % (Auto) (56.0 - 77.0 %) 75.0 Lymph % (Auto) (14.0 - 32.0 %) 11.0 L Potter % (Auto) (4.8 - 9.0 %) 12.4 H Eos % (Auto) (0.3 - 3.7 %) 0.7 Baso % (Auto) (0.0 - 2.0 %) 0.3 Neut # (Auto) (2.0 - 7.6 x10 3/uL) 9.26 H Lymph # (Auto) (1.0 - 3.8 x10 3/uL) 1.36 Potter # (Auto) (0.1 - 0.8 x10 3/uL) 1.53 H Eos # (Auto) (0.0 - 0.2 x10 3/uL) 0.09 Baso # (Auto) (0.0 - 0.2 x10 3/uL) 0.04 Abs Immat Gran (auto) (0.00 - 0.03 x10 3/uL) 0.07 H Immature Gran % (0.0 - 2.0 %) 0.6 Nucleated RBC % (0 - 0 %) 0.0 Nucleated RBCs # (Man) (0.0 - 0.1 x10 3/uL) 0.00 Laboratory Tests 03/19 0305 Chemistry Magnesium (1.6 - 2.6 mg/dL) 1.93 Diagnosis, Assessment Plan Free Text DxA P Notes Free Text DxA P Notes: 1. CAD and aortic valve stenosis s/p CABG x5 plus AVR plus ALAA * off pressor * DAPT, BB, statin * immediate post-op care per CTS and critical care 2. Hypetension * monitor off BP meds 3. Hypelipidemia * continue statin 4. Diabetes mellitus * glycemic control per critical care 5. Rectal bleed attributed to external hemorrhoid * GI and colorectal surgery following at 1246 RPT #:[id number] END OF REPORT [facility] 2025-03-19 11:05:00 [facility] Cardiothoracic Surgery Prog REPORT#:[id number] REPORT STATUS: Signed REPORT INITIALIZATION DATE:03/19/25 TIME: 110 PATIENT: LAKEISHA NORRIS UNIT #: [id number] ROOM/BED: 3305-1 : 59 AGE: 64 SEX: M ATTEND: Marlene Padilla MD ADM AUTHOR: Sharifa Baker REPT SERVICE DT/TIME: 03/19/25 1105 * ALL edits or amendments must be made on the electronic/computer document * General Post-op: day 3 Status post: 03/16/25 1. Coronary artery bypass graft surgery x5 (MCGUIRE to LAD, saphenous vein to diagonal, saphenous vein to first marginal, saphenous vein to second marginal, saphenous vein to PDA). 2. Aortic valve replacement (29-mm Inspiris valve). 3. Amputation of left atrial appendage. 4. Posterior pericardiotomy. 5. Endoscopic vein harvest of the right greater saphenous vein. Subjective Chief complaint: s/p cabg Review of Systems Constitutional: Reports: fatigue. Denies: chills. Skin: Denies: abrasion, bruising. Allergy/Immun: Denies: allergic reaction. Respiratory: Denies: VALDOVINOS (dyspnea on exertion), parox nocturnal dyspnea. Cardiovascular: Denies: chest pain. GI: Denies: abdominal pain. : Denies: dysuria. Musculoskeletal: Denies: arthritis. All systems rev neg: except as marked Objective General VS/I O Last Documented: Result Date Time Temp 98.0 03/19 0800 O2 Delivery Nasal cannula 03/19 08 O2 Flow Rate 4 03/19 08 Pulse Ox 95 03/19 07 Pulse 129 03/18 1833 Resp 19 03/18 1833 B/P 126/69 03/18 1830 B/P Mean 91 03/18 1830 FiO2 36 03/17 1938 24 hour I O ending at 0700: 03/19 0700 03/18 1900 Intake Total 534.00 340.00 Output Total 1125 300 Balance -591.00 40.00 Intake, IV 294.00 100.00 Intake, Oral 240 240 Output, Urine 1125 300 Patient 147.2 kg Weight Weight Standing scale Measurement Method PATIENT WEIGHT: Weight (lb): 324 Weight (oz): 8.33 Weight (kg): 147.200 Dietitian Nutrition assessment The data set between the solid lines has been imported from the dietitian's assessment. BMI Calculated: 42.8 Nutrition related diagnosis: Morbid obesity Nutrition diagnosis details: BMI 40 or more Nutrition problem: Increased nutrient needs Nutrition etiology: Acute illness Nutrition signs and symptoms: S/P CABG X 5, W/ AVR Nutrition prescription: 1. CONTINUE CARDIAC DIET. ENCOURAGE PO INTAKE DIET ADHERENCE. 2. PROVIDE ENSURE MAX PROTEIN BID 3. RD TO PROVIDE HEART HEALTHY, DIABETIC DIET EDUCATION FEASIBLE Dietitian name: Fatoumata Tavares, DIET Assessment completed: 03/17/25 Physical Exam General appearance: alert, awake, oriented Wound/incision: Location: sternum Site condition: dressing clean dry, no drainage, no ecchymosis HEENT: anicteric, mucosal membranes moist, pupils reactive to light Neck: full range of motion, non-tender Cardiovascular: irregularly irregular, BP/pulses equal bilat. Respiratory: decreased breath sounds Abdomen: soft, non-tender Genitourinary: urine Extremities: dry, moves all, normal capillary refill, normal temperature Musculoskeletal: full range of motion, painless range of motion Neuro/BANKING MANAGER: alert, oriented X 3 Skin: dry, intact, normal temperature Current Medications Medications: Active Meds + DC'd Last 24 Hrs Metoprolol Tartrate (LOPRESSOR) 12.5 MG Q8H PO Ipratropium [place] (ATROVENT) 500 MCG RTQ2H PRN PRN INH Furosemide (LASIX 40 mg/4 mL INJECTION) 40 MG BID 9A 5P IV Cyanocobalamin (Vitamin B-12 500 mcg tab) 500 MCG DAILY PO Ferrous Sulfate (FERROUS SULFATE) 325 MG DAILY PO Bisacodyl (DULCOLAX) 10 MG ONCE ONE RECTAL (DC) Magnesium Hydroxide (MILK OF MAGNESIA) 30 ML ONCE ONE PO (DC) Magnesium Sulfate/Dextrose (MAGNESIUM SULFATE 1GM/D5W 100ML) 100 ML ONCE ONE IV (DC) Metoprolol Tartrate (LOPRESSOR) 5 MG ONCE ONE IV (DC) Furosemide (LASIX 20MG INJ) 20 MG ONCE ONE IV (DC) Amiodarone HCl (NEXTERONE 360MG/D5W 200ML) 200 ML ASDIR IV (CKD) Amiodarone HCl (NEXTERONE 150MG/D5W 100ML) 100 ML .STK-MED ONE IV (DC) Amiodarone HCl (NEXTERONE 150MG/D5W 100ML) 100 ML STAT STA IV (DC) Metoprolol Tartrate (LOPRESSOR) 2.5 MG ONCE ONE IV (DC) Bisacodyl (DULCOLAX) 10 MG ONCE PRN RECTAL Magnesium Hydroxide (MILK OF MAGNESIA) 30 ML ONCE PRN PO Insulin Human Lispro (Admelog) 0 AC HS SUBQ Gabapentin (NEURONTIN) 200 MG TID PO Clopidogrel Bisulfate (Plavix) 75 MG DAILY PO Polyethylene Glycol (MIRALAX) 17 GM DAILY PO Levothyroxine Sodium (Synthroid) 200 MCG DAILY 0600 PO Pantoprazole (PROTONIX) 40 MG DAILY@0600 PO Atorvastatin Calcium (LIPITOR) 40 MG 2100 PO Docusate Sodium (COLACE) 100 MG BID PO Metoprolol Tartrate (LOPRESSOR) 12.5 MG Q12HR PO (DC) Mupirocin (BACTROBAN 2% 22 GM OINTMENT) 1 APPLIC BID NASAL Sennosides (Senna Lax 8.6 MG TABLET) 17.2 MG BEDTIME PO Aspirin (ASPIRIN) 81 MG DAILY PO Ipratropium [place] (ATROVENT) 500 MCG RTQ4H INH Amiodarone HCl (CORDARONE) 200 MG TID PO Acetaminophen (TYLENOL) 650 MG Q4H PRN PRN PO Acetaminophen (TYLENOL) 650 MG Q4H PRN PRN RECTAL Calcium Chloride (CALCIUM CHLORIDE) 1 GM ASDIR PRN IV Dextrose/Water (DEXTROSE 10% IN WATER) 125 ML ASDIR PRN IV (CKD) Dextrose/Water (DEXTROSE 10% IN WATER) 250 ML ASDIR PRN IV (CKD) Glucagon (GLUCAGON) 1 MG ASDIR PRN IM Magnesium Sulfate (MAGNESIUM SULFATE 4GM/SWFI 100ML) 100 ML ASDIR PRN IV Magnesium Sulfate (MAGNESIUM SULFATE 2GM/SWFI 50ML) 50 ML ASDIR PRN IV Magnesium Sulfate/Dextrose (MAGNESIUM SULFATE 1GM/D5W 100ML) 100 ML ASDIR PRN IV Ondansetron HCl (ZOFRAN) 4 MG Q6H PRN PRN IV Oxycodone HCl (ROXICODONE) 5 MG Q4H PRN PRN PO Oxycodone HCl (ROXICODONE) 10 MG Q4H PRN PRN PO Potassium Chloride (KCL 20MEQ/SWFI 100ML) 100 ML ASDIR PRN IV Sodium Bicarbonate (SODIUM BICARBONATE) 50 MEQ ASDIR PRN IV Results Findings/Data: Laboratory Tests 03/19 1633 1118 Chemistry Sodium (134 - 147 mEq/L) 132 L Potassium (3.4 - 5.0 mEq/L) 4.5 Chloride (100 - 108 mEq/L) 99 L Carbon Dioxide (21 - 33 mEq/l) 25 Anion Gap (0 - 20) 13 BUN (7 - 25 mg/dL) 17 Creatinine (0.6 - 1.3 mg/dL) 1.1 Glomerular Filtr Rate (80 - 90) 74.5 L Glucose (77 - 141 mg/dL) 199 H POC Glucose (70 - 110 MG/DL) 199 H 236 H 252 H Calcium (8.0 - 10.5 mg/dL) 8.6 Magnesium (1.6 - 2.6 mg/dL) 1.93 Total Bilirubin (0.0 - 1.0 mg/dL) 0.80 Direct Bilirubin (0.1 - 0.3 MG/DL) 0.40 H Indirect Bilirubin (MG/DL) 0.40 AST (8 - 34 IUnit/L) 29 ALT (10 - 49 IUnit/L) 24 Total Alk Phosphatase (20 - 125 IUnit/L) 57 Total Protein (5.7 - 8.2 g/dL) 6.5 Albumin (3.4 - 5.0 g/dL) 3.50 Laboratory Tests 03/19 305 Hematology WBC (4.5 - 11.0 x10 3/uL) 12.4 H RBC (4.00 - 5.60 x10 6/uL) 3.58 L Hgb (12.5 - 16.9 g/dL) 11.7 L Hct (37.5 - 50.7 %) 35.0 L MCV (81.0 - 99.0 fL) 97.8 MCH (27.0 - 33.0 pg) 32.7 MCHC (33.0 - 37.0 g/dL) 33.4 RDW (11.5 - 14.5 %) 12.9 Plt Count (150 - 400 x10 3/uL) 101 L MPV (7.0 - 9.0 fL) 10.6 H Neut % (Auto) (56.0 - 77.0 %) 75.0 Lymph % (Auto) (14.0 - 32.0 %) 11.0 L Potter % (Auto) (4.8 - 9.0 %) 12.4 H Eos % (Auto) (0.3 - 3.7 %) 0.7 Baso % (Auto) (0.0 - 2.0 %) 0.3 Neut # (Auto) (2.0 - 7.6 x10 3/uL) 9.26 H Lymph # (Auto) (1.0 - 3.8 x10 3/uL) 1.36 Potter # (Auto) (0.1 - 0.8 x10 3/uL) 1.53 H Eos # (Auto) (0.0 - 0.2 x10 3/uL) 0.09 Baso # (Auto) (0.0 - 0.2 x10 3/uL) 0.04 Abs Immat Gran (auto) (0.00 - 0.03 x10 3/uL) 0.07 H Immature Gran % (0.0 - 2.0 %) 0.6 Nucleated RBC % (0 - 0 %) 0.0 Nucleated RBCs # (Man) (0.0 - 0.1 x10 3/uL) 0.00 Results: labs reviewed, vital signs stable, dontem personally rev'd, current med profile rev'd Diagnosis, Assessment Plan Free Text A P: Patient is a 64 year old male with a pmhx of HTN, HLD, DM, hypothyroidism, and current chewing tobacco use. Patient initially went to corporate ethics officer Dr. Milian for cardiac clearance for R knee replacement. He was found to have abnormal results on stress testing with inferior and inferiolateral areas of reversible ischemia. Echo shows EF 55-60% with moderate . Patient denies blood thinner use. Left heart cath was completed on 03/05/2025 showing severe multivessel coronary artery disease. Denies hx of chest pain or dypsnea. He ambulates without assistance. Patient will be admitted today for a CABG with aortic valve replacement. Assessment/plan: 1. Hypertension 2. Hyperlipidemia 3. Diabetes mellitus 4. Hypothyroidism 5. Nicotine dependence 6. Coronary artery disease 7. Moderate Admit to CVICU postoperatively Closely monitor hemodynamics Consult hothouse worker Dr. Padilla has seen and examined the patient. The patient will benefit from revascularization to coronary arteries and replacement of aortic valve. Dr. Padilla has explained in great detail the operation, risks, risk STS calculator, benefits, complications, alternatives and complications. The patient acknowledges understanding is willing to proceed with surgery. All questions have been answered. 03/16/25 1. Coronary artery bypass graft surgery x5 (MCGUIRE to LAD, saphenous vein to diagonal, saphenous vein to first marginal, saphenous vein to second marginal, saphenous vein to PDA). 2. Aortic valve replacement (29-mm Inspiris valve). 3. Amputation of left atrial appendage. 4. Posterior pericardiotomy. 5. Endoscopic vein harvest of the right greater saphenous vein. 03/17/25 POD 1 AAO x 3, denies complaints, multimodal pain management On 4LNC, wean as tolerated, encourage I-S use and deep breathing, CXR reviewed, ABG reviewed CTs in place, drained 95/335 cc overnight, will reassess after ambulation Sinus rhythm, monitor hemodynamics closely, epicardial pacing wires on standby, on levo gtt @2 Continue DAPT, metoprolol, amiodarone, and Lipitor Advance diet as tolerated, nutritional supplements, bowel regimen, glycemic control with insulin drip, transition to SSI UOP 660cc overnight, strict I's O's, daily weights DVT Prophylaxis with SCDs, GI prophylaxis with PPI PT/OT, OOB to chair, encourage ambulation Labs reviewed, replace electrolytes as needed Discharge disposition: home with good family support Plan to deline once off insulin and levo gtt Patient seen and examined by Dr Padilla. Plan of care discussed with nurse, patient and interdisciplinary team. All questions answered. 03/18/25 POD 2 AAO x 3, denies complaints, multimodal pain management On 1LNC, wean as tolerated, encourage I-S use and deep breathing, CXR reviewed, ABG reviewed CT in place, drained 60 cc overnight, will DC after ambulation Sinus rhythm, monitor hemodynamics closely, epicardial pacing wires on standby Continue DAPT, metoprolol, amiodarone, and Lipitor Advance diet as tolerated, nutritional supplements, bowel regimen, glycemic control SSI, MOM today UOP 575cc overnight, strict I's O's, daily weights DVT Prophylaxis with SCDs, GI prophylaxis with PPI PT/OT, OOB to chair, encourage ambulation Labs reviewed, replace electrolytes as needed Discharge disposition: home with good family support Continue close monitoring in CCU Patient seen and examined by Dr Padilla. Plan of care discussed with nurse, patient and interdisciplinary team. All questions answered. 03/19/25 POD 3 AAO x 3, reports shortness of breath, denies chest pain On 4LNC, wean as tolerated, encourage I-S use and deep breathing, CXR reviewed, ABG reviewed Went into A-fib RVR, given amio bolus and continued amio gtt, push of metoprolol , monitor hemodynamics closely, epicardial pacing wires on standby Continue DAPT, metoprolol 12.5 Q8H, amiodarone, and Lipitor Tolerating diet, nutritional supplements, bowel regimen, glycemic control SSI, suppository today UOP 1125cc overnight, strict I's O's, daily weights, weight up, Lasix today DVT Prophylaxis with SCDs, GI prophylaxis with PPI DVT study ordered PT/OT, OOB to chair, encourage ambulation Labs reviewed, replace electrolytes as needed Discharge disposition: home with good family support Continue close monitoring in CCU Patient seen and examined by Dr Padilla. Plan of care discussed with nurse, patient and interdisciplinary team. All questions answered. Code status: full code Plan discussed with: patient, collaborating MD, nurse, interdisc care team at 1116 at 1321 RPT #:[id number] END OF REPORT [facility] 2025-03-19 08:09:00 [facility]) Critical Care Progress Note REPORT#:[id number] REPORT STATUS: Signed REPORT INITIALIZATION DATE:03/19/25 TIME: 808 PATIENT: LAKEISHA NORRIS UNIT #: [id number] ROOM/BED: 3305-1 : 59 AGE: 64 SEX: M ATTEND: Marlene Padilla MD ADM AUTHOR: Melida Combs REPT SERVICE DT/TIME: 03/19/25 08 * ALL edits or amendments must be made on the electronic/computer document * Subjective Chief complaint: cad HPI: Patient is a 64-year-old male history of hypertension hyperlipidemia diabetes hypothyroidism and hemorrhoids. Patient was undergoing cardiac clearance for knee replacement and found to have multivessel coronary artery disease. He was taken to the operating room today for planned CABG. Patient had central line and arterial lines placed along with Suarez and he was intubated. Prior to incision it was noted that he had bright red blood per rectum along with clots. At that time CV surgery discussed case with GI. Decision was made to abort surgery for further evaluation of GI bleeding. Patient is in the CVICU waking up from sedation on minimal vent settings. Patient cleared from GI surgery for surgery today. Patient underwent CABG x 5 with AVR. He is in the CVICU now for postoperative care. He is extubated to BiPAP. He does not appear in distress and is slowly waking up from sedation. He is on nitro at 10. His pre and postoperative echo showed normal EF. His EBL was 300. He received a 80 of Cell Saver and 1 L of crystalloid. Urine output was 1050 throughout the case. He is currently normal sinus rhythm. [address] Postop labs, EKG, chest x-ray pending. 03/17 Patient seen evaluated bedside. No acute events overnight. Still on small dose of Levophed this morning however he has since off. Pain is well-controlled. He is out of bed to chair. Comments: Seen and examined Chart reviewed S/pm CABG x5, AVR, day 3 AFIB RVR this am, amio at 1mg. 2L NC Pain at acceptable level. Objective General VS/I O Last Documented: Result Date Time Pulse Ox 95 03/19 727 O2 Delivery Nasal cannula 03/19 727 O2 Flow Rate 4 03/19 727 Temp 98.0 03/18 2000 Pulse 129 03/18 1833 Resp 19 03/18 1833 B/P 126/69 03/18 1830 B/P Mean 91 03/18 1830 FiO2 36 03/17 1938 24 hour I O ending at 0700: 03/19 0700 03/18 1900 Intake Total 534.00 340.00 Output Total 1125 300 Balance -591.00 40.00 Intake, IV 294.00 100.00 Intake, Oral 240 240 Output, Urine 1125 300 Patient 147.2 kg Weight Weight Standing scale Measurement Method PATIENT WEIGHT: Weight (lb): 324 Weight (oz): 8.33 Weight (kg): 147.200 Medications: Active Meds + DC'd Last 24 Hrs Ipratropium [place] (ATROVENT) 500 MCG RTQ2H PRN PRN INH Cyanocobalamin (Vitamin B-12 500 mcg tab) 500 MCG DAILY PO Ferrous Sulfate (FERROUS SULFATE) 325 MG DAILY PO Furosemide (LASIX 20MG INJ) 20 MG ONCE ONE IV (DC) Amiodarone HCl (NEXTERONE 360MG/D5W 200ML) 200 ML ASDIR IV (CKD) Amiodarone HCl (NEXTERONE 150MG/D5W 100ML) 100 ML .STK-MED ONE IV (DC) Amiodarone HCl (NEXTERONE 150MG/D5W 100ML) 100 ML STAT STA IV (DC) Metoprolol Tartrate (LOPRESSOR) 2.5 MG ONCE ONE IV (DC) Bisacodyl (DULCOLAX) 10 MG ONCE PRN RECTAL Magnesium Hydroxide (MILK OF MAGNESIA) 30 ML ONCE PRN PO Insulin Human Lispro (Admelog) 0 AC HS SUBQ Gabapentin (NEURONTIN) 200 MG TID PO Clopidogrel Bisulfate (Plavix) 75 MG DAILY PO Polyethylene Glycol (MIRALAX) 17 GM DAILY PO Levothyroxine Sodium (Synthroid) 200 MCG DAILY 0600 PO Pantoprazole (PROTONIX) 40 MG DAILY@0600 PO Atorvastatin Calcium (LIPITOR) 40 MG 2100 PO Docusate Sodium (COLACE) 100 MG BID PO Metoprolol Tartrate (LOPRESSOR) 12.5 MG Q12HR PO Mupirocin (BACTROBAN 2% 22 GM OINTMENT) 1 APPLIC BID NASAL Sennosides (Senna Lax 8.6 MG TABLET) 17.2 MG BEDTIME PO Aspirin (ASPIRIN) 81 MG DAILY PO Ipratropium [place] (ATROVENT) 500 MCG RTQ4H INH Amiodarone HCl (CORDARONE) 200 MG TID PO Acetaminophen (TYLENOL) 650 MG Q4H PRN PRN PO Acetaminophen (TYLENOL) 650 MG Q4H PRN PRN RECTAL Calcium Chloride (CALCIUM CHLORIDE) 1 GM ASDIR PRN IV Dextrose/Water (DEXTROSE 10% IN WATER) 125 ML ASDIR PRN IV (CKD) Dextrose/Water (DEXTROSE 10% IN WATER) 250 ML ASDIR PRN IV (CKD) Glucagon (GLUCAGON) 1 MG ASDIR PRN IM Magnesium Sulfate (MAGNESIUM SULFATE 4GM/SWFI 100ML) 100 ML ASDIR PRN IV Magnesium Sulfate (MAGNESIUM SULFATE 2GM/SWFI 50ML) 50 ML ASDIR PRN IV Magnesium Sulfate/Dextrose (MAGNESIUM SULFATE 1GM/D5W 100ML) 100 ML ASDIR PRN IV Ondansetron HCl (ZOFRAN) 4 MG Q6H PRN PRN IV Oxycodone HCl (ROXICODONE) 5 MG Q4H PRN PRN PO Oxycodone HCl (ROXICODONE) 10 MG Q4H PRN PRN PO Potassium Chloride (KCL 20MEQ/SWFI 100ML) 100 ML ASDIR PRN IV Sodium Bicarbonate (SODIUM BICARBONATE) 50 MEQ ASDIR PRN IV Post-op: day 3 Status post: CABG x5 Results Findings/data: Laboratory Tests 03/19 03/18 03/18 03/18 0305 2005 1633 1118 Chemistry Sodium (134 - 147 mEq/L) 132 L Potassium (3.4 - 5.0 mEq/L) 4.5 Chloride (100 - 108 mEq/L) 99 L Carbon Dioxide (21 - 33 mEq/l) 25 Anion Gap (0 - 20) 13 BUN (7 - 25 mg/dL) 17 Creatinine (0.6 - 1.3 mg/dL) 1.1 Glomerular Filtr Rate (80 - 90) 74.5 L Glucose (77 - 141 mg/dL) 199 H POC Glucose (70 - 110 MG/DL) 199 H 236 H 252 H Calcium (8.0 - 10.5 mg/dL) 8.6 Magnesium (1.6 - 2.6 mg/dL) 1.93 Total Bilirubin (0.0 - 1.0 mg/dL) 0.80 Direct Bilirubin (0.1 - 0.3 MG/DL) 0.40 H Indirect Bilirubin (MG/DL) 0.40 AST (8 - 34 IUnit/L) 29 ALT (10 - 49 IUnit/L) 24 Total Alk Phosphatase (20 - 125 IUnit/L) 57 Total Protein (5.7 - 8.2 g/dL) 6.5 Albumin (3.4 - 5.0 g/dL) 3.50 Laboratory Tests 03/19 0305 Hematology WBC (4.5 - 11.0 x10 3/uL) 12.4 H RBC (4.00 - 5.60 x10 6/uL) 3.58 L Hgb (12.5 - 16.9 g/dL) 11.7 L Hct (37.5 - 50.7 %) 35.0 L MCV (81.0 - 99.0 fL) 97.8 MCH (27.0 - 33.0 pg) 32.7 MCHC (33.0 - 37.0 g/dL) 33.4 RDW (11.5 - 14.5 %) 12.9 Plt Count (150 - 400 x10 3/uL) 101 L MPV (7.0 - 9.0 fL) 10.6 H Neut % (Auto) (56.0 - 77.0 %) 75.0 Lymph % (Auto) (14.0 - 32.0 %) 11.0 L Potter % (Auto) (4.8 - 9.0 %) 12.4 H Eos % (Auto) (0.3 - 3.7 %) 0.7 Baso % (Auto) (0.0 - 2.0 %) 0.3 Neut # (Auto) (2.0 - 7.6 x10 3/uL) 9.26 H Lymph # (Auto) (1.0 - 3.8 x10 3/uL) 1.36 Potter # (Auto) (0.1 - 0.8 x10 3/uL) 1.53 H Eos # (Auto) (0.0 - 0.2 x10 3/uL) 0.09 Baso # (Auto) (0.0 - 0.2 x10 3/uL) 0.04 Abs Immat Gran (auto) (0.00 - 0.03 x10 3/uL) 0.07 H Immature Gran % (0.0 - 2.0 %) 0.6 Nucleated RBC % (0 - 0 %) 0.0 Nucleated RBCs # (Man) (0.0 - 0.1 x10 3/uL) 0.00 Laboratory Tests 03/19/25 0305: [Embedded Image Not Available] Results: labs reviewed, vital signs reviewed, rhythm personally rev'd, x-ray personally reviewed, current med profile rev'd Free Text Obj Notes Free Text Obj Notes: GEN: Appears in no acute distress, interactive and conversational HEENT: Atraumatic, normocephalic, moist mucous membranes NECK: Supple, good range of motion, no tenderness, no JVD LUNGS: Symmetrical air entry, no acute respiratory distress, no accessory muscle use CV: irregularly irregular heart rhythm, tachycardia GI: Abdomen is soft, not tender or distended EXT/Musc: LE edema, no cyanosis. Pedal pulses present. Compartments soft Skin: Surgical site clean, dry and intact. Warm to touch NEURO: Awake, alert and oriented x3. No facial droop or focal deficit Treatment Prophylaxis Treatment Prophylaxis Urinary cath status: none Oxygen: nasal cannula CVC/PICC documentation: The data below has been imported from nursing documentation. Any exceptions have been noted below under Provider comments. CVC/PICC insertion date/time: No CVC/PICC Provider comments on imported nursing data: [] Anti-arrhythmics: amiodarone, metoprolol Ulcer prophylaxis: pantoprazole Diagnosis, Assessment Plan Free text A P: 64-year-old male in the CVICU for vent management and preop care pending CABG with active GI bleed Multivessel coronary artery disease Severe Postop day 1 status post CABG x 5 with AVR EVH A SENTHIL PP GI bleed History of hypertension History of hyperlipidemia History of DM History of hypothyroidism 03/19- Plan: Neuro: Multimodal pain control-oxycodone PRN, gabapentin Respiratory: daily CXR and continue to wean the oxygen to off, as needed diuresis. Cardiovascular: Afib RVR this am, amio drip up to 1mg, give MTP 5mg IVP once, will increase MTP to 12.5 mg q8h. cont oral amio, DAPT and statin. Renal: monitor intake and creatinine, as needed diuresis, keep K > 4, mg > 2. GI: Cardiac diet, no bowel movement yet, give MOM 30 ml and bisacodyl supp once now. ENDO: BG control with sliding scale insulin ID: mild leukocytosis, afebrile, cont to mobilize patient, IS use. Hem: Hgb 11.7. DAPT Misc: PT/OT, DVT and GI ppx with SCD and PPI Total critical care time 35 minutes spent treating the patient excluding any procedures performed Orders: Procedure Date/time Status PHOSPHOROUS 03/22 0500 Active CALCIUM IONIZED 03/22 0500 Active PHOSPHOROUS 03/21 0500 Active CALCIUM IONIZED 03/21 0500 Active PHOSPHOROUS 03/20 0500 Active CALCIUM IONIZED 03/20 0500 Active Code status: full code Plan discussed with: patient, consultants, nurse, interdisc care team, pharmacy/ pharmacist at 1620 RPT #:[id number] END OF REPORT [facility] 2025-03-18 17:32:00 [id number] [place] [id number] PATIENT NAME: LAKEISHA NORRIS ADMIT DATE: 03/15/25 ACCOUNT NO: [id number] ROOM NO: 3305 AGE: 64 REPORT TYPE: eELECTROCARDIOGRAM REPORT SEX: M ADMITTING PHYSICIAN:Marlene Padilla MD ATTENDING PHYSICIAN:Marlene Padilla MD Order: [id number] Test Reason : afib rvr Test Date/Time Stamp: SatMar 18 2025 17:32:57 Blood Pressure : */* mmHG Vent. Rate : 136 BPM Atrial Rate : * BPM P-R Int : * ms QRS Dur : 104 ms QT Int : 300 ms P-R-T Axes : * 38 29 degrees QTcB Int : 451 ms Atrial fibrillation with rapid ventricular response Low voltage QRS Nonspecific ST and T wave abnormality Abnormal ECG When compared with ECG of 18-Mar-2025 04:30, Significant changes have occurred Confirmed by MD ORDOÑEZ GERARD ([id number]) on 03/19/2025 5:28:45 PM Referred By: Marlene Padilla Confirmed by: CANDELARIA ORDOÑEZ MD at 1728 PATIENT NAME: LAKEISHA NORRIS [facility] 2025-03-18 11:42:[address] [facility]) Cardiothoracic Surgery Prog REPORT#:[id number] REPORT STATUS: Signed REPORT INITIALIZATION DATE:03/18/25 TIME: 1142 PATIENT: LAKEISHA NORRIS UNIT #: [id number] ROOM/BED: [place] [id number] : 59 AGE: 64 SEX: M ATTEND: Marlene Padilla MD ADM AUTHOR: Sharifa Baker REPT SERVICE DT/TIME: 03/18/25 1142 * ALL edits or amendments must be made on the electronic/computer document * General Post-op: day 2 Status post: 03/16/25 1. Coronary artery bypass graft surgery x5 (MCGUIRE to LAD, saphenous vein to diagonal, saphenous vein to first marginal, saphenous vein to second marginal, saphenous vein to PDA). 2. Aortic valve replacement (29-mm Inspiris valve). 3. Amputation of left atrial appendage. 4. Posterior pericardiotomy. 5. Endoscopic vein harvest of the right greater saphenous vein. Subjective Chief complaint: s/p cabg Review of Systems Constitutional: Reports: fatigue. Denies: chills. Skin: Denies: abrasion, bruising. Allergy/Immun: Denies: allergic reaction. Respiratory: Denies: VALDOVINOS (dyspnea on exertion), parox nocturnal dyspnea. Cardiovascular: Denies: chest pain. GI: Denies: abdominal pain. : Denies: dysuria. Musculoskeletal: Denies: arthritis. All systems rev neg: except as marked Objective General VS/I O Last Documented: Result Date Time Pulse Ox 95 03/18 1105 O2 Delivery Nasal cannula 03/18 1105 O2 Flow Rate 2 03/18 1105 B/P 140/69 03/18 1100 B/P Mean 92 03/18 1100 Pulse 83 03/18 1100 Resp 22 03/18 1100 Temp 98.3 03/18 0400 FiO2 36 03/17 1938 24 hour I O ending at 0700: 03/18 0700 03/17 1900 Intake Total 820.00 1100.00 Output Total 595 1395 Balance 225.00 -295.00 Intake, IV 100.00 600.00 Intake, Oral 720 500 Output, Chest 20 255 Tube Drainage Output, Urine 575 1140 Patient 144.3 kg 144.242 kg Weight Weight Standing scale Measurement Method PATIENT WEIGHT: Weight (lb): 318 Weight (oz): 2.03 Weight (kg): 144.300 Dietitian Nutrition assessment The data set between the solid lines has been imported from the dietitian's assessment. BMI Calculated: 42.0 Nutrition related diagnosis: Morbid obesity Nutrition diagnosis details: BMI 40 or more Nutrition problem: Increased nutrient needs Nutrition etiology: Acute illness Nutrition signs and symptoms: S/P CABG X 5, W/ AVR Nutrition prescription: 1. CONTINUE CARDIAC DIET. ENCOURAGE PO INTAKE DIET ADHERENCE. 2. PROVIDE ENSURE MAX PROTEIN BID 3. RD TO PROVIDE HEART HEALTHY, DIABETIC DIET EDUCATION FEASIBLE Dietitian name: Fatoumata Tavares, DIET Assessment completed: 03/17/25 Physical Exam General appearance: alert, awake, oriented Wound/incision: Location: sternum Site condition: dressing clean dry, no drainage, no ecchymosis HEENT: anicteric, mucosal membranes moist, pupils reactive to light Neck: full range of motion, non-tender Cardiovascular: BP/pulses equal bilat., regular rate rhythm Respiratory: decreased breath sounds Abdomen: soft, non-tender Genitourinary: urine Extremities: dry, moves all, normal capillary refill, normal temperature Musculoskeletal: decreased ROM, painless range of motion Neuro/BANKING MANAGER: alert, oriented X 3 Skin: dry, intact, normal temperature Current Medications Medications: Active Meds + DC'd Last 24 Hrs Ipratropium [place] (ATROVENT) 500 MCG RTQ2H PRN PRN INH Cyanocobalamin (Vitamin B-12 500 mcg tab) 500 MCG DAILY PO Ferrous Sulfate (FERROUS SULFATE) 325 MG DAILY PO Bisacodyl (DULCOLAX) 10 MG ONCE PRN RECTAL Magnesium Hydroxide (MILK OF MAGNESIA) 30 ML ONCE PRN PO Magnesium Hydroxide (MILK OF MAGNESIA) 30 ML ONCE ONE PO (DC) Insulin Human Lispro (Admelog) 0 AC HS SUBQ Gabapentin (NEURONTIN) 200 MG TID PO Clopidogrel Bisulfate (Plavix) 75 MG DAILY PO Polyethylene Glycol (MIRALAX) 17 GM DAILY PO Levothyroxine Sodium (Synthroid) 200 MCG DAILY 0600 PO Pantoprazole (PROTONIX) 40 MG DAILY@0600 PO Vancomycin HCl (VANCOMYCIN HCL) 1,000 MG Q12H IV (DC) Sodium Chloride (SODIUM CHLORIDE 0.9%) 250 ML Methocarbamol (ROBAXIN) 500 MG Q8HR IV (DC) Atorvastatin Calcium (LIPITOR) 40 MG 2100 PO Docusate Sodium (COLACE) 100 MG BID PO Metoprolol Tartrate (LOPRESSOR) 12.5 MG Q12HR PO (r) Mupirocin (BACTROBAN 2% 22 GM OINTMENT) 1 APPLIC BID NASAL Sennosides (Senna Lax 8.6 MG TABLET) 17.2 MG BEDTIME PO Aspirin (ASPIRIN) 81 MG DAILY PO Ipratropium [place] (ATROVENT) 500 MCG RTQ4H INH Amiodarone HCl (CORDARONE) 200 MG TID PO Acetaminophen (TYLENOL) 650 MG Q4H PRN PRN PO Acetaminophen (TYLENOL) 650 MG Q4H PRN PRN RECTAL Albumin Human (ALBUMINAR 25%) 25 GM ASDIR PRN IV (DC) Calcium Chloride (CALCIUM CHLORIDE) 1 GM ASDIR PRN IV Dextrose/Water (DEXTROSE 10% IN WATER) 125 ML ASDIR PRN IV (CKD) Dextrose/Water (DEXTROSE 10% IN WATER) 250 ML ASDIR PRN IV (CKD) Epinephrine (ADRENALIN CHLORIDE) 4 MG ASDIR IV (DC) Dextrose/Water (DEXTROSE 5% WATER) 246 ML Glucagon (GLUCAGON) 1 MG ASDIR PRN IM Magnesium Sulfate (MAGNESIUM SULFATE 4GM/SWFI 100ML) 100 ML ASDIR PRN IV Magnesium Sulfate (MAGNESIUM SULFATE 2GM/SWFI 50ML) 50 ML ASDIR PRN IV Magnesium Sulfate/Dextrose (MAGNESIUM SULFATE 1GM/D5W 100ML) 100 ML ASDIR PRN IV Norepinephrine/Dextrose (Norepinephrine 8 MG/D5W 250 mL) 250 ML TITRATE IV (DC) Ondansetron HCl (ZOFRAN) 4 MG Q6H PRN PRN IV Oxycodone HCl (ROXICODONE) 5 MG Q4H PRN PRN PO Oxycodone HCl (ROXICODONE) 10 MG Q4H PRN PRN PO Potassium Chloride (KCL 20MEQ/SWFI 100ML) 100 ML ASDIR PRN IV Sodium Bicarbonate (SODIUM BICARBONATE) 50 MEQ ASDIR PRN IV Results Findings/Data: Laboratory Tests 03/18 03/17 03/17 03/17 0306 2043 1718 1533 Chemistry Sodium (134 - 147 mEq/L) 136 136 Potassium (3.4 - 5.0 mEq/L) 4.4 4.4 Chloride (100 - 108 mEq/L) 102 104 Carbon Dioxide (21 - 33 mEq/l) 24 23 Anion Gap (0 - 20) 15 14 BUN (7 - 25 mg/dL) 12 14 Creatinine (0.6 - 1.3 mg/dL) 1.1 1.1 Glomerular Filtr Rate (80 - 90) 74.5 L 74.5 L Glucose (77 - 141 mg/dL) 174 H 210 H POC Glucose (70 - 110 MG/DL) 192 H 207 H Calcium (8.0 - 10.5 mg/dL) 9.0 8.3 Phosphorus (2.5 - 4.9 MG/DL) 2.2 L Magnesium (1.6 - 2.6 mg/dL) 2.09 1.97 Total Bilirubin (0.0 - 1.0 mg/dL) 1.20 H Direct Bilirubin (0.1 - 0.3 MG/DL) 0.50 H Indirect Bilirubin (MG/DL) 0.70 AST (8 - 34 IUnit/L) 34 ALT (10 - 49 IUnit/L) 21 Total Alk Phosphatase (20 - 125 IUnit/L) 50 Total Protein (5.7 - 8.2 g/dL) 6.9 Albumin (3.4 - 5.0 g/dL) 4.10 Laboratory Tests 03/18 0306 Hematology WBC (4.5 - 11.0 x10 3/uL) 13.6 H RBC (4.00 - 5.60 x10 6/uL) 4.02 Hgb (12.5 - 16.9 g/dL) 13.0 Hct (37.5 - 50.7 %) 40.4 MCV (81.0 - 99.0 fL) 100.5 H MCH (27.0 - 33.0 pg) 32.3 MCHC (33.0 - 37.0 g/dL) 32.2 L RDW (11.5 - 14.5 %) 13.2 Plt Count (150 - 400 x10 3/uL) 101 L MPV (7.0 - 9.0 fL) 9.7 H Neut % (Auto) (56.0 - 77.0 %) 72.3 Lymph % (Auto) (14.0 - 32.0 %) 11.9 L Potter % (Auto) (4.8 - 9.0 %) 14.8 H Eos % (Auto) (0.3 - 3.7 %) 0.1 L Baso % (Auto) (0.0 - 2.0 %) 0.4 Neut # (Auto) (2.0 - 7.6 x10 3/uL) 9.79 H Lymph # (Auto) (1.0 - 3.8 x10 3/uL) 1.61 Potter # (Auto) (0.1 - 0.8 x10 3/uL) 2.01 H Eos # (Auto) (0.0 - 0.2 x10 3/uL) 0.02 Baso # (Auto) (0.0 - 0.2 x10 3/uL) 0.06 Abs Immat Gran (auto) (0.00 - 0.03 x10 3/uL) 0.07 H Immature Gran % (0.0 - 2.0 %) 0.5 Nucleated RBC % (0 - 0 %) 0.0 Nucleated RBCs # (Man) (0.0 - 0.1 x10 3/uL) 0.00 Results: labs reviewed, vital signs stable, melonie personally rev'd, current med profile rev'd Diagnosis, Assessment Plan Free Text A P: Patient is a 64 year old male with a pmhx of HTN, HLD, DM, hypothyroidism, and current chewing tobacco use. Patient initially went to corporate ethics officer Dr. Milian for cardiac clearance for R knee replacement. He was found to have abnormal results on stress testing with inferior and inferiolateral areas of reversible ischemia. Echo shows EF 55-60% with moderate . Patient denies blood thinner use. Left heart cath was completed on 03/05/2025 showing severe multivessel coronary artery disease. Denies hx of chest pain or dypsnea. He ambulates without assistance. Patient will be admitted today for a CABG with aortic valve replacement. Assessment/plan: 1. Hypertension 2. Hyperlipidemia 3. Diabetes mellitus 4. Hypothyroidism 5. Nicotine dependence 6. Coronary artery disease 7. Moderate Admit to CVICU postoperatively Closely monitor hemodynamics Consult hothouse worker Dr. Padilla has seen and examined the patient. The patient will benefit from revascularization to coronary arteries and replacement of aortic valve. Dr. Padilla has explained in great detail the operation, risks, risk STS calculator, benefits, complications, alternatives and complications. The patient acknowledges understanding is willing to proceed with surgery. All questions have been answered. 03/16/25 1. Coronary artery bypass graft surgery x5 (MCGUIRE to LAD, saphenous vein to diagonal, saphenous vein to first marginal, saphenous vein to second marginal, saphenous vein to PDA). 2. Aortic valve replacement (29-mm Inspiris valve). 3. Amputation of left atrial appendage. 4. Posterior pericardiotomy. 5. Endoscopic vein harvest of the right greater saphenous vein. 03/17/25 POD 1 AAO x 3, denies complaints, multimodal pain management On 4LNC, wean as tolerated, encourage I-S use and deep breathing, CXR reviewed, ABG reviewed CTs in place, drained 95/335 cc overnight, will reassess after ambulation Sinus rhythm, monitor hemodynamics closely, epicardial pacing wires on standby, on levo gtt @2 Continue DAPT, metoprolol, amiodarone, and Lipitor Advance diet as tolerated, nutritional supplements, bowel regimen, glycemic control with insulin drip, transition to SSI UOP 660cc overnight, strict I's O's, daily weights DVT Prophylaxis with SCDs, GI prophylaxis with PPI PT/OT, OOB to chair, encourage ambulation Labs reviewed, replace electrolytes as needed Discharge disposition: home with good family support Plan to deline once off insulin and levo gtt Patient seen and examined by Dr Padilla. Plan of care discussed with nurse, patient and interdisciplinary team. All questions answered. 03/18/25 POD 2 AAO x 3, denies complaints, multimodal pain management On 1LNC, wean as tolerated, encourage I-S use and deep breathing, CXR reviewed, ABG reviewed CT in place, drained 60 cc overnight, will DC after ambulation Sinus rhythm, monitor hemodynamics closely, epicardial pacing wires on standby Continue DAPT, metoprolol, amiodarone, and Lipitor Advance diet as tolerated, nutritional supplements, bowel regimen, glycemic control SSI, MOM today UOP 575cc overnight, strict I's O's, daily weights DVT Prophylaxis with SCDs, GI prophylaxis with PPI PT/OT, OOB to chair, encourage ambulation Labs reviewed, replace electrolytes as needed Discharge disposition: home with good family support Continue close monitoring in CCU Patient seen and examined by Dr Padilla. Plan of care discussed with nurse, patient and interdisciplinary team. All questions answered. Code status: full code Plan discussed with: patient, collaborating MD, nurse, interdisc care team at 1145 at 0248 RPT #:[id number] END OF REPORT [facility] 2025-03-18 10:35:00 [facility] ([facility] Hospitalist Progress Note REPORT#:[id number] REPORT STATUS: Signed REPORT INITIALIZATION DATE:03/18/25 TIME: 103 PATIENT: LAKEISHA NORRIS UNIT #: [id number] ROOM/BED: 3305-1 : 59 AGE: 64 SEX: M ATTEND: Marlene Padilla MD ADM AUTHOR: Shara Celestin MD REPT SERVICE DT/TIME: 03/18/25 1035 * ALL edits or amendments must be made on the electronic/computer document * Subjective Chief complaint: sit on chair . no sob Review of Systems All systems rev neg: except as noted Objective General VS/I O: Vital Signs: Date Time Temp Pulse Resp B/P B/P Pulse O2 O2 Flow FiO2 Mean Ox Delivery Rate 07/03 0830 Nasal 2 cannula 07/03 0720 93 Nasal 4 cannula 07/03 0600 84 25 91 07/03 0500 85 23 93 07/03 0400 36.8 07/03 0400 Nasal 1 cannula 07/03 0400 82 20 96 07/03 0317 83 20 123/73 91 96 07/03 0300 82 35 95 07/03 0230 84 24 142/78 104 96 07/03 0200 83 19 141/74 100 96 07/03 0130 84 18 138/71 97 95 07/03 0100 83 17 136/72 98 94 07/03 0030 86 23 132/71 94 93 07/03 0015 96 Nasal 4 cannula 07/03 0000 36.7 07/03 0000 Nasal 1 cannula 07/03 0000 83 19 129/74 95 94 07/02 2330 85 116/73 91 97 07/02 2300 87 125/76 96 97 07/02 2230 85 23 124/74 93 97 07/02 2130 85 20 144/68 98 98 07/02 2100 85 22 128/75 97 97 07/02 2042 86 132/76 98 97 07/02 1999 37.1 07/02 1999 Nasal 1 cannula 07/02 1999 85 20 95 07/02 1938 96 Nasal 4 36 cannula 07/02 1930 85 21 128/68 90 96 07/02 1900 88 139/63 90 93 07/02 1831 86 33 146/76 104 94 07/02 1800 85 21 123/65 87 94 07/02 1730 151/60 81 07/02 1730 38.4 85 31 127/68 91 96 07/02 1700 147/56 78 07/02 1700 38.3 83 25 117/56 80 96 07/02 1630 165/67 90 07/02 1630 38.2 88 46 137/73 96 96 07/02 1600 Nasal 2 cannula 07/02 1600 139/58 77 07/02 1600 38.1 83 21 121/64 85 96 07/02 1530 127/60 82 07/02 1530 38.0 83 34 131/66 89 98 07/02 1500 134/65 83 07/02 1500 37.8 84 25 125/72 91 98 07/02 1431 37.8 82 22 124/60 87 100 07/02 1400 136/60 79 07/02 1400 37.7 80 18 129/62 87 96 07/02 1330 135/59 79 07/02 1330 37.7 79 18 115/63 83 97 07/02 1300 128/59 77 07/02 1300 37.6 77 20 113/66 84 94 07/02 1230 127/57 75 07/02 1230 37.6 80 31 112/62 81 95 07/02 1200 Nasal 2 cannula 07/02 1200 132/61 81 07/02 1200 37.6 82 32 118/68 86 96 07/02 1131 133/67 84 07/02 1131 37.5 78 23 118/64 86 97 07/02 1100 121/62 79 07/02 1100 37.6 80 22 119/68 88 95 24 hour I O ending at 0700: 03/18 0700 07/ 1900 Intake Total 820.00 1100.00 Output Total 595 1395 Balance 225.00 -295.00 Intake, IV 100.00 600.00 Intake, Oral 720 500 Output, Chest 20 255 Tube Drainage Output, Urine 575 1140 Patient 144.3 kg 144.242 kg Weight Weight Standing scale Measurement Method PATIENT WEIGHT: Weight (lb): 318 Weight (oz): 2.03 Weight (kg): 144.300 Medications: Active Meds + DC'd Last 24 Hrs Ipratropium [place] (ATROVENT) 500 MCG RTQ2H PRN PRN INH Cyanocobalamin (Vitamin B-12 500 mcg tab) 500 MCG DAILY PO Ferrous Sulfate (FERROUS SULFATE) 325 MG DAILY PO Bisacodyl (DULCOLAX) 10 MG ONCE PRN RECTAL Magnesium Hydroxide (MILK OF MAGNESIA) 30 ML ONCE PRN PO Magnesium Hydroxide (MILK OF MAGNESIA) 30 ML ONCE ONE PO (DC) Insulin Human Lispro (Admelog) 0 AC HS SUBQ Gabapentin (NEURONTIN) 200 MG TID PO Clopidogrel Bisulfate (Plavix) 75 MG DAILY PO Polyethylene Glycol (MIRALAX) 17 GM DAILY PO Levothyroxine Sodium (Synthroid) 200 MCG DAILY 0600 PO Pantoprazole (PROTONIX) 40 MG DAILY@0600 PO Vancomycin HCl (VANCOMYCIN HCL) 1,000 MG Q12H IV (DC) Sodium Chloride (SODIUM CHLORIDE 0.9%) 250 ML Methocarbamol (ROBAXIN) 500 MG Q8HR IV (DC) Atorvastatin Calcium (LIPITOR) 40 MG 2100 PO Docusate Sodium (COLACE) 100 MG BID PO Metoprolol Tartrate (LOPRESSOR) 12.5 MG Q12HR PO (r) Mupirocin (BACTROBAN 2% 22 GM OINTMENT) 1 APPLIC BID NASAL Sennosides (Senna Lax 8.6 MG TABLET) 17.2 MG BEDTIME PO Aspirin (ASPIRIN) 81 MG DAILY PO Ipratropium [place] (ATROVENT) 500 MCG RTQ4H INH Amiodarone HCl (CORDARONE) 200 MG TID PO Acetaminophen (TYLENOL) 650 MG Q4H PRN PRN PO Acetaminophen (TYLENOL) 650 MG Q4H PRN PRN RECTAL Albumin Human (ALBUMINAR 25%) 25 GM ASDIR PRN IV (DC) Calcium Chloride (CALCIUM CHLORIDE) 1 GM ASDIR PRN IV Cefazolin Sodium (KEFZOL OR ANCEF) 6 GM ONCE ONE IV (DC) Sodium Chloride (NS 0.9%) 500 ML Dextrose/Water (DEXTROSE 10% IN WATER) 125 ML ASDIR PRN IV (CKD) Dextrose/Water (DEXTROSE 10% IN WATER) 250 ML ASDIR PRN IV (CKD) Epinephrine (ADRENALIN CHLORIDE) 4 MG ASDIR IV (DC) Dextrose/Water (DEXTROSE 5% WATER) 246 ML Glucagon (GLUCAGON) 1 MG ASDIR PRN IM Magnesium Sulfate (MAGNESIUM SULFATE 4GM/SWFI 100ML) 100 ML ASDIR PRN IV Magnesium Sulfate (MAGNESIUM SULFATE 2GM/SWFI 50ML) 50 ML ASDIR PRN IV Magnesium Sulfate/Dextrose (MAGNESIUM SULFATE 1GM/D5W 100ML) 100 ML ASDIR PRN IV Norepinephrine/Dextrose (Norepinephrine 8 MG/D5W 250 mL) 250 ML TITRATE IV (DC) Ondansetron HCl (ZOFRAN) 4 MG Q6H PRN PRN IV Oxycodone HCl (ROXICODONE) 5 MG Q4H PRN PRN PO Oxycodone HCl (ROXICODONE) 10 MG Q4H PRN PRN PO Potassium Chloride (KCL 20MEQ/SWFI 100ML) 100 ML ASDIR PRN IV Sodium Bicarbonate (SODIUM BICARBONATE) 50 MEQ ASDIR PRN IV Physical Exam General appearance: alert, awake, oriented Head/Eyes: clear cornea, EOMI Neck: non-tender Cardiovascular: normal heart sounds, regular rate rhythm Respiratory: aerating well, clear to auscultation Abdomen: non-tender, normal bowel sounds, soft, no distention Extremities: moves all, no edema Neuro/BANKING MANAGER: alert, oriented X 3, CNII-XII intact, normal speech, no motor deficits, no sensory deficits Skin: dry, intact Results Findings/Data: Laboratory Tests 03/18 03/17 03/17 03/17 03/17 0306 2043 1718 1533 1141 Chemistry Sodium (134 - 147 mEq/L) 136 136 Potassium (3.4 - 5.0 mEq/L) 4.4 4.4 Chloride (100 - 108 mEq/L) 102 104 Carbon Dioxide (21 - 33 mEq/l) 24 23 Anion Gap (0 - 20) 15 14 BUN (7 - 25 mg/dL) 12 14 Creatinine (0.6 - 1.3 mg/dL) 1.1 1.1 Glomerular Filtr Rate (80 - 90) 74.5 L 74.5 L Glucose (77 - 141 mg/dL) 174 H 210 H POC Glucose (70 - 110 MG/DL) 192 H 207 H 215 H Calcium (8.0 - 10.5 mg/dL) 9.0 8.3 Phosphorus (2.5 - 4.9 MG/DL) 2.2 L Magnesium (1.6 - 2.6 mg/dL) 2.09 1.97 Total Bilirubin (0.0 - 1.0 mg/dL) 1.20 H Direct Bilirubin (0.1 - 0.3 MG/DL) 0.50 H Indirect Bilirubin (MG/DL) 0.70 AST (8 - 34 IUnit/L) 34 ALT (10 - 49 IUnit/L) 21 Total Alk Phosphatase (20 - 125 IUnit/L) 50 Total Protein (5.7 - 8.2 g/dL) 6.9 Albumin (3.4 - 5.0 g/dL) 4.10 Laboratory Tests 03/18 0306 Hematology WBC (4.5 - 11.0 x10 3/uL) 13.6 H RBC (4.00 - 5.60 x10 6/uL) 4.02 Hgb (12.5 - 16.9 g/dL) 13.0 Hct (37.5 - 50.7 %) 40.4 MCV (81.0 - 99.0 fL) 100.5 H MCH (27.0 - 33.0 pg) 32.3 MCHC (33.0 - 37.0 g/dL) 32.2 L RDW (11.5 - 14.5 %) 13.2 Plt Count (150 - 400 x10 3/uL) 101 L MPV (7.0 - 9.0 fL) 9.7 H Neut % (Auto) (56.0 - 77.0 %) 72.3 Lymph % (Auto) (14.0 - 32.0 %) 11.9 L Potter % (Auto) (4.8 - 9.0 %) 14.8 H Eos % (Auto) (0.3 - 3.7 %) 0.1 L Baso % (Auto) (0.0 - 2.0 %) 0.4 Neut # (Auto) (2.0 - 7.6 x10 3/uL) 9.79 H Lymph # (Auto) (1.0 - 3.8 x10 3/uL) 1.61 Potter # (Auto) (0.1 - 0.8 x10 3/uL) 2.01 H Eos # (Auto) (0.0 - 0.2 x10 3/uL) 0.02 Baso # (Auto) (0.0 - 0.2 x10 3/uL) 0.06 Abs Immat Gran (auto) (0.00 - 0.03 x10 3/uL) 0.07 H Immature Gran % (0.0 - 2.0 %) 0.5 Nucleated RBC % (0 - 0 %) 0.0 Nucleated RBCs # (Man) (0.0 - 0.1 x10 3/uL) 0.00 Radiology data: Recent Impressions: RADIOLOGY - XR CHEST 1 V 03/15 0278 Report Impression - Status: SIGNED Entered: 03/15/2025 4742 IMPRESSION: Basilar atelectatic change. Electronically signed by: Abel Shah MD 03/15/2025 05:06 PM CDT Impression By: [email or web address] - Abel Shah, M.D. RADIOLOGY - XR CHEST 1 V 03/16 0537 Report Impression - Status: SIGNED Entered: 03/16/2025 1353 IMPRESSION: 1. Interval extubation. 2. The lungs are clear. 3. Mild cardiomegaly. Electronically signed by: Hemal Chiang MD 03/16/2025 01:51 PM CDT RP Impression By: [email or web address] - Hemal Chiang M.D. RADIOLOGY - XR CHEST 1 V 03/16 1822 Report Impression - Status: SIGNED Entered: 03/16/20254 IMPRESSION: 1. Mild central interstitial infiltrates. 2. Moderate enlargement of the cardiac silhouette, likely related to prior cardiac valve replacement and recent cardiac surgery. 3. Left chest tube. No pneumothorax. Electronically signed by: Linh Ayala MD 03/16/2025 09:23 PM CDT RP Impression By: [email or web address] - Linh Ayala M.D. RADIOLOGY - XR CHEST 1 V 03/17 0635 Report Impression - Status: SIGNED Entered: 03/17/2025 1654 IMPRESSION: 1. Cardiomegaly with pulmonary vascular congestion and interstitial edema. 2. Small bilateral pleural effusions and bibasilar atelectasis. Electronically signed by: Pam Barlow MD 03/17/2025 04:52 PM CDT RP Impression By: [email or web address] Jonah Barlow M.D. 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 may be reaction post surgery pain control PT/OT rectal bleeding -- resolve rectal surgeon consult monitor H H DM-- sliding scale now HTN-- stable . on metoprolol hypothyroid -- continue home med /- sit on the chair . no sob . pain is fair control . no fever -- on O2 . hemodynamic stable . chest tube are out -- review lab and image -- continue monitor in ccu at 1039 RPT #:[id number] END OF REPORT [facility] 2025-03-18 08:33:00 [facility] ([facility]) Gastroenterology Progress Note REPORT#:[id number] REPORT STATUS: Signed REPORT INITIALIZATION DATE:03/18/25 TIME: 832 PATIENT: LAKEISHA NORRIS UNIT #: [id number] ROOM/BED: [place] [address] : 59 AGE: 64 SEX: M ATTEND: Marlene Padilla MD ADM AUTHOR: Keenan Carter MD REPT SERVICE DT/TIME: 03/18/25 08 * ALL edits or amendments must be made on the electronic/computer document * Keenan Carter 03/18/25 0833: Attestations Physician Attestation Agree w/findings plan: Agree with the findings and plan as documented by Justin OSORIO * my personal evaluation is Rectal bleeding CAD CABG + AVR - monitor h/h, transfuse as needed - protonix rx - daily bowel regimen Cash Anderson 03/18/25 1351: Subjective Comments: no nausea, vomiting, or abdominal discomfort. No bowel movement today. Review of Systems Additional notes: 10 point ros neg except hpi Objective General VS/I O: Last Documented: Result Date Time Pulse Ox 90 03/18 1201 B/P 136/75 03/18 1201 B/P Mean 100 03/18 1201 O2 Flow Rate 4 03/18 1201 Temp 98.2 03/18 1201 Pulse 83 03/18 1201 Resp 34 03/18 1201 O2 Delivery Nasal cannula 03/18 1105 FiO2 36 03/17 1938 24 hour I O ending at 0700: 03/18 0700 03/17 1900 Intake Total 820.00 1100.00 Output Total 595 1395 Balance 225.00 -295.00 Intake, IV 100.00 600.00 Intake, Oral 720 500 Output, Chest 20 255 Tube Drainage Output, Urine 575 1140 Patient 144.3 kg 144.242 kg Weight Weight Standing scale Measurement Method PATIENT WEIGHT: Weight (lb): 318 Weight (oz): 2.03 Weight (kg): 144.300 Medications: Active Meds + DC'd Last 24 Hrs Ipratropium [place] (ATROVENT) 500 MCG RTQ2H PRN PRN INH Cyanocobalamin (Vitamin B-12 500 mcg tab) 500 MCG DAILY PO Ferrous Sulfate (FERROUS SULFATE) 325 MG DAILY PO Bisacodyl (DULCOLAX) 10 MG ONCE PRN RECTAL Magnesium Hydroxide (MILK OF MAGNESIA) 30 ML ONCE PRN PO Magnesium Hydroxide (MILK OF MAGNESIA) 30 ML ONCE ONE PO (DC) Insulin Human Lispro (Admelog) 0 AC HS SUBQ Gabapentin (NEURONTIN) 200 MG TID PO Clopidogrel Bisulfate (Plavix) 75 MG DAILY PO Polyethylene Glycol (MIRALAX) 17 GM DAILY PO Levothyroxine Sodium (Synthroid) 200 MCG DAILY 0600 PO Pantoprazole (PROTONIX) 40 MG DAILY@0600 PO Methocarbamol (ROBAXIN) 500 MG Q8HR IV (DC) Atorvastatin Calcium (LIPITOR) 40 MG 2100 PO Docusate Sodium (COLACE) 100 MG BID PO Metoprolol Tartrate (LOPRESSOR) 12.5 MG Q12HR PO (r) Mupirocin (BACTROBAN 2% 22 GM OINTMENT) 1 APPLIC BID NASAL Sennosides (Senna Lax 8.6 MG TABLET) 17.2 MG BEDTIME PO Aspirin (ASPIRIN) 81 MG DAILY PO Ipratropium [place] (ATROVENT) 500 MCG RTQ4H INH Amiodarone HCl (CORDARONE) 200 MG TID PO Acetaminophen (TYLENOL) 650 MG Q4H PRN PRN PO Acetaminophen (TYLENOL) 650 MG Q4H PRN PRN RECTAL Albumin Human (ALBUMINAR 25%) 25 GM ASDIR PRN IV (DC) Calcium Chloride (CALCIUM CHLORIDE) 1 GM ASDIR PRN IV Dextrose/Water (DEXTROSE 10% IN WATER) 125 ML ASDIR PRN IV (CKD) Dextrose/Water (DEXTROSE 10% IN WATER) 250 ML ASDIR PRN IV (CKD) Epinephrine (ADRENALIN CHLORIDE) 4 MG ASDIR IV (DC) Dextrose/Water (DEXTROSE 5% WATER) 246 ML Glucagon (GLUCAGON) 1 MG ASDIR PRN IM Magnesium Sulfate (MAGNESIUM SULFATE 4GM/SWFI 100ML) 100 ML ASDIR PRN IV Magnesium Sulfate (MAGNESIUM SULFATE 2GM/SWFI 50ML) 50 ML ASDIR PRN IV Magnesium Sulfate/Dextrose (MAGNESIUM SULFATE 1GM/D5W 100ML) 100 ML ASDIR PRN IV Norepinephrine/Dextrose (Norepinephrine 8 MG/D5W 250 mL) 250 ML TITRATE IV (DC) Ondansetron HCl (ZOFRAN) 4 MG Q6H PRN PRN IV Oxycodone HCl (ROXICODONE) 5 MG Q4H PRN PRN PO Oxycodone HCl (ROXICODONE) 10 MG Q4H PRN PRN PO Potassium Chloride (KCL 20MEQ/SWFI 100ML) 100 ML ASDIR PRN IV Sodium Bicarbonate (SODIUM BICARBONATE) 50 MEQ ASDIR PRN IV Provider comments: PHYSICAL EXAM General appearance: alert HEENT: dry mucosal membranes, atraumatic, normocephalic Neck: decreased range of motion Cardiovascular: regular rate rhythm Respiratory: no distress Abdomen: non-tender, soft, no distention Extremities: decreased range of motion Musculoskeletal: decreased ROM Neuro/BANKING MANAGER: alert and oriented x 3 Skin: dry, intact Results Findings/Data: Laboratory Tests 03/18/25 0306: [Embedded Image Not Available] 03/17/25 1533: [Embedded Image Not Available] Laboratory Tests 03/18 03/18 03/17 03/17 03/17 1118 0306 2043 1718 1533 Chemistry Sodium (134 - 147 mEq/L) 136 136 Potassium (3.4 - 5.0 mEq/L) 4.4 4.4 Chloride (100 - 108 mEq/L) 102 104 Carbon Dioxide (21 - 33 mEq/l) 24 23 Anion Gap (0 - 20) 15 14 BUN (7 - 25 mg/dL) 12 14 Creatinine (0.6 - 1.3 mg/dL) 1.1 1.1 Glomerular Filtr Rate (80 - 90) 74.5 L 74.5 L Glucose (77 - 141 mg/dL) 174 H 210 H POC Glucose (70 - 110 MG/DL) 252 H 192 H 207 H Calcium (8.0 - 10.5 mg/dL) 9.0 8.3 Phosphorus (2.5 - 4.9 MG/DL) 2.2 L Magnesium (1.6 - 2.6 mg/dL) 2.09 1.97 Total Bilirubin (0.0 - 1.0 mg/dL) 1.20 H Direct Bilirubin (0.1 - 0.3 MG/DL) 0.50 H Indirect Bilirubin (MG/DL) 0.70 AST (8 - 34 IUnit/L) 34 ALT (10 - 49 IUnit/L) 21 Total Alk Phosphatase (20 - 125 50 IUnit/L) Total Protein (5.7 - 8.2 g/dL) 6.9 Albumin (3.4 - 5.0 g/dL) 4.10 Laboratory Tests 03/18 0306 Hematology WBC (4.5 - 11.0 x10 3/uL) 13.6 H RBC (4.00 - 5.60 x10 6/uL) 4.02 Hgb (12.5 - 16.9 g/dL) 13.0 Hct (37.5 - 50.7 %) 40.4 MCV (81.0 - 99.0 fL) 100.5 H MCH (27.0 - 33.0 pg) 32.3 MCHC (33.0 - 37.0 g/dL) 32.2 L RDW (11.5 - 14.5 %) 13.2 Plt Count (150 - 400 x10 3/uL) 101 L MPV (7.0 - 9.0 fL) 9.7 H Neut % (Auto) (56.0 - 77.0 %) 72.3 Lymph % (Auto) (14.0 - 32.0 %) 11.9 L Potter % (Auto) (4.8 - 9.0 %) 14.8 H Eos % (Auto) (0.3 - 3.7 %) 0.1 L Baso % (Auto) (0.0 - 2.0 %) 0.4 Neut # (Auto) (2.0 - 7.6 x10 3/uL) 9.79 H Lymph # (Auto) (1.0 - 3.8 x10 3/uL) 1.61 Potter # (Auto) (0.1 - 0.8 x10 3/uL) 2.01 H Eos # (Auto) (0.0 - 0.2 x10 3/uL) 0.02 Baso # (Auto) (0.0 - 0.2 x10 3/uL) 0.06 Abs Immat Gran (auto) (0.00 - 0.03 x10 3/uL) 0.07 H Immature Gran % (0.0 - 2.0 %) 0.5 Nucleated RBC % (0 - 0 %) 0.0 Nucleated RBCs # (Man) (0.0 - 0.1 x10 3/uL) 0.00 Diagnosis, Assessment Plan Free Text A P: Assessment multivessel CAD, eval for CABG rectal bleeding hx of DM Plan: - pain/emesis control - monitor h/h, hgb reassuring - monitor for rectal bleeding - diet as tolerated - ppi therapy at 1538 at 0957 RPT #:[id number] END OF REPORT [facility] 2025-03-18 06:52:00 [facility] Cardiology Progress Note REPORT#:[id number] REPORT STATUS: Signed REPORT INITIALIZATION DATE:03/18/25 TIME: 651 PATIENT: LAKEISHA NORRIS UNIT #: [id number] ROOM/BED: [place] [address] : 58 AGE: 64 SEX: M ATTEND: Marlene Padilla MD ADM AUTHOR: Candelaria Ordoñez MD REPT SERVICE DT/TIME: 03/18/25 0652 * ALL edits or amendments must be made on the electronic/computer document * Subjective Chief complaint: Weak Objective General VS/I O: 24 hour I O ending at 0700: 03/18 0700 07 1900 Intake Total 820.00 1100.00 Output Total 595 1395 Balance 225.00 -295.00 Intake, IV 100.00 600.00 Intake, Oral 720 500 Output, Chest 20 255 Tube Drainage Output, Urine 575 1140 Patient 144.3 kg 144.242 kg Weight Weight Standing scale Measurement Method Vital Signs: Date Time Temp Pulse Resp B/P B/P Pulse O2 O2 Flow FiO2 Mean Ox Delivery Rate 03/18 0600 84 25 91 03/18 0500 85 23 93 03/18 0400 98.3 03/18 0400 Nasal 1 cannula 03/18 0400 82 20 96 03/18 0317 83 20 123/73 91 96 03/18 0300 82 35 95 03/18 0230 84 24 142/78 104 96 07/03 0200 83 19 141/74 100 96 07/03 0130 84 18 138/71 97 95 07/03 0100 83 17 136/72 98 94 07/03 0030 86 23 132/71 94 93 07/03 0015 96 Nasal 4 cannula 07/03 0000 98.1 07/03 0000 Nasal 1 cannula 07/03 0000 83 19 129/74 95 94 07/02 2330 85 116/73 91 97 07/02 2300 87 125/76 96 97 07/02 2230 85 23 124/74 93 97 07/02 2130 85 20 144/68 98 98 07/02 2100 85 22 128/75 97 97 07/02 2042 86 132/76 98 97 07/02 1999 98.8 07/02 1999 Nasal 1 cannula 07/02 1999 85 20 95 07/02 1938 96 Nasal 4 36 cannula 07/02 1930 85 21 128/68 90 96 07/02 1900 88 139/63 90 93 07/02 1831 86 33 146/76 104 94 07/02 1800 85 21 123/65 87 94 07/02 1730 151/60 81 07/02 1730 101.1 85 31 127/68 91 96 07/02 1700 147/56 78 07/02 1700 100.9 83 25 117/56 80 96 07/02 1630 165/67 90 07/02 1630 100.8 88 46 137/73 96 96 07/02 1600 Nasal 2 cannula 07/02 1600 139/58 77 07/02 1600 100.6 83 21 121/64 85 96 07/02 1530 127/60 82 07/02 1530 100.4 83 34 131/66 89 98 07/02 1500 134/65 83 07/02 1500 100.0 84 25 125/72 91 98 07/02 1431 100.0 82 22 124/60 87 100 07/02 1400 136/60 79 07/02 1400 99.9 80 18 129/62 87 96 07/02 1330 135/59 79 07/02 1330 99.9 79 18 115/63 83 97 07/02 1300 128/59 77 07/02 1300 99.7 77 20 113/66 84 94 07/02 1230 127/57 75 07/02 1230 99.7 80 31 112/62 81 95 07/02 1200 Nasal 2 cannula 07/02 1200 132/61 81 07/02 1200 99.7 82 32 118/68 86 96 07/02 1131 133/67 84 07/02 1131 99.5 78 23 118/64 86 97 07/02 1100 121/62 79 07/02 1100 99.7 80 22 119/68 88 95 07/02 1030 114/61 78 07/02 1030 99.9 78 23 121/63 86 93 07/02 0930 122/55 74 07/02 0930 99.7 76 28 111/63 81 95 07/02 0900 124/56 75 07/02 0900 99.9 78 23 100/67 78 95 07/02 0830 131/56 74 07/02 0830 100.0 76 27 108/60 77 95 07/02 0800 Nasal 2 cannula 07/02 0800 129/55 73 07/02 0800 100.0 76 29 109/56 75 96 07/02 0730 118/55 74 07/02 0730 100.0 79 40 107/55 75 95 07/02 0707 100 Nasal 2 cannula 07/02 0700 129/52 71 07/02 0700 100.0 73 25 113/61 82 99 PATIENT WEIGHT: Weight (lb): 318 Weight (oz): 2.03 Weight (kg): 144.300 Medications: Active Meds + DC'd Last 24 Hrs Ipratropium [place] (ATROVENT) 500 MCG RTQ2H PRN PRN INH Cyanocobalamin (Vitamin B-12 500 mcg tab) 500 MCG DAILY PO Ferrous Sulfate (FERROUS SULFATE) 325 MG DAILY PO Bisacodyl (DULCOLAX) 10 MG ONCE PRN RECTAL Magnesium Hydroxide (MILK OF MAGNESIA) 30 ML ONCE PRN PO Insulin Human Lispro (Admelog) 0 AC HS SUBQ Gabapentin (NEURONTIN) 200 MG TID PO Albumin Human (ALBUMINAR 5% 12.5GM/250ML) 250 ML ONCE ONE IV (DC) Calcium Gluconate (Calcium Gluconate 1 GM/NS 50 mL (B2)) 50 ML ONCE ONE IV (DC) Clopidogrel Bisulfate (Plavix) 75 MG DAILY PO Polyethylene Glycol (MIRALAX) 17 GM DAILY PO Levothyroxine Sodium (Synthroid) 200 MCG DAILY 0600 PO Pantoprazole (PROTONIX) 40 MG DAILY@0600 PO Vancomycin HCl (VANCOMYCIN HCL) 1,000 MG Q12H IV (DC) Sodium Chloride (SODIUM CHLORIDE 0.9%) 250 ML Methocarbamol (ROBAXIN) 500 MG Q8HR IV (DC) Atorvastatin Calcium (LIPITOR) 40 MG 2100 PO Docusate Sodium (COLACE) 100 MG BID PO Metoprolol Tartrate (LOPRESSOR) 12.5 MG Q12HR PO (DA) Mupirocin (BACTROBAN 2% 22 GM OINTMENT) 1 APPLIC BID NASAL Sennosides (Senna Lax 8.6 MG TABLET) 17.2 MG BEDTIME PO Aspirin (ASPIRIN) 81 MG DAILY PO Ipratropium [place] (ATROVENT) 500 MCG RTQ4H INH Amiodarone HCl (CORDARONE) 200 MG TID PO Acetaminophen (TYLENOL) 650 MG Q4H PRN PRN PO Acetaminophen (TYLENOL) 650 MG Q4H PRN PRN RECTAL Albumin Human (ALBUMINAR 25%) 25 GM ASDIR PRN IV (DC) Calcium Chloride (CALCIUM CHLORIDE) 1 GM ASDIR PRN IV Cefazolin Sodium (KEFZOL OR ANCEF) 6 GM ONCE ONE IV (DC) Sodium Chloride (NS 0.9%) 500 ML Dextrose/Water (DEXTROSE 10% IN WATER) 125 ML ASDIR PRN IV (CKD) Dextrose/Water (DEXTROSE 10% IN WATER) 250 ML ASDIR PRN IV (CKD) Epinephrine (ADRENALIN CHLORIDE) 4 MG ASDIR IV Dextrose/Water (DEXTROSE 5% WATER) 246 ML Glucagon (GLUCAGON) 1 MG ASDIR PRN IM Insulin Human Regular (MYXREDLIN 100 UNITS/NS 100ML) 100 ML ASDIR IV (DC ) Magnesium Sulfate (MAGNESIUM SULFATE 4GM/SWFI 100ML) 100 ML ASDIR PRN IV Magnesium Sulfate (MAGNESIUM SULFATE 2GM/SWFI 50ML) 50 ML ASDIR PRN IV Magnesium Sulfate/Dextrose (MAGNESIUM SULFATE 1GM/D5W 100ML) 100 ML ASDIR PRN IV Norepinephrine/Dextrose (Norepinephrine 8 MG/D5W 250 mL) 250 ML TITRATE IV Ondansetron HCl (ZOFRAN) 4 MG Q6H PRN PRN IV Oxycodone HCl (ROXICODONE) 5 MG Q4H PRN PRN PO Oxycodone HCl (ROXICODONE) 10 MG Q4H PRN PRN PO Potassium Chloride (KCL 20MEQ/SWFI 100ML) 100 ML ASDIR PRN IV Sodium Bicarbonate (SODIUM BICARBONATE) 50 MEQ ASDIR PRN IV Physical Exam General appearance: alert, awake Neck: no JVD, no masses or swelling Cardiovascular: CV assessment: regular rate and rhythm Respiratory: decreased breath sounds, on oxygen, no distress Abdomen: obese Genitourinary: urinary catheter, urine Lower extremity: LE assessment: no edema Musculoskeletal: normal inspection Neuro/BANKING MANAGER: alert, oriented X 3 Skin: dry Psychiatry: normal affect, normal mood Results Findings/Data: Laboratory Tests 03/18 03/17 03/17 03/17 03/17 0306 2043 1718 1533 1141 Chemistry Sodium (134 - 147 mEq/L) 136 136 Potassium (3.4 - 5.0 mEq/L) 4.4 4.4 Chloride (100 - 108 mEq/L) 102 104 Carbon Dioxide (21 - 33 mEq/l) 24 23 Anion Gap (0 - 20) 15 14 BUN (7 - 25 mg/dL) 12 14 Creatinine (0.6 - 1.3 mg/dL) 1.1 1.1 Glomerular Filtr Rate (80 - 90) 74.5 L 74.5 L Glucose (77 - 141 mg/dL) 174 H 210 H POC Glucose (70 - 110 MG/DL) 192 H 207 H 215 H Calcium (8.0 - 10.5 mg/dL) 9.0 8.3 Phosphorus (2.5 - 4.9 MG/DL) 2.2 L Magnesium (1.6 - 2.6 mg/dL) 2.09 1.97 Total Bilirubin (0.0 - 1.0 mg/dL) 1.20 H Direct Bilirubin (0.1 - 0.3 MG/DL) 0.50 H Indirect Bilirubin (MG/DL) 0.70 AST (8 - 34 IUnit/L) 34 ALT (10 - 49 IUnit/L) 21 Total Alk Phosphatase (20 - 125 50 IUnit/L) Total Protein (5.7 - 8.2 g/dL) 6.9 Albumin (3.4 - 5.0 g/dL) 4.10 03/17 0720 Chemistry POC Glucose (70 - 110 MG/DL) 132 H Laboratory Tests 03/18 0306 Hematology WBC (4.5 - 11.0 x10 3/uL) 13.6 H RBC (4.00 - 5.60 x10 6/uL) 4.02 Hgb (12.5 - 16.9 g/dL) 13.0 Hct (37.5 - 50.7 %) 40.4 MCV (81.0 - 99.0 fL) 100.5 H MCH (27.0 - 33.0 pg) 32.3 MCHC (33.0 - 37.0 g/dL) 32.2 L RDW (11.5 - 14.5 %) 13.2 Plt Count (150 - 400 x10 3/uL) 101 L MPV (7.0 - 9.0 fL) 9.7 H Neut % (Auto) (56.0 - 77.0 %) 72.3 Lymph % (Auto) (14.0 - 32.0 %) 11.9 L Potter % (Auto) (4.8 - 9.0 %) 14.8 H Eos % (Auto) (0.3 - 3.7 %) 0.1 L Baso % (Auto) (0.0 - 2.0 %) 0.4 Neut # (Auto) (2.0 - 7.6 x10 3/uL) 9.79 H Lymph # (Auto) (1.0 - 3.8 x10 3/uL) 1.61 Potter # (Auto) (0.1 - 0.8 x10 3/uL) 2.01 H Eos # (Auto) (0.0 - 0.2 x10 3/uL) 0.02 Baso # (Auto) (0.0 - 0.2 x10 3/uL) 0.06 Abs Immat Gran (auto) (0.00 - 0.03 x10 3/uL) 0.07 H Immature Gran % (0.0 - 2.0 %) 0.5 Nucleated RBC % (0 - 0 %) 0.0 Nucleated RBCs # (Man) (0.0 - 0.1 x10 3/uL) 0.00 Laboratory Tests 03/18 03/17 0306 1533 Chemistry Magnesium (1.6 - 2.6 mg/dL) 2.09 1.97 Diagnosis, Assessment Plan Free Text DxA P Notes Free Text DxA P Notes: 1. CAD and aortic valve stenosis s/p CABG x5 plus AVR plus ALAA * off pressor * DAPT, BB, statin * immediate post-op care per CTS and critical care 2. Hypetension * monitor off BP meds 3. Hypelipidemia * continue statin 4. Diabetes mellitus * glycemic control per critical care 5. Rectal bleed attributed to external hemorrhoid * GI and colorectal surgery following at 0653 RPT #:[id number] END OF REPORT [facility] 2025-03-18 04:30:00 [id number] [place] [address] PATIENT NAME: LAKEISHA NORRIS ADMIT DATE: 03/15/25 ACCOUNT NO: [id number] [place] [facility] [place] 64 REPORT TYPE: eELECTROCARDIOGRAM REPORT SEX: M ADMITTING PHYSICIAN:Marlene Padilla MD ATTENDING PHYSICIAN:Marlene Padilla MD Order: [id number] Test Reason : post day 2 Test Date/Time Stamp: SatMar 18 2025 04:30:44 Blood Pressure : */* mmHG Vent. Rate : 84 BPM Atrial Rate : 84 BPM P-R Int : 188 ms QRS Dur : 94 ms QT Int : 352 ms P-R-T Axes : 16 -18 53 degrees QTcB Int : 415 ms Sinus rhythm with premature atrial complexes ST elevation, consider early repolarization, pericarditis, or injury Nonspecific ST and T wave abnormality Abnormal ECG When compared with ECG of 17-Mar-2025 15:20, No significant change was found Confirmed by MD ORDOÑEZ GERARD ([id number]) on 03/18/2025 5:58:21 PM Referred By: Marlene Padilla Confirmed by: CANDELARIA ORDOÑEZ MD at 1758 PATIENT NAME: LAKEISHA NORRIS [facility] 2025-03-17 15:20:00 [phone] [place] [id number] PATIENT NAME: LAKEISHA NORRIS ADMIT DATE: 03/15/25 ACCOUNT NO: [id number] ROOM NO: [facility] AGE: 64 REPORT TYPE: eELECTROCARDIOGRAM REPORT SEX: M ADMITTING PHYSICIAN:Marlene Padilla MD ATTENDING PHYSICIAN:Marlene Padilla MD Order: [id number] Test Reason : Cardiac Surgery Post Op Test Date/Time Stamp: SatMar 17 2025 15:20:55 Blood Pressure : */* mmHG Vent. Rate : 79 BPM Atrial Rate : 79 BPM P-R Int : 190 ms QRS Dur : 98 ms QT Int : 352 ms P-R-T Axes : -6 -28 24 degrees QTcB Int : 403 ms Sinus rhythm with premature supraventricular complexes Nonspecific ST and T wave abnormality Otherwise normal ECG When compared with ECG of 11-Mar-2025 09:34, No changes Confirmed by MD ORDOÑEZ GERARD ([id number]) on 03/17/2025 9:23:58 PM Referred By: Marlene Padilla Confirmed by: CANDELARIA ORDOÑEZ MD at 2123 PATIENT NAME: LAKEISHA NORRIS [facility] 2025-03-17 14:36:00 [facility] Cardiothoracic Surgery Prog REPORT#:[id number] REPORT STATUS: Signed REPORT INITIALIZATION DATE:03/17/25 TIME: 143 PATIENT: LAKEISHA NORRIS UNIT #: [id number] ROOM/BED: [place] [address] : 58 AGE: 64 SEX: M ATTEND: Marlene Padilla MD ADM AUTHOR: Sharifa Baker REPT SERVICE DT/TIME: 03/17/25 1436 * ALL edits or amendments must be made on the electronic/computer document * General Post-op: day 1 Status post: 03/16/25 1. Coronary artery bypass graft surgery x5 (MCGUIRE to LAD, saphenous vein to diagonal, saphenous vein to first marginal, saphenous vein to second marginal, saphenous vein to PDA). 2. Aortic valve replacement (29-mm Inspiris valve). 3. Amputation of left atrial appendage. 4. Posterior pericardiotomy. 5. Endoscopic vein harvest of the right greater saphenous vein. Subjective Chief complaint: s/p cabg Review of Systems Constitutional: Reports: fatigue. Denies: chills. Skin: Denies: abrasion, bruising. Allergy/Immun: Denies: allergic reaction. Respiratory: Reports: VALDOVINOS (dyspnea on exertion). Cardiovascular: Denies: chest pain. GI: Denies: abdominal pain. : Denies: dysuria. Musculoskeletal: Denies: arthritis. All systems rev neg: except as marked Objective General VS/I O Last Documented: Result Date Time O2 Delivery Nasal cannula 03/17 0800 O2 Flow Rate 2 03/17 0800 Pulse Ox 100 03/17 0707 B/P 122/63 03/17 0600 B/P Mean 87 03/17 0600 Temp 99.9 03/17 0600 Pulse 72 03/17 0600 Resp 19 03/17 0500 FiO2 40 03/17 0000 24 hour I O ending at 0700: 03/17 0700 03/16 1900 Intake Total 2601.00 Output Total 960 840 Balance 1641.00 -840 Intake, IV 2121.00 Intake, Oral 480 Output, Chest 345 95 Tube Drainage Output, Urine 615 745 Patient 144.3 kg Weight Weight Standing scale Measurement Method PATIENT WEIGHT: Weight (lb): 318 Weight (oz): 2.03 Weight (kg): 144.300 Dietitian Nutrition assessment The data set between the solid lines has been imported from the dietitian's assessment. BMI Calculated: 42.0 Nutrition related diagnosis: Nutrition diagnosis details: Nutrition problem: Nutrition etiology: Nutrition signs and symptoms: Nutrition prescription: Dietitian name: Assessment completed: Physical Exam General appearance: alert, awake, oriented Wound/incision: Location: sternum Site condition: dressing clean dry, no drainage, no ecchymosis HEENT: anicteric, mucosal membranes moist, pupils reactive to light Neck: full range of motion, non-tender Cardiovascular: BP/pulses equal bilat., regular rate rhythm Respiratory: decreased breath sounds Abdomen: soft, non-tender Genitourinary: urine Extremities: dry, moves all, normal capillary refill, normal temperature Musculoskeletal: decreased ROM, painless range of motion Neuro/BANKING MANAGER: alert, oriented X 3 Skin: dry, intact, normal temperature Current Medications Medications: Active Meds + DC'd Last 24 Hrs Ipratropium [place] (ATROVENT) 500 MCG RTQ2H PRN PRN INH Cyanocobalamin (Vitamin B-12 500 mcg tab) 500 MCG DAILY PO Ferrous Sulfate (FERROUS SULFATE) 325 MG DAILY PO Bisacodyl (DULCOLAX) 10 MG ONCE PRN RECTAL Magnesium Hydroxide (MILK OF MAGNESIA) 30 ML ONCE PRN PO Insulin Human Lispro (Admelog) 0 AC HS SUBQ Gabapentin (NEURONTIN) 200 MG TID PO Albumin Human (ALBUMINAR 5% 12.5GM/250ML) 250 ML ONCE ONE IV (DC) Calcium Gluconate (Calcium Gluconate 1 GM/NS 50 mL (B2)) 50 ML ONCE ONE IV (DC) Clopidogrel Bisulfate (Plavix) 75 MG DAILY PO Polyethylene Glycol (MIRALAX) 17 GM DAILY PO Levothyroxine Sodium (Synthroid) 200 MCG DAILY 0600 PO Pantoprazole (PROTONIX) 40 MG DAILY@0600 PO Vancomycin HCl (VANCOMYCIN HCL) 1,000 MG Q12H IV (DC) Sodium Chloride (SODIUM CHLORIDE 0.9%) 250 ML Fentanyl Citrate (SUBLIMAZE) 25 MCG ONCE ONE IV (DC) Fentanyl Citrate (SUBLIMAZE) 25 MCG ONCE ONE IV (DC) Fentanyl Citrate (SUBLIMAZE) 0 .STK-MED ONE IV (DC) Methocarbamol (ROBAXIN) 500 MG Q8HR IV (DC) Albumin Human (ALBUMINAR 5% 12.5GM/250ML) 250 ML ONCE ONE IV (DC) Atorvastatin Calcium (LIPITOR) 40 MG 2100 PO Docusate Sodium (COLACE) 100 MG BID PO Metoprolol Tartrate (LOPRESSOR) 12.5 MG Q12HR PO (DA) Mupirocin (BACTROBAN 2% 22 GM OINTMENT) 1 APPLIC BID NASAL Sennosides (Senna Lax 8.6 MG TABLET) 17.2 MG BEDTIME PO Aspirin (ASPIRIN) 81 MG DAILY PO Acetaminophen (OFIRMEV 10MG/ML) 100 ML Q6H IV (DC) Fentanyl Citrate (SUBLIMAZE) 0 .STK-MED ONE .ROUTE (DC) Sugammadex Sodium (BRIDION) 0 .STK-MED ONE IV (DC) Sodium Bicarbonate (SODIUM BICARBONATE) 0 .STK-MED ONE IV (DC) Cefazolin Sodium (KEFZOL OR ANCEF) 0 .STK-MED ONE .ROUTE (DC) Ipratropium [place] (ATROVENT) 500 MCG RTQ4H INH Miscellaneous Information (VANCOMYCIN PHARMACY TO DOSE) 1 EACH ASDIR IV (CAN) Amiodarone HCl (CORDARONE) 200 MG TID PO Acetaminophen (TYLENOL) 650 MG Q4H PRN PRN PO Acetaminophen (TYLENOL) 650 MG Q4H PRN PRN RECTAL Albumin Human (ALBUMINAR 25%) 25 GM ASDIR PRN IV Calcium Chloride (CALCIUM CHLORIDE) 1 GM ASDIR PRN IV Cefazolin Sodium (KEFZOL OR ANCEF) 6 GM ONCE ONE IV (DC) Sodium Chloride (NS 0.9%) 500 ML Dextrose/Water (DEXTROSE 10% IN WATER) 125 ML ASDIR PRN IV (CKD) Dextrose/Water (DEXTROSE 10% IN WATER) 250 ML ASDIR PRN IV (CKD) Epinephrine (ADRENALIN CHLORIDE) 4 MG ASDIR IV Dextrose/Water (DEXTROSE 5% WATER) 246 ML Glucagon (GLUCAGON) 1 MG ASDIR PRN IM Insulin Human Regular (MYXREDLIN 100 UNITS/NS 100ML) 100 ML ASDIR IV (DC ) Magnesium Sulfate (MAGNESIUM SULFATE 4GM/SWFI 100ML) 100 ML ASDIR PRN IV Magnesium Sulfate (MAGNESIUM SULFATE 2GM/SWFI 50ML) 50 ML ASDIR PRN IV Magnesium Sulfate/Dextrose (MAGNESIUM SULFATE 1GM/D5W 100ML) 100 ML ASDIR PRN IV Norepinephrine/Dextrose (Norepinephrine 8 MG/D5W 250 mL) 250 ML TITRATE IV Ondansetron HCl (ZOFRAN) 4 MG Q6H PRN PRN IV Oxycodone HCl (ROXICODONE) 5 MG Q4H PRN PRN PO Oxycodone HCl (ROXICODONE) 10 MG Q4H PRN PRN PO Potassium Chloride (KCL 20MEQ/SWFI 100ML) 100 ML ASDIR PRN IV Sodium Bicarbonate (SODIUM BICARBONATE) 50 MEQ ASDIR PRN IV Cefazolin Sodium (KEFZOL OR ANCEF) 3 GM PREOP ONCALL IV (DC) Sodium Chloride (SODIUM CHLORIDE 0.9% 100 ML) 100 ML Vancomycin HCl (VANCOMYCIN HCL) 1,500 MG PREOP ONCALL IV (DC) Sodium Chloride (SODIUM CHLORIDE 0.9%) 250 ML Verapamil HCl (ISOPTIN) 16.6 MG .Q24H ONE IV (DC) Heparin Sodium (Porcine) (HEPARIN SODIUM) 1,660 UNIT Sodium Bicarbonate (SODIUM BICARBONATE) 0.7 ML Nitroglycerin/Dextrose (NITROGLYCERIN 50MG/D5W 250ML) 8.3 MG Lactated Ringer's (LACTATED RINGERS) 949.5 ML Mupirocin (BACTROBAN 2% 22 GM OINTMENT) 1 APPLIC BID NASAL (DC) Pantoprazole Sodium (PROTONIX) 40 MG Q12HR IV (DC) Sodium Chloride (SODIUM CHLORIDE) 10 ML ASDIR PRN IV (DC) Dexmedetomidine/Sodium Chloride (Precedex 1,000 mcg/NS 250 mL) 250 ML ASDIR IV (DC) Dextrose/Water (DEXTROSE 10% IN WATER) 125 ML ASDIR PRN IV (DC) Dextrose/Water (DEXTROSE 10% IN WATER) 250 ML ASDIR PRN IV (DC) Glucagon (GLUCAGON) 1 MG ASDIR PRN IM (DC) Nitroglycerin/Dextrose (NITROGLYCERIN 50,000MCG/D5W 250ML) 250 ML ASDIR IV (DC) Cefazolin Sodium (KEFZOL OR ANCEF) 3 GM PREOP ONCALL IV (DC) Sodium Chloride (SODIUM CHLORIDE 0.9% 100 ML) 100 ML Vancomycin HCl (Vancomycin 2,000 mg Inj (B2)) 2,000 MG PREOP ONCALL IV ( DC) Sodium Chloride (SODIUM CHLORIDE 0.9%) 500 ML Metoprolol Tartrate (LOPRESSOR) 6.25 MG PREOP ONCE PO (DC) Acetaminophen (TYLENOL EXTRA STRENGTH) 1,000 MG PREOP ONCALL PO (DC) Gabapentin (NEURONTIN) 200 MG PREOP ONCALL PO (DC) Lactated Ringer's (LACTATED RINGERS) 1,000 ML PREOP ONCALL IV (DC) Lidocaine HCl (Lidocaine PF1% 20 mg/2 mL Inj) 2 ML PREOP ONCALL LOCAL ( DC) Lidocaine HCl (Lidocaine PF1% 20 mg/2 mL Inj) 2 ML PREOP ONCALL LOCAL ( DC) Sodium Chloride (SODIUM CHLORIDE 0.9%) 500 ML PREOP ONCALL IV (DC) Sodium Chloride (SODIUM CHLORIDE 0.9%) 500 ML PREOP ONCALL IV (DC) Sodium Chloride (SODIUM CHLORIDE 0.9%) 1,000 ML PREOP ONCALL IV (DC) Sodium Chloride (SODIUM CHLORIDE) 5 ML ASDIR PRN IV (DC) Sodium Chloride (SODIUM CHLORIDE) 10 ML ASDIR PRN IV (DC) Sodium Chloride (SODIUM CHLORIDE 0.9%) 100 ML ASDIR PRN IV (DC) Results Findings/Data: Laboratory Tests 03/17 03/16 03/16 03/16 0430 2112 1819 1722 Blood Gas Puncture Site Art Line Art Line Art Line O2 Saturation (90 - 100 %) 97.0 99.5 99.9 99.6 ABG pH (7.35 - 7.45) 7.423 7.391 7.259 *L 7.358 ABG pCO2 (35.0 - 45 mmHg) 39.9 40.6 51.7 *H 38.1 ABG pO2 (80 - 100.0 mmHg) 92.1 168.2 H 320.8 *H 179.8 H ABG PO2/FiO2 Ratio (mm/Hg) 280.33 320.80 ABG HCO3 (22.0 - 26.0 MMOL/L) 25.9 24.4 23.4 21.4 L ABG Total CO2 (22 - 29) 27.1 25.6 25.0 22.6 ABG Base Excess (0 - +/ MMOL/L) 1.6 -0.3 L -3.9 L -3.7 L ABG Hematocrit (38 - 51 %) 35 L 37 L 40 32 L ABG Hemoglobin (12.5 - 16.9 G/DL) 12.0 L 12.7 13.5 11.0 L Valdemar Test N/A N/A N/A Sodium (134 - 147 mmol/L) 143 142 145 142 Potassium (3.4 - 5.0 mmol/L) 4.0 4.4 4.0 3.3 L Chloride (100 - 108 mmol/L) 112 H 110 H 107 110 H Ionized Calcium (1.12 - 1.32 MMOL/L) 1.19 1.29 1.32 1.31 Lactic Acid (0.9 - 1.7 mmol/l) 2.0 H 3.2 H Temperature (F) 99.9 100 97.2 O2 Delivery Device Cannula BiPAP BiPAP Vent Mode NIV FiO2 (%) 60 100.0 PEEP (cmH2O) 10 10 Pressure Support (cmH2O) 18 03/16 03/16 03/16 03/16 1701 1618 1545 1503 Blood Gas O2 Saturation (90 - 100 %) 100.0 100.0 100.0 100.0 ABG pH (7.35 - 7.45) 7.456 H 7.423 7.391 7.366 ABG pCO2 (35.0 - 45 mmHg) 31.1 L 35.7 42.9 44.8 ABG pO2 (80 - 100.0 mmHg) 541.5 *H 352.6 *H 384.2 *H 379.2 *H ABG HCO3 (22.0 - 26.0 MMOL/L) 21.9 L 23.3 26.0 25.7 ABG Total CO2 (22 - 29) 22.8 24.4 27.3 27.1 ABG Base Excess (0 - +/ MMOL/L) -1.4 L -0.8 L 0.8 0.1 ABG Hematocrit (38 - 51 %) 32 L 34 L 35 L 34 L ABG Hemoglobin (12.5 - 16.9 G/DL) 10.8 L 11.6 L 11.8 L 11.6 L Sodium (134 - 147 mmol/L) 139 142 141 141 Potassium (3.4 - 5.0 mmol/L) 4.2 4.7 4.1 4.2 Chloride (100 - 108 mmol/L) 107 106 106 104 Ionized Calcium (1.12 - 1.32 MMOL/L) 1.44 H 1.18 1.18 1.19 Lactic Acid (0.9 - 1.7 mmol/l) 3.0 H 1.7 1.8 H 1.9 H Laboratory Tests 03/17 03/17 03/17 03/17 03/17 1141 0720 0619 0430 0247 Chemistry Sodium (134 - 147 mEq/L) 141 Potassium (3.4 - 5.0 mEq/L) 4.5 Chloride (100 - 108 mEq/L) 108 Carbon Dioxide (21 - 33 mEq/l) 24 Anion Gap (0 - 20) 14 BUN (7 - 25 mg/dL) 15 Creatinine (0.6 - 1.3 mg/dL) 1.4 H POC Creatinine (0.6 - 1.3 mg/dL) 1.1 Glomerular Filtr Rate (80 - 90) 55.8 L Glucose (77 - 141 mg/dL) 183 H POC Glucose (70 - 110 MG/DL) 215 H 132 H 162 H POC Glucose (mg/dL) (70 - 110 MG/DL) 184 H Calcium (8.0 - 10.5 mg/dL) 8.4 Magnesium (1.6 - 2.6 mg/dL) 2.15 Total Bilirubin (0.0 - 1.0 mg/dL) 0.50 Direct Bilirubin (0.1 - 0.3 MG/DL) 0.20 Indirect Bilirubin (MG/DL) 0.30 AST (8 - 34 IUnit/L) 47 H ALT (10 - 49 IUnit/L) 17 Total Alk Phosphatase (20 - 125 41 IUnit/L) Total Protein (5.7 - 8.2 g/dL) 5.9 Albumin (3.4 - 5.0 g/dL) 3.50 03/17 03/16 03/16 03/16 03/16 0116 2112 1999 1822 1819 Chemistry Sodium (134 - 147 mEq/L) 143 Potassium (3.4 - 5.0 mEq/L) 4.0 Chloride (100 - 108 mEq/L) 107 Carbon Dioxide (21 - 33 mEq/l) 24 Anion Gap (0 - 20) 16 BUN (7 - 25 mg/dL) 13 Creatinine (0.6 - 1.3 mg/dL) 1.2 POC Creatinine (0.6 - 1.3 mg/dL) 1.0 1.0 Glomerular Filtr Rate (80 - 90) 67.1 L Glucose (77 - 141 mg/dL) 185 H POC Glucose (70 - 110 MG/DL) 177 H 163 H POC Glucose (mg/dL) (70 - 110 MG/DL) 184 H 210 H Calcium (8.0 - 10.5 mg/dL) 8.8 Magnesium (1.6 - 2.6 mg/dL) 2.69 H 03/16 03/16 03/16 03/16 03/16 1722 1701 1618 1545 1503 Chemistry POC Creatinine (0.6 - 1.3 mg/dL) 0.8 0.9 0.9 1.0 1.0 POC Glucose (mg/dL) (70 - 110 MG/DL) 221 H 194 H 198 H 198 H 185 H Laboratory Tests 03/16 03/16 03/16 03/16 1822 1725 1707 1626 Coagulation INR (0.8 - 1.2) 1.3 H PTT (25.0 - 39.5 Seconds) 32.1 PT Patient/Control Mix (9.3 - 12.9 SECONDS) 14.6 H Activated Coag Time (74 - 137 SEC) 112 469 H 487 H 03/16 03/16 03/16 1550 1511 1443 Coagulation Activated Coag Time (74 - 137 SEC) 504 H 475 H 493 H Laboratory Tests 03/17 03/16 0247 1822 Hematology WBC (4.5 - 11.0 x10 3/uL) 15.0 H 28.0 H RBC (4.00 - 5.60 x10 6/uL) 3.77 L 4.02 Hgb (12.5 - 16.9 g/dL) 12.3 L 13.1 Hct (37.5 - 50.7 %) 36.6 L 39.6 MCV (81.0 - 99.0 fL) 97.1 98.5 MCH (27.0 - 33.0 pg) 32.6 32.6 MCHC (33.0 - 37.0 g/dL) 33.6 33.1 RDW (11.5 - 14.5 %) 13.2 13.0 Plt Count (150 - 400 x10 3/uL) 129 L 141 L MPV (7.0 - 9.0 fL) 9.7 H 10.1 H Neut % (Auto) (56.0 - 77.0 %) 80.1 H 80.2 H Lymph % (Auto) (14.0 - 32.0 %) 7.5 L 10.2 L Potter % (Auto) (4.8 - 9.0 %) 11.8 H 7.9 Eos % (Auto) (0.3 - 3.7 %) 0.0 L 0.3 Baso % (Auto) (0.0 - 2.0 %) 0.1 0.3 Neut # (Auto) (2.0 - 7.6 x10 3/uL) 12.03 H 22.47 H Lymph # (Auto) (1.0 - 3.8 x10 3/uL) 1.12 2.86 Potter # (Auto) (0.1 - 0.8 x10 3/uL) 1.78 H 2.22 H Eos # (Auto) (0.0 - 0.2 x10 3/uL) 0.00 0.08 Baso # (Auto) (0.0 - 0.2 x10 3/uL) 0.02 0.08 Abs Immat Gran (auto) (0.00 - 0.03 x10 3/uL) 0.08 H 0.30 H Immature Gran % (0.0 - 2.0 %) 0.5 1.1 Nucleated RBC % (0 - 0 %) 0.0 0.0 Nucleated RBCs # (Man) (0.0 - 0.1 x10 3/uL) 0.00 0.00 Radiology data: Recent Impressions: RADIOLOGY - XR CHEST 1 V 03/16 1822 Report Impression - Status: SIGNED Entered: 03/16/20252123 IMPRESSION: 1. Mild central interstitial infiltrates. 2. Moderate enlargement of the cardiac silhouette, likely related to prior cardiac valve replacement and recent cardiac surgery. 3. Left chest tube. No pneumothorax. Electronically signed by: Linh Ayala MD 03/16/2025 09:23 PM CDT Impression By: NelsonWhitney - Linh Ayala M.D. Results: labs reviewed, vital signs stable, rythm personally rev'd, current med profile rev'd Diagnosis, Assessment Plan Free Text A P: Patient is a 64 year old male with a pmhx of HTN, HLD, DM, hypothyroidism, and current chewing tobacco use. Patient initially went to corporate ethics officer Dr. Milian for cardiac clearance for R knee replacement. He was found to have abnormal results on stress testing with inferior and inferiolateral areas of reversible ischemia. Echo shows EF 55-60% with moderate . Patient denies blood thinner use. Left heart cath was completed on 03/05/2025 showing severe multivessel coronary artery disease. Denies hx of chest pain or dypsnea. He ambulates without assistance. Patient will be admitted today for a CABG with aortic valve replacement. Assessment/plan: 1. Hypertension 2. Hyperlipidemia 3. Diabetes mellitus 4. Hypothyroidism 5. Nicotine dependence 6. Coronary artery disease 7. Moderate Admit to CVICU postoperatively Closely monitor hemodynamics Consult hothouse worker Dr. Padilla has seen and examined the patient. The patient will benefit from revascularization to coronary arteries and replacement of aortic valve. Dr. Padilla has explained in great detail the operation, risks, risk STS calculator, benefits, complications, alternatives and complications. The patient acknowledges understanding is willing to proceed with surgery. All questions have been answered. 03/16/25 1. Coronary artery bypass graft surgery x5 (MCGUIRE to LAD, saphenous vein to diagonal, saphenous vein to first marginal, saphenous vein to second marginal, saphenous vein to PDA). 2. Aortic valve replacement (29-mm Inspiris valve). 3. Amputation of left atrial appendage. 4. Posterior pericardiotomy. 5. Endoscopic vein harvest of the right greater saphenous vein. 03/17/25 POD 1 AAO x 3, denies complaints, multimodal pain management On 4LNC, wean as tolerated, encourage I-S use and deep breathing, CXR reviewed, ABG reviewed CTs in place, drained 95/335 cc overnight, will reassess after ambulation Sinus rhythm, monitor hemodynamics closely, epicardial pacing wires on standby, on levo gtt @2 Continue DAPT, metoprolol, amiodarone, and Lipitor Advance diet as tolerated, nutritional supplements, bowel regimen, glycemic control with insulin drip, transition to SSI UOP 660cc overnight, strict I's O's, daily weights DVT Prophylaxis with SCDs, GI prophylaxis with PPI PT/OT, OOB to chair, encourage ambulation Labs reviewed, replace electrolytes as needed Discharge disposition: home with good family support Plan to deline once off insulin and levo gtt Patient seen and examined by Dr Padilla. Plan of care discussed with nurse, patient and interdisciplinary team. All questions answered. Orders: Procedure Date/time Status HEPATIC FUNCTION PANEL 03/17 247 Complete Code status: full code Plan discussed with: patient, collaborating MD, nurse, interdisc care team at 1442 at 0247 RPT #:[id number] END OF REPORT [facility] 2025-03-17 12:08:00 [facility] ([facility]) Adult General Consultation REPORT#:[id number] REPORT STATUS: Signed REPORT INITIALIZATION DATE:03/17/25 TIME: 1208 PATIENT: LAKEISHA NORRIS UNIT #: [id number] ROOM/BED: [place] [id number] : 58 AGE: 64 SEX: M ATTEND: Marlene Padilla MD ADM AUTHOR: Shara Celestin MD REPT SERVICE DT/TIME: 03/17/25 1208 * ALL edits or amendments must be made on the electronic/computer document * History of Present Illness Reason for consult: medical management Free Text HPI Notes Free Text HPI Notes: 64 years old male with PMH of HTN, DM and HLD was admitted to the [facility] for [facility]. he had pre op evaluation . stress test was done . it was abnormal . he had cath done . it show multiple vessels disease .echo also found . CV surgeon was consulted . he had CABG and valve replace done yeterday . now he sit on the chair . no sob . chest tube in place .he had rectal bleeding in the hospital . no fever no cough no palpitation no nausea no vomiting no clara pain no dysuria no dizziness no syncope History - Adult longitudinal Additional medical history: 1. Hypertension 2. Diabetes mellitus 3. Hyperlipidemia 4. Hypothyroidism 5. Aortic valve stenosis Additional family history: Unobtainable Alcohol use: unknown Smoking status for patients 13 years old or older: Light tobacco smoker Allergies: Coded Allergies: nitroglycerin (Intermediate, RASH 03/11/25) Ambulatory status: Independent Review of Systems Constitutional: Denies: generalized weakness, lethargy. Respiratory: Denies: pneumonia, productive cough (sputum), SOB. Cardiovascular: Denies: chest pain, VALDOVINOS (dyspnea on exertion), edema. GI: Reports: hematochezia. Denies: abdominal pain, hematemesis, nausea, vomiting. : Denies: dysuria, flank pain, frequency. Neuro: Denies: seizure, syncope. Objective VS/I O: Last Documented: Result Date Time O2 Delivery Nasal cannula 03/17 1600 O2 Flow Rate 2 03/17 1600 Pulse Ox 100 03/17 0707 B/P 122/63 03/17 0600 B/P Mean 87 03/17 06 Temp 37.7 03/17 0600 Pulse 72 03/17 0600 Resp 19 03/17 0500 FiO2 40 03/17 0000 24 hour I O ending at 0700: 03/17 0703/16 1900 Intake Total 2601.00 Output Total 960 840 Balance 1641.00 -840 Intake, IV 2121.00 Intake, Oral 480 Output, Chest 345 95 Tube Drainage Output, Urine 615 745 Patient 144.3 kg Weight Weight Standing scale Measurement Method PATIENT WEIGHT: Weight (lb): 318 Weight (oz): 2.03 Weight (kg): 144.242 Head/Eyes: atraumatic, clear cornea, normocephalic, normal conjunctiva/sclera Neck: non-tender Cardiovascular: regular rate rhythm, normal heart sounds Respiratory: clear to auscultation Abdomen: soft, non-tender, no distention Extremities: moves all, no calf tenderness Neuro/BANKING MANAGER: alert, oriented X 3, CNII-XII grossly intact, normal speech, no motor deficits, no sensory deficits Results Findings/Data: Laboratory Tests: 03/17 03/17 03/17 03/17 03/17 1533 1141 0720 0619 0430 Blood Gas Puncture Site Art Line O2 Saturation (90 - 100 %) 97.0 ABG pH (7.35 - 7.45) 7.423 ABG pCO2 (35.0 - 45 mmHg) 39.9 ABG pO2 (80 - 100.0 mmHg) 92.1 ABG HCO3 (22.0 - 26.0 MMOL/L) 25.9 ABG Total CO2 (22 - 29) 27.1 ABG Base Excess (0 - +/ MMOL/L) 1.6 ABG Hematocrit (38 - 51 %) 35 L ABG Hemoglobin (12.5 - 16.9 G/DL) 12.0 L Valdemar Test N/A Sodium (134 - 147 mmol/L) 143 Potassium (3.4 - 5.0 mmol/L) 4.0 Chloride (100 - 108 mmol/L) 112 H Ionized Calcium (1.12 - 1.32 MMOL/L) 1.19 Temperature (F) 99.9 O2 Delivery Device Cannula Chemistry Sodium (134 - 147 mEq/L) 136 Potassium (3.4 - 5.0 mEq/L) 4.4 Chloride (100 - 108 mEq/L) 104 Carbon Dioxide (21 - 33 mEq/l) 23 Anion Gap (0 - 20) 14 BUN (7 - 25 mg/dL) 14 Creatinine (0.6 - 1.3 mg/dL) 1.1 POC Creatinine (0.6 - 1.3 mg/dL) 1.1 Glomerular Filtr Rate (80 - 90) 74.5 L Glucose (77 - 141 mg/dL) 210 H POC Glucose (70 - 110 MG/DL) 215 H 132 H 162 H POC Glucose (mg/dL) (70 - 110 MG/DL) 184 H Calcium (8.0 - 10.5 mg/dL) 8.3 Phosphorus (2.5 - 4.9 MG/DL) 2.2 L Magnesium (1.6 - 2.6 mg/dL) 1.97 03/17 03/17 03/16 03/16 0244 0112 2112 1999 Blood Gas Puncture Site Art Line O2 Saturation (90 - 100 %) 99.5 ABG pH (7.35 - 7.45) 7.391 ABG pCO2 (35.0 - 45 mmHg) 40.6 ABG pO2 (80 - 100.0 mmHg) 168.2 H ABG PO2/FiO2 Ratio (mm/Hg) 280.33 ABG HCO3 (22.0 - 26.0 MMOL/L) 24.4 ABG Total CO2 (22 - 29) 25.6 ABG Base Excess (0 - +/ MMOL/L) -0.3 L ABG Hematocrit (38 - 51 %) 37 L ABG Hemoglobin (12.5 - 16.9 G/DL) 12.7 Valdemar Test N/A Sodium (134 - 147 mmol/L) 142 Potassium (3.4 - 5.0 mmol/L) 4.4 Chloride (100 - 108 mmol/L) 110 H Ionized Calcium (1.12 - 1.32 MMOL/L) 1.29 Lactic Acid (0.9 - 1.7 mmol/l) 2.0 H Temperature (F) 100 O2 Delivery Device BiPAP FiO2 (%) 60 PEEP (cmH2O) 10 Chemistry Sodium (134 - 147 mEq/L) 141 Potassium (3.4 - 5.0 mEq/L) 4.5 Chloride (100 - 108 mEq/L) 108 Carbon Dioxide (21 - 33 mEq/l) 24 Anion Gap (0 - 20) 14 BUN (7 - 25 mg/dL) 15 Creatinine (0.6 - 1.3 mg/dL) 1.4 H POC Creatinine (0.6 - 1.3 mg/dL) 1.0 Glomerular Filtr Rate (80 - 90) 55.8 L Glucose (77 - 141 mg/dL) 183 H POC Glucose (70 - 110 MG/DL) 177 H 163 H POC Glucose (mg/dL) (70 - 110 MG/DL) 184 H Calcium (8.0 - 10.5 mg/dL) 8.4 Magnesium (1.6 - 2.6 mg/dL) 2.15 Total Bilirubin (0.0 - 1.0 mg/dL) 0.50 Direct Bilirubin (0.1 - 0.3 MG/DL) 0.20 Indirect Bilirubin (MG/DL) 0.30 AST (8 - 34 IUnit/L) 47 H ALT (10 - 49 IUnit/L) 17 Total Alk Phosphatase (20 - 125 IUnit/L) 41 Total Protein (5.7 - 8.2 g/dL) 5.9 Albumin (3.4 - 5.0 g/dL) 3.50 Hematology WBC (4.5 - 11.0 x10 3/uL) 15.0 H RBC (4.00 - 5.60 x10 6/uL) 3.77 L Hgb (12.5 - 16.9 g/dL) 12.3 L Hct (37.5 - 50.7 %) 36.6 L MCV (81.0 - 99.0 fL) 97.1 MCH (27.0 - 33.0 pg) 32.6 MCHC (33.0 - 37.0 g/dL) 33.6 RDW (11.5 - 14.5 %) 13.2 Plt Count (150 - 400 x10 3/uL) 129 L MPV (7.0 - 9.0 fL) 9.7 H Neut % (Auto) (56.0 - 77.0 %) 80.1 H Lymph % (Auto) (14.0 - 32.0 %) 7.5 L Potter % (Auto) (4.8 - 9.0 %) 11.8 H Eos % (Auto) (0.3 - 3.7 %) 0.0 L Baso % (Auto) (0.0 - 2.0 %) 0.1 Neut # (Auto) (2.0 - 7.6 x10 3/uL) 12.03 H Lymph # (Auto) (1.0 - 3.8 x10 3/uL) 1.12 Potter # (Auto) (0.1 - 0.8 x10 3/uL) 1.78 H Eos # (Auto) (0.0 - 0.2 x10 3/uL) 0.00 Baso # (Auto) (0.0 - 0.2 x10 3/uL) 0.02 Abs Immat Gran (auto) (0.00 - 0.03 x10 3/uL) 0.08 H Immature Gran % (0.0 - 2.0 %) 0.5 Nucleated RBC % (0 - 0 %) 0.0 Nucleated RBCs # (Man) (0.0 - 0.1 x10 3/uL) 0.00 03/16 03/16 03/16 03/16 1822 1819 1725 1722 Blood Gas Puncture Site Art Line O2 Saturation (90 - 100 %) 99.9 99.6 ABG pH (7.35 - 7.45) 7.259 *L 7.358 ABG pCO2 (35.0 - 45 mmHg) 51.7 *H 38.1 ABG pO2 (80 - 100.0 mmHg) 320.8 *H 179.8 H ABG PO2/FiO2 Ratio (mm/Hg) 320.80 ABG HCO3 (22.0 - 26.0 MMOL/L) 23.4 21.4 L ABG Total CO2 (22 - 29) 25.0 22.6 ABG Base Excess (0 - +/ MMOL/L) -3.9 L -3.7 L ABG Hematocrit (38 - 51 %) 40 32 L ABG Hemoglobin (12.5 - 16.9 G/DL) 13.5 11.0 L Valdemar Test N/A Sodium (134 - 147 mmol/L) 145 142 Potassium (3.4 - 5.0 mmol/L) 4.0 3.3 L Chloride (100 - 108 mmol/L) 107 110 H Ionized Calcium (1.12 - 1.32 MMOL/L) 1.32 1.31 Lactic Acid (0.9 - 1.7 mmol/l) 3.2 H Temperature (F) 97.2 O2 Delivery Device BiPAP Vent Mode NIV FiO2 (%) 100.0 PEEP (cmH2O) 10 Pressure Support (cmH2O) 18 Chemistry Sodium (134 - 147 mEq/L) 143 Potassium (3.4 - 5.0 mEq/L) 4.0 Chloride (100 - 108 mEq/L) 107 Carbon Dioxide (21 - 33 mEq/l) 24 Anion Gap (0 - 20) 16 BUN (7 - 25 mg/dL) 13 Creatinine (0.6 - 1.3 mg/dL) 1.2 POC Creatinine (0.6 - 1.3 mg/dL) 1.0 0.8 Glomerular Filtr Rate (80 - 90) 67.1 L Glucose (77 - 141 mg/dL) 185 H POC Glucose (mg/dL) (70 - 110 MG/DL) 210 H 221 H Calcium (8.0 - 10.5 mg/dL) 8.8 Magnesium (1.6 - 2.6 mg/dL) 2.69 H Coagulation INR (0.8 - 1.2) 1.3 H PTT (25.0 - 39.5 Seconds) 32.1 PT Patient/Control Mix (9.3 - 12.9 SECONDS) 14.6 H Activated Coag Time (74 - 137 SEC) 112 Hematology WBC (4.5 - 11.0 x10 3/uL) 28.0 H RBC (4.00 - 5.60 x10 6/uL) 4.02 Hgb (12.5 - 16.9 g/dL) 13.1 Hct (37.5 - 50.7 %) 39.6 MCV (81.0 - 99.0 fL) 98.5 MCH (27.0 - 33.0 pg) 32.6 MCHC (33.0 - 37.0 g/dL) 33.1 RDW (11.5 - 14.5 %) 13.0 Plt Count (150 - 400 x10 3/uL) 141 L MPV (7.0 - 9.0 fL) 10.1 H Neut % (Auto) (56.0 - 77.0 %) 80.2 H Lymph % (Auto) (14.0 - 32.0 %) 10.2 L Potter % (Auto) (4.8 - 9.0 %) 7.9 Eos % (Auto) (0.3 - 3.7 %) 0.3 Baso % (Auto) (0.0 - 2.0 %) 0.3 Neut # (Auto) (2.0 - 7.6 x10 3/uL) 22.47 H Lymph # (Auto) (1.0 - 3.8 x10 3/uL) 2.86 Potter # (Auto) (0.1 - 0.8 x10 3/uL) 2.22 H Eos # (Auto) (0.0 - 0.2 x10 3/uL) 0.08 Baso # (Auto) (0.0 - 0.2 x10 3/uL) 0.08 Abs Immat Gran (auto) (0.00 - 0.03 0.30 H x10 3/uL) Immature Gran % (0.0 - 2.0 %) 1.1 Nucleated RBC % (0 - 0 %) 0.0 Nucleated RBCs # (Man) (0.0 - 0.1 x10 3/uL) 0.00 03/16 03/16 1707 1701 Blood Gas O2 Saturation (90 - 100 %) 100.0 ABG pH (7.35 - 7.45) 7.456 H ABG pCO2 (35.0 - 45 mmHg) 31.1 L ABG pO2 (80 - 100.0 mmHg) 541.5 *H ABG HCO3 (22.0 - 26.0 MMOL/L) 21.9 L ABG Total CO2 (22 - 29) 22.8 ABG Base Excess (0 - +/ MMOL/L) -1.4 L ABG Hematocrit (38 - 51 %) 32 L ABG Hemoglobin (12.5 - 16.9 G/DL) 10.8 L Sodium (134 - 147 mmol/L) 139 Potassium (3.4 - 5.0 mmol/L) 4.2 Chloride (100 - 108 mmol/L) 107 Ionized Calcium (1.12 - 1.32 MMOL/L) 1.44 H Lactic Acid (0.9 - 1.7 mmol/l) 3.0 H Chemistry POC Creatinine (0.6 - 1.3 mg/dL) 0.9 POC Glucose (mg/dL) (70 - 110 MG/DL) 194 H Coagulation Activated Coag Time (74 - 137 SEC) 469 H Recent Impressions: RADIOLOGY - XR CHEST 1 V 03/16 1822 Report Impression - Status: SIGNED Entered: 03/16/20252 IMPRESSION: 1. Mild central interstitial infiltrates. 2. Moderate enlargement of the cardiac silhouette, likely related to prior cardiac valve replacement and recent cardiac surgery. 3. Left chest tube. No pneumothorax. Electronically signed by: Linh Ayala MD 03/16/2025 09:23 PM CDT RP Impression By: [email or web address] - Linh Ayala M.D. RADIOLOGY - XR CHEST 1 V 03/17 0635 Report Impression - Status: SIGNED Entered: 03/17/2025 1654 IMPRESSION: 1. Cardiomegaly with pulmonary vascular congestion and interstitial edema. 2. Small bilateral pleural effusions and bibasilar atelectasis. Electronically signed by: Pam Barlow MD 03/17/2025 04:52 PM CDT RP Impression By: NelsonJJY Jonah Barlow M.D. Diagnosis, Assessment Plan Free Text DxA P Notes Free Text DxA P Notes: multiple vessels disease/post CABG /post valve replacement luecocytosis rectal bleeding rupture thrombosed external hemmoid CAD HTN DM HLD hypothyroid CV surgeon -- post CABG/valve replace chest tube in place -- manage as surgeon off drip ASA/plavix/ lipitor /metoprolol no fever . may be reaction post surgery pain control PT/OT rectal bleeding -- resolve rectal surgeon consult monitor H H DM-- sliding scale now HTN-- stable . o metoprolol hypothyroid -- continue home med Quality: Gen Med Crit Care Current Medications Current medication review: Current Medications Sig/Beatrice Start time Last Medication Dose Route Stop Time Status Admin Ipratropium [place] 500 MCG RTQ2H PRN PRN 03/19 1444 AC INH 06/17 1443 Cyanocobalamin 500 MCG DAILY 03/19 09 AC PO 06/17 0859 Ferrous Sulfate 325 MG DAILY 03/19 09 AC PO 06/17 0859 Bisacodyl 10 MG ONCE PRN 03/18 1200 AC RECTAL 06/16 1159 Magnesium Hydroxide 30 ML ONCE PRN 03/18 1200 AC PO Insulin Human Lispro 0 AC HS 03/17 1130 AC 03/17 SUBQ 06/15 1129 1155 Gabapentin 200 MG TID 03/17 1000 AC 03/17 PO 06/15 0959 1504 Albumin Human 250 ML ONCE ONE 03/17 0930 DC 03/17 IV 03/17 0959 1024 Calcium Gluconate 50 ML ONCE ONE 03/17 0930 DC 03/17 IV 03/17 0939 1023 Clopidogrel Bisulfate 75 MG DAILY 03/17 0900 AC 03/17 PO 06/15 0859 0806 Polyethylene Glycol 17 GM DAILY 03/17 09 AC 03/17 PO 06/15 0859 0803 Levothyroxine Sodium 200 MCG DAILY 03/17 0600 AC 03/17 PO 06/15 0559 0521 Pantoprazole 40 MG DAILY@03/17 0600 AC 03/17 PO 06/15 0559 0521 Vancomycin HCl 1,000 MG Q12H 03/17 0000 DC 03/17 Sodium Chloride 250 ML IV 03/17 1259 1158 Fentanyl Citrate 25 MCG ONCE ONE 03/16 2330 DC 03/16 IV 03/16 2331 2331 Fentanyl Citrate 25 MCG ONCE ONE 03/16 2245 DC IV 03/16 2246 Fentanyl Citrate 0 .STK-MED ONE 03/16 2239 DC 03/16 IV 2242 Methocarbamol 500 MG Q8HR 03/16 2200 DC 03/17 IV 03/17 1401 1504 Albumin Human 250 ML ONCE ONE 03/16 2130 DC 03/16 IV 03/16 2159 2219 Atorvastatin Calcium 40 MG 2100 03/16 2100 AC PO 04/15 205 Docusate Sodium 100 MG BID 03/16 2100 AC 03/17 PO 06/14 205 0802 Metoprolol Tartrate 12.5 MG Q12HR 03/16 2100 DA PO 06/14 205 Mupirocin 1 APPLIC BID 03/16 2100 AC 03/17 NASAL 03/21 0901 0806 Sennosides 17.2 MG BEDTIME 03/16 2100 AC PO 06/14 205 Aspirin 81 MG DAILY 03/16 2044 AC 03/17 PO 06/14 204 0803 Acetaminophen 100 ML Q6H 03/16 1900 DC 03/17 IV 03/17 0114 0104 Fentanyl Citrate 0 .STK-MED ONE 03/16 1747 DC .ROUTE Sugammadex Sodium 0 .STK-MED ONE 03/16 1747 DC IV Sodium Bicarbonate 0 .STK-MED ONE 03/16 1738 DC IV Ipratropium [place] 500 MCG RTQ4H 03/16 1600 AC 03/17 INH 03/19 1444 1431 Miscellaneous 1 EACH ASDIR 03/16 1545 CAN Information IV 06/14 1544 Amiodarone HCl 200 MG TID 03/16 1500 AC 03/17 PO 06/14 1459 1503 Acetaminophen 650 MG Q4H PRN PRN 03/16 1445 AC 03/17 PO 06/14 1444 0802 Acetaminophen 650 MG Q4H PRN PRN 03/16 1445 AC RECTAL 06/14 1444 Albumin Human 25 GM ASDIR PRN 03/16 1445 DC IV 03/17 1444 Calcium Chloride 1 GM ASDIR PRN 03/16 1445 AC IV 06/14 1444 Cefazolin Sodium 6 GM ONCE ONE 03/16 1445 DC 03/16 Sodium Chloride 500 ML IV 03/17 1044 1954 Dextrose/Water 125 ML ASDIR PRN 03/16 1445 CKD IV 06/14 1444 Dextrose/Water 250 ML ASDIR PRN 03/16 1445 CKD IV 06/14 1444 Epinephrine 4 MG ASDIR 03/16 1445 AC Dextrose/Water 246 ML IV 06/14 1444 Glucagon 1 MG ASDIR PRN 03/16 1445 AC IM 06/14 1444 Insulin Human Regular 100 ML ASDIR 03/16 1445 DC 03/17 IV 06/14 1444 0805 Magnesium Sulfate 100 ML ASDIR PRN 03/16 1445 AC IV 06/14 1444 Magnesium Sulfate 50 ML ASDIR PRN 03/16 1445 AC 03/17 IV 06/14 1444 1654 Magnesium Sulfate/ 100 ML ASDIR PRN 03/16 1445 AC 03/17 Dextrose IV 06/14 1444 0414 Norepinephrine/ 250 ML TITRATE 03/16 1445 AC Dextrose IV 06/14 1444 Ondansetron HCl 4 MG Q6H PRN PRN 03/16 1445 AC IV 06/14 1444 Oxycodone HCl 5 MG Q4H PRN PRN / 1445 AC 03/17 PO 03/21 1444 0643 Oxycodone HCl 10 MG Q4H PRN PRN 03/16 1445 AC 03/17 PO 03/21 1444 1103 Potassium Chloride 100 ML ASDIR PRN 03/16 1445 AC IV 06/14 1444 Sodium Bicarbonate 50 MEQ ASDIR PRN 03/16 1445 AC IV 06/14 1444 Home Medications: LEVOTHYROXINE (SYNTHROID) 200 MCG PO DAILY RAMIPRIL (ALTACE) 10 MG PO DAILY EMPAGLIFLOZIN (JARDIANCE) 25 MG PO DAILY SIMVASTATIN 20 MG PO BEDTIME metFORMIN (GLUCOPHAGE) 1,000 MG PO DAILY TIRZEPATIDE (MOUNJARO PEN (2mL)) 2.5 MG SUBQ Q7D I attest that the foregoing medication list in the medical record is true, accurate, and complete to the best of my knowledge. at 1708 RPT #:[id number] END OF REPORT [facility] 2025-03-17 11:13:00 [facility] Critical Care Progress Note REPORT#:[id number] REPORT STATUS: Signed REPORT INITIALIZATION DATE:03/17/25 TIME: 111 PATIENT: LAKEISHA NORRIS UNIT #: [id number] ROOM/BED: [place] [address] : 58 AGE: 64 SEX: M ATTEND: Marlene Padilla MD ADM AUTHOR: Thierno Bradley DO REPT SERVICE DT/TIME: 03/17/25 1113 * ALL edits or amendments must be made on the electronic/computer document * Subjective Chief complaint: cad HPI: Patient is a 64-year-old male history of hypertension hyperlipidemia diabetes hypothyroidism and hemorrhoids. Patient was undergoing cardiac clearance for knee replacement and found to have multivessel coronary artery disease. He was taken to the operating room today for planned CABG. Patient had central line and arterial lines placed along with Suarez and he was intubated. Prior to incision it was noted that he had bright red blood per rectum along with clots. At that time CV surgery discussed case with GI. Decision was made to abort surgery for further evaluation of GI bleeding. Patient is in the CVICU waking up from sedation on minimal vent settings. Patient cleared from GI surgery for surgery today. Patient underwent CABG x 5 with AVR. He is in the CVICU now for postoperative care. He is extubated to BiPAP. He does not appear in distress and is slowly waking up from sedation. He is on nitro at 10. His pre and postoperative echo showed normal EF. His EBL was 300. He received a 80 of Cell Saver and 1 L of crystalloid. Urine output was 1050 throughout the case. He is currently normal sinus rhythm. [address] Postop labs, EKG, chest x-ray pending. 03/17 Patient seen evaluated bedside. No acute events overnight. Still on small dose of Levophed this morning however he has since off. Pain is well-controlled. He is out of bed to chair. Objective General VS/I O Last Documented: Result Date Time O2 Delivery Nasal cannula 03/17 0800 O2 Flow Rate 2 03/17 0800 Pulse Ox 100 / 0707 B/P 122/63 03/17 0600 B/P Mean 87 03/17 0600 Temp 99.9 03/17 0600 Pulse 72 03/17 0600 Resp 19 03/17 0500 FiO2 40 / 0000 24 hour I O ending at 0700: 03/17 0700 03/16 1900 Intake Total 2601.00 Output Total 960 840 Balance 1641.00 -840 Intake, IV 2121.00 Intake, Oral 480 Output, Chest 345 95 Tube Drainage Output, Urine 615 745 Patient 144.3 kg Weight Weight Standing scale Measurement Method PATIENT WEIGHT: Weight (lb): 318 Weight (oz): 2.03 Weight (kg): 144.300 Free Text Obj Notes Free Text Obj Notes: GEN: Appears in no acute distress, interactive and conversational HEENT: Atraumatic, normocephalic, moist mucous membranes NECK: Supple, good range of motion, no tenderness, no JVD LUNGS: Symmetrical air entry, no acute respiratory distress, no accessory muscle use CV: S1, S2 regular rate and rhythm, warm and well perfused GI: Abdomen is soft, not tender or distended EXT/Musc: No edema or cyanosis. Pedal pulses present. Compartments soft Skin: Surgical site clean, dry and intact. Warm to touch NEURO: Awake, alert and oriented x3. No facial droop or focal deficit Diagnosis, Assessment Plan Free text A P: 64-year-old male in the CVICU for vent management and preop care pending CABG with active GI bleed Multivessel coronary artery disease Severe Postop day 1 status post CABG x 5 with AVR EVH A SENTHIL PP GI bleed History of hypertension History of hyperlipidemia History of DM History of hypothyroidism Neuro: Multimodal pain control Respiratory: Continue on BiPAP until more awake, ABG and CXR reviewed Cardiovascular: Wean off norepinephrine SBP goal <140, CTs to suction, monitor output, ekg, PO amiodarone and beta ash when appropriate. Hold metoprolol Renal: strict I/Os, monitor Cr and electrolytes, resuscitate as needed GI: Cardiac diet, bowel regimen ID: trend WBC, cont periop ABx per protocol Hem: monitor Hgb and CTs output, transfuse as needed, correct coagulopathy. ASA/ plavix when able. Endo: BG control with sliding scale insulin Misc: PTOT consult, DVT and GI ppx with SCD and PPI Total critical care time 33 minutes spent treating the patient excluding any procedures performed at 1116 RPT #:[id number] END OF REPORT [facility] 2025-03-17 11:10:00 [facility] Gastroenterology Progress Note REPORT#:[id number] REPORT STATUS: Signed REPORT INITIALIZATION DATE:03/17/25 TIME: 1110 PATIENT: LAEKISHA NORRIS UNIT #: [id number] ROOM/BED: [place] [address] : 58 AGE: 64 SEX: M ATTEND: Marlene Padilla MD ADM AUTHOR: Keenan Carter MD REPT SERVICE DT/TIME: 03/17/25 1110 * ALL edits or amendments must be made on the electronic/computer document * Keenan Carter 03/17/25 1110: Attestations Physician Attestation Agree w/findings plan: Agree with the findings and plan as documented by Justin OSORIO * my personal evaluation is Rectal bleeding CAD CABG + AVR - monitor h/h, transfuse as needed - protonix rx Cash Anderson 03/17/25 1313: Subjective Comments: s/p CABG and AVR yesterday. He denies any current abdominal pain. No significant rectal bleeding Review of Systems Additional notes: 10 point ros neg except hpi Objective General VS/I O: Last Documented: Result Date Time O2 Delivery Nasal cannula 03/17 0800 O2 Flow Rate 2 03/17 0800 Pulse Ox 100 / 0707 B/P 122/63 03/17 0600 B/P Mean 87 03/17 0600 Temp 99.9 03/17 0600 Pulse 72 03/17 0600 Resp 19 03/17 0500 FiO2 40 / 0000 24 hour I O ending at 0700: 03/17 0700 07 1900 Intake Total 2601.00 Output Total 960 840 Balance 1641.00 -840 Intake, IV 2121.00 Intake, Oral 480 Output, Chest 345 95 Tube Drainage Output, Urine 615 745 Patient 144.3 kg Weight Weight Standing scale Measurement Method PATIENT WEIGHT: Weight (lb): 318 Weight (oz): 2.03 Weight (kg): 144.300 Medications: Active Meds + DC'd Last 24 Hrs Ipratropium [place] (ATROVENT) 500 MCG RTQ2H PRN PRN INH Cyanocobalamin (Vitamin B-12 500 mcg tab) 500 MCG DAILY PO Ferrous Sulfate (FERROUS SULFATE) 325 MG DAILY PO Bisacodyl (DULCOLAX) 10 MG ONCE PRN RECTAL Magnesium Hydroxide (MILK OF MAGNESIA) 30 ML ONCE PRN PO Insulin Human Lispro (Admelog) 0 AC HS SUBQ Gabapentin (NEURONTIN) 200 MG TID PO Albumin Human (ALBUMINAR 5% 12.5GM/250ML) 250 ML ONCE ONE IV (DC) Calcium Gluconate (Calcium Gluconate 1 GM/NS 50 mL (B2)) 50 ML ONCE ONE IV (DC) Clopidogrel Bisulfate (Plavix) 75 MG DAILY PO Polyethylene Glycol (MIRALAX) 17 GM DAILY PO Levothyroxine Sodium (Synthroid) 200 MCG DAILY 0600 PO Pantoprazole (PROTONIX) 40 MG DAILY@0600 PO Vancomycin HCl (VANCOMYCIN HCL) 1,000 MG Q12H IV (DC) Sodium Chloride (SODIUM CHLORIDE 0.9%) 250 ML Fentanyl Citrate (SUBLIMAZE) 25 MCG ONCE ONE IV (DC) Fentanyl Citrate (SUBLIMAZE) 25 MCG ONCE ONE IV (DC) Fentanyl Citrate (SUBLIMAZE) 0 .STK-MED ONE IV (DC) Methocarbamol (ROBAXIN) 500 MG Q8HR IV Albumin Human (ALBUMINAR 5% 12.5GM/250ML) 250 ML ONCE ONE IV (DC) Atorvastatin Calcium (LIPITOR) 40 MG 2100 PO Docusate Sodium (COLACE) 100 MG BID PO Metoprolol Tartrate (LOPRESSOR) 12.5 MG Q12HR PO (DA) Mupirocin (BACTROBAN 2% 22 GM OINTMENT) 1 APPLIC BID NASAL Sennosides (Senna Lax 8.6 MG TABLET) 17.2 MG BEDTIME PO Aspirin (ASPIRIN) 81 MG DAILY PO Acetaminophen (OFIRMEV 10MG/ML) 100 ML Q6H IV (DC) Fentanyl Citrate (SUBLIMAZE) 0 .STK-MED ONE .ROUTE (DC) Sugammadex Sodium (BRIDION) 0 .STK-MED ONE IV (DC) Sodium Bicarbonate (SODIUM BICARBONATE) 0 .STK-MED ONE IV (DC) Cefazolin Sodium (KEFZOL OR ANCEF) 0 .STK-MED ONE .ROUTE (DC) Ipratropium [place] (ATROVENT) 500 MCG RTQ4H INH Miscellaneous Information (VANCOMYCIN PHARMACY TO DOSE) 1 EACH ASDIR IV (CAN) Amiodarone HCl (CORDARONE) 200 MG TID PO Acetaminophen (TYLENOL) 650 MG Q4H PRN PRN PO Acetaminophen (TYLENOL) 650 MG Q4H PRN PRN RECTAL Albumin Human (ALBUMINAR 25%) 25 GM ASDIR PRN IV Calcium Chloride (CALCIUM CHLORIDE) 1 GM ASDIR PRN IV Cefazolin Sodium (KEFZOL OR ANCEF) 6 GM ONCE ONE IV (DC) Sodium Chloride (NS 0.9%) 500 ML Dextrose/Water (DEXTROSE 10% IN WATER) 125 ML ASDIR PRN IV (CKD) Dextrose/Water (DEXTROSE 10% IN WATER) 250 ML ASDIR PRN IV (CKD) Epinephrine (ADRENALIN CHLORIDE) 4 MG ASDIR IV Dextrose/Water (DEXTROSE 5% WATER) 246 ML Glucagon (GLUCAGON) 1 MG ASDIR PRN IM Insulin Human Regular (MYXREDLIN 100 UNITS/NS 100ML) 100 ML ASDIR IV (DC ) Magnesium Sulfate (MAGNESIUM SULFATE 4GM/SWFI 100ML) 100 ML ASDIR PRN IV Magnesium Sulfate (MAGNESIUM SULFATE 2GM/SWFI 50ML) 50 ML ASDIR PRN IV Magnesium Sulfate/Dextrose (MAGNESIUM SULFATE 1GM/D5W 100ML) 100 ML ASDIR PRN IV Norepinephrine/Dextrose (Norepinephrine 8 MG/D5W 250 mL) 250 ML TITRATE IV Ondansetron HCl (ZOFRAN) 4 MG Q6H PRN PRN IV Oxycodone HCl (ROXICODONE) 5 MG Q4H PRN PRN PO Oxycodone HCl (ROXICODONE) 10 MG Q4H PRN PRN PO Potassium Chloride (KCL 20MEQ/SWFI 100ML) 100 ML ASDIR PRN IV Sodium Bicarbonate (SODIUM BICARBONATE) 50 MEQ ASDIR PRN IV Cefazolin Sodium (KEFZOL OR ANCEF) 3 GM PREOP ONCALL IV (DC) Sodium Chloride (SODIUM CHLORIDE 0.9% 100 ML) 100 ML Vancomycin HCl (VANCOMYCIN HCL) 1,500 MG PREOP ONCALL IV (DC) Sodium Chloride (SODIUM CHLORIDE 0.9%) 250 ML Verapamil HCl (ISOPTIN) 16.6 MG .Q24H ONE IV (DC) Heparin Sodium (Porcine) (HEPARIN SODIUM) 1,660 UNIT Sodium Bicarbonate (SODIUM BICARBONATE) 0.7 ML Nitroglycerin/Dextrose (NITROGLYCERIN 50MG/D5W 250ML) 8.3 MG Lactated Ringer's (LACTATED RINGERS) 949.5 ML Mupirocin (BACTROBAN 2% 22 GM OINTMENT) 1 APPLIC BID NASAL (DC) Pantoprazole Sodium (PROTONIX) 40 MG Q12HR IV (DC) Sodium Chloride (SODIUM CHLORIDE) 10 ML ASDIR PRN IV (DC) Dexmedetomidine/Sodium Chloride (Precedex 1,000 mcg/NS 250 mL) 250 ML ASDIR IV (DC) Dextrose/Water (DEXTROSE 10% IN WATER) 125 ML ASDIR PRN IV (DC) Dextrose/Water (DEXTROSE 10% IN WATER) 250 ML ASDIR PRN IV (DC) Glucagon (GLUCAGON) 1 MG ASDIR PRN IM (DC) Nitroglycerin/Dextrose (NITROGLYCERIN 50,000MCG/D5W 250ML) 250 ML ASDIR IV (DC) Cefazolin Sodium (KEFZOL OR ANCEF) 3 GM PREOP ONCALL IV (DC) Sodium Chloride (SODIUM CHLORIDE 0.9% 100 ML) 100 ML Vancomycin HCl (Vancomycin 2,000 mg Inj (B2)) 2,000 MG PREOP ONCALL IV ( DC) Sodium Chloride (SODIUM CHLORIDE 0.9%) 500 ML Metoprolol Tartrate (LOPRESSOR) 6.25 MG PREOP ONCE PO (DC) Acetaminophen (TYLENOL EXTRA STRENGTH) 1,000 MG PREOP ONCALL PO (DC) Gabapentin (NEURONTIN) 200 MG PREOP ONCALL PO (DC) Lactated Ringer's (LACTATED RINGERS) 1,000 ML PREOP ONCALL IV (DC) Lidocaine HCl (Lidocaine PF1% 20 mg/2 mL Inj) 2 ML PREOP ONCALL LOCAL ( DC) Lidocaine HCl (Lidocaine PF1% 20 mg/2 mL Inj) 2 ML PREOP ONCALL LOCAL ( DC) Sodium Chloride (SODIUM CHLORIDE 0.9%) 500 ML PREOP ONCALL IV (DC) Sodium Chloride (SODIUM CHLORIDE 0.9%) 500 ML PREOP ONCALL IV (DC) Sodium Chloride (SODIUM CHLORIDE 0.9%) 1,000 ML PREOP ONCALL IV (DC) Sodium Chloride (SODIUM CHLORIDE) 5 ML ASDIR PRN IV (DC) Sodium Chloride (SODIUM CHLORIDE) 10 ML ASDIR PRN IV (DC) Sodium Chloride (SODIUM CHLORIDE 0.9%) 100 ML ASDIR PRN IV (DC) Provider comments: PHYSICAL EXAM General appearance: alert HEENT: dry mucosal membranes, atraumatic, normocephalic Neck: decreased range of motion Cardiovascular: regular rate rhythm Respiratory: no distress Abdomen: non-tender, soft, no distention Extremities: decreased range of motion Musculoskeletal: decreased ROM Neuro/BANKING MANAGER: alert and oriented x 3 Skin: dry, intact Results Findings/Data: Laboratory Tests 03/17/25 0247: [Embedded Image Not Available] 03/16/25 1822: [Embedded Image Not Available] Laboratory Tests 03/17 03/16 03/16 03/16 0430 2112 1811 1722 Blood Gas Puncture Site Art Line Art Line Art Line O2 Saturation (90 - 100 %) 97.0 99.5 99.9 99.6 ABG pH (7.35 - 7.45) 7.423 7.391 7.259 *L 7.358 ABG pCO2 (35.0 - 45 mmHg) 39.9 40.6 51.7 *H 38.1 ABG pO2 (80 - 100.0 mmHg) 92.1 168.2 H 320.8 *H 179.8 H ABG PO2/FiO2 Ratio (mm/Hg) 280.33 320.80 ABG HCO3 (22.0 - 26.0 MMOL/L) 25.9 24.4 23.4 21.4 L ABG Total CO2 (22 - 29) 27.1 25.6 25.0 22.6 ABG Base Excess (0 - +/ MMOL/L) 1.6 -0.3 L -3.9 L -3.7 L ABG Hematocrit (38 - 51 %) 35 L 37 L 40 32 L ABG Hemoglobin (12.5 - 16.9 G/DL) 12.0 L 12.7 13.5 11.0 L Valdemar Test N/A N/A N/A Sodium (134 - 147 mmol/L) 143 142 145 142 Potassium (3.4 - 5.0 mmol/L) 4.0 4.4 4.0 3.3 L Chloride (100 - 108 mmol/L) 112 H 110 H 107 110 H Ionized Calcium (1.12 - 1.32 MMOL/L) 1.19 1.29 1.32 1.31 Lactic Acid (0.9 - 1.7 mmol/l) 2.0 H 3.2 H Temperature (F) 99.9 100 97.2 O2 Delivery Device Cannula BiPAP BiPAP Vent Mode NIV FiO2 (%) 60 100.0 PEEP (cmH2O) 10 10 Pressure Support (cmH2O) 18 03/16 03/16 03/16 03/16 1701 1618 1545 1503 Blood Gas O2 Saturation (90 - 100 %) 100.0 100.0 100.0 100.0 ABG pH (7.35 - 7.45) 7.456 H 7.423 7.391 7.366 ABG pCO2 (35.0 - 45 mmHg) 31.1 L 35.7 42.9 44.8 ABG pO2 (80 - 100.0 mmHg) 541.5 *H 352.6 *H 384.2 *H 379.2 *H ABG HCO3 (22.0 - 26.0 MMOL/L) 21.9 L 23.3 26.0 25.7 ABG Total CO2 (22 - 29) 22.8 24.4 27.3 27.1 ABG Base Excess (0 - +/ MMOL/L) -1.4 L -0.8 L 0.8 0.1 ABG Hematocrit (38 - 51 %) 32 L 34 L 35 L 34 L ABG Hemoglobin (12.5 - 16.9 G/DL) 10.8 L 11.6 L 11.8 L 11.6 L Sodium (134 - 147 mmol/L) 139 142 141 141 Potassium (3.4 - 5.0 mmol/L) 4.2 4.7 4.1 4.2 Chloride (100 - 108 mmol/L) 107 106 106 104 Ionized Calcium (1.12 - 1.32 MMOL/L) 1.44 H 1.18 1.18 1.19 Lactic Acid (0.9 - 1.7 mmol/l) 3.0 H 1.7 1.8 H 1.9 H 03/16 03/16 1435 1357 Blood Gas O2 Saturation (90 - 100 %) 99.9 99.9 ABG pH (7.35 - 7.45) 7.335 L 7.382 ABG pCO2 (35.0 - 45 mmHg) 50.5 *H 37.0 ABG pO2 (80 - 100.0 mmHg) 385.3 *H 254.9 *H ABG HCO3 (22.0 - 26.0 MMOL/L) 27.0 H 22.0 ABG Total CO2 (22 - 29) 28.5 23.1 ABG Base Excess (0 - +/ MMOL/L) 0.5 -2.7 L ABG Hematocrit (38 - 51 %) 34 L 39 ABG Hemoglobin (12.5 - 16.9 G/DL) 11.6 L 13.2 Sodium (134 - 147 mmol/L) 141 142 Potassium (3.4 - 5.0 mmol/L) 4.4 3.5 Chloride (100 - 108 mmol/L) 105 109 H Ionized Calcium (1.12 - 1.32 MMOL/L) 1.18 1.18 Lactic Acid (0.9 - 1.7 mmol/l) 1.3 1.2 Laboratory Tests 03/17 03/17 03/17 03/17 03/17 1141 0720 0619 0430 0247 Chemistry Sodium (134 - 147 mEq/L) 141 Potassium (3.4 - 5.0 mEq/L) 4.5 Chloride (100 - 108 mEq/L) 108 Carbon Dioxide (21 - 33 mEq/l) 24 Anion Gap (0 - 20) 14 BUN (7 - 25 mg/dL) 15 Creatinine (0.6 - 1.3 mg/dL) 1.4 H POC Creatinine (0.6 - 1.3 mg/dL) 1.1 Glomerular Filtr Rate (80 - 90) 55.8 L Glucose (77 - 141 mg/dL) 183 H POC Glucose (70 - 110 MG/DL) 215 H 132 H 162 H POC Glucose (mg/dL) (70 - 110 MG/DL) 184 H Calcium (8.0 - 10.5 mg/dL) 8.4 Magnesium (1.6 - 2.6 mg/dL) 2.15 Total Bilirubin (0.0 - 1.0 mg/dL) 0.50 Direct Bilirubin (0.1 - 0.3 MG/DL) 0.20 Indirect Bilirubin (MG/DL) 0.30 AST (8 - 34 IUnit/L) 47 H ALT (10 - 49 IUnit/L) 17 Total Alk Phosphatase (20 - 125 41 IUnit/L) Total Protein (5.7 - 8.2 g/dL) 5.9 Albumin (3.4 - 5.0 g/dL) 3.50 03/17 03/16 03/16 03/16 03/16 0116 2112 1999 182 1819 Chemistry Sodium (134 - 147 mEq/L) 143 Potassium (3.4 - 5.0 mEq/L) 4.0 Chloride (100 - 108 mEq/L) 107 Carbon Dioxide (21 - 33 mEq/l) 24 Anion Gap (0 - 20) 16 BUN (7 - 25 mg/dL) 13 Creatinine (0.6 - 1.3 mg/dL) 1.2 POC Creatinine (0.6 - 1.3 mg/dL) 1.0 1.0 Glomerular Filtr Rate (80 - 90) 67.1 L Glucose (77 - 141 mg/dL) 185 H POC Glucose (70 - 110 MG/DL) 177 H 163 H POC Glucose (mg/dL) (70 - 110 MG/DL) 184 H 210 H Calcium (8.0 - 10.5 mg/dL) 8.8 Magnesium (1.6 - 2.6 mg/dL) 2.69 H 03/16 03/16 03/16 03/16 03/16 1722 1701 1618 1545 1503 Chemistry POC Creatinine (0.6 - 1.3 mg/dL) 0.8 0.9 0.9 1.0 1.0 POC Glucose (mg/dL) (70 - 110 MG/DL) 221 H 194 H 198 H 198 H 185 H 03/16 03/16 1435 1357 Chemistry POC Creatinine (0.6 - 1.3 mg/dL) 1.0 0.8 POC Glucose (mg/dL) (70 - 110 MG/DL) 158 H 160 H Laboratory Tests 03/16 03/16 03/16 03/16 1822 1725 1707 1626 Coagulation INR (0.8 - 1.2) 1.3 H PTT (25.0 - 39.5 Seconds) 32.1 PT Patient/Control Mix (9.3 - 12.9 SECONDS) 14.6 H Activated Coag Time (74 - 137 SEC) 112 469 H 487 H 03/16 03/16 03/16 03/16 1550 1511 1443 1405 Coagulation Activated Coag Time (74 - 137 SEC) 504 H 475 H 493 H 504 H Laboratory Tests 03/17 03/16 0247 1822 Hematology WBC (4.5 - 11.0 x10 3/uL) 15.0 H 28.0 H RBC (4.00 - 5.60 x10 6/uL) 3.77 L 4.02 Hgb (12.5 - 16.9 g/dL) 12.3 L 13.1 Hct (37.5 - 50.7 %) 36.6 L 39.6 MCV (81.0 - 99.0 fL) 97.1 98.5 MCH (27.0 - 33.0 pg) 32.6 32.6 MCHC (33.0 - 37.0 g/dL) 33.6 33.1 RDW (11.5 - 14.5 %) 13.2 13.0 Plt Count (150 - 400 x10 3/uL) 129 L 141 L MPV (7.0 - 9.0 fL) 9.7 H 10.1 H Neut % (Auto) (56.0 - 77.0 %) 80.1 H 80.2 H Lymph % (Auto) (14.0 - 32.0 %) 7.5 L 10.2 L Potter % (Auto) (4.8 - 9.0 %) 11.8 H 7.9 Eos % (Auto) (0.3 - 3.7 %) 0.0 L 0.3 Baso % (Auto) (0.0 - 2.0 %) 0.1 0.3 Neut # (Auto) (2.0 - 7.6 x10 3/uL) 12.03 H 22.47 H Lymph # (Auto) (1.0 - 3.8 x10 3/uL) 1.12 2.86 Potter # (Auto) (0.1 - 0.8 x10 3/uL) 1.78 H 2.22 H Eos # (Auto) (0.0 - 0.2 x10 3/uL) 0.00 0.08 Baso # (Auto) (0.0 - 0.2 x10 3/uL) 0.02 0.08 Abs Immat Gran (auto) (0.00 - 0.03 x10 3/uL) 0.08 H 0.30 H Immature Gran % (0.0 - 2.0 %) 0.5 1.1 Nucleated RBC % (0 - 0 %) 0.0 0.0 Nucleated RBCs # (Man) (0.0 - 0.1 x10 3/uL) 0.00 0.00 Radiology Data: Recent Impressions: RADIOLOGY - XR CHEST 1 V 03/16 1822 Report Impression - Status: SIGNED Entered: 03/16/20252123 IMPRESSION: 1. Mild central interstitial infiltrates. 2. Moderate enlargement of the cardiac silhouette, likely related to prior cardiac valve replacement and recent cardiac surgery. 3. Left chest tube. No pneumothorax. Electronically signed by: Linh Ayala MD 03/16/2025 09:23 PM CDT Impression By: [facility] - Linh Ayala M.D. Diagnosis, Assessment Plan Free Text A P: Assessment multivessel CAD, eval for CABG rectal bleeding hx of DM patient reports last colonoscopy was in September of this year, reports 3 polyps were removed. Plan: - pain/emesis control - monitor h/h, hgb reassuring - monitor for rectal bleeding - diet as tolerated - ppi therapy at 6168 at 0924 RPT #:[id number] END OF REPORT [facility] 2025-03-17 08:23:[address] [facility]) Cardiology Progress Note REPORT#:[id number] REPORT STATUS: Signed REPORT INITIALIZATION DATE:03/17/25 TIME: 822 PATIENT: LAKEISHA NORRIS UNIT #: [id number] ROOM/BED: [address] : 58 AGE: 64 SEX: M ATTEND: Marlene Padilla MD ADM AUTHOR: Christina Madrigal AGACNP REPT SERVICE DT/TIME: 03/17/25822 * ALL edits or amendments must be made on the electronic/computer document * Subjective Comments: OOB to chair, off pressor. Objective General VS/I O: 24 hour I O ending at 0700: 03/17 0700 07 1900 Intake Total 2601.00 Output Total 960 840 Balance 1641.00 -840 Intake, IV 2121.00 Intake, Oral 480 Output, Chest 345 95 Tube Drainage Output, Urine 615 745 Patient 144.3 kg Weight Weight Standing scale Measurement Method Vital Signs: Date Time Temp Pulse Resp B/P B/P Pulse O2 O2 Flow FiO2 Mean Ox Delivery Rate 03/17 0600 37.7 72 122/63 87 100 07/02 0530 37.7 80 114/60 81 98 07/02 0500 37.6 76 19 116/59 80 99 07/02 0430 37.7 77 16 116/58 80 98 07/02 0400 37.8 07/02 0400 Nasal 4 cannula 07/ 0400 37.8 77 18 113/51 68 96 07/02 0300 37.6 77 22 114/51 66 97 07/02 0200 37.7 74 19 104/51 65 96 07/02 0100 37.7 78 107/56 70 98 07/02 0000 37.7 07/02 0000 BiPAP 40 07/02 0000 37.9 75 23 120/57 73 98 07/01 2325 37.8 75 27 106/63 79 97 07/01 2303 71 99 40 07/01 2300 37.9 71 107/53 68 98 07/01 2200 38.0 68 118/57 73 97 07/01 2100 38.0 64 20 114/56 69 98 07/01 1999 36.7 07/1999 BiPAP 60 07/1999 37.6 65 22 115/46 64 98 07/01 1940 67 99 60 07/01 194 100 BiPAP 60 03/16 1900 36.1 81 29 155/57 80 85 03/16 1822 100 BiPAP 60 03/16 1819 36.2 57 20 117/62 83 84 03/16 1813 55 93 100 03/16 1813 93 BiPAP 100 03/16 1000 61 51 119/57 80 93 03/16 0930 62 21 131/61 88 95 03/16 0830 129/62 86 03/16 0830 62 31 150/72 104 97 PATIENT WEIGHT: Weight (lb): 318 Weight (oz): 2.03 Weight (kg): 144.300 Medications: Active Meds + DC'd Last 24 Hrs Ipratropium [place] (ATROVENT) 500 MCG RTQ2H PRN PRN INH Cyanocobalamin (Vitamin B-12 500 mcg tab) 500 MCG DAILY PO Ferrous Sulfate (FERROUS SULFATE) 325 MG DAILY PO Bisacodyl (DULCOLAX) 10 MG ONCE PRN RECTAL Magnesium Hydroxide (MILK OF MAGNESIA) 30 ML ONCE PRN PO Clopidogrel Bisulfate (Plavix) 75 MG DAILY PO Polyethylene Glycol (MIRALAX) 17 GM DAILY PO Levothyroxine Sodium (Synthroid) 200 MCG DAILY 0600 PO Pantoprazole (PROTONIX) 40 MG DAILY@0600 PO Vancomycin HCl (VANCOMYCIN HCL) 1,000 MG Q12H IV Sodium Chloride (SODIUM CHLORIDE 0.9%) 250 ML Fentanyl Citrate (SUBLIMAZE) 25 MCG ONCE ONE IV (DC) Fentanyl Citrate (SUBLIMAZE) 25 MCG ONCE ONE IV (DC) Fentanyl Citrate (SUBLIMAZE) 0 .STK-MED ONE IV (DC) Methocarbamol (ROBAXIN) 500 MG Q8HR IV Albumin Human (ALBUMINAR 5% 12.5GM/250ML) 250 ML ONCE ONE IV (DC) Atorvastatin Calcium (LIPITOR) 40 MG 2100 PO Docusate Sodium (COLACE) 100 MG BID PO Metoprolol Tartrate (LOPRESSOR) 12.5 MG Q12HR PO Mupirocin (BACTROBAN 2% 22 GM OINTMENT) 1 APPLIC BID NASAL Sennosides (Senna Lax 8.6 MG TABLET) 17.2 MG BEDTIME PO Aspirin (ASPIRIN) 81 MG DAILY PO Acetaminophen (OFIRMEV 10MG/ML) 100 ML Q6H IV (DC) Fentanyl Citrate (SUBLIMAZE) 0 .STK-MED ONE .ROUTE (DC) Sugammadex Sodium (BRIDION) 0 .STK-MED ONE IV (DC) Sodium Bicarbonate (SODIUM BICARBONATE) 0 .STK-MED ONE IV (DC) Cefazolin Sodium (KEFZOL OR ANCEF) 0 .STK-MED ONE .ROUTE (DC) Ipratropium [place] (ATROVENT) 500 MCG RTQ4H INH Miscellaneous Information (VANCOMYCIN PHARMACY TO DOSE) 1 EACH ASDIR IV (CAN) Amiodarone HCl (CORDARONE) 200 MG TID PO Acetaminophen (TYLENOL) 650 MG Q4H PRN PRN PO Acetaminophen (TYLENOL) 650 MG Q4H PRN PRN RECTAL Albumin Human (ALBUMINAR 25%) 25 GM ASDIR PRN IV Calcium Chloride (CALCIUM CHLORIDE) 1 GM ASDIR PRN IV Cefazolin Sodium (KEFZOL OR ANCEF) 6 GM ONCE ONE IV (CKD) Sodium Chloride (NS 0.9%) 500 ML Dextrose/Water (DEXTROSE 10% IN WATER) 125 ML ASDIR PRN IV (CKD) Dextrose/Water (DEXTROSE 10% IN WATER) 250 ML ASDIR PRN IV (CKD) Epinephrine (ADRENALIN CHLORIDE) 4 MG ASDIR IV Dextrose/Water (DEXTROSE 5% WATER) 246 ML Glucagon (GLUCAGON) 1 MG ASDIR PRN IM Insulin Human Regular (MYXREDLIN 100 UNITS/NS 100ML) 100 ML ASDIR IV ( CKD) Magnesium Sulfate (MAGNESIUM SULFATE 4GM/SWFI 100ML) 100 ML ASDIR PRN IV Magnesium Sulfate (MAGNESIUM SULFATE 2GM/SWFI 50ML) 50 ML ASDIR PRN IV Magnesium Sulfate/Dextrose (MAGNESIUM SULFATE 1GM/D5W 100ML) 100 ML ASDIR PRN IV Norepinephrine/Dextrose (Norepinephrine 8 MG/D5W 250 mL) 250 ML TITRATE IV Ondansetron HCl (ZOFRAN) 4 MG Q6H PRN PRN IV Oxycodone HCl (ROXICODONE) 5 MG Q4H PRN PRN PO Oxycodone HCl (ROXICODONE) 10 MG Q4H PRN PRN PO Potassium Chloride (KCL 20MEQ/SWFI 100ML) 100 ML ASDIR PRN IV Sodium Bicarbonate (SODIUM BICARBONATE) 50 MEQ ASDIR PRN IV Isoflurane (FORANE) 0 .STK-MED ONE INH (DC) Rocuronium [place] (ZEMURON) 0 .STK-MED ONE IV (DC) Dexamethasone Sodium Phosphate (DECADRON) 0 .STK-MED ONE .ROUTE (DC) Ondansetron HCl (ZOFRAN) 0 .STK-MED ONE .ROUTE (DC) Rocuronium [place] (ZEMURON) 0 .STK-MED ONE IV (DC) Fentanyl Citrate (SUBLIMAZE) 0 .STK-MED ONE IV (DC) Propofol (DIPRIVAN 200MG/20ML INJECTION) 20 ML .STK-MED ONE IV (DC) Epinephrine HCl (EPINEPHrine 4 mg/D5W 250 mL) 250 ML .STK-MED ONE IV (DC ) Heparin Sodium (HEPARIN SODIUM) 0 .STK-MED ONE .ROUTE (DC) Insulin Human Regular (MYXREDLIN 100 UNITS/NS 100ML) 100 ML .STK-MED ONE IV (DC) Nitroglycerin/Dextrose (NITROGLYCERIN 50,000MCG/D5W 250ML) 250 ML .STK-MED ONE IV (DC) Ropivacaine (NAROPIN 0.5% 150 MG/30mL) 0 .STK-MED ONE .ROUTE (DC) Sodium Chloride (SODIUM CHLORIDE 0.9%) 100 ML .STK-MED ONE IV (DC) Aminocaproic Acid (AMICAR) 0 .STK-MED ONE .ROUTE (DC) Calcium Chloride (CALCIUM CHLORIDE) 0 .STK-MED ONE IV (DC) Magnesium Sulfate (MAGNESIUM SULFATE) 0 .STK-MED ONE .ROUTE (DC) Norepinephrine/Dextrose (Norepinephrine 8 MG/D5W 250 mL) 250 ML .STK-MED ONE IV (DC) Protamine Sulfate (PROTAMINE SULFATE) 0 .STK-MED ONE IV (DC) Cefazolin Sodium (KEFZOL OR ANCEF) 0 .STK-MED ONE IV (DC) Vancomycin HCl (VANCOMYCIN HCL) 0 .STK-MED ONE .ROUTE (DC) Cefazolin Sodium (KEFZOL OR ANCEF) 3 GM PREOP ONCALL IV (DC) Sodium Chloride (SODIUM CHLORIDE 0.9% 100 ML) 100 ML Fentanyl Citrate (SUBLIMAZE) 100 MCG ONCE ONE IV (DC) Metoprolol Tartrate (LOPRESSOR) 6.25 MG ONCE ONE PO (DC) Vancomycin HCl (VANCOMYCIN HCL) 1,500 MG PREOP ONCALL IV (DC) Sodium Chloride (SODIUM CHLORIDE 0.9%) 250 ML Verapamil HCl (ISOPTIN) 16.6 MG .Q24H ONE IV (DC) Heparin Sodium (Porcine) (HEPARIN SODIUM) 1,660 UNIT Sodium Bicarbonate (SODIUM BICARBONATE) 0.7 ML Nitroglycerin/Dextrose (NITROGLYCERIN 50MG/D5W 250ML) 8.3 MG Lactated Ringer's (LACTATED RINGERS) 949.5 ML Papaverine HCl (PAPAVERINE HC) 0 .STK-MED ONE IV (DC) Albumin Human (ALBUMINAR-25%) 100 ML .STK-MED ONE IV (DC) Heparin Sodium (HEPARIN SODIUM) 0 .STK-MED ONE .ROUTE (DC) Lidocaine HCl (Lidocaine HCl 2% Luer-Jet) 0 .STK-MED ONE IV (DC) Sodium Bicarbonate (SODIUM BICARBONATE) 0 .STK-MED ONE IV (DC) Sodium Chloride (SODIUM CHLORIDE 0.9%) 100 ML .K-MED ONE IV (DC) Magnesium Sulfate (MAGNESIUM SULFATE) 0 .STK-MED ONE IV (DC) Phenylephrine HCl (SAWYER-SYNEPHRINE 10MG/ML AMP) 0 .STK-MED ONE .ROUTE (DC ) Vancomycin HCl (VANCOMYCIN HCL) 1,000 MG Q12H IV (DC) Sodium Chloride (SODIUM CHLORIDE 0.9%) 250 ML Mupirocin (BACTROBAN 2% 22 GM OINTMENT) 1 APPLIC BID NASAL (DC) Pantoprazole Sodium (PROTONIX) 40 MG Q12HR IV (DC) Sodium Chloride (SODIUM CHLORIDE) 10 ML ASDIR PRN IV (DC) Dexmedetomidine/Sodium Chloride (Precedex 1,000 mcg/NS 250 mL) 250 ML ASDIR IV (DC) Dextrose/Water (DEXTROSE 10% IN WATER) 125 ML ASDIR PRN IV (DC) Dextrose/Water (DEXTROSE 10% IN WATER) 250 ML ASDIR PRN IV (DC) Glucagon (GLUCAGON) 1 MG ASDIR PRN IM (DC) Nitroglycerin/Dextrose (NITROGLYCERIN 50,000MCG/D5W 250ML) 250 ML ASDIR IV (DC) Cefazolin Sodium (KEFZOL OR ANCEF) 3 GM PREOP ONCALL IV (DC) Sodium Chloride (SODIUM CHLORIDE 0.9% 100 ML) 100 ML Vancomycin HCl (Vancomycin 2,000 mg Inj (B2)) 2,000 MG PREOP ONCALL IV ( DC) Sodium Chloride (SODIUM CHLORIDE 0.9%) 500 ML Verapamil HCl (ISOPTIN) 16.6 MG .Q24H ONE IV (DC) Heparin Sodium (Porcine) (HEPARIN SODIUM) 1,660 UNIT Sodium Bicarbonate (SODIUM BICARBONATE) 0.7 ML Nitroglycerin/Dextrose (NITROGLYCERIN 50MG/D5W 250ML) 8.3 MG Lactated Ringer's (LACTATED RINGERS) 949.5 ML Metoprolol Tartrate (LOPRESSOR) 6.25 MG PREOP ONCE PO (DC) Acetaminophen (TYLENOL EXTRA STRENGTH) 1,000 MG PREOP ONCALL PO (DC) Gabapentin (NEURONTIN) 200 MG PREOP ONCALL PO (DC) Lactated Ringer's (LACTATED RINGERS) 1,000 ML PREOP ONCALL IV (DC) Lidocaine HCl (Lidocaine PF1% 20 mg/2 mL Inj) 2 ML PREOP ONCALL LOCAL ( DC) Lidocaine HCl (Lidocaine PF1% 20 mg/2 mL Inj) 2 ML PREOP ONCALL LOCAL ( DC) Sodium Chloride (SODIUM CHLORIDE 0.9%) 500 ML PREOP ONCALL IV (DC) Sodium Chloride (SODIUM CHLORIDE 0.9%) 500 ML PREOP ONCALL IV (DC) Sodium Chloride (SODIUM CHLORIDE 0.9%) 1,000 ML PREOP ONCALL IV (DC) Sodium Chloride (SODIUM CHLORIDE) 5 ML ASDIR PRN IV (DC) Sodium Chloride (SODIUM CHLORIDE) 10 ML ASDIR PRN IV (DC) Sodium Chloride (SODIUM CHLORIDE 0.9%) 100 ML ASDIR PRN IV (DC) Physical Exam General appearance: obese, alert, awake, oriented Neck: no JVD, no masses or swelling Cardiovascular: CV assessment: regular rate and rhythm Respiratory: decreased breath sounds, on oxygen, no distress Abdomen: obese Genitourinary: urinary catheter, urine Lower extremity: LE assessment: no edema Musculoskeletal: normal inspection Neuro/BANKING MANAGER: alert, oriented X 3 Skin: dry Psychiatry: normal affect, normal mood Results Findings/Data: Laboratory Tests 03/17 03/16 03/16 03/16 0430 2112 1819 1722 Blood Gas Puncture Site Art Line Art Line Art Line O2 Saturation (90 - 100 %) 97.0 99.5 99.9 99.6 ABG pH (7.35 - 7.45) 7.423 7.391 7.259 *L 7.358 ABG pCO2 (35.0 - 45 mmHg) 39.9 40.6 51.7 *H 38.1 ABG pO2 (80 - 100.0 mmHg) 92.1 168.2 H 320.8 *H 179.8 H ABG PO2/FiO2 Ratio (mm/Hg) 280.33 320.80 ABG HCO3 (22.0 - 26.0 MMOL/L) 25.9 24.4 23.4 21.4 L ABG Total CO2 (22 - 29) 27.1 25.6 25.0 22.6 ABG Base Excess (0 - +/ MMOL/L) 1.6 -0.3 L -3.9 L -3.7 L ABG Hematocrit (38 - 51 %) 35 L 37 L 40 32 L ABG Hemoglobin (12.5 - 16.9 G/DL) 12.0 L 12.7 13.5 11.0 L Valdemar Test N/A N/A N/A Sodium (134 - 147 mmol/L) 143 142 145 142 Potassium (3.4 - 5.0 mmol/L) 4.0 4.4 4.0 3.3 L Chloride (100 - 108 mmol/L) 112 H 110 H 107 110 H Ionized Calcium (1.12 - 1.32 MMOL/L) 1.19 1.29 1.32 1.31 Lactic Acid (0.9 - 1.7 mmol/l) 2.0 H 3.2 H Temperature (F) 99.9 100 97.2 O2 Delivery Device Cannula BiPAP BiPAP Vent Mode NIV FiO2 (%) 60 100.0 PEEP (cmH2O) 10 10 Pressure Support (cmH2O) 18 03/16 03/16 03/16 03/16 1701 1618 1545 1503 Blood Gas O2 Saturation (90 - 100 %) 100.0 100.0 100.0 100.0 ABG pH (7.35 - 7.45) 7.456 H 7.423 7.391 7.366 ABG pCO2 (35.0 - 45 mmHg) 31.1 L 35.7 42.9 44.8 ABG pO2 (80 - 100.0 mmHg) 541.5 *H 352.6 *H 384.2 *H 379.2 *H ABG HCO3 (22.0 - 26.0 MMOL/L) 21.9 L 23.3 26.0 25.7 ABG Total CO2 (22 - 29) 22.8 24.4 27.3 27.1 ABG Base Excess (0 - +/ MMOL/L) -1.4 L -0.8 L 0.8 0.1 ABG Hematocrit (38 - 51 %) 32 L 34 L 35 L 34 L ABG Hemoglobin (12.5 - 16.9 G/DL) 10.8 L 11.6 L 11.8 L 11.6 L Sodium (134 - 147 mmol/L) 139 142 141 141 Potassium (3.4 - 5.0 mmol/L) 4.2 4.7 4.1 4.2 Chloride (100 - 108 mmol/L) 107 106 106 104 Ionized Calcium (1.12 - 1.32 MMOL/L) 1.44 H 1.18 1.18 1.19 Lactic Acid (0.9 - 1.7 mmol/l) 3.0 H 1.7 1.8 H 1.9 H 03/16 03/16 03/16 1435 1357 1157 Blood Gas O2 Saturation (90 - 100 %) 99.9 99.9 100.0 ABG pH (7.35 - 7.45) 7.335 L 7.382 7.360 ABG pCO2 (35.0 - 45 mmHg) 50.5 *H 37.0 40.4 ABG pO2 (80 - 100.0 mmHg) 385.3 *H 254.9 *H 416.2 *H ABG HCO3 (22.0 - 26.0 MMOL/L) 27.0 H 22.0 22.8 ABG Total CO2 (22 - 29) 28.5 23.1 24.0 ABG Base Excess (0 - +/ MMOL/L) 0.5 -2.7 L -2.5 L ABG Hematocrit (38 - 51 %) 34 L 39 40 ABG Hemoglobin (12.5 - 16.9 G/DL) 11.6 L 13.2 13.6 Sodium (134 - 147 mmol/L) 141 142 140 Potassium (3.4 - 5.0 mmol/L) 4.4 3.5 3.5 Chloride (100 - 108 mmol/L) 105 109 H 106 Ionized Calcium (1.12 - 1.32 MMOL/L) 1.18 1.18 1.21 Lactic Acid (0.9 - 1.7 mmol/l) 1.3 1.2 < 0.3 L Laboratory Tests 03/17 03/17 03/17 03/17 03/17 0720 0619 0430 0247 0116 Chemistry Sodium (134 - 147 mEq/L) 141 Potassium (3.4 - 5.0 mEq/L) 4.5 Chloride (100 - 108 mEq/L) 108 Carbon Dioxide (21 - 33 mEq/l) 24 Anion Gap (0 - 20) 14 BUN (7 - 25 mg/dL) 15 Creatinine (0.6 - 1.3 mg/dL) 1.4 H POC Creatinine (0.6 - 1.3 mg/dL) 1.1 Glomerular Filtr Rate (80 - 90) 55.8 L Glucose (77 - 141 mg/dL) 183 H POC Glucose (70 - 110 MG/DL) 132 H 162 H 177 H POC Glucose (mg/dL) (70 - 110 MG/DL) 184 H Calcium (8.0 - 10.5 mg/dL) 8.4 Magnesium (1.6 - 2.6 mg/dL) 2.15 Total Bilirubin (0.0 - 1.0 mg/dL) 0.50 Direct Bilirubin (0.1 - 0.3 MG/DL) 0.20 Indirect Bilirubin (MG/DL) 0.30 AST (8 - 34 IUnit/L) 47 H ALT (10 - 49 IUnit/L) 17 Total Alk Phosphatase (20 - 125 41 IUnit/L) Total Protein (5.7 - 8.2 g/dL) 5.9 Albumin (3.4 - 5.0 g/dL) 3.50 03/16 1822 1819 1722 Chemistry Sodium (134 - 147 mEq/L) 143 Potassium (3.4 - 5.0 mEq/L) 4.0 Chloride (100 - 108 mEq/L) 107 Carbon Dioxide (21 - 33 mEq/l) 24 Anion Gap (0 - 20) 16 BUN (7 - 25 mg/dL) 13 Creatinine (0.6 - 1.3 mg/dL) 1.2 POC Creatinine (0.6 - 1.3 mg/dL) 1.0 1.0 0.8 Glomerular Filtr Rate (80 - 90) 67.1 L Glucose (77 - 141 mg/dL) 185 H POC Glucose (70 - 110 MG/DL) 163 H POC Glucose (mg/dL) (70 - 110 MG/DL) 184 H 210 H 221 H Calcium (8.0 - 10.5 mg/dL) 8.8 Magnesium (1.6 - 2.6 mg/dL) 2.69 H 03/16 03/16 03/16 03/16 03/16 1701 1618 1545 1503 1435 Chemistry POC Creatinine (0.6 - 1.3 mg/dL) 0.9 0.9 1.0 1.0 1.0 POC Glucose (mg/dL) (70 - 110 MG/DL) 194 H 198 H 198 H 185 H 158 H 03/16 03/16 03/16 1357 1157 1114 Chemistry POC Creatinine (0.6 - 1.3 mg/dL) 0.8 0.9 POC Glucose (70 - 110 MG/DL) 217 H POC Glucose (mg/dL) (70 - 110 MG/DL) 160 H 211 H Laboratory Tests 03/16 03/16 03/16 03/16 1822 1725 1707 1626 Coagulation INR (0.8 - 1.2) 1.3 H PTT (25.0 - 39.5 Seconds) 32.1 PT Patient/Control Mix (9.3 - 12.9 SECONDS) 14.6 H Activated Coag Time (74 - 137 SEC) 112 469 H 487 H 03/16 03/16 03/16 03/16 03/16 1550 1511 1443 1405 1208 Coagulation Activated Coag Time (74 - 137 SEC) 504 H 475 H 493 H 504 H 135 Laboratory Tests 03/17 03/16 0247 1822 Hematology WBC (4.5 - 11.0 x10 3/uL) 15.0 H 28.0 H RBC (4.00 - 5.60 x10 6/uL) 3.77 L 4.02 Hgb (12.5 - 16.9 g/dL) 12.3 L 13.1 Hct (37.5 - 50.7 %) 36.6 L 39.6 MCV (81.0 - 99.0 fL) 97.1 98.5 MCH (27.0 - 33.0 pg) 32.6 32.6 MCHC (33.0 - 37.0 g/dL) 33.6 33.1 RDW (11.5 - 14.5 %) 13.2 13.0 Plt Count (150 - 400 x10 3/uL) 129 L 141 L MPV (7.0 - 9.0 fL) 9.7 H 10.1 H Neut % (Auto) (56.0 - 77.0 %) 80.1 H 80.2 H Lymph % (Auto) (14.0 - 32.0 %) 7.5 L 10.2 L Potter % (Auto) (4.8 - 9.0 %) 11.8 H 7.9 Eos % (Auto) (0.3 - 3.7 %) 0.0 L 0.3 Baso % (Auto) (0.0 - 2.0 %) 0.1 0.3 Neut # (Auto) (2.0 - 7.6 x10 3/uL) 12.03 H 22.47 H Lymph # (Auto) (1.0 - 3.8 x10 3/uL) 1.12 2.86 Potter # (Auto) (0.1 - 0.8 x10 3/uL) 1.78 H 2.22 H Eos # (Auto) (0.0 - 0.2 x10 3/uL) 0.00 0.08 Baso # (Auto) (0.0 - 0.2 x10 3/uL) 0.02 0.08 Abs Immat Gran (auto) (0.00 - 0.03 x10 3/uL) 0.08 H 0.30 H Immature Gran % (0.0 - 2.0 %) 0.5 1.1 Nucleated RBC % (0 - 0 %) 0.0 0.0 Nucleated RBCs # (Man) (0.0 - 0.1 x10 3/uL) 0.00 0.00 Laboratory Tests 03/177 1822 Chemistry Magnesium (1.6 - 2.6 mg/dL) 2.15 2.69 H Radiology data: Recent Impressions: RADIOLOGY - XR CHEST 1 V 03/16 1822 Report Impression - Status: SIGNED Entered: 03/16/20252123 IMPRESSION: 1. Mild central interstitial infiltrates. 2. Moderate enlargement of the cardiac silhouette, likely related to prior cardiac valve replacement and recent cardiac surgery. 3. Left chest tube. No pneumothorax. Electronically signed by: Linh Ayala MD 03/16/2025 09:23 PM CDT RP Impression By: Krystyna - Linh Ayala M.D. Results: labs reviewed, vital signs reviewed, rhythm personally rev'd Diagnosis, Assessment Plan Plan discussed with: patient, collaborating MD, nurse Free Text DxA P Notes Free Text DxA P Notes: 1. CAD and aortic valve stenosis s/p CABG x5 plus AVR plus ALAA * off pressor * DAPT, BB, statin * immediate post-op care per CTS and critical care 2. Hypetension * monitor off BP meds 3. Hypelipidemia * continue statin 4. Diabetes mellitus * glycemic control per critical care 5. Rectal bleed attributed to external hemorrhoid * GI and colorectal surgery following MDM by Dr. Winston. Dr. Ordoñez covering from 03/18-04/04. at 1700 at 1402 [facility] #:[id number] END OF REPORT [facility] 2025-03-16 21:47:00 [id number] [place] [id number] PATIENT NAME: LAKEISHA NORRIS ADMIT DATE: 03/15/25 ACCOUNT NO: [id number] [place] [facility] [place] 64 REPORT TYPE: OPERATIVE REPORT SEX: M ADMITTING PHYSICIAN:Marlene Padilla MD ATTENDING PHYSICIAN:Marlene Padilla MD OPERATION DATE: 03/16/2025 PREOPERATIVE DIAGNOSES: 1. Coronary artery disease. 2. Moderate aortic regurgitation, moderate aortic stenosis. POSTOPERATIVE DIAGNOSES: 1. Coronary artery disease. 2. Moderate aortic regurgitation, moderate aortic stenosis. PROCEDURES: 1. Coronary artery bypass graft surgery x5 (MCGUIRE to LAD, saphenous vein to diagonal, saphenous vein to first marginal, saphenous vein to second marginal, saphenous vein to PDA). 2. Aortic valve replacement (29-mm Inspiris valve). 3. Amputation of left atrial appendage. 4. Posterior pericardiotomy. 5. Endoscopic vein harvest of the right greater saphenous vein. SURGEON: Pura Padilla M.D. HISTOLOGICAL ILLUSTRATOR: Linh Ramsay. ANESTHESIOLOGIST: Dr. Valderrama. ANESTHESIA: General endotracheal anesthesia. ESTIMATED BLOOD LOSS: 100 mL. INDICATIONS: Mr. Norris is a 64-year-old male with severe coronary artery disease, aortic stenosis and aortic regurgitation. After due preop counseling, he was brought to the operating room today for AVR and CABG. FINDINGS: 1. Vein was harvested from the right leg using endoscopic vein harvest technique. Vein was of satisfactory quality, measuring about 4 to 5 mm in size. 2. Normal sternum. 3. Good quality MCGUIRE, measuring 2 mm in size with excellent flow. 4. Normal pericardium without any intrapericardial adhesion and minimal intrapericardial fluid. 5. LAD 2 mm, good quality artery. 6. Diagonal 1.75 mm, good quality artery. 7. First marginal 2 mm, good quality artery. PATIENT NAME: LAKEISHA NORRIS 8. Second marginal 2 mm, good quality artery. 9. PDA 2 mm, good quality artery. 10. Heavily calcified tricuspid aortic valve with calcification extending onto the aortic annulus. 11. Following decalcification, the annulus was sized to 29 Inspiris valve. 12. Left atrial appendage was amputated half a centimeter from the base. This was then repaired with two layers of running pledgeted 4-0 Prolene suture. 13. Posterior pericardiotomy was performed by making a cruciate incision in the posterior pericardium. PROCEDURE IN DETAIL: Mr. Norris was identified in the preop holding area and brought to operating room and placed supine on the operating table. After induction of general endotracheal anesthesia, a Suarez catheter, radial arterial line, antibiotics were placed. The patient's anterior torso and both legs were prepped and draped in standard surgical fashion. Vein was harvested from the right leg using endoscopic vein harvest technique. Following harvesting of the vein, subcutaneous tissue was closed with 2-0 Vicryl and skin with 4-0 Vicryl. Simultaneously, median sternotomy was performed and left internal mammary artery was harvested. The patient was heparinized. Pericardium was opened longitudinally and pericardial well was created. Cardiopulmonary bypass was instituted using ascending aorta and three-stage cannula in the right atrium. The patient was cooled to 32 degrees centigrade. Cross-clamp was applied and the heart was arrested with 1.5 liters of antegrade and retrograde cold blood cardioplegia. Cardioplegia was repeated at interval of 10 minutes all throughout the duration of the cross-clamp. We began by exploring the PDA. This was a good quality artery measuring 2 mm in size. Arteriotomy was performed with a Rosebud blade and extended with Bowens scissors. A segment of previously harvested reverse saphenous vein was anastomosed in an end-to-side manner using 7-0 Prolene suture. Next, second marginal was explored. This was a good quality artery, measuring 2 mm in size. Arteriotomy was performed with a Rosebud blade and extended with Bowens scissors. A segment of previously harvested reverse saphenous vein was anastomosed in end-to-side manner using 7-0 Prolene suture. Next, the first marginal was explored. This was a good quality artery measuring 2 mm in size. Arteriotomy was performed with a Rosebud blade and extended with Bowens scissors. A segment of previously harvested reverse saphenous vein was anastomosed in an end-to-side manner using 7-0 Prolene suture. The diagonal was explored. This was a good quality artery measuring 1.75 mm in size. Arteriotomy was performed with a Rosebud blade and extended with Bowens scissors. A segment of previously harvested reverse saphenous vein was anastomosed in an end-to-side manner using 7-0 Prolene suture. LAD was explored. This was a good quality artery measuring 2 mm in size. Arteriotomy was performed with a Rosebud blade and extended with Bowens scissors. MCGUIRE was anastomosed in an end-to-side manner using running 8-0 Prolene suture. MCGUIRE pedicle was tacked to epicardium using two interrupted 6-0 Prolene suture. A slit was made in the pericardium on the left aspect so as to accommodate the MCGUIRE. Attention was then shifted to the aortic valve. A transverse aortotomy was performed 2 fingerbreadths distal to the sinotubular junction. This was extended in a hockey-stick fashion onto the noncoronary sinus. Three pledgeted 4-0 Prolene sutures were placed on superior and inferior lip of the aortotomy, so as to assist with exposure of the aortic valve. The aortic valve was inspected with the above-mentioned findings. The aortic cusps were excised. Careful decalcification of the aortic annulus was performed. The aortic annulus sized to 29 Inspiris valve. Circumferential 3-0 Ethibond sutures were placed in the aortic annulus. Size 29 Inspiris valve was brought onto the surgical field. PATIENT NAME: LAKEISHA NORRIS The sutures were then sequentially passed through the sewing ring. The valve was lowered down to the annulus. After confirming proper seating, the sutures were tied. Rewarming was commenced at this stage. The aortotomy was closed in two layers using running 4-0 Prolene suture. The vein graft to PDA was brought along the right side of the heart and sized. Aortotomy was performed on the right aspect of the aorta using 4-mm punch. Proximal anastomosis of the PDA graft was then performed using a running 6-0 Prolene suture. The vein graft to second marginal was brought along the left side of the heart and sized. Aortotomy was performed on the left aspect of the aorta using 4-mm punch. Proximal anastomosis of the second marginal graft was then performed using running 6-0 Prolene suture. The vein graft to first marginal was brought along the left side of the heart and sized. Aortotomy was performed on the left aspect of the aorta using 4-mm punch. Proximal anastomosis of the first marginal graft was then performed using a running 6-0 Prolene suture. Finally, vein graft to the diagonal was brought along the left side of the heart and sized. Aortotomy was performed on the left aspect of the aorta using 4-mm punch. Proximal anastomosis of the diagonal graft was then performed using running 6-0 Prolene suture. Careful de-aeration was performed and the cross-clamp was released. One ventricular wire was placed. A 28-Slovenian chest tube was placed in the mediastinum and 28-angled chest tube was placed in the left pleural space. Once the patient was at temperature, de-airing maneuvers were repeated and the patient was weaned off cardiopulmonary bypass with minimal inotropic support. Heparin was reversed with protamine. Decannulation was uneventful. After confirming hemostasis, the chest was closed in layers using stainless steel wires for the sternum, #1 Vicryl for the fascia, 2-0 Vicryl for the subcutaneous tissue and 4-0 Vicryl for the skin. The patient was extubated in the operating room and moved to CVICU in stable condition. Dictated By: MD Dariel Hamlin Dictated: 03/16/2025 21:47:08 Date Transcribed: 03/16/2025 23:41:04 AC/MAN Receipt ID: [id number] Authenticated and Edited by Marlene Padilla MD On 03/19/25 2:37:07 AM at 0239 PATIENT NAME: LAKEISHA NORRIS [facility] 2025-03-16 18:39:00 [facility] ([facility]) Critical Care Progress Note REPORT#:[id number] REPORT STATUS: Signed REPORT INITIALIZATION DATE:03/16/25 TIME: 1838 PATIENT: LAKEISHA NORRIS UNIT #: [id number] ROOM/BED: [place] [address] : 58 AGE: 64 SEX: M ATTEND: Marlene Padilla MD ADM AUTHOR: Thierno Bradley DO REPT SERVICE DT/TIME: 03/16/251838 * ALL edits or amendments must be made on the electronic/computer document * Subjective Chief complaint: cad HPI: Patient is a 64-year-old male history of hypertension hyperlipidemia diabetes hypothyroidism and hemorrhoids. Patient was undergoing cardiac clearance for knee replacement and found to have multivessel coronary artery disease. He was taken to the operating room today for planned CABG. Patient had central line and arterial lines placed along with Suarez and he was intubated. Prior to incision it was noted that he had bright red blood per rectum along with clots. At that time CV surgery discussed case with GI. Decision was made to abort surgery for further evaluation of GI bleeding. Patient is in the CVICU waking up from sedation on minimal vent settings. Patient cleared from GI surgery for surgery today. Patient underwent CABG x 5 with AVR. He is in the CVICU now for postoperative care. He is extubated to BiPAP. He does not appear in distress and is slowly waking up from sedation. He is on nitro at 10. His pre and postoperative echo showed normal EF. His EBL was 300. He received a 80 of Cell Saver and 1 L of crystalloid. Urine output was 1050 throughout the case. He is currently normal sinus rhythm. [address] Postop labs, EKG, chest x-ray pending. Objective General VS/I O Last Documented: Result Date Time Pulse Ox 100 03/16 1822 FiO2 60 03/16 1822 O2 Delivery BiPAP 03/16 1822 Pulse 55 03/16 1813 B/P 135/55 03/16 700 B/P Mean 78 03/16 700 Resp 21 03/16 700 Temp 98.0 03/16 0400 O2 Flow Rate 1 03/16 0400 24 hour I O ending at 0700: 03/16 0700 03/15 1900 Intake Total 700 Output Total 1800 250 Balance -1100 -250 Intake, Oral 700 Number Voids 3 Output, Urine 1800 250 Patient 141.7 kg 143.182 kg Weight Weight Standing scale Stated/Reported Measurement Method PATIENT WEIGHT: Weight (lb): 312 Weight (oz): 6.32 Weight (kg): 141.700 Free Text Obj Notes Free Text Obj Notes: GEN: waking up from sedation HEENT: Atraumatic, normocephalic, moist mucous membranes NECK: Supple, good range of motion, no tenderness, no JVD LUNGS: Symmetrical air entry, no acute respiratory distress, no accessory muscle use CV: S1, S2 regular rate and rhythm, warm and well perfused GI: Abdomen is soft, not tender or distended. Dark red clots from rectum EXT/Musc: No edema or cyanosis. Pedal pulses present. Compartments soft Skin: Surgical site clean, dry and intact. Warm to touch NEURO: waking up from sedation Diagnosis, Assessment Plan Free text A P: 64-year-old male in the CVICU for vent management and preop care pending CABG with active GI bleed Multivessel coronary artery disease Severe Postop day 0 status post CABG x 5 with AVR EVH A SENTHIL PP GI bleed History of hypertension History of hyperlipidemia History of DM History of hypothyroidism Neuro: Multimodal pain control Respiratory: Continue on BiPAP until more awake, ABG and CXR reviewed Cardiovascular: Continue nitro drip, SBP goal <140, CTs to suction, monitor output, ekg, PO amiodarone and beta ash when appropriate. Renal: strict I/Os, monitor Cr and electrolytes, resuscitate as needed GI: bedside swallow then oral diet after extubation, bowel regimen ID: trend WBC, cont periop ABx per protocol Hem: monitor Hgb and CTs output, transfuse as needed, correct coagulopathy. ASA/ plavix when able. Endo: BG control with insulin gtt per protocol Misc: PTOT consult, DVT and GI ppx with SCD and PPI Total critical care time 39 minutes spent treating the patient excluding any procedures performed at 1841 RPT #:[id number] END OF REPORT [facility] 2025-03-16 17:55:00 [facility] ([facility]) Cardiology Consultation REPORT#:[id number] REPORT STATUS: Signed REPORT INITIALIZATION DATE:03/16/25 TIME: 1754 PATIENT: LAKEISHA NORRIS UNIT #: [id number] ROOM/BED: [place] [address] : 58 AGE: 64 SEX: M ATTEND: Marlene Padilla MD ADM AUTHOR: Christina MadrigalCNSteven REPT SERVICE DT/TIME: 03/16/251754 * ALL edits or amendments must be made on the electronic/computer document * History of Present Illness HPI Requesting Clinician: Dr. Padilla Reason for consult: CAD, as/p CABG and SAVR PCP: PCP: No Primary or Family Physician HPI: This is a 64-year-old male with medical history of obesity, hypertension, diabetes mellitus, hyperlipidemia, and tobacco use. He was initially evaluated by Dr. Milian for cardiac clearance prior to knee surgery. An abnormal stress test prompted a coronary angiogram, which revealed multivessel coronary artery disease. A transthoracic echocardiogram also demonstrated aortic valve stenosis. The patient was evaluated on an outpatient basis and was deemed a suitable candidate for surgical revascularization. He was admitted on April 14, 2025, for planned CABG and SAVR. However, during the preoperative phase in the OR, rectal bleeding was observed, and surgery was cancelled. The rectal bleeding was ultimately attributed to ruptured thrombosed external hemorrhoid. After clearance from colorectal surgery, the patient proceeded with CABG and SAVR. Today, he succesfuly underwent the procedure. He is currently extubated, awake, and following commands. Hx Obtained From Chart History - Adult longitudinal Additional medical history: 1. Hypertension 2. Diabetes mellitus 3. Hyperlipidemia 4. Hypothyroidism 5. Aortic valve stenosis Additional family history: Unobtainable Alcohol use: unknown Smoking status for patients 13 years old or older: Light tobacco smoker Home medications: Home Medications: LEVOTHYROXINE (SYNTHROID) 200 MCG PO DAILY RAMIPRIL (ALTACE) 10 MG PO DAILY EMPAGLIFLOZIN (JARDIANCE) 25 MG PO DAILY SIMVASTATIN 20 MG PO BEDTIME metFORMIN (GLUCOPHAGE) 1,000 MG PO DAILY TIRZEPATIDE (MOUNJARO PEN (2mL)) 2.5 MG SUBQ Q7D Allergies: Coded Allergies: nitroglycerin (Intermediate, RASH 03/11/25) Ambulatory status: Independent Review of Systems Unable to obtain due to: just got extubated. Objective General VS/I O: Vital Signs: Date Time Temp Pulse Resp B/P B/P Pulse O2 O2 Flow FiO2 Mean Ox Delivery Rate 07/ 0700 55 21 135/55 78 93 07/01 0631 53 27 122/59 85 94 07/01 0600 57 21 140/65 93 93 07/01 0530 53 14 135/61 88 93 07/01 0500 57 31 141/72 101 94 07/01 0430 54 19 127/68 92 94 07/01 0400 36.7 07/01 0400 Nasal 1 cannula 07/ 0400 56 12 125/59 85 95 07/01 0331 56 23 122/58 84 95 07/01 0300 55 25 138/67 96 94 07/01 0231 64 21 148/70 99 96 07/01 0200 57 13 125/70 93 94 07/01 0130 55 20 126/64 89 95 07/01 0100 66 39 135/70 96 92 07/01 0031 59 18 132/63 90 95 07/01 0000 36.4 07/01 0000 Nasal 4 cannula 07/01 0000 58 14 120/63 86 94 06/30 2330 56 20 123/58 84 95 06/30 2300 61 20 140/67 96 95 06/30 2230 60 14 127/59 85 94 06/30 2200 59 15 135/60 86 95 06/30 2130 59 16 133/62 89 94 06/30 2100 59 17 129/69 92 95 06/30 2030 57 12 130/64 90 98 03/15 2000 36.4 03/15 2000 Nasal 4 cannula 03/15 2000 60 25 123/58 82 97 06 1931 53 15 132/62 89 100 06/30 1915 95 Nasal 4 cannula 03/15 1900 52 14 119/59 82 97 03/15 1802 114/59 80 03/15 1802 54 114/77 90 94 24 hour I O ending at 0700: 03/16 0700 03/15 1900 Intake Total 700 Output Total 1800 250 Balance -1100 -250 Intake, Oral 700 Number Voids 3 Output, Urine 1800 250 Patient 141.7 kg 143.182 kg Weight Weight Standing scale Stated/Reported Measurement Method PATIENT WEIGHT: Weight (lb): 312 Weight (oz): 6.32 Weight (kg): 141.700 Medications: Active Meds + DC'd Last 24 Hrs Ipratropium [place] (ATROVENT) 500 MCG RTQ2H PRN PRN INH Cyanocobalamin (Vitamin B-12 500 mcg tab) 500 MCG DAILY PO Ferrous Sulfate (FERROUS SULFATE) 325 MG DAILY PO Bisacodyl (DULCOLAX) 10 MG ONCE PRN RECTAL Magnesium Hydroxide (MILK OF MAGNESIA) 30 ML ONCE PRN PO Clopidogrel Bisulfate (Plavix) 75 MG DAILY PO Polyethylene Glycol (MIRALAX) 17 GM DAILY PO Levothyroxine Sodium (Synthroid) 200 MCG DAILY 0600 PO Pantoprazole (PROTONIX) 40 MG DAILY@0600 PO Atorvastatin Calcium (LIPITOR) 40 MG 2100 PO Docusate Sodium (COLACE) 100 MG BID PO Metoprolol Tartrate (LOPRESSOR) 12.5 MG Q12HR PO Mupirocin (BACTROBAN 2% 22 GM OINTMENT) 1 APPLIC BID NASAL Sennosides (Senna Lax 8.6 MG TABLET) 17.2 MG BEDTIME PO Aspirin (ASPIRIN) 81 MG DAILY PO Fentanyl Citrate (SUBLIMAZE) 0 .STK-MED ONE .ROUTE (DC) Sugammadex Sodium (BRIDION) 0 .STK-MED ONE IV (DC) Sodium Bicarbonate (SODIUM BICARBONATE) 0 .STK-MED ONE IV (DC) Cefazolin Sodium (KEFZOL OR ANCEF) 0 .STK-MED ONE .ROUTE (DC) Ipratropium [place] (ATROVENT) 500 MCG RTQ4H INH Miscellaneous Information (VANCOMYCIN PHARMACY TO DOSE) 1 EACH ASDIR IV (PEND) Amiodarone HCl (CORDARONE) 200 MG TID PO Acetaminophen (TYLENOL) 650 MG Q4H PRN PRN PO Acetaminophen (TYLENOL) 650 MG Q4H PRN PRN RECTAL Albumin Human (ALBUMINAR 25%) 25 GM ASDIR PRN IV Calcium Chloride (CALCIUM CHLORIDE) 1 GM ASDIR PRN IV Cefazolin Sodium (KEFZOL OR ANCEF) 6 GM ONCE ONE IV (CKD) Sodium Chloride (NS 0.9%) 500 ML Dextrose/Water (DEXTROSE 10% IN WATER) 125 ML ASDIR PRN IV (CKD) Dextrose/Water (DEXTROSE 10% IN WATER) 250 ML ASDIR PRN IV (CKD) Epinephrine (ADRENALIN CHLORIDE) 4 MG ASDIR IV Dextrose/Water (DEXTROSE 5% WATER) 246 ML Glucagon (GLUCAGON) 1 MG ASDIR PRN IM Insulin Human Regular (MYXREDLIN 100 UNITS/NS 100ML) 100 ML ASDIR IV ( CKD) Magnesium Sulfate (MAGNESIUM SULFATE 4GM/SWFI 100ML) 100 ML ASDIR PRN IV Magnesium Sulfate (MAGNESIUM SULFATE 2GM/SWFI 50ML) 50 ML ASDIR PRN IV Magnesium Sulfate/Dextrose (MAGNESIUM SULFATE 1GM/D5W 100ML) 100 ML ASDIR PRN IV Norepinephrine/Dextrose (Norepinephrine 8 MG/D5W 250 mL) 250 ML TITRATE IV Ondansetron HCl (ZOFRAN) 4 MG Q6H PRN PRN IV Oxycodone HCl (ROXICODONE) 5 MG Q4H PRN PRN PO Oxycodone HCl (ROXICODONE) 10 MG Q4H PRN PRN PO Potassium Chloride (KCL 20MEQ/SWFI 100ML) 100 ML ASDIR PRN IV Sodium Bicarbonate (SODIUM BICARBONATE) 50 MEQ ASDIR PRN IV Isoflurane (FORANE) 0 .STK-MED ONE INH (DC) Rocuronium [place] (ZEMURON) 0 .STK-MED ONE IV (DC) Dexamethasone Sodium Phosphate (DECADRON) 0 .STK-MED ONE .ROUTE (DC) Ondansetron HCl (ZOFRAN) 0 .STK-MED ONE .ROUTE (DC) Rocuronium [place] (ZEMURON) 0 .STK-MED ONE IV (DC) Fentanyl Citrate (SUBLIMAZE) 0 .STK-MED ONE IV (DC) Propofol (DIPRIVAN 200MG/20ML INJECTION) 20 ML .STK-MED ONE IV (DC) Epinephrine HCl (EPINEPHrine 4 mg/D5W 250 mL) 250 ML .STK-MED ONE IV (DC ) Heparin Sodium (HEPARIN SODIUM) 0 .STK-MED ONE .ROUTE (DC) Insulin Human Regular (MYXREDLIN 100 UNITS/NS 100ML) 100 ML .STK-MED ONE IV (DC) Nitroglycerin/Dextrose (NITROGLYCERIN 50,000MCG/D5W 250ML) 250 ML .STK-MED ONE IV (DC) Ropivacaine (NAROPIN 0.5% 150 MG/30mL) 0 .STK-MED ONE .ROUTE (DC) Sodium Chloride (SODIUM CHLORIDE 0.9%) 100 ML .STK-MED ONE IV (DC) Aminocaproic Acid (AMICAR) 0 .STK-MED ONE .ROUTE (DC) Calcium Chloride (CALCIUM CHLORIDE) 0 .STK-MED ONE IV (DC) Magnesium Sulfate (MAGNESIUM SULFATE) 0 .STK-MED ONE .ROUTE (DC) Norepinephrine/Dextrose (Norepinephrine 8 MG/D5W 250 mL) 250 ML .STK-MED ONE IV (DC) Protamine Sulfate (PROTAMINE SULFATE) 0 .STK-MED ONE IV (DC) Cefazolin Sodium (KEFZOL OR ANCEF) 0 .STK-MED ONE IV (DC) Vancomycin HCl (VANCOMYCIN HCL) 0 .STK-MED ONE .ROUTE (DC) Cefazolin Sodium (KEFZOL OR ANCEF) 3 GM PREOP ONCALL IV (DC) Sodium Chloride (SODIUM CHLORIDE 0.9% 100 ML) 100 ML Fentanyl Citrate (SUBLIMAZE) 100 MCG ONCE ONE IV (DC) Metoprolol Tartrate (LOPRESSOR) 6.25 MG ONCE ONE PO (DC) Vancomycin HCl (VANCOMYCIN HCL) 1,500 MG PREOP ONCALL IV (DC) Sodium Chloride (SODIUM CHLORIDE 0.9%) 250 ML Verapamil HCl (ISOPTIN) 16.6 MG .Q24H ONE IV (DC) Heparin Sodium (Porcine) (HEPARIN SODIUM) 1,660 UNIT Sodium Bicarbonate (SODIUM BICARBONATE) 0.7 ML Nitroglycerin/Dextrose (NITROGLYCERIN 50MG/D5W 250ML) 8.3 MG Lactated Ringer's (LACTATED RINGERS) 949.5 ML Papaverine HCl (PAPAVERINE HC) 0 .STK-MED ONE IV (DC) Albumin Human (ALBUMINAR-25%) 100 ML .STK-MED ONE IV (DC) Heparin Sodium (HEPARIN SODIUM) 0 .STK-MED ONE .ROUTE (DC) Lidocaine HCl (Lidocaine HCl 2% Luer-Jet) 0 .STK-MED ONE IV (DC) Sodium Bicarbonate (SODIUM BICARBONATE) 0 .STK-MED ONE IV (DC) Sodium Chloride (SODIUM CHLORIDE 0.9%) 100 ML .STK-MED ONE IV (DC) Magnesium Sulfate (MAGNESIUM SULFATE) 0 .STK-MED ONE IV (DC) Phenylephrine HCl (SAWYER-SYNEPHRINE 10MG/ML AMP) 0 .STK-MED ONE .ROUTE (DC ) Vancomycin HCl (VANCOMYCIN HCL) 1,000 MG Q12H IV (DC) Sodium Chloride (SODIUM CHLORIDE 0.9%) 250 ML Mupirocin (BACTROBAN 2% 22 GM OINTMENT) 1 APPLIC BID NASAL (DC) Pantoprazole Sodium (PROTONIX) 40 MG Q12HR IV (DC) Sodium Chloride (SODIUM CHLORIDE) 10 ML ASDIR PRN IV (DC) Dexmedetomidine/Sodium Chloride (Precedex 1,000 mcg/NS 250 mL) 250 ML ASDIR IV (DC) Dextrose/Water (DEXTROSE 10% IN WATER) 125 ML ASDIR PRN IV (DC) Dextrose/Water (DEXTROSE 10% IN WATER) 250 ML ASDIR PRN IV (DC) Glucagon (GLUCAGON) 1 MG ASDIR PRN IM (DC) Insulin Human Regular (MYXREDLIN 100 UNITS/NS 100ML) 100 ML ASDIR IV (DC ) Nitroglycerin/Dextrose (NITROGLYCERIN 50,000MCG/D5W 250ML) 250 ML ASDIR IV (DC) Cefazolin Sodium (KEFZOL OR ANCEF) 3 GM PREOP ONCALL IV (DC) Sodium Chloride (SODIUM CHLORIDE 0.9% 100 ML) 100 ML Vancomycin HCl (Vancomycin 2,000 mg Inj (B2)) 2,000 MG PREOP ONCALL IV ( DC) Sodium Chloride (SODIUM CHLORIDE 0.9%) 500 ML Verapamil HCl (ISOPTIN) 16.6 MG .Q24H ONE IV (DC) Heparin Sodium (Porcine) (HEPARIN SODIUM) 1,660 UNIT Sodium Bicarbonate (SODIUM BICARBONATE) 0.7 ML Nitroglycerin/Dextrose (NITROGLYCERIN 50MG/D5W 250ML) 8.3 MG Lactated Ringer's (LACTATED RINGERS) 949.5 ML Metoprolol Tartrate (LOPRESSOR) 6.25 MG PREOP ONCE PO (DC) Acetaminophen (TYLENOL EXTRA STRENGTH) 1,000 MG PREOP ONCALL PO (DC) Gabapentin (NEURONTIN) 200 MG PREOP ONCALL PO (DC) Lactated Ringer's (LACTATED RINGERS) 1,000 ML PREOP ONCALL IV (DC) Lidocaine HCl (Lidocaine PF1% 20 mg/2 mL Inj) 2 ML PREOP ONCALL LOCAL ( DC) Lidocaine HCl (Lidocaine PF1% 20 mg/2 mL Inj) 2 ML PREOP ONCALL LOCAL ( DC) Sodium Chloride (SODIUM CHLORIDE 0.9%) 500 ML PREOP ONCALL IV (DC) Sodium Chloride (SODIUM CHLORIDE 0.9%) 500 ML PREOP ONCALL IV (DC) Sodium Chloride (SODIUM CHLORIDE 0.9%) 1,000 ML PREOP ONCALL IV (DC) Sodium Chloride (SODIUM CHLORIDE) 5 ML ASDIR PRN IV (DC) Sodium Chloride (SODIUM CHLORIDE) 10 ML ASDIR PRN IV (DC) Sodium Chloride (SODIUM CHLORIDE 0.9%) 100 ML ASDIR PRN IV (DC) Physical Exam General appearance: obese, waking up from sedation. Neck: no JVD, no masses or swelling Cardiovascular: CV assessment: regular rate and rhythm Respiratory: on oxygen, rhonchi Abdomen: obese Genitourinary: urinary catheter, urine Lower extremity: LE assessment: no edema Musculoskeletal: normal inspection Neuro/BANKING MANAGER: waking up. Skin: dry Psychiatry: unable to evaluate Results Findings/Data: Laboratory Tests 03/16 03/16 03/16 03/16 1722 1701 1618 1545 Blood Gas O2 Saturation (90 - 100 %) 99.6 100.0 100.0 100.0 ABG pH (7.35 - 7.45) 7.358 7.456 H 7.423 7.391 ABG pCO2 (35.0 - 45 mmHg) 38.1 31.1 L 35.7 42.9 ABG pO2 (80 - 100.0 mmHg) 179.8 H 541.5 *H 352.6 *H 384.2 *H ABG HCO3 (22.0 - 26.0 MMOL/L) 21.4 L 21.9 L 23.3 26.0 ABG Total CO2 (22 - 29) 22.6 22.8 24.4 27.3 ABG Base Excess (0 - +/ MMOL/L) -3.7 L -1.4 L -0.8 L 0.8 ABG Hematocrit (38 - 51 %) 32 L 32 L 34 L 35 L ABG Hemoglobin (12.5 - 16.9 G/DL) 11.0 L 10.8 L 11.6 L 11.8 L Sodium (134 - 147 mmol/L) 142 139 142 141 Potassium (3.4 - 5.0 mmol/L) 3.3 L 4.2 4.7 4.1 Chloride (100 - 108 mmol/L) 110 H 107 106 106 Ionized Calcium (1.12 - 1.32 MMOL/L) 1.31 1.44 H 1.18 1.18 Lactic Acid (0.9 - 1.7 mmol/l) 3.2 H 3.0 H 1.7 1.8 H 03/16 03/16 03/16 03/16 1503 1435 1357 1157 Blood Gas O2 Saturation (90 - 100 %) 100.0 99.9 99.9 100.0 ABG pH (7.35 - 7.45) 7.366 7.335 L 7.382 7.360 ABG pCO2 (35.0 - 45 mmHg) 44.8 50.5 *H 37.0 40.4 ABG pO2 (80 - 100.0 mmHg) 379.2 *H 385.3 *H 254.9 *H 416.2 *H ABG HCO3 (22.0 - 26.0 MMOL/L) 25.7 27.0 H 22.0 22.8 ABG Total CO2 (22 - 29) 27.1 28.5 23.1 24.0 ABG Base Excess (0 - +/ MMOL/L) 0.1 0.5 -2.7 L -2.5 L ABG Hematocrit (38 - 51 %) 34 L 34 L 39 40 ABG Hemoglobin (12.5 - 16.9 G/DL) 11.6 L 11.6 L 13.2 13.6 Sodium (134 - 147 mmol/L) 141 141 142 140 Potassium (3.4 - 5.0 mmol/L) 4.2 4.4 3.5 3.5 Chloride (100 - 108 mmol/L) 104 105 109 H 106 Ionized Calcium (1.12 - 1.32 MMOL/L) 1.19 1.18 1.18 1.21 Lactic Acid (0.9 - 1.7 mmol/l) 1.9 H 1.3 1.2 < 0.3 L 03/16 0245 Blood Gas Puncture Site Art Line O2 Saturation (90 - 100 %) 98.4 ABG pH (7.35 - 7.45) 7.408 ABG pCO2 (35.0 - 45 mmHg) 40.1 ABG pO2 (80 - 100.0 mmHg) 111.5 H ABG HCO3 (22.0 - 26.0 MMOL/L) 25.3 ABG Total CO2 (22 - 29) 26.5 ABG Base Excess (0 - +/ MMOL/L) 0.6 ABG Hematocrit (38 - 51 %) 44 ABG Hemoglobin (12.5 - 16.9 G/DL) 15.0 Sodium (134 - 147 mmol/L) 140 Potassium (3.4 - 5.0 mmol/L) 4.5 Chloride (100 - 108 mmol/L) 106 Ionized Calcium (1.12 - 1.32 MMOL/L) 1.31 Temperature (F) 98 O2 Delivery Device Cannula Laboratory Tests 03/16 03/16 03/16 03/16 03/16 1722 1701 1618 1545 1503 Chemistry POC Creatinine (0.6 - 1.3 mg/dL) 0.8 0.9 0.9 1.0 1.0 POC Glucose (mg/dL) (70 - 110 MG/DL) 221 H 194 H 198 H 198 H 185 H 03/16 03/16 03/16 03/16 03/16 1435 1357 1157 1114 0821 Chemistry POC Creatinine (0.6 - 1.3 mg/dL) 1.0 0.8 0.9 POC Glucose (70 - 110 MG/DL) 217 H 157 H POC Glucose (mg/dL) (70 - 110 MG/DL) 158 H 160 H 211 H 03/16 03/16 03/16 03/15 0440 0248 0245 1809 Chemistry Sodium (134 - 147 mEq/L) 138 137 Potassium (3.4 - 5.0 mEq/L) 4.2 5.2 H Chloride (100 - 108 mEq/L) 106 105 Carbon Dioxide (21 - 33 mEq/l) 24 24 Anion Gap (0 - 20) 12 13 BUN (7 - 25 mg/dL) 12 13 Creatinine (0.6 - 1.3 mg/dL) 1.0 1.0 POC Creatinine (0.6 - 1.3 mg/dL) 0.8 Glomerular Filtr Rate (80 - 90) 83.5 83.5 Glucose (77 - 141 mg/dL) 167 H 179 H POC Glucose (70 - 110 MG/DL) 161 H POC Glucose (mg/dL) (70 - 110 MG/DL) 184 H Calcium (8.0 - 10.5 mg/dL) 9.1 9.1 Ionized Calcium Vasquez (1.09 - 1.30 MMOL/L) 1.22 1.19 Magnesium (1.6 - 2.6 mg/dL) 1.85 1.89 Total Bilirubin (0.0 - 1.0 mg/dL) 0.60 0.50 Direct Bilirubin (0.1 - 0.3 MG/DL) 0.20 0.20 Indirect Bilirubin (MG/DL) 0.40 0.30 AST (8 - 34 IUnit/L) 13 24 ALT (10 - 49 IUnit/L) 16 17 Total Alk Phosphatase (20 - 125 IUnit/L) 55 53 Total Protein (5.7 - 8.2 g/dL) 6.7 6.9 Albumin (3.4 - 5.0 g/dL) 3.70 3.70 Laboratory Tests 03/16 03/16 03/16 03/16 03/16 1725 1707 1626 1550 1511 Coagulation Activated Coag Time (74 - 137 SEC) 112 469 H 487 H 504 H 475 H 03/16 03/16 03/16 1443 1405 1208 Coagulation Activated Coag Time (74 - 137 SEC) 493 H 504 H 135 Laboratory Tests 03/16 0248 Hematology WBC (4.5 - 11.0 x10 3/uL) 7.4 RBC (4.00 - 5.60 x10 6/uL) 4.44 Hgb (12.5 - 16.9 g/dL) 14.4 Hct (37.5 - 50.7 %) 42.6 MCV (81.0 - 99.0 fL) 95.9 MCH (27.0 - 33.0 pg) 32.4 MCHC (33.0 - 37.0 g/dL) 33.8 RDW (11.5 - 14.5 %) 13.0 Plt Count (150 - 400 x10 3/uL) 185 MPV (7.0 - 9.0 fL) 9.9 H Neut % (Auto) (56.0 - 77.0 %) 79.0 H Lymph % (Auto) (14.0 - 32.0 %) 13.1 L Potter % (Auto) (4.8 - 9.0 %) 7.4 Eos % (Auto) (0.3 - 3.7 %) 0.0 L Baso % (Auto) (0.0 - 2.0 %) 0.1 Neut # (Auto) (2.0 - 7.6 x10 3/uL) 5.83 Lymph # (Auto) (1.0 - 3.8 x10 3/uL) 0.97 L Potter # (Auto) (0.1 - 0.8 x10 3/uL) 0.55 Eos # (Auto) (0.0 - 0.2 x10 3/uL) 0.00 Baso # (Auto) (0.0 - 0.2 x10 3/uL) 0.01 Abs Immat Gran (auto) (0.00 - 0.03 x10 3/uL) 0.03 Immature Gran % (0.0 - 2.0 %) 0.4 Nucleated RBC % (0 - 0 %) 0.0 Nucleated RBCs # (Man) (0.0 - 0.1 x10 3/uL) 0.00 Laboratory Tests 03/16 03/16 0440 0248 Chemistry Magnesium (1.6 - 2.6 mg/dL) 1.85 1.89 Radiology Data: Recent Impressions: RADIOLOGY - XR CHEST 1 V 03/16 0537 Report Impression - Status: SIGNED Entered: 03/16/2025 1353 IMPRESSION: 1. Interval extubation. 2. The lungs are clear. 3. Mild cardiomegaly. Electronically signed by: Hemal Chiang MD 03/16/2025 01:51 PM CDT Impression By: [email or web address] - Hemal Chiang M.D. Results: labs reviewed, vital signs reviewed, rhythm personally rev'd Diagnosis, Assessment Plan Plan discussed with: collaborating Free Text DxA P Notes Free Text DxA P Notes: 1. CAD and aortic valve stenosis s/p CABG x5 plus AVR plus ALAA * extubated * on minimal pressor support * DAPT, BB, statin * immediate post-op care per CTS and critical care 2. Hypetension * monitor off BP meds 3. Hypelipidemia * continue statin 4. Diabetes mellitus * glycemic control per critical care 5. Rectal bleed attributed to external hemorrhoid * GI and colorectal surgery following Appreciate the referral. MDM by Dr. Winston. at 2149 at 1323 RPT #:[id number] END OF REPORT [facility] 2025-03-16 13:59:00 [facility] ([facility]) Colorectal Surgery Consult REPORT#:[id number] REPORT STATUS: Signed REPORT INITIALIZATION DATE:03/16/25 TIME: 135 PATIENT: LAKEISHA NORRIS UNIT #: [id number] ROOM/BED: [place] [id number] : 58 AGE: 64 SEX: M ATTEND: Marlene Padilla MD ADM AUTHOR: Troy Simons MD R3 REPT SERVICE DT/TIME: 03/16/25 1359 * ALL edits or amendments must be made on the electronic/computer document * Troy Simons 03/16/25 1359: History of Present Illness Requesting Clinician: Dr. Padilla (CT surgery) Reason for consult: blood per rectum Chief complaint: painless rectal bleeding HPI: Pt is a 64 year old male who is admitted to hospital for CABG, AVR with Dr. Padilla. Patient was scheduled to undergo surgery yesterday, however, upon induction of anesthesia and pt placement onto operating table, staff noted blood coming from rectum. They indicated that there was 2 small clots associated with this bleeding and found an external hemorroid on examination. Due to concern of continued bleeding with initiation of the anticoagulation needed for surgery, the case was postponed. I have been asked to see this patient for this issue. Patient states he has known about having external hemorroids for a while. His last colonoscopy was 1 year ago, patient states 3 poylps were removed. He occasionally has blood on tissue with wiping, but denies recent weight loss, night sweats, or changes in stool caliber. History - Adult longitudinal Smoking status for patients 13 years old or older: Never Smoker Allergies: Coded Allergies: nitroglycerin (Intermediate, RASH 03/11/25) Review of Systems Free Text ROS Notes Free Text ROS Notes: Review of systems: As above; otherwise, negative to include neurologic, eyes, ENT, CV, respiratory, GI, musculoskeletal, , skin, psychiatric, hematologic, and allergy. Objective Physical Exam VS/I O: Last Documented: Result Date Time Pulse Ox 93 03/16 700 B/P 135/55 03/16 700 B/P Mean 78 03/16 700 Pulse 55 03/16 700 Resp 21 03/16 700 Temp 36.7 03/16 0400 O2 Delivery Nasal cannula 03/16 400 O2 Flow Rate 1 03/16 0400 FiO2 40 03/15 1659 24 hour I O ending at 0700: 03/16 0700 03/15 1900 Intake Total 700 Output Total 1800 250 Balance -1100 -250 Intake, Oral 700 Number Voids 3 Output, Urine 1800 250 Patient 141.7 kg 143.182 kg Weight Weight Standing scale Stated/Reported Measurement Method PATIENT WEIGHT: Weight (lb): 312 Weight (oz): 6.32 Weight (kg): 141.700 Results Findings/Data: Laboratory Tests: 03/16 03/16 03/16 03/16 03/16 1357 1208 1157 1114 0821 Blood Gas O2 Saturation (90 - 100 %) 99.9 100.0 ABG pH (7.35 - 7.45) 7.382 7.360 ABG pCO2 (35.0 - 45 mmHg) 37.0 40.4 ABG pO2 (80 - 100.0 mmHg) 254.9 *H 416.2 *H ABG HCO3 (22.0 - 26.0 MMOL/L) 22.0 22.8 ABG Total CO2 (22 - 29) 23.1 24.0 ABG Base Excess (0 - +/ MMOL/L) -2.7 L -2.5 L ABG Hematocrit (38 - 51 %) 39 40 ABG Hemoglobin (12.5 - 16.9 G/DL) 13.2 13.6 Sodium (134 - 147 mmol/L) 142 140 Potassium (3.4 - 5.0 mmol/L) 3.5 3.5 Chloride (100 - 108 mmol/L) 109 H 106 Ionized Calcium (1.12 - 1.32 MMOL/L) 1.18 1.21 Lactic Acid (0.9 - 1.7 mmol/l) 1.2 < 0.3 L Chemistry POC Creatinine (0.6 - 1.3 mg/dL) 0.8 0.9 POC Glucose (70 - 110 MG/DL) 217 H 157 H POC Glucose (mg/dL) (70 - 110 MG/DL) 160 H 211 H Coagulation Activated Coag Time (74 - 137 SEC) 135 03/16 03/16 03/16 03/15 0440 0248 0240 180 Blood Gas Puncture Site Art Line O2 Saturation (90 - 100 %) 98.4 ABG pH (7.35 - 7.45) 7.408 ABG pCO2 (35.0 - 45 mmHg) 40.1 ABG pO2 (80 - 100.0 mmHg) 111.5 H ABG HCO3 (22.0 - 26.0 MMOL/L) 25.3 ABG Total CO2 (22 - 29) 26.5 ABG Base Excess (0 - +/ MMOL/L) 0.6 ABG Hematocrit (38 - 51 %) 44 ABG Hemoglobin (12.5 - 16.9 G/DL) 15.0 Sodium (134 - 147 mmol/L) 140 Potassium (3.4 - 5.0 mmol/L) 4.5 Chloride (100 - 108 mmol/L) 106 Ionized Calcium (1.12 - 1.32 MMOL/L) 1.31 Temperature (F) 98 O2 Delivery Device Cannula Chemistry Sodium (134 - 147 mEq/L) 138 137 Potassium (3.4 - 5.0 mEq/L) 4.2 5.2 H Chloride (100 - 108 mEq/L) 106 105 Carbon Dioxide (21 - 33 mEq/l) 24 24 Anion Gap (0 - 20) 12 13 BUN (7 - 25 mg/dL) 12 13 Creatinine (0.6 - 1.3 mg/dL) 1.0 1.0 POC Creatinine (0.6 - 1.3 mg/dL) 0.8 Glomerular Filtr Rate (80 - 90) 83.5 83.5 Glucose (77 - 141 mg/dL) 167 H 179 H POC Glucose (70 - 110 MG/DL) 161 H POC Glucose (mg/dL) (70 - 110 MG/DL) 184 H Calcium (8.0 - 10.5 mg/dL) 9.1 9.1 Ionized Calcium Vasquez (1.09 - 1.30 MMOL/L) 1.22 1.19 Magnesium (1.6 - 2.6 mg/dL) 1.85 1.89 Total Bilirubin (0.0 - 1.0 mg/dL) 0.60 0.50 Direct Bilirubin (0.1 - 0.3 MG/DL) 0.20 0.20 Indirect Bilirubin (MG/DL) 0.40 0.30 AST (8 - 34 IUnit/L) 13 24 ALT (10 - 49 IUnit/L) 16 17 Total Alk Phosphatase (20 - 125 IUnit/L) 55 53 Total Protein (5.7 - 8.2 g/dL) 6.7 6.9 Albumin (3.4 - 5.0 g/dL) 3.70 3.70 Hematology WBC (4.5 - 11.0 x10 3/uL) 7.4 RBC (4.00 - 5.60 x10 6/uL) 4.44 Hgb (12.5 - 16.9 g/dL) 14.4 Hct (37.5 - 50.7 %) 42.6 MCV (81.0 - 99.0 fL) 95.9 MCH (27.0 - 33.0 pg) 32.4 MCHC (33.0 - 37.0 g/dL) 33.8 RDW (11.5 - 14.5 %) 13.0 Plt Count (150 - 400 x10 3/uL) 185 MPV (7.0 - 9.0 fL) 9.9 H Neut % (Auto) (56.0 - 77.0 %) 79.0 H Lymph % (Auto) (14.0 - 32.0 %) 13.1 L Potter % (Auto) (4.8 - 9.0 %) 7.4 Eos % (Auto) (0.3 - 3.7 %) 0.0 L Baso % (Auto) (0.0 - 2.0 %) 0.1 Neut # (Auto) (2.0 - 7.6 x10 3/uL) 5.83 Lymph # (Auto) (1.0 - 3.8 x10 3/uL) 0.97 L Potter # (Auto) (0.1 - 0.8 x10 3/uL) 0.55 Eos # (Auto) (0.0 - 0.2 x10 3/uL) 0.00 Baso # (Auto) (0.0 - 0.2 x10 3/uL) 0.01 Abs Immat Gran (auto) (0.00 - 0.03 x10 3/uL) 0.03 Immature Gran % (0.0 - 2.0 %) 0.4 Nucleated RBC % (0 - 0 %) 0.0 Nucleated RBCs # (Man) (0.0 - 0.1 x10 3/uL) 0.00 03/15 03/15 03/15 03/15 1553 1552 1518 1513 Blood Gas Puncture Site Art Line O2 Saturation (90 - 100 %) 98.9 99.5 ABG pH (7.35 - 7.45) 7.383 7.362 ABG pCO2 (35.0 - 45 mmHg) 40.1 39.7 ABG pO2 (80 - 100.0 mmHg) 125.8 H 175.5 H ABG PO2/FiO2 Ratio (mm/Hg) 251.60 ABG HCO3 (22.0 - 26.0 MMOL/L) 24.2 22.5 ABG Total CO2 (22 - 29) 25.6 23.7 ABG Base Excess (0 - +/ MMOL/L) -1.2 L -2.7 L ABG Hematocrit (38 - 51 %) 42 41 ABG Hemoglobin (12.5 - 16.9 G/DL) 14.2 14.0 Valdemar Test N/A Sodium (134 - 147 mmol/L) 141 143 Potassium (3.4 - 5.0 mmol/L) 3.7 3.7 Chloride (100 - 108 mmol/L) 107 110 H Ionized Calcium (1.12 - 1.32 MMOL/L) 1.28 1.01 L Lactic Acid (0.9 - 1.7 mmol/l) 0.5 L Temperature (F) 96.1 O2 Delivery Device Adult Vent Vent Mode AC Vent Rate (/MIN) 18 FiO2 (%) 50 Tidal Volume (ml) 550 PEEP (cmH2O) 5 Chemistry Sodium (134 - 147 mEq/L) 140 Potassium (3.4 - 5.0 mEq/L) 3.7 Chloride (100 - 108 mEq/L) 107 Carbon Dioxide (21 - 33 mEq/l) 23 Anion Gap (0 - 20) 14 BUN (7 - 25 mg/dL) 15 Creatinine (0.6 - 1.3 mg/dL) 1.0 POC Creatinine (0.6 - 1.3 mg/dL) 0.9 0.7 Glomerular Filtr Rate (80 - 90) 83.5 Glucose (77 - 141 mg/dL) 155 H POC Glucose (mg/dL) (70 - 110 MG/DL) 167 H 142 H Calcium (8.0 - 10.5 mg/dL) 8.6 Magnesium (1.6 - 2.6 mg/dL) 1.73 Coagulation INR (0.8 - 1.2) 1.2 PTT (25.0 - 39.5 Seconds) 31.4 PT Patient/Control Mix (9.3 - 12.9 13.4 H SECONDS) Activated Coag Time (74 - 137 SEC) 124 Hematology WBC (4.5 - 11.0 x10 3/uL) 5.4 RBC (4.00 - 5.60 x10 6/uL) 4.38 Hgb (12.5 - 16.9 g/dL) 14.3 Hct (37.5 - 50.7 %) 42.1 MCV (81.0 - 99.0 fL) 96.1 MCH (27.0 - 33.0 pg) 32.6 MCHC (33.0 - 37.0 g/dL) 34.0 RDW (11.5 - 14.5 %) 13.0 Plt Count (150 - 400 x10 3/uL) 164 MPV (7.0 - 9.0 fL) 9.2 H Neut % (Auto) (56.0 - 77.0 %) 60.5 Lymph % (Auto) (14.0 - 32.0 %) 26.7 Potter % (Auto) (4.8 - 9.0 %) 10.0 H Eos % (Auto) (0.3 - 3.7 %) 2.0 Baso % (Auto) (0.0 - 2.0 %) 0.6 Neut # (Auto) (2.0 - 7.6 x10 3/uL) 3.27 Lymph # (Auto) (1.0 - 3.8 x10 3/uL) 1.44 Potter # (Auto) (0.1 - 0.8 x10 3/uL) 0.54 Eos # (Auto) (0.0 - 0.2 x10 3/uL) 0.11 Baso # (Auto) (0.0 - 0.2 x10 3/uL) 0.03 Abs Immat Gran (auto) (0.00 - 0.03 0.01 x10 3/uL) Immature Gran % (0.0 - 2.0 %) 0.2 Nucleated RBC % (0 - 0 %) 0.0 Nucleated RBCs # (Man) (0.0 - 0.1 0.00 x10 3/uL) 03/15 1416 Chemistry POC Glucose (70 - 110 MG/DL) 137 H Recent Impressions: RADIOLOGY - XR CHEST 1 V 03/15 1628 Report Impression - Status: SIGNED Entered: 03/15/2025 1714 IMPRESSION: Basilar atelectatic change. Electronically signed by: Abel Shah MD 03/15/2025 05:06 PM CDT RP Impression By: [email or web address] - Abel Shah M.D. RADIOLOGY - XR CHEST 1 V 03/16 0537 Report Impression - Status: SIGNED Entered: 03/16/2025 1353 IMPRESSION: 1. Interval extubation. 2. The lungs are clear. 3. Mild cardiomegaly. Electronically signed by: Hemal Chiang MD 03/16/2025 01:51 PM CDT RP Impression By: [email or web address] - Hemal Chiang M.D. Free Text Obj Notes Free Text Obj Notes: Constitutional: GCS 15 Patient appears awake, alert, no acute distress, HR, BP, Saturation reviewed in records. Eyes: pupils equal, round, EOMI HENT: normal cephalic Neck: trachea midline CV: regular rate, rhythm, bilateral radial pulses 2+, no cyanosis, no edema Respiratory: respirations even and unlabored, no tenderness to palpation, normal inspection of chest, no crepitus Abdomen: soft, non-tender, no masses, no hernia noted : normal external genitalia, pelvis stable digital rectal exam: appearance of large thrombosed external hemorrhoid, no obvious mass or fissues, no active bleeding, no clots Lymph nodes: no cervical or supraclavicular masses noted Musculoskeletal: moves all Skin: no lacerations or abrasions noted, skin warm to palpation. Psychiatric: normal mood and affect, memory intact. Neurologic: face symmetrical. Bilateral upper and lower extremity sensation intact Diagnosis, Assessment Plan Free Text A P: 64 year old male with ruptured thrombosed external hemorroid. No obvious mass. No large internal hemorrhoids. Plan: okay to proceed with CT surgery recommend Surgicel to the area for enhanced hemostasis prior to heparinization f/u in CRS clinic as needed Code Status/Resusc. Discussion Resuscitation discussion: Discussed with: patient Code status: full code Michelle Bean 04/03/25 1835: Attestations Physician Attestation Agree w/findings plan: Agree with the findings and plan as documented by R3; * my personal evaluation is [Rectal bleeding is related to a ruptured thrombosed external hemorrhoid that has now clotted and there is no active bleeding. This is a minor bleeding and is not mucosal rectal bleeding or proctitis therefore the patient can proceed with surgery. He will follow-up with me in the clinic electively after he is discharged for evaluation of external hemorrhoids and skin tags for possible surgical intervention as needed. All questions were answered] Time spent on patient care: Time spent on patient care: I spent 45 TOTAL minutes on patient care, including 10 minutes spent jointly with pt. > 50% time spent on counseling/coordination of care [yes] at 1414 at 1836 RPT #:[id number] END OF REPORT [facility] 2025-03-16 07:51:00 [facility] ([facility]) Gastroenterology Progress Note REPORT#:[id number] REPORT STATUS: Signed REPORT INITIALIZATION DATE:03/16/25 TIME: 750 PATIENT: LAKEISHA NORRIS UNIT #: [id number] ROOM/BED: [place] [id number] : 58 AGE: 64 SEX: M ATTEND: Marlene Padilla MD ADM AUTHOR: Keenan Carter MD REPT SERVICE DT/TIME: 03/16/25 075 * ALL edits or amendments must be made on the electronic/computer document * Keenan Carter 03/16/25 075: Attestations Physician Attestation Agree w/findings plan: Agree with the findings and plan as documented by Justin OSORIO * my personal evaluation is Rectal bleeding CAD CABG - monitor h/h, transfuse as needed - protonix rx Cash Anderson 03/16/25 1524: Subjective Comments: went for CABG this morning . His hgb appear stable 14.4 Objective General VS/I O: Last Documented: Result Date Time Pulse Ox 93 03/16 07 B/P 135/55 03/16 0700 B/P Mean 78 03/16 07 Pulse 55 03/16 0700 Resp 21 03/16 07 Temp 98.0 03/16 0400 O2 Delivery Nasal cannula 03/16 0400 O2 Flow Rate 1 03/16 0400 FiO2 40 03/15 1659 24 hour I O ending at 0700: 03/16 0700 03/15 1900 Intake Total 700 Output Total 1800 250 Balance -1100 -250 Intake, Oral 700 Number Voids 3 Output, Urine 1800 250 Patient 141.7 kg 143.182 kg Weight Weight Standing scale Stated/Reported Measurement Method PATIENT WEIGHT: Weight (lb): 312 Weight (oz): 6.32 Weight (kg): 141.700 Medications: Active Meds + DC'd Last 24 Hrs Ipratropium [place] (ATROVENT) 500 MCG RTQ2H PRN PRN INH Cyanocobalamin (Vitamin B-12 500 mcg tab) 500 MCG DAILY PO Ferrous Sulfate (FERROUS SULFATE) 325 MG DAILY PO Bisacodyl (DULCOLAX) 10 MG ONCE PRN RECTAL Magnesium Hydroxide (MILK OF MAGNESIA) 30 ML ONCE PRN PO Clopidogrel Bisulfate (Plavix) 75 MG DAILY PO Polyethylene Glycol (MIRALAX) 17 GM DAILY PO Levothyroxine Sodium (Synthroid) 200 MCG DAILY 0600 PO Pantoprazole (PROTONIX) 40 MG DAILY@0600 PO Atorvastatin Calcium (LIPITOR) 40 MG 2100 PO Docusate Sodium (COLACE) 100 MG BID PO Metoprolol Tartrate (LOPRESSOR) 12.5 MG Q12HR PO Mupirocin (BACTROBAN 2% 22 GM OINTMENT) 1 APPLIC BID NASAL Sennosides (Senna Lax 8.6 MG TABLET) 17.2 MG BEDTIME PO Aspirin (ASPIRIN) 81 MG DAILY PO Ipratropium [place] (ATROVENT) 500 MCG RTQ4H INH Amiodarone HCl (CORDARONE) 200 MG TID PO Acetaminophen (TYLENOL) 650 MG Q4H PRN PRN PO Acetaminophen (TYLENOL) 650 MG Q4H PRN PRN RECTAL Albumin Human (ALBUMINAR 25%) 25 GM ASDIR PRN IV Calcium Chloride (CALCIUM CHLORIDE) 1 GM ASDIR PRN IV Cefazolin Sodium (KEFZOL OR ANCEF) 6 GM ONCE ONE IV (CKD) Sodium Chloride (NS 0.9%) 500 ML Dextrose/Water (DEXTROSE 10% IN WATER) 125 ML ASDIR PRN IV (CKD) Dextrose/Water (DEXTROSE 10% IN WATER) 250 ML ASDIR PRN IV (CKD) Epinephrine (ADRENALIN CHLORIDE) 4 MG ASDIR IV Dextrose/Water (DEXTROSE 5% WATER) 246 ML Glucagon (GLUCAGON) 1 MG ASDIR PRN IM Insulin Human Regular (MYXREDLIN 100 UNITS/NS 100ML) 100 ML ASDIR IV ( CKD) Magnesium Sulfate (MAGNESIUM SULFATE 4GM/SWFI 100ML) 100 ML ASDIR PRN IV Magnesium Sulfate (MAGNESIUM SULFATE 2GM/SWFI 50ML) 50 ML ASDIR PRN IV Magnesium Sulfate/Dextrose (MAGNESIUM SULFATE 1GM/D5W 100ML) 100 ML ASDIR PRN IV Norepinephrine/Dextrose (Norepinephrine 8 MG/D5W 250 mL) 250 ML TITRATE IV Ondansetron HCl (ZOFRAN) 4 MG Q6H PRN PRN IV Oxycodone HCl (ROXICODONE) 5 MG Q4H PRN PRN PO Oxycodone HCl (ROXICODONE) 10 MG Q4H PRN PRN PO Potassium Chloride (KCL 20MEQ/SWFI 100ML) 100 ML ASDIR PRN IV Sodium Bicarbonate (SODIUM BICARBONATE) 50 MEQ ASDIR PRN IV Isoflurane (FORANE) 0 .STK-MED ONE INH (DC) Rocuronium [place] (ZEMURON) 0 .STK-MED ONE IV (DC) Dexamethasone Sodium Phosphate (DECADRON) 0 .STK-MED ONE .ROUTE (DC) Ondansetron HCl (ZOFRAN) 0 .STK-MED ONE .ROUTE (DC) Rocuronium [place] (ZEMURON) 0 .STK-MED ONE IV (DC) Fentanyl Citrate (SUBLIMAZE) 0 .STK-MED ONE IV (DC) Propofol (DIPRIVAN 200MG/20ML INJECTION) 20 ML .STK-MED ONE IV (DC) Epinephrine HCl (EPINEPHrine 4 mg/D5W 250 mL) 250 ML .STK-MED ONE IV (DC ) Heparin Sodium (HEPARIN SODIUM) 0 .STK-MED ONE .ROUTE (DC) Insulin Human Regular (MYXREDLIN 100 UNITS/NS 100ML) 100 ML .STK-MED ONE IV (DC) Nitroglycerin/Dextrose (NITROGLYCERIN 50,000MCG/D5W 250ML) 250 ML .STK-MED ONE IV (DC) Ropivacaine (NAROPIN 0.5% 150 MG/30mL) 0 .STK-MED ONE .ROUTE (DC) Sodium Chloride (SODIUM CHLORIDE 0.9%) 100 ML .STK-MED ONE IV (DC) Aminocaproic Acid (AMICAR) 0 .STK-MED ONE .ROUTE (DC) Calcium Chloride (CALCIUM CHLORIDE) 0 .STK-MED ONE IV (DC) Magnesium Sulfate (MAGNESIUM SULFATE) 0 .STK-MED ONE .ROUTE (DC) Norepinephrine/Dextrose (Norepinephrine 8 MG/D5W 250 mL) 250 ML .STK-MED ONE IV (DC) Protamine Sulfate (PROTAMINE SULFATE) 0 .STK-MED ONE IV (DC) Cefazolin Sodium (KEFZOL OR ANCEF) 0 .STK-MED ONE IV (DC) Vancomycin HCl (VANCOMYCIN HCL) 0 .STK-MED ONE .ROUTE (DC) Cefazolin Sodium (KEFZOL OR ANCEF) 3 GM PREOP ONCALL IV (DC) Sodium Chloride (SODIUM CHLORIDE 0.9% 100 ML) 100 ML Fentanyl Citrate (SUBLIMAZE) 100 MCG ONCE ONE IV (DC) Metoprolol Tartrate (LOPRESSOR) 6.25 MG ONCE ONE PO (DC) Vancomycin HCl (VANCOMYCIN HCL) 1,500 MG PREOP ONCALL IV (DC) Sodium Chloride (SODIUM CHLORIDE 0.9%) 250 ML Verapamil HCl (ISOPTIN) 16.6 MG .Q24H ONE IV (DC) Heparin Sodium (Porcine) (HEPARIN SODIUM) 1,660 UNIT Sodium Bicarbonate (SODIUM BICARBONATE) 0.7 ML Nitroglycerin/Dextrose (NITROGLYCERIN 50MG/D5W 250ML) 8.3 MG Lactated Ringer's (LACTATED RINGERS) 949.5 ML Papaverine HCl (PAPAVERINE HC) 0 .STK-MED ONE IV (DC) Albumin Human (ALBUMINAR-25%) 100 ML .STK-MED ONE IV (DC) Heparin Sodium (HEPARIN SODIUM) 0 .STK-MED ONE .ROUTE (DC) Lidocaine HCl (Lidocaine HCl 2% Luer-Jet) 0 .STK-MED ONE IV (DC) Sodium Bicarbonate (SODIUM BICARBONATE) 0 .STK-MED ONE IV (DC) Sodium Chloride (SODIUM CHLORIDE 0.9%) 100 ML .STK-MED ONE IV (DC) Magnesium Sulfate (MAGNESIUM SULFATE) 0 .STK-MED ONE IV (DC) Phenylephrine HCl (SAWYER-SYNEPHRINE 10MG/ML AMP) 0 .STK-MED ONE .ROUTE (DC ) Mupirocin (BACTROBAN 2% 22 GM OINTMENT) 1 APPLIC BID NASAL (DC) Pantoprazole Sodium (PROTONIX) 40 MG Q12HR IV (DC) Sodium Chloride (SODIUM CHLORIDE) 10 ML ASDIR PRN IV (DC) Albumin Human (ALBUMINAR 5% 12.5GM/250ML) 250 ML ONCE ONE IV (DC) Dexmedetomidine/Sodium Chloride (Precedex 1,000 mcg/NS 250 mL) 250 ML ASDIR IV (DC) Dextrose/Water (DEXTROSE 10% IN WATER) 125 ML ASDIR PRN IV (DC) Dextrose/Water (DEXTROSE 10% IN WATER) 250 ML ASDIR PRN IV (DC) Glucagon (GLUCAGON) 1 MG ASDIR PRN IM (DC) Insulin Human Regular (MYXREDLIN 100 UNITS/NS 100ML) 100 ML ASDIR IV (DC ) Nitroglycerin/Dextrose (NITROGLYCERIN 50,000MCG/D5W 250ML) 250 ML ASDIR IV (DC) Propofol (DIPRIVAN 1,000MG/100ML) 100 ML .STK-MED ONE IV (DC) Sodium Chloride (SODIUM CHLORIDE 0.9%) 1,000 ML .STK-MED ONE IV (DC) Propofol (DIPRIVAN 1,000MG/100ML) 100 ML TITRATE IV (DC) Nitroglycerin/Dextrose (NITROGLYCERIN 50,000MCG/D5W 250ML) 250 ML .STK-MED ONE IV (DC) Dexmedetomidine HCl (PRECEDEX) 0 .STK-MED ONE IV (DC) Cefazolin Sodium (KEFZOL OR ANCEF) 3 GM PREOP ONCALL IV (DC) Sodium Chloride (SODIUM CHLORIDE 0.9% 100 ML) 100 ML Vancomycin HCl (Vancomycin 2,000 mg Inj (B2)) 2,000 MG PREOP ONCALL IV ( DC) Sodium Chloride (SODIUM CHLORIDE 0.9%) 500 ML Verapamil HCl (ISOPTIN) 16.6 MG .Q24H ONE IV (DC) Heparin Sodium (Porcine) (HEPARIN SODIUM) 1,660 UNIT Sodium Bicarbonate (SODIUM BICARBONATE) 0.7 ML Nitroglycerin/Dextrose (NITROGLYCERIN 50MG/D5W 250ML) 8.3 MG Lactated Ringer's (LACTATED RINGERS) 949.5 ML Metoprolol Tartrate (LOPRESSOR) 6.25 MG PREOP ONCE PO (DC) Acetaminophen (TYLENOL EXTRA STRENGTH) 1,000 MG PREOP ONCALL PO (DC) Gabapentin (NEURONTIN) 200 MG PREOP ONCALL PO (DC) Lactated Ringer's (LACTATED RINGERS) 1,000 ML PREOP ONCALL IV (DC) Lidocaine HCl (Lidocaine PF1% 20 mg/2 mL Inj) 2 ML PREOP ONCALL LOCAL ( DC) Lidocaine HCl (Lidocaine PF1% 20 mg/2 mL Inj) 2 ML PREOP ONCALL LOCAL ( DC) Sodium Chloride (SODIUM CHLORIDE 0.9%) 500 ML PREOP ONCALL IV (DC) Sodium Chloride (SODIUM CHLORIDE 0.9%) 500 ML PREOP ONCALL IV (DC) Sodium Chloride (SODIUM CHLORIDE 0.9%) 1,000 ML PREOP ONCALL IV (DC) Sodium Chloride (SODIUM CHLORIDE) 5 ML ASDIR PRN IV (DC) Sodium Chloride (SODIUM CHLORIDE) 10 ML ASDIR PRN IV (DC) Sodium Chloride (SODIUM CHLORIDE 0.9%) 100 ML ASDIR PRN IV (DC) Provider comments: PHYSICAL EXAM General appearance: altered mental status HEENT: dry mucosal membranes, atraumatic, normocephalic Neck: decreased range of motion Cardiovascular: regular rate rhythm Respiratory: no distress Abdomen: non-tender, soft, no distention Extremities: decreased range of motion Musculoskeletal: decreased ROM Neuro/BANKING MANAGER: sedated Skin: dry, intact Results Findings/Data: Laboratory Tests 03/16/25 0440: [Embedded Image Not Available] 03/16/25 0248: [Embedded Image Not Available] 03/15/25 1552: [Embedded Image Not Available] Laboratory Tests 03/16 03/16 03/16 03/16 1503 1435 1357 1157 Blood Gas O2 Saturation (90 - 100 %) 100.0 99.9 99.9 100.0 ABG pH (7.35 - 7.45) 7.366 7.335 L 7.382 7.360 ABG pCO2 (35.0 - 45 mmHg) 44.8 50.5 *H 37.0 40.4 ABG pO2 (80 - 100.0 mmHg) 379.2 *H 385.3 *H 254.9 *H 416.2 *H ABG HCO3 (22.0 - 26.0 MMOL/L) 25.7 27.0 H 22.0 22.8 ABG Total CO2 (22 - 29) 27.1 28.5 23.1 24.0 ABG Base Excess (0 - +/ MMOL/L) 0.1 0.5 -2.7 L -2.5 L ABG Hematocrit (38 - 51 %) 34 L 34 L 39 40 ABG Hemoglobin (12.5 - 16.9 G/DL) 11.6 L 11.6 L 13.2 13.6 Sodium (134 - 147 mmol/L) 141 141 142 140 Potassium (3.4 - 5.0 mmol/L) 4.2 4.4 3.5 3.5 Chloride (100 - 108 mmol/L) 104 105 109 H 106 Ionized Calcium (1.12 - 1.32 MMOL/L) 1.19 1.18 1.18 1.21 Lactic Acid (0.9 - 1.7 mmol/l) 1.9 H 1.3 1.2 < 0.3 L 03/16 03/15 0245 1553 Blood Gas Puncture Site Art Line Art Line O2 Saturation (90 - 100 %) 98.4 98.9 ABG pH (7.35 - 7.45) 7.408 7.383 ABG pCO2 (35.0 - 45 mmHg) 40.1 40.1 ABG pO2 (80 - 100.0 mmHg) 111.5 H 125.8 H ABG PO2/FiO2 Ratio (mm/Hg) 251.60 ABG HCO3 (22.0 - 26.0 MMOL/L) 25.3 24.2 ABG Total CO2 (22 - 29) 26.5 25.6 ABG Base Excess (0 - +/ MMOL/L) 0.6 -1.2 L ABG Hematocrit (38 - 51 %) 44 42 ABG Hemoglobin (12.5 - 16.9 G/DL) 15.0 14.2 Valdemar Test N/A Sodium (134 - 147 mmol/L) 140 141 Potassium (3.4 - 5.0 mmol/L) 4.5 3.7 Chloride (100 - 108 mmol/L) 106 107 Ionized Calcium (1.12 - 1.32 MMOL/L) 1.31 1.28 Temperature (F) 98 96.1 O2 Delivery Device Cannula Adult Vent Vent Mode AC Vent Rate (/MIN) 18 FiO2 (%) 50 Tidal Volume (ml) 550 PEEP (cmH2O) 5 Laboratory Tests 03/16 03/16 03/16 03/16 03/16 1503 1435 1357 1157 1114 Chemistry POC Creatinine (0.6 - 1.3 mg/dL) 1.0 1.0 0.8 0.9 POC Glucose (70 - 110 MG/DL) 217 H POC Glucose (mg/dL) (70 - 110 MG/DL) 185 H 158 H 160 H 211 H 03/16 03/16 03/16 03/16 03/15 0821 0440 0248 0245 1809 Chemistry Sodium (134 - 147 mEq/L) 138 137 Potassium (3.4 - 5.0 mEq/L) 4.2 5.2 H Chloride (100 - 108 mEq/L) 106 105 Carbon Dioxide (21 - 33 mEq/l) 24 24 Anion Gap (0 - 20) 12 13 BUN (7 - 25 mg/dL) 12 13 Creatinine (0.6 - 1.3 mg/dL) 1.0 1.0 POC Creatinine (0.6 - 1.3 mg/dL) 0.8 Glomerular Filtr Rate (80 - 90) 83.5 83.5 Glucose (77 - 141 mg/dL) 167 H 179 H POC Glucose (70 - 110 MG/DL) 157 H 161 H POC Glucose (mg/dL) (70 - 110 MG/DL) 184 H Calcium (8.0 - 10.5 mg/dL) 9.1 9.1 Ionized Calcium Vasquez (1.09 - 1.30 1.22 1.19 MMOL/L) Magnesium (1.6 - 2.6 mg/dL) 1.85 1.89 Total Bilirubin (0.0 - 1.0 mg/dL) 0.60 0.50 Direct Bilirubin (0.1 - 0.3 MG/DL) 0.20 0.20 Indirect Bilirubin (MG/DL) 0.40 0.30 AST (8 - 34 IUnit/L) 13 24 ALT (10 - 49 IUnit/L) 16 17 Total Alk Phosphatase (20 - 125 55 53 IUnit/L) Total Protein (5.7 - 8.2 g/dL) 6.7 6.9 Albumin (3.4 - 5.0 g/dL) 3.70 3.70 03/15 03/15 1553 1552 Chemistry Sodium (134 - 147 mEq/L) 140 Potassium (3.4 - 5.0 mEq/L) 3.7 Chloride (100 - 108 mEq/L) 107 Carbon Dioxide (21 - 33 mEq/l) 23 Anion Gap (0 - 20) 14 BUN (7 - 25 mg/dL) 15 Creatinine (0.6 - 1.3 mg/dL) 1.0 POC Creatinine (0.6 - 1.3 mg/dL) 0.9 Glomerular Filtr Rate (80 - 90) 83.5 Glucose (77 - 141 mg/dL) 155 H POC Glucose (mg/dL) (70 - 110 MG/DL) 167 H Calcium (8.0 - 10.5 mg/dL) 8.6 Magnesium (1.6 - 2.6 mg/dL) 1.73 Laboratory Tests 03/16 03/16 03/16 03/16 1511 1443 1405 1208 Coagulation Activated Coag Time (74 - 137 SEC) 475 H 493 H 504 H 135 03/15 1552 Coagulation INR (0.8 - 1.2) 1.2 PTT (25.0 - 39.5 Seconds) 31.4 PT Patient/Control Mix (9.3 - 12.9 SECONDS) 13.4 H Laboratory Tests 03/16 03/15 0248 1552 Hematology WBC (4.5 - 11.0 x10 3/uL) 7.4 5.4 RBC (4.00 - 5.60 x10 6/uL) 4.44 4.38 Hgb (12.5 - 16.9 g/dL) 14.4 14.3 Hct (37.5 - 50.7 %) 42.6 42.1 MCV (81.0 - 99.0 fL) 95.9 96.1 MCH (27.0 - 33.0 pg) 32.4 32.6 MCHC (33.0 - 37.0 g/dL) 33.8 34.0 RDW (11.5 - 14.5 %) 13.0 13.0 Plt Count (150 - 400 x10 3/uL) 185 164 MPV (7.0 - 9.0 fL) 9.9 H 9.2 H Neut % (Auto) (56.0 - 77.0 %) 79.0 H 60.5 Lymph % (Auto) (14.0 - 32.0 %) 13.1 L 26.7 Potter % (Auto) (4.8 - 9.0 %) 7.4 10.0 H Eos % (Auto) (0.3 - 3.7 %) 0.0 L 2.0 Baso % (Auto) (0.0 - 2.0 %) 0.1 0.6 Neut # (Auto) (2.0 - 7.6 x10 3/uL) 5.83 3.27 Lymph # (Auto) (1.0 - 3.8 x10 3/uL) 0.97 L 1.44 Potter # (Auto) (0.1 - 0.8 x10 3/uL) 0.55 0.54 Eos # (Auto) (0.0 - 0.2 x10 3/uL) 0.00 0.11 Baso # (Auto) (0.0 - 0.2 x10 3/uL) 0.01 0.03 Abs Immat Gran (auto) (0.00 - 0.03 x10 3/uL) 0.03 0.01 Immature Gran % (0.0 - 2.0 %) 0.4 0.2 Nucleated RBC % (0 - 0 %) 0.0 0.0 Nucleated RBCs # (Man) (0.0 - 0.1 x10 3/uL) 0.00 0.00 Radiology Data: Recent Impressions: RADIOLOGY - XR CHEST 1 V 03/15 1628 Report Impression - Status: SIGNED Entered: 03/15/2025 7846 IMPRESSION: Basilar atelectatic change. Electronically signed by: Abel Shah MD 03/15/2025 05:06 PM CDT RP Impression By: [email or web address] - Abel Shah M.D. RADIOLOGY - XR CHEST 1 V 03/16 0537 Report Impression - Status: SIGNED Entered: 03/16/2025 1353 IMPRESSION: 1. Interval extubation. 2. The lungs are clear. 3. Mild cardiomegaly. Electronically signed by: Hemal Chiang MD 03/16/2025 01:51 PM CDT RP Impression By: [email or web address] - Hemal Chiang M.D. Diagnosis, Assessment Plan Free Text A P: Assessment multivessel CAD, eval for CABG rectal bleeding hx of DM Plan: - pain/emesis control - monitor h/h, hgb reassuring - monitor for rectal bleeding - diet per surgery - ppi therapy - at 1847 at 0956 RPT #:[id number] END OF REPORT [facility] 2025-03-15 16:16:00 [facility] ([facility]) Critical Care Consult Note REPORT#:[id number] REPORT STATUS: Signed REPORT INITIALIZATION DATE:03/15/25 TIME: 161 PATIENT: LAKEISHA NORRIS UNIT #: [id number] ROOM/BED: [place] [id number] : 59 AGE: 64 SEX: M ATTEND: Marlene Padilla MD ADM AUTHOR: Thierno Bradley DO REPT SERVICE DT/TIME: 03/15/25 1616 * ALL edits or amendments must be made on the electronic/computer document * History of Present Illness HPI Requesting clinician: Dr Padilla Reason for consult: preop cabg gi bleed Chief complaint: cad HPI: Patient is a 64-year-old male history of hypertension hyperlipidemia diabetes hypothyroidism and hemorrhoids. Patient was undergoing cardiac clearance for knee replacement and found to have multivessel coronary artery disease. He was taken to the operating room today for planned CABG. Patient had central line and arterial lines placed along with Suarez and he was intubated. Prior to incision it was noted that he had bright red blood per rectum along with clots. At that time CV surgery discussed case with GI. Decision was made to abort surgery for further evaluation of GI bleeding. Patient is in the CVICU waking up from sedation on minimal vent settings. History - Adult longitudinal Smoking status for patients 13 years old or older: Never Smoker Allergies: Coded Allergies: nitroglycerin (Intermediate, RASH 03/11/25) Objective Physical Exam VS/I O: Last Documented: Result Date Time Pulse Ox 94 03/15 1037 B/P 137/70 03/15 1037 Temp 97.9 03/15 1037 Pulse 75 03/15 1037 Resp 18 03/15 1037 Patient Weight and BMI Weight (kg): 143.182 BMI: 41.6 Free Text Obj Notes Free Text Obj Notes: GEN: Intubated waking up from sedation HEENT: Atraumatic, normocephalic, moist mucous membranes NECK: Supple, good range of motion, no tenderness, no JVD LUNGS: Symmetrical air entry, no acute respiratory distress, no accessory muscle use CV: S1, S2 regular rate and rhythm, warm and well perfused GI: Abdomen is soft, not tender or distended. Dark red clots from rectum EXT/Musc: No edema or cyanosis. Pedal pulses present. Compartments soft Skin: Surgical site clean, dry and intact. Warm to touch NEURO: Intubated waking up from sedation Diagnosis, Assessment Plan Free text DxA P: 64-year-old male in the CVICU for vent management and preop care pending CABG with active GI bleed Multivessel coronary artery disease Pending plan for CABG GI bleed History of hypertension History of hyperlipidemia History of DM History of hypothyroidism - Propofol for sedation - Lung protective ventilation - N.p.o. - Pending GI plans for scope - Type and screen - Hold antiplatelet and anticoagulation - Will try to extubate once we have definitive plans for any procedures. Critical care time 32 minutes spent with patient excluding bedside procedures and teaching at 1619 RPT #:[id number] END OF REPORT [facility] 2025-03-15 16:13:00 [facility] ([facility]) GE Consultation Note REPORT#:[id number] REPORT STATUS: Signed REPORT INITIALIZATION DATE:03/15/25 TIME: 1612 PATIENT: LAKEISHA NORRIS UNIT #: [id number] ROOM/BED: 3305-1 : 59 AGE: 64 SEX: M ATTEND: Marlene Padilla MD ADM AUTHOR: Keenan Carter MD REPT SERVICE DT/TIME: 03/15/25 161 * ALL edits or amendments must be made on the electronic/computer document * Keenan Carter 03/15/25 1613: History - Adult longitudinal Smoking status for patients 13 years old or older: Never Smoker Allergies: Coded Allergies: nitroglycerin (Intermediate, RASH 03/11/25) Attestations Physician Attestation Agree w/findings plan: Agree with the findings and plan as documented by Justin OSORIO * my personal evaluation is Rectal bleeding CAD CABG preoperative eval - agree with reassessing benefits vs. risks - monitor h/h, transfuse as needed - protonix rx Cash Anderson 03/15/25 1634: History of Present Illness HPI: Patient is a 64 year old male with a PMHx of hypertension, hyperlipidemia, hypothyroidism, and diabetes who presented to the hospital for CABG after he was found to have multivessel CAD during cardiac clearance for a knee replacement. He was taken to the OR today for the procedure and was noted to pass signficant amount for bright red blood per rectum with clots. The procedure was aborted and GI was consulted for rectal bleeding. Currently, patient is intubated and sedated from the procedure, but appears to be waking up. Plans to extubate later today. Information obtained from family in waiting area. They note that patient reported some rectal bleeding early this morning, but reported only a minimal amount. They state that he intermittently had some mild bleeding for some time. They deny any significant gi bleeding in the past. No prior history of blood transfusion. Deny any blood thinners or antiplatelet medications. Unsure of date of last colonoscopy, but report they have been unremarkable in the past. History - Adult longitudinal Medications: Home Medications: Medication Dose/Rte/Freq Days Qty Entered Last Max Daily Dose Reviewed LEVOTHYROXINE 200 MCG PO DAILY 03/11/25 03/15/25 (SYNTHROID) 0949 1008 Strength: 200 MCG TAB RAMIPRIL (ALTACE) 10 MG PO DAILY 03/11/25 03/15/25 Strength: 10 MG CAP 1044 1008 EMPAGLIFLOZIN 25 MG PO DAILY 03/11/25 03/15/25 (JARDIANCE) 1044 1008 Strength: 25 MG TAB SIMVASTATIN 20 MG PO BEDTIME 03/11/25 03/15/25 Strength: 20 MG TAB 1045 1008 metFORMIN (GLUCOPHAGE) 1,000 MG PO DAILY 03/11/25 03/15/25 Strength: 1,000 MG TAB 1045 1008 TIRZEPATIDE 2.5 MG SUBQ Q7D 03/11/25 03/15/25 (MOUNJARO PEN (2mL)) 1045 1008 Strength: 2.5 MG/0.5 ML PEN.INJCTR Current Hospital Medications: Anti-Infective Agents Sig/Beatrice Start time Last Medication Dose Route Stop Time Status Admin Cefazolin Sodium 0 .STK-MED ONE 03/15 1234 DC (KEFZOL OR ANCEF) IV Vancomycin HCl 0 .STK-MED ONE 03/15 1234 DC (VANCOMYCIN HCL) .ROUTE Cefazolin Sodium 3 GM PREOP ONCALL 03/15 1145 CKD (KEFZOL OR ANCEF) IV 03/22 1144 Sodium Chloride 100 ML (SODIUM CHLORIDE 0.9% 100 ML) Vancomycin HCl 2,000 MG PREOP ONCALL 03/15 1145 CKD (Vancomycin 2,000 mg IV 03/22 1144 Inj (B2)) Sodium Chloride 500 ML (SODIUM CHLORIDE 0.9%) Cefazolin Sodium 2 GM PREOP ONCALL 03/15 0500 DC (ANCEF 2 GM Inj) IV 03/22 0459 Sodium Chloride 20 ML (SODIUM CHLORIDE) Autonomic Drugs Sig/Beatrice Start time Last Medication Dose Route Stop Time Status Admin Phenylephrine HCl 0 .STK-MED ONE 03/15 1319 DC (SAWYER-SYNEPHRINE 10MG/ .ROUTE ML AMP) Epinephrine HCl 250 ML .STK-MED ONE 03/15 1243 DC (EPINEPHrine 4 mg/ IV D5W 250 mL) Norepinephrine/ 250 ML .STK-MED ONE 03/15 1242 DC Dextrose IV (Norepinephrine 8 MG/ D5W 250 mL) Blood Derivatives Sig/Beatrice Start time Last Medication Dose Route Stop Time Status Admin Albumin Human 250 ML ONCE ONE 03/15 1630 UNV (ALBUMINAR 5% 12.5GM/ IV 03/15 1659 250ML) Albumin Human 0 .STK-MED ONE 03/15 1320 DC (ALBUMINAR-25%) IV Blood Formation,Coagulation Sig/Beatrice Start time Last Medication Dose Route Stop Time Status Admin Heparin Sodium 0 .STK-MED ONE 03/15 1320 DC (HEPARIN SODIUM) .ROUTE Protamine Sulfate 0 .STK-MED ONE 03/15 1243 DC (PROTAMINE SULFATE) IV Cardiovascular Drugs Sig/Beatrice Start time Last Medication Dose Route Stop Time Status Admin Nitroglycerin/ 250 ML ASDIR 03/15 1615 UNV Dextrose IV 06/13 1614 (NITROGLYCERIN 50,000MCG/D5W 250ML) Nitroglycerin/ 250 ML .STK-MED ONE 03/15 1557 DC Dextrose IV (NITROGLYCERIN 50,000MCG/D5W 250ML) Lidocaine HCl 0 .STK-MED ONE 03/15 1319 DC (Lidocaine HCl 2% IV Luer-Jet) Papaverine HCl 0 .STK-MED ONE 03/15 1248 DC (PAPAVERINE HC) IV Verapamil HCl 16.6 MG .Q24H ONE 03/15 1100 CKD (ISOPTIN) IV 03/16 1059 Heparin Sodium 1,660 UNIT (Porcine) (HEPARIN SODIUM) Sodium Bicarbonate 0.7 ML (SODIUM BICARBONATE) Nitroglycerin/ 8.3 MG Dextrose (NITROGLYCERIN 50MG/ D5W 250ML) Lactated Ringer's 949.5 ML (LACTATED RINGERS) Metoprolol Tartrate 6.25 MG PREOP ONCE 03/15 1030 CKD 03/15 (LOPRESSOR) PO 06/13 1029 1018 Metoprolol Tartrate 6.25 MG ONCE ONE 03/15 1010 CAN (LOPRESSOR) IV 03/15 1011 Metoprolol Tartrate 0 .STK-MED ONE 03/15 0948 DC (LOPRESSOR) PO Labetalol HCl 0 .STK-MED ONE 03/15 0918 DC (labetalol 20 mg/4 IV mL Inj) Lidocaine HCl 2 ML PREOP ONCALL 03/11 0930 AC (Lidocaine PF1% 20 LOCAL 04/10 2359 mg/2 mL Inj) Lidocaine HCl 2 ML PREOP ONCALL 03/11 930 AC (Lidocaine PF1% 20 LOCAL 04/10 2359 mg/2 mL Inj) Central Nervous System Agents Sig/Beatrice Start time Last Medication Dose Route Stop Time Status Admin Dexmedetomidine/ 250 ML ASDIR 03/15 1615 UNV Sodium Chloride IV 06/13 1614 (Precedex 1,000 mcg/ NS 250 mL) Propofol 100 ML .STK-MED ONE 03/15 1610 DC 03/15 (DIPRIVAN 1,000MG/ IV 1621 100ML) Propofol 100 ML TITRATE 03/15 1600 UNV (DIPRIVAN 1,000MG/ IV 06/13 1559 100ML) Dexmedetomidine HCl 0 .STK-MED ONE 03/15 1532 DC (PRECEDEX) IV Magnesium Sulfate 0 .STK-MED ONE 03/15 1319 DC (MAGNESIUM SULFATE) IV Fentanyl Citrate 0 .STK-MED ONE 03/15 1240 DC (SUBLIMAZE) IV Midazolam HCl 0 .STK-MED ONE 03/15 1240 DC (VERSED) .ROUTE Propofol 0 .STK-MED ONE 03/15 1239 DC (DIPRIVAN 200MG/20ML IV INJECTION) Acetaminophen 0 .STK-MED ONE 03/15 0950 DC (TYLENOL EXTRA PO STRENGTH) Gabapentin 0 .STK-MED ONE 03/15 0949 DC (NEURONTIN) PO Etomidate 0 .STK-MED ONE 03/15 0752 DC (AMIDATE) IV Acetaminophen 1,000 MG PREOP ONCALL 03/11 930 CKD 03/15 (TYLENOL EXTRA PO 04/10 2359 1002 STRENGTH) Gabapentin 200 MG PREOP ONCALL 03/11 930 CKD 03/15 (NEURONTIN) PO 04/10 2359 1002 Electrolytic, Caloric, And Felix Sig/Beatrice Start time Last Medication Dose Route Stop Time Status Admin Dextrose/Water 125 ML ASDIR PRN 03/15 1615 UNV (DEXTROSE 10% IN IV 06/13 1614 WATER) Dextrose/Water 250 ML ASDIR PRN 03/15 1615 UNV (DEXTROSE 10% IN IV 06/13 1614 WATER) Sodium Chloride 1,000 ML .STK-MED ONE 03/15 1606 DC (SODIUM CHLORIDE IV 0.9%) Sodium Chloride 0 .STK-MED ONE 03/15 1320 DC (SODIUM CHLORIDE IV 0.9%) Mannitol 250 ML .STK-MED ONE 03/15 1319 DC (Mannitol 20%) IV Sodium Bicarbonate 0 .STK-MED ONE 03/15 1319 DC (SODIUM BICARBONATE) IV Calcium Chloride 0 .STK-MED ONE 03/15 1053 DC (CALCIUM CHLORIDE) IV Lactated Ringer's 1,000 ML PREOP ONCALL 03/11 930 AC (LACTATED RINGERS) IV 04/10 2359 Sodium Chloride 500 ML PREOP ONCALL 03/11 930 AC (SODIUM CHLORIDE IV 04/10 2359 0.9%) Sodium Chloride 500 ML PREOP ONCALL 03/11 930 AC (SODIUM CHLORIDE IV 04/10 2359 0.9%) Sodium Chloride 1,000 ML PREOP ONCALL 03/11 930 AC (SODIUM CHLORIDE IV 04/10 2359 0.9%) Sodium Chloride 5 ML ASDIR PRN 03/11 930 AC (SODIUM CHLORIDE) IV 06/09 929 Sodium Chloride 10 ML ASDIR PRN 03/11 930 AC (SODIUM CHLORIDE) IV 06/09 929 Sodium Chloride 100 ML ASDIR PRN 03/11 930 AC (SODIUM CHLORIDE IV 06/09 929 0.9%) Eye, Ear, Nose And Throat (Een Sig/Beatrice Start time Last Medication Dose Route Stop Time Status Admin Dexamethasone Sodium 0 .STK-MED ONE 03/15 0752 DC Phosphate .ROUTE (DECADRON) Gastrointestinal Drugs Sig/Beatrice Start time Last Medication Dose Route Stop Time Status Admin Ondansetron HCl 0 .STK-MED ONE 03/15 0752 DC (ZOFRAN) .ROUTE Hormones And Synthetic Substit Sig/Beatrice Start time Last Medication Dose Route Stop Time Status Admin Glucagon 1 MG ASDIR PRN 03/15 1615 UNV (GLUCAGON) IM 06/13 1614 Insulin Human Regular 100 ML ASDIR 03/15 1615 UNV (MYXREDLIN 100 UNITS/ IV 06/13 1614 NS 100ML) Insulin Human Regular 100 ML .STK-MED ONE 03/15 1243 DC (MYXREDLIN 100 UNITS/ IV NS 100ML) Local Anesthetics (Parenteral) Sig/Beatrice Start time Last Medication Dose Route Stop Time Status Admin Ropivacaine 0 .STK-MED ONE 03/15 1243 DC (NAROPIN 0.5% 150 MG/ .ROUTE 30mL) Skin And Mucous Membrane Agent Sig/Beatrice Start time Last Medication Dose Route Stop Time Status Admin Mupirocin 1 APPLIC BID 03/15 2100 UNV (BACTROBAN 2% 22 GM NASAL 03/20 0901 OINTMENT) Review of Systems Additional notes: unable to evaulate Objective Physical Exam VS/I O: Last Documented: Result Date Time Pulse Ox 99 03/15 1659 FiO2 40 03/15 1659 Pulse 53 03/15 1659 O2 Delivery Ventilator 03/15 1600 B/P 137/70 03/15 1037 Temp 97.9 03/15 1037 Resp 18 03/15 1037 PATIENT WEIGHT: Weight (lb): 315 Weight (oz): 10.6 Weight (kg): 143.182 Medications: Active Meds + DC'd Last 24 Hrs Mupirocin (BACTROBAN 2% 22 GM OINTMENT) 1 APPLIC BID NASAL Albumin Human (ALBUMINAR 5% 12.5GM/250ML) 250 ML ONCE ONE IV (DC) Dexmedetomidine/Sodium Chloride (Precedex 1,000 mcg/NS 250 mL) 250 ML ASDIR IV Dextrose/Water (DEXTROSE 10% IN WATER) 125 ML ASDIR PRN IV (CKD) Dextrose/Water (DEXTROSE 10% IN WATER) 250 ML ASDIR PRN IV (CKD) Glucagon (GLUCAGON) 1 MG ASDIR PRN IM Insulin Human Regular (MYXREDLIN 100 UNITS/NS 100ML) 100 ML ASDIR IV ( CKD) Nitroglycerin/Dextrose (NITROGLYCERIN 50,000MCG/D5W 250ML) 250 ML ASDIR IV Propofol (DIPRIVAN 1,000MG/100ML) 100 ML .STK-MED ONE IV (DC) Sodium Chloride (SODIUM CHLORIDE 0.9%) 1,000 ML .STK-MED ONE IV (DC) Propofol (DIPRIVAN 1,000MG/100ML) 100 ML TITRATE IV (CKD) Nitroglycerin/Dextrose (NITROGLYCERIN 50,000MCG/D5W 250ML) 250 ML .STK-MED ONE IV (DC) Dexmedetomidine HCl (PRECEDEX) 0 .STK-MED ONE IV (DC) Albumin Human (ALBUMINAR-25%) 0 .STK-MED ONE IV (DC) Heparin Sodium (HEPARIN SODIUM) 0 .STK-MED ONE .ROUTE (DC) Sodium Chloride (SODIUM CHLORIDE 0.9%) 0 .STK-MED ONE IV (DC) Lidocaine HCl (Lidocaine HCl 2% Luer-Jet) 0 .STK-MED ONE IV (DC) Magnesium Sulfate (MAGNESIUM SULFATE) 0 .STK-MED ONE IV (DC) Mannitol (Mannitol 20%) 250 ML .STK-MED ONE IV (DC) Phenylephrine HCl (SAWYER-SYNEPHRINE 10MG/ML AMP) 0 .STK-MED ONE .ROUTE (DC ) Sodium Bicarbonate (SODIUM BICARBONATE) 0 .STK-MED ONE IV (DC) Papaverine HCl (PAPAVERINE HC) 0 .STK-MED ONE IV (DC) Epinephrine HCl (EPINEPHrine 4 mg/D5W 250 mL) 250 ML .STK-MED ONE IV (DC ) Insulin Human Regular (MYXREDLIN 100 UNITS/NS 100ML) 100 ML .STK-MED ONE IV (DC) Protamine Sulfate (PROTAMINE SULFATE) 0 .STK-MED ONE IV (DC) Ropivacaine (NAROPIN 0.5% 150 MG/30mL) 0 .STK-MED ONE .ROUTE (DC) Norepinephrine/Dextrose (Norepinephrine 8 MG/D5W 250 mL) 250 ML .STK-MED ONE IV (DC) Fentanyl Citrate (SUBLIMAZE) 0 .STK-MED ONE IV (DC) Midazolam HCl (VERSED) 0 .STK-MED ONE .ROUTE (DC) Propofol (DIPRIVAN 200MG/20ML INJECTION) 0 .STK-MED ONE IV (DC) Cefazolin Sodium (KEFZOL OR ANCEF) 0 .STK-MED ONE IV (DC) Vancomycin HCl (VANCOMYCIN HCL) 0 .STK-MED ONE .ROUTE (DC) Cefazolin Sodium (KEFZOL OR ANCEF) 3 GM PREOP ONCALL IV (CKD) Sodium Chloride (SODIUM CHLORIDE 0.9% 100 ML) 100 ML Vancomycin HCl (Vancomycin 2,000 mg Inj (B2)) 2,000 MG PREOP ONCALL IV ( CKD) Sodium Chloride (SODIUM CHLORIDE 0.9%) 500 ML Verapamil HCl (ISOPTIN) 16.6 MG .Q24H ONE IV (CKD) Heparin Sodium (Porcine) (HEPARIN SODIUM) 1,660 UNIT Sodium Bicarbonate (SODIUM BICARBONATE) 0.7 ML Nitroglycerin/Dextrose (NITROGLYCERIN 50MG/D5W 250ML) 8.3 MG Lactated Ringer's (LACTATED RINGERS) 949.5 ML Calcium Chloride (CALCIUM CHLORIDE) 0 .STK-MED ONE IV (DC) Metoprolol Tartrate (LOPRESSOR) 6.25 MG PREOP ONCE PO (CKD) Metoprolol Tartrate (LOPRESSOR) 6.25 MG ONCE ONE IV (CAN) Acetaminophen (TYLENOL EXTRA STRENGTH) 0 .STK-MED ONE PO (DC) Gabapentin (NEURONTIN) 0 .STK-MED ONE PO (DC) Metoprolol Tartrate (LOPRESSOR) 0 .STK-MED ONE PO (DC) Labetalol HCl (labetalol 20 mg/4 mL Inj) 0 .STK-MED ONE IV (DC) Dexamethasone Sodium Phosphate (DECADRON) 0 .STK-MED ONE .ROUTE (DC) Etomidate (AMIDATE) 0 .STK-MED ONE IV (DC) Ondansetron HCl (ZOFRAN) 0 .STK-MED ONE .ROUTE (DC) Cefazolin Sodium (ANCEF 2 GM Inj) 2 GM PREOP ONCALL IV (DC) Sodium Chloride (SODIUM CHLORIDE) 20 ML Acetaminophen (TYLENOL EXTRA STRENGTH) 1,000 MG PREOP ONCALL PO (CKD) Gabapentin (NEURONTIN) 200 MG PREOP ONCALL PO (CKD) Lactated Ringer's (LACTATED RINGERS) 1,000 ML PREOP ONCALL IV Lidocaine HCl (Lidocaine PF1% 20 mg/2 mL Inj) 2 ML PREOP ONCALL LOCAL Lidocaine HCl (Lidocaine PF1% 20 mg/2 mL Inj) 2 ML PREOP ONCALL LOCAL Sodium Chloride (SODIUM CHLORIDE 0.9%) 500 ML PREOP ONCALL IV Sodium Chloride (SODIUM CHLORIDE 0.9%) 500 ML PREOP ONCALL IV Sodium Chloride (SODIUM CHLORIDE 0.9%) 1,000 ML PREOP ONCALL IV Sodium Chloride (SODIUM CHLORIDE) 5 ML ASDIR PRN IV Sodium Chloride (SODIUM CHLORIDE) 10 ML ASDIR PRN IV Sodium Chloride (SODIUM CHLORIDE 0.9%) 100 ML ASDIR PRN IV General appearance: altered mental status HEENT: dry mucosal membranes, atraumatic, normocephalic Neck: decreased range of motion Cardiovascular: regular rate rhythm Respiratory: no distress Abdomen: non-tender, soft, no distention Extremities: decreased range of motion Musculoskeletal: decreased ROM Neuro/BANKING [employer]GER: sedated Skin: dry, intact Results Findings/Data: Laboratory Tests 03/15/25 1552: [Embedded Image Not Available] Laboratory Tests 03/15 03/15 1553 1513 Blood Gas Puncture Site Art Line O2 Saturation (90 - 100 %) 98.9 99.5 ABG pH (7.35 - 7.45) 7.383 7.362 ABG pCO2 (35.0 - 45 mmHg) 40.1 39.7 ABG pO2 (80 - 100.0 mmHg) 125.8 H 175.5 H ABG PO2/FiO2 Ratio (mm/Hg) 251.60 ABG HCO3 (22.0 - 26.0 MMOL/L) 24.2 22.5 ABG Total CO2 (22 - 29) 25.6 23.7 ABG Base Excess (0 - +/ MMOL/L) -1.2 L -2.7 L ABG Hematocrit (38 - 51 %) 42 41 ABG Hemoglobin (12.5 - 16.9 G/DL) 14.2 14.0 Valdemar Test N/A Sodium (134 - 147 mmol/L) 141 143 Potassium (3.4 - 5.0 mmol/L) 3.7 3.7 Chloride (100 - 108 mmol/L) 107 110 H Ionized Calcium (1.12 - 1.32 MMOL/L) 1.28 1.01 L Lactic Acid (0.9 - 1.7 mmol/l) 0.5 L Temperature (F) 96.1 O2 Delivery Device Adult Vent Vent Mode AC Vent Rate (/MIN) 18 FiO2 (%) 50 Tidal Volume (ml) 550 PEEP (cmH2O) 5 Laboratory Tests 03/15 03/15 03/15 03/15 03/15 1553 1552 1513 1416 1008 Chemistry Sodium (134 - 147 mEq/L) 140 Potassium (3.4 - 5.0 mEq/L) 3.7 Chloride (100 - 108 mEq/L) 107 Carbon Dioxide (21 - 33 mEq/l) 23 Anion Gap (0 - 20) 14 BUN (7 - 25 mg/dL) 15 Creatinine (0.6 - 1.3 mg/dL) 1.0 POC Creatinine (0.6 - 1.3 mg/dL) 0.9 0.7 Glomerular Filtr Rate (80 - 90) 83.5 Glucose (77 - 141 mg/dL) 155 H POC Glucose (70 - 110 MG/DL) 137 H 171 H POC Glucose (mg/dL) (70 - 110 MG/DL) 167 H 142 H Calcium (8.0 - 10.5 mg/dL) 8.6 Magnesium (1.6 - 2.6 mg/dL) 1.73 03/15 0947 Chemistry Triglycerides (40 - 150 mg/dL) 94 Cholesterol (<200 mg/dL) 150 LDL Cholesterol Measurd (0 - 100 mg/dL) 97.0 HDL Cholesterol (40 - 60 MG/DL) 43.2 Cholesterol/HDL Ratio (3.43 - 4.97 RATIO) 3.47 Laboratory Tests 03/15 03/15 1552 1518 Coagulation INR (0.8 - 1.2) 1.2 PTT (25.0 - 39.5 Seconds) 31.4 PT Patient/Control Mix (9.3 - 12.9 SECONDS) 13.4 H Activated Coag Time (74 - 137 SEC) 124 Laboratory Tests 03/15 1552 Hematology WBC (4.5 - 11.0 x10 3/uL) 5.4 RBC (4.00 - 5.60 x10 6/uL) 4.38 Hgb (12.5 - 16.9 g/dL) 14.3 Hct (37.5 - 50.7 %) 42.1 MCV (81.0 - 99.0 fL) 96.1 MCH (27.0 - 33.0 pg) 32.6 MCHC (33.0 - 37.0 g/dL) 34.0 RDW (11.5 - 14.5 %) 13.0 Plt Count (150 - 400 x10 3/uL) 164 MPV (7.0 - 9.0 fL) 9.2 H Neut % (Auto) (56.0 - 77.0 %) 60.5 Lymph % (Auto) (14.0 - 32.0 %) 26.7 Potter % (Auto) (4.8 - 9.0 %) 10.0 H Eos % (Auto) (0.3 - 3.7 %) 2.0 Baso % (Auto) (0.0 - 2.0 %) 0.6 Neut # (Auto) (2.0 - 7.6 x10 3/uL) 3.27 Lymph # (Auto) (1.0 - 3.8 x10 3/uL) 1.44 Potter # (Auto) (0.1 - 0.8 x10 3/uL) 0.54 Eos # (Auto) (0.0 - 0.2 x10 3/uL) 0.11 Baso # (Auto) (0.0 - 0.2 x10 3/uL) 0.03 Abs Immat Gran (auto) (0.00 - 0.03 x10 3/uL) 0.01 Immature Gran % (0.0 - 2.0 %) 0.2 Nucleated RBC % (0 - 0 %) 0.0 Nucleated RBCs # (Man) (0.0 - 0.1 x10 3/uL) 0.00 Radiology data: Recent Impressions: RADIOLOGY - XR CHEST 1 V 03/15 1628 Report Impression - Status: SIGNED Entered: 03/15/2025 1714 IMPRESSION: Basilar atelectatic change. Electronically signed by: Abel Shah MD 03/15/2025 05:06 PM CDT RP Impression By: [email or web address] - Abel Shah M.D. Diagnosis, Assessment Plan Free Text DxA P Notes Free Text DxA P Notes: Assessment multivessel CAD, eval for CABG rectal bleeding hx of DM Plan: - pain/emesis control - monitor h/h, hgb reassuring - monitor for rectal bleeding - clear liquids if extubated/awake and alert - ppi therapy - will plan for eventual egd/colonoscopy to eval gi bleeding when more awake and alert from sedation/extubated and able to possibly prep - discussed with nurse and family in waiting area at 1753 at 0951 RPT #:[id number] END OF REPORT [facility] 2025-03-15 13:05:00 [facility] ([facility]) History Physical - Adult REPORT#:[id number] REPORT STATUS: Signed REPORT INITIALIZATION DATE:03/15/25 TIME: 1305 PATIENT: LAKEISHA NORRIS UNIT #: [id number] ROOM/BED: 2206-1 : 59 AGE: 64 SEX: M ATTEND: Marlene Padilla MD ADM AUTHOR: Sharifa Baker APRN-HEEL COVER SPLITTER REPT SERVICE DT/TIME: 03/15/25 1305 * ALL edits or amendments must be made on the electronic/computer document * Sharifa Baker 03/15/25 1305: History of Present Illness HPI Chief complaint: CAD, moderate PCP: PCP: No Primary or Family Physician HPI: Patient is a 64 year old male with a pmhx of HTN, HLD, DM, hypothyroidism, and current chewing tobacco use. Patient initially went to corporate ethics officer Dr. Milian for cardiac clearance for R knee replacement. He was found to have abnormal results on stress testing with inferior and inferiolateral areas of reversible ischemia. Echo shows EF 55-60% with moderate . Patient denies blood thinner use. Left heart cath was completed on 03/05/2025 showing severe multivessel coronary artery disease. Denies hx of chest pain or dypsnea. He ambulates without assistance. Patient will be admitted today for a CABG with aortic valve replacement. History Smoking status for patients 13 years old or older: Never Smoker Medication/Allergy-Vaccine Hx Allergies: Coded Allergies: nitroglycerin (Intermediate, RASH 03/11/25) Review of Systems Respiratory: Denies: VALDOVINOS (dyspnea on exertion), hemoptysis. Cardiovascular: Denies: chest pain. GI: Denies: abdominal pain. All systems rev neg: except as marked Physical Exam VS/I O Vital Signs: Date Time Temp Pulse Resp B/P B/P Pulse O2 O2 Flow FiO2 Mean Ox Delivery Rate 03/15 1037 97.9 75 18 137/70 94 PATIENT WEIGHT: Weight (lb): 315 Weight (oz): 10.6 Weight (kg): 143.182 General appearance: alert, awake, oriented Head/Eyes: atraumatic, clear cornea, EOMI, normocephalic ENT: moist mucosal membranes Neck: full range of motion, non-tender Cardiovascular: normal capillary refill, regular rate rhythm, normal heart sounds, BP/pulses equal bilat. Respiratory: no tenderness, aerating well, symmetric expansion Abdomen/GI: active bowel sounds, soft, non-tender Genitourinary: urine Extremities: moves all, no edema-all extremities, normal capillary refill, normal range of motion, normal sensory, normal motor function Musculoskeletal: full range of motion, normal inspection Neuro/BANKING MANAGER: alert, oriented X 3 Skin: dry, intact, no gross abnormalities, normal color, normal turgor Results Findings/Data: Laboratory Tests: 03/15 03/15 1008 0947 Chemistry POC Glucose (70 - 110 MG/DL) 171 H Triglycerides (40 - 150 mg/dL) 94 Cholesterol (<200 mg/dL) 150 LDL Cholesterol Measurd (0 - 100 mg/dL) 97.0 HDL Cholesterol (40 - 60 MG/DL) 43.2 Cholesterol/HDL Ratio (3.43 - 4.97 RATIO) 3.47 Results: labs reviewed, vital signs reviewed, vital signs stable, rhythm personally rev'd, current med profile rev'd Diagnosis, Assessment Plan Code Status/Resusc. Discussion Resuscitation discussion: Discussed with: patient Code status: full code Free Text DxA P Notes Free Text DxA P Notes: Patient is a 64 year old male with a pmhx of HTN, HLD, DM, hypothyroidism, and current chewing tobacco use. Patient initially went to corporate ethics officer Dr. Milian for cardiac clearance for R knee replacement. He was found to have abnormal results on stress testing with inferior and inferiolateral areas of reversible ischemia. Echo shows EF 55-60% with moderate . Patient denies blood thinner use. Left heart cath was completed on 03/05/2025 showing severe multivessel coronary artery disease. Denies hx of chest pain or dypsnea. He ambulates without assistance. Patient will be admitted today for a CABG with aortic valve replacement. Assessment/plan: 1. Hypertension 2. Hyperlipidemia 3. Diabetes mellitus 4. Hypothyroidism 5. Nicotine dependence 6. Coronary artery disease 7. Moderate Admit to CVICU postoperatively Closely monitor hemodynamics Consult hothouse worker Dr. Padilla has seen and examined the patient. The patient will benefit from revascularization to coronary arteries and replacement of aortic valve. Dr. Padilla has explained in great detail the operation, risks, risk STS calculator, benefits, complications, alternatives and complications. The patient acknowledges understanding is willing to proceed with surgery. All questions have been answered. Marlene Padilla 03/15/25 1311: Attestations Physician Attestation Agree w/findings plan: Agree with the findings and plan as documented by BISHOP Baeza Briefly, a 64-year-old male with a past medical history of hypertension, hyperlipidemia, tobacco use who was found to have multivessel coronary artery disease, and moderate aortic stenosis. The patient has been worked up and will have a coronary artery bypass graft surgery with aortic valve replacement. I have discussed with the patient in detail the operation, risk involved, STS risk calculator, benefits, alternatives, and complications. Patient knowledges understanding and is agreeable to proceed with surgery. at 1306 at 1313 RPT #:[id number] END OF REPORT [facility] 2025-03-15 08:48:00 [facility] ([facility]) History Physical - Adult REPORT#:[id number] REPORT STATUS: Signed REPORT INITIALIZATION DATE:03/15/25 TIME: 08 PATIENT: LAKEISHA NORRIS UNIT #: [id number] ROOM/BED: [place] [address] : 59 AGE: 64 SEX: M ATTEND: Marlene Padilla MD ADM AUTHOR: Sharifa Baker REPT SERVICE DT/TIME: 03/15/25 0848 * ALL edits or amendments must be made on the electronic/computer document * History of Present Illness HPI Chief complaint: CAD, Moderate HPI: Patient is a 64 year old male with a pmhx of HTN, HLD, DM, hypothyroidism, and current chewing tobacco use. Patient initially went to corporate ethics officer Dr. Milian for cardiac clearance for R knee replacement. He was found to have abnormal results on stress testing with inferior and inferiolateral areas of reversible ischemia. Echo shows EF 55-60% with moderate . Patient denies blood thinner use. Left heart cath was completed on 03/05/2025 showing severe multivessel coronary artery disease. Denies hx of chest pain or dypsnea. He ambulates without assistance. Patient will be admitted today for a CABG with aortic valve replacement. History Medication/Allergy-Vaccine Hx Allergies: Coded Allergies: nitroglycerin (Intermediate, RASH 03/11/25) Review of Systems Constitutional: Denies: chills. Skin: Denies: abrasion. Respiratory: Denies: VALDOVINOS (dyspnea on exertion), hemoptysis. Cardiovascular: Denies: chest pain. GI: Denies: abdominal pain, anorexia. : Denies: dysuria. All systems rev neg: except as marked Physical Exam VS/I O PATIENT WEIGHT: Weight (lb): 316 Weight (oz): 2.29 Weight (kg): 143.400 General appearance: alert, awake, oriented Head/Eyes: atraumatic, clear cornea, EOMI, normocephalic ENT: moist mucosal membranes Neck: full range of motion, non-tender Cardiovascular: normal capillary refill, regular rate rhythm, normal heart sounds, BP/pulses equal bilat. Respiratory: no tenderness, aerating well, symmetric expansion Abdomen/GI: active bowel sounds, soft, non-tender Genitourinary: urine Extremities: moves all, no edema-all extremities, normal capillary refill, normal range of motion, normal sensory, normal motor function Musculoskeletal: full range of motion, normal inspection Neuro/BANKING MANAGER: alert, oriented X 3 Skin: dry, intact, no gross abnormalities, normal color, normal turgor Results Results: labs reviewed, vital signs reviewed, vital signs stable, rhythm personally rev'd, current med profile rev'd Diagnosis, Assessment Plan Code Status/Resusc. Discussion Resuscitation discussion: Discussed with: patient Code status: full code Free Text DxA P Notes Free Text DxA P Notes: Patient is a 64 year old male with a pmhx of HTN, HLD, DM, hypothyroidism, and current chewing tobacco use. Patient initially went to corporate ethics officer Dr. Milian for cardiac clearance for R knee replacement. He was found to have abnormal results on stress testing with inferior and inferiolateral areas of reversible ischemia. Echo shows EF 55-60% with moderate . Patient denies blood thinner use. Left heart cath was completed on 03/05/2025 showing severe multivessel coronary artery disease. Denies hx of chest pain or dypsnea. He ambulates without assistance. Patient will be admitted today for a CABG with aortic valve replacement. Assessment/plan: 1. Hypertension 2. Hyperlipidemia 3. Diabetes mellitus 4. Hypothyroidism 5. Nicotine dependence 6. Coronary artery disease 7. Moderate Admit to CVICU postoperatively Closely monitor hemodynamics Consult hothouse worker Dr. Padilla has seen and examined the patient. The patient will benefit from revascularization to coronary arteries and replacement of aortic valve. Dr. Padilla has explained in great detail the operation, risks, risk STS calculator, benefits, complications, alternatives and complications. The patient acknowledges understanding is willing to proceed with surgery. All questions have been answered. at 0855 RPT #:[id number] END OF REPORT [facility] 2025-03-14 18:50:00 [facility] ([facility]) Clinical Note REPORT#:[id number] REPORT STATUS: Signed REPORT INITIALIZATION DATE:03/14/25 TIME: 1849 PATIENT: LAKEISHA NORRIS UNIT #: [id number] ROOM/BED: : 59 AGE: 64 SEX: M ATTEND: Marlene Padilla MD ADM AUTHOR: Jackelyn Bauman APRN REPT SERVICE DT/TIME: 03/14/251849 * ALL edits or amendments must be made on the electronic/computer document * Clinical Note Note: Procedure Type: CABG + AVR Perioperative Outcome Estimate % Operative Mortality 3.46% Morbidity Mortality 14.5% Stroke 1.34% Renal Failure 3.72% Reoperation 3.54% Prolonged Ventilation 10.4% Deep Sternal Wound Infection 0.545% Long Hospital Stay (>14 days) 7.33% Short Hospital Stay (<6 days)* 28.8% *higher values reflect a better outcome Clinical Summary Planned Surgery: CABG + AVR, Elective, First cardiovascular surgery Demographics: 64 year old, White, male, 142kg, 185cm, BMI: 41.5 kg/m Insurance/Payor: Medicare Lab Values: Creatinine: 1.3 mg/dL, Hematocrit: 48.3%, WBC Count: 6.3 10 / L, Platelet Count: 279493 cells/ L Substance Abuse: Current smoker Risk Factors / Comorbidities: Diabetes Mellitus , Hypertension Pulmonary RF: Mild CLD Cardiac Status: Ejection Fraction = 55% Coronary Artery Disease: 3 vessels diseased, Proximal LAD Stenosis = 70%, Angina equivalent Valve Disease: Aortic Stenosis, Trivial/Trace AR, Trivial/Trace MR, Trivial/ Trace TR at 5261 RPT #:[id number] END OF REPORT [facility] 2025-03-11 09:34:00 [id number] [place] [id number] PATIENT NAME: LAKEISHA NORRIS ADMIT DATE: ACCOUNT NO: [id number] ROOM NO: AGE: 64 REPORT TYPE: eELECTROCARDIOGRAM REPORT SEX: M ADMITTING PHYSICIAN:Marlene Padilla MD ATTENDING PHYSICIAN:Marlene Padilla MD Order: [id number] Test Reason : PREOP Test Date/Time Stamp: SatMar 11 2025 09:34:04 Blood Pressure : */* mmHG Vent. Rate : 85 BPM Atrial Rate : 85 BPM P-R Int : 196 ms QRS Dur : 92 ms QT Int : 352 ms P-R-T Axes : 61 -4 14 degrees QTcB Int : 418 ms Normal sinus rhythm Normal ECG No previous ECGs available Confirmed by NORMA TALBOT MD ([id number]) on 03/11/2025 10:27:00 AM Referred By: Marlene Padilla Confirmed by: NORMA TALBOT MD at 1027 PATIENT NAME: LAKEISHA NORRIS [facility] 2025-03-10 12:12:00 [id number] [place] [address] PATIENT NAME: LAKEISHA NORRIS ADMIT DATE: 03/10/25 ACCOUNT NO: [id number] ROOM NO: AGE: 64 REPORT TYPE: eVASCULAR STUDY DATE OF : 58 SEX: M ADMITTING PHYSICIAN: ATTENDING PHYSICIAN:Marlene Padilla MD *[facility]* [address] [place] [address]. [place] [address] Carotid Duplex Study Patient: Lakeisha Norris Study Date: 03/10/2025 BP: URN: [id number] Location: : 1960 Age: 64 Gender: M Height: 0 in / 0 cm Weight: 0 lb / 0 kg BMI/BSA: / *Ordering Physician: * Pura Padilla MD *Interpreting Physician: * Gaviota Winston MD *[employer] Professor: * Brenna Cisneros RVT, [facility] Indications: Pre-op evaluation. Study data: Carotid duplex study. Bilateral evaluation with grayscale 2D imaging, color Doppler imaging, and spectral Doppler analysis. Location: Vascular laboratory. Patient status: Outpatient. Procedure: A vascular evaluation was performed. Images were obtained using a [employer] vascular ultrasound machine. Findings Aorta and systemic arteries: Right common carotid: The artery is patent. There is no evidence of disease. The artery has antegrade, multiphasic flow, laminar flow by color Doppler, minimal spectral broadening, and normal spectral Doppler velocities. Right internal carotid: The artery is patent. There is no evidence of disease. The artery has antegrade, multiphasic flow, laminar flow by color Doppler, PATIENT NAME: LAKEISHA NORRIS minimal spectral broadening, and normal spectral Doppler velocities. Right external carotid: The artery is patent. There is no evidence of disease. The artery has antegrade, multiphasic flow, laminar flow by color Doppler, minimal spectral broadening, and normal spectral Doppler velocities. Left common carotid: The artery is patent. There is no evidence of disease. The artery has antegrade, multiphasic flow, laminar flow by color Doppler, minimal spectral broadening, and normal spectral Doppler velocities. Left internal carotid: The artery is patent. There is no evidence of disease. The artery has antegrade, multiphasic flow, laminar flow by color Doppler, minimal spectral broadening, and normal spectral Doppler velocities. Left external carotid: The artery is patent. There is no evidence of disease. The artery has antegrade, multiphasic flow, laminar flow by color Doppler, minimal spectral broadening, and normal spectral Doppler velocities. Arterial flow: Location PSV* EDV* PSV ratio Location PSV* EDV* PSV ratio R CCA, prox 161 6 --------- L CCA, prox 185 9 --------- R CCA, mid 135 7 --------- L CCA, mid 129 11 --------- R CCA, distal 79 4 --------- L CCA, distal 77 4 --------- R ECA 66 0 --------- L ECA 62 0 --------- R ICA, prox 45 15 0.28 L ICA, prox 54 9 0.29 R ICA, mid 53 15 0.33 L ICA, mid 60 19 0.32 R ICA, distal 53 14 0.33 L ICA, distal 45 19 0.24 R vertebral 29 9 --------- L vertebral 47 0 --------- R subclavian, prox 126 0 --------- L subclavian, prox 141 9 --------- *Velocities are expressed in cm/s, Diameters are expressed in cm Conclusions 1. Normal bilateral carotid arteries. 2. Antegrade flow noted in the right vertebral artery. 3. The right subclavian artery is within normal limits. 4. Antegrade flow noted in the left vertebral artery. 5. The left subclavian artery is within normal limits. Electronically signed by Gaviota Winston MD 03/10/2025 12:12 at 1212 PATIENT NAME: LAKEISHA NORRIS [facility] 2025-03-10 12:11:00 [id number] [place] [address] [address] [place] [address] PATIENT NAME: LAKEISHA NORRIS ADMIT DATE: 03/10/25 ACCOUNT NO: [id number] ROOM NO: AGE: 64 REPORT TYPE: eVASCULAR STUDY DATE OF : 58 SEX: M ADMITTING PHYSICIAN: ATTENDING PHYSICIAN:Marlene Padilla MD *[facility]* [facility] [address] [facility] [place] [address] Lower Extremity Vein Mapping Patient: Lakeisha Norris Study Date: 03/10/2025 BP: URN: [id number] Location: : 1960 Age: 64 Gender: M Height: 0 in / 0 cm Weight: 0 lb / 0 kg BMI/BSA: / *Ordering Physician: * Pura Padilla MD *Interpreting Physician: * Gaviota Winston MD *[employer] Professor: * Brenna Cisneros RVT, [facility] Indications: Pre-op evaluation. Study data: Lower extremity vein mapping. Bilateral evaluation with grayscale 2D imaging, color Doppler imaging, and spectral Doppler analysis. Location: Vascular laboratory. Patient status: Outpatient. Procedure: A vascular evaluation was performed with the patient in the supine position. Images were obtained using a [employer] vascular ultrasound machine. Venous flow: + +------+ + !Location !D AP!Properties ! + +------+ + !R external iliac !------!Phasic; spontaneous; compressible ! + +------+ + !R CFV !------!Phasic; spontaneous; normal augmentation; ! PATIENT NAME: LAKEISHA NORRIS ! ! !compressible ! + +------+ + !R GSV !------!Phasic; spontaneous; normal augmentation; ! ! ! !compressible ! + +------+ + !R DFV !------!Phasic; spontaneous ! + +------+ + !R FV !------!Phasic; spontaneous; normal augmentation; ! ! ! !compressible ! + +------+ + !R popliteal !------!Phasic; spontaneous; normal augmentation ; ! ! ! !compressible ! + +------+ + !L external iliac !------!Phasic; spontaneous; compressible ! + +------+ + !L CFV !------!Phasic; spontaneous; normal augmentation; ! ! ! !compressible ! + +------+ + !L GSV !------!Phasic; spontaneous; normal augmentation; ! ! ! !compressible ! + +------+ + !L DFV !------!Phasic; spontaneous ! + +------+ + !L FV !------!Phasic; spontaneous; normal augmentation; ! ! ! !compressible ! + +------+ + !L popliteal !------!Phasic; spontaneous; normal augmentation; ! ! ! !compressible ! + +------+ + !R GSV - prox. (thigh) !0.27 ! ! + +------+ + !R GSV - mid (thigh) !0.28 ! ! + +------+ + !R GSV - distal (thigh)!0.38 ! ! + +------+ + !R GSV - prox. (calf) !0.40 ! ! + +------+ + !R GSV - mid (calf) !0.38 ! ! + +------+ + !R GSV - distal (calf) !0.60 ! ! + +------+ + !L GSV - prox. (thigh) !0.70 ! ! + +------+ + !L GSV - mid (thigh) !0.40 ! ! + +------+ + !L GSV - distal (thigh)!0.40 ! ! + +------+ + !L GSV - prox. (calf) !0.30 ! ! + +------+ + !L GSV - mid (calf) !0.30 ! ! + +------+ + !L GSV - distal (calf) !0.40 ! ! + +------+ + *Velocities are expressed in cm/s, Diameters are expressed in cm PATIENT NAME: LAKEISHA NORRIS Conclusions 1. There is no evidence of acute deep or superficial venous thrombosis noted in the right lower extremity. 2. There is no evidence of acute deep or superficial venous thrombosis noted in the left lower extremity. 3. Appears to be of adequate size for cardiac harvesting, with measurements noted ABOVE. Electronically signed by Gaviota Winston MD 03/10/2025 12:11 at 1211 PATIENT NAME: LAKEISHA NORRIS [facility]
--- NOTE | 2025-04-22 09:33 | RAD REPORT ---
EXAMINATION: ONE VIEW CHEST XR CLINICAL INDICATION: CHEST PAIN TECHNIQUE: Frontal chest projection is submitted. Examination is limited by patient positioning and t echnique. COMPARISON: 03/05/2025 FINDINGS: Small left pleural effusion. Mild atelectasis in the left base. The right lung is grossly clear. The heart is mildly prominent in size. Sternotomy wires.
[2025-04-22 09:41] LABS: Absolute Lymphocytes (CBC) 1.5 K/uL (0.7-4.9); Hematocrit 40.6 % (39.6-49.0); Hemoglobin 13.5 g/dL (13.6-17.9); MCH 31.4 pg (27.0-35.0); MCHC 33.2 g/dL (32.0-36.0); MCV 94.4 fL (80-100); MPV 7.1 fL (7.6-11.3); Nucleated RBC Absolute Count 0.0 (0-0); Nucleated Red Blood Cells % 0.0 % (0-0); RBC Red Blood Cell Count 4.30 M/uL (4.33-5.43); White Blood Count 7.60 thou/uL (4.3-10.9)
[2025-04-22 09:47] LABS: PT Prothrombin Time 12.9 SECONDS (10-13.0); Protime INR 1.15
[2025-04-22 10:02] LABS: ALT/SGPT 26 U/L (16-61); AST/SGOT 15 U/L (15-37); Albumin 3.4 g/dL (3.4-5.0); Albumin/Globulin Ratio 0.8 (1.1-1.8); Alkaline Phosphatase 79 U/L (45-117); Anion Gap 11.1 mEq/L (5.0-15.0); BUN Blood Urea Nitrogen 31 mg/dL (7-18); Globulin 4.1 g/dL (2.3-3.5); Glucose Level 170 mg/dL (74-106); Magnesium 2.2 mg/dL (1.6-2.4); NT PRO-BNP 322 pg/mL (<125); Potassium 4.1 mEq/L (3.5-5.1)
[2025-04-22 10:06] LABS: Bilirubin Indirect, Calculated 0.3 mg/dL (0.2-0.8)
[2025-04-22 10:07] LABS: Troponin High Sensitivity 70.9 pg/mL (<58.9)
--- NOTE | 2025-04-22 10:42 | EDPHYS ---
Physician Documentation [facility] Name: Jamie Echavarria Age: 64 yrs Sex: Male : 1960 Arrival Date: 04/22/2025 Time: 08:59 Bed 18 Private MD: ED Physician Farhat Anderson HPI: 04/22 09:39 This 64 yrs old Male presents to ER via EMS with complaints of Palpitations. sp3 09:39 64-year-old male status post heart surgery 1 month ago now presents with palpitations sp3 particularly on standing. Patient has no chest pain or shortness of breath. Patient sees Dr. Milian locally here and had 1 episode of similar symptoms in the past. His office stated that if it happened again to activate EMS to be evaluated in the ED. Patient in no acute distress currently. EMS found patient had heart rate increased to 120s when he stood up for transfer and subsequent return back to the 80s. There Field EKG demonstrates paroxysmal atrial fibrillation with normal sinus rhythm as well. Currently patient is asymptomatic. ROS negative for all other symptoms.. Historical: - Allergies: 09:17 Nitroglycerin; db - PMHx: 09:17 diabetes mellitus; Hypercholesterolemia; Hypothyroidism; db - PSHx: 09:17 Cholecystectomy; Operative procedure on knee; db - Immunization history:: Adult Immunizations unknown. - Infectious Disease History:: Denies. - Social history:: Smoking status: Patient denies any tobacco usage or history of. ROS: 09:40 Constitutional: Negative for fever, chills, and weight loss, Eyes: Negative for injury, sp3 pain, redness, and discharge, ENT: Negative for injury, pain, and discharge, Neck: Negative for injury, pain, and swelling, Respiratory: Negative for shortness of breath, cough, wheezing, and pleuritic chest pain, Abdomen/GI: Negative for abdominal pain, nausea, vomiting, diarrhea, and constipation, Back: Negative for injury and pain, MS/Extremity: Negative for injury and deformity, Skin: Negative for injury, rash, and discoloration, Neuro: Negative for headache, weakness, numbness, tingling, and seizure, Psych: Negative for depression, anxiety, suicide ideation, homicidal ideation, and hallucinations, Allergy/Immunology: Negative for hives, rash, and allergies, Endocrine: Negative for neck swelling, polydipsia, polyuria, polyphagia, and marked weight changes, 09:40 All other systems are negative, Exam: 09:44 Constitutional: This is a well developed, well nourished patient who is awake, alert, sp3 and in no acute distress. Head/Face: Normocephalic, atraumatic. Eyes: Pupils equal round and reactive to light, extra-ocular motions intact. Lids and lashes normal. Conjunctiva and sclera are non-icteric and not injected. Cornea within normal limits. Periorbital areas with no swelling, redness, or edema. Neck: Trachea midline, no thyromegaly or masses palpated, and no cervical lymphadenopathy. Supple, full range of motion without nuchal rigidity, or vertebral point tenderness. No Meningismus. Chest/axilla: Normal chest wall appearance and motion. Nontender with no deformity. No lesions are appreciated. Cardiovascular: Regular rate and rhythm with a normal S1 and S2. No gallops, murmurs, or rubs. Normal PMI, no JVD. No pulse deficits. Respiratory: Lungs have equal breath sounds bilaterally, clear to auscultation and percussion. No rales, rhonchi or wheezes noted. No increased work of breathing, no retractions or nasal flaring. Abdomen/GI: Soft, non-tender, with normal bowel sounds. No distension or tympany. No guarding or rebound. No evidence of tenderness throughout. Back: No spinal tenderness. No costovertebral tenderness. Full range of motion. Skin: Warm, dry with normal turgor. Normal color with no rashes, no lesions, and no evidence of cellulitis. MS/ Extremity: Pulses equal, no cyanosis. Neurovascular intact. Full, normal range of motion. Neuro: Awake and alert, GCS 15, oriented to person, place, time, and situation. Cranial nerves II-XII grossly intact. Motor strength 5/5 in all extremities. Sensory grossly intact. Cerebellar exam normal. Normal gait. Psych: Awake, alert, with orientation to person, place and time. Behavior, mood, and affect are within normal limits. 09:44 ECG was reviewed by the Attending Physician. EKG demonstrates normal sinus rhythm at 85 bpm with normal intervals, normal QRS, normal axis nonspecific diffuse ST/T changes without evidence of acute ischemia. Vital Signs: 09:25 BP 120 / 65; Pulse 81; Resp 18; Temp 97.9; Pulse Ox 98% ; db 09:30 BP 98 / 61; Pulse 81; Resp 18; Pulse Ox 98% on R/A; db 10:12 BP 90 / 52 Supine; Pulse 78; sa1 10:14 BP 89 / 56 Sitting; Pulse 79; sa1 10:16 BP 112 / 67 Standing; Pulse 86; sa1 11:30 BP 104 / 77; Pulse 76; Resp 18; Pulse Ox 99% ; db MDM: 09:12 Medical Screening Exam initiated sp3 09:44 Data reviewed: vital signs, nurses notes, EMS record, old medical records, lab test sp3 result(s), EKG, radiologic studies. ED course: 64-year-old male with palpitations prickly on standing. Differential diagnosis includes orthostatic hypotension, dehydration, other electrolyte abnormality, arrhythmia, acute coronary syndrome, among others. Workup will include EKG, chest x-ray and general labs with orthostatic vital signs pending. Disposition pending workup and patient course.. 10:40 ED course: Positive troponin at 71. We will admit to internal medicine observation sp3 status with cardiology consultation. Have communicated EKG and findings with Dr. Bales who will be seeing patient in consultation.. 04/22 09:12 Order name: Basic Metabolic Panel; Complete Time: 10:19 sp3 04/22 09:12 Order name: CBC with Diff; Complete Time: 10:19 sp3 04/22 09:12 Order name: LFT's; Complete Time: 10:19 sp3 04/22 09:12 Order name: Magnesium; Complete Time: 10:19 sp3 04/22 09:12 Order name: NT PRO-BNP; Complete Time: 10:19 sp3 04/22 09:12 Order name: PT-INR; Complete Time: 10:19 sp3 04/22 09:12 Order name: Troponin HS; Complete Time: 10:19 sp3 04/22 12:41 Order name: Basic Metabolic Panel EDMS 04/22 12:41 Order name: Basic Metabolic Panel EDMS 04/22 12:41 Order name: CBC with Automated Diff EDMS 04/22 12:41 Order name: CBC with Automated Diff EDMS 04/22 12:41 Order name: Lipid Profile EDMS 04/22 12:41 Order name: Lipid Profile EDMS 04/22 12:41 Order name: Troponin High Sensitivity EDMS 04/22 12:41 Order name: Troponin High Sensitivity EDMS 04/22 12:41 Order name: Troponin High Sensitivity EDMS 04/22 12:41 Order name: Troponin High Sensitivity EDMS 04/22 09:12 Order name: XRAY Chest (1 view); Complete Time: 09:35 sp3 04/22 12:41 Order name: Echo with Doppler EDMS 04/22 12:41 Order name: CONS Physician Consult EDMS 04/22 09:12 Order name: Cardiac monitoring; Complete Time: 09:57 sp3 04/22 09:12 Order name: EKG - Nurse/Tech; Complete Time: 09:57 sp3 04/22 09:12 Order name: IV Saline Lock; Complete Time: 09:57 sp3 04/22 09:12 Order name: Labs collected and sent; Complete Time: 09:57 sp3 04/22 09:12 Order name: O2 Per Protocol; Complete Time: 09:57 sp3 04/22 09:12 Order name: O2 Sat Monitoring; Complete Time: 09:58 sp3 04/22 09:12 Order name: Orthostatics; Complete Time: 10:50 sp3 04/22 09:12 Order name: NPO; Complete Time: 10:50 sp3 Administered Medications: 10:55 Drug: Aspirin PO 325 mg PO once Route: PO; db Disposition Summary: 04/22/25 10:41 Hospitalization Ordered Notes: Hospitalization Status: Observation sp3 Provider: Trudy Vizcarra sp3 Location: Telemetry/MedSurg (observation) sp3 Condition: Stable sp3 Problem: an acute exacerbation sp3 Symptoms: have worsened sp3 Bed/Room Type: Standard sp3 Room Assignment: 229(04/22/25 13:38) bc6 Diagnosis - Palpitations, orthostatic hypotension, NSTEMI sp3 Forms: - Medication Reconciliation Form sp3 - SBAR form sp3 - Leadership Thank You Letter sp3 Signatures: Dispatcher [employer] Farhat Bull MD MD sp3 Marietta Alvarez RN RN db Vicki Panda bc6 Corrections: (The following items were deleted from the chart) 09:12 09:12 BASIC METABOLIC PANEL+C.LAB.BRZ ordered. [facility] 09:12 09:12 CBC+H.LAB.BRZ ordered. EDMS EDMS 09:12 09:12 HEPATIC FUNCTION+C.LAB.BRZ ordered. EDMS EDMS 09:12 09:12 MAGNESIUM+C.LAB.BRZ ordered. EDMS EDMS 09:12 09:12 PROBNP+C.LAB.BRZ ordered. EDMS EDMS 09:12 09:12 PROTIME (+INR)+COAG.LAB.BRZ ordered. EDMS EDMS 09:12 09:12 Troponin High Sensitivity+C.LAB.BRZ ordered. EDMS EDMS 09:12 09:12 Chest Single View+RAD.RAD.BRZ ordered. EDMS EDMS 13:38 10:41 sp3 bc6
--- NOTE | 2025-04-22 10:42 | ER ---
Nurse's Notes [facility] Name: Jamie Echavarria Age: 64 yrs Sex: Male : 1960 Arrival Date: 04/22/2025 Time: 08:59 Bed 18 Private MD: Diagnosis: Palpitations, orthostatic hypotension, NSTEMI Presentation: 04/22 09:15 Chief complaint: EMS states: CALLED FOR HIGH BP AND AND TACHY. WAS ON AMIODARONE. NEW db AFIB. RECENT TRIPLE BYPASS. RECEIVED 250 ML BOLUS FROM EMS. COMPLAINED OF CHEST TIGHTNESS ALLERGY TO NITRO. Coronavirus screen: Client denies travel out of the [place] in the last 14 days. At this time, the client does not indicate any symptoms associated with coronavirus-19. Ebola Screen: Patient negative for fever greater than or equal to 101.5 degrees Fahrenheit, and additional compatible Ebola Virus Disease symptoms Patient denies exposure to infectious person. Patient denies travel to an Ebola-affected area in the 21 days before illness onset. No symptoms or risks identified at this time. Initial Sepsis Screen: Does the patient meet any 2 criteria? No. Patient's initial sepsis screen is negative. Does the patient have a suspected source of infection? No. Patient's initial sepsis screen is negative. Risk Assessment: Do you want to hurt yourself or someone else? Patient reports no desire to harm self or others. Onset of symptoms was April 22, 2025. Care prior to arrival: IV initiated. 20 GA, in the right wrist, Glucose check: 193. 09:15 Method Of Arrival: EMS: [facility] db 09:15 Acuity: MARTIN 2 db Historical: - Allergies: 09:17 Nitroglycerin; db - PMHx: 09:17 diabetes mellitus; Hypercholesterolemia; Hypothyroidism; db - PSHx: 09:17 Cholecystectomy; Operative procedure on knee; db - Immunization history:: Adult Immunizations unknown. - Infectious Disease History:: Denies. - Social history:: Smoking status: Patient denies any tobacco usage or history of. Screenin:49 [facility] ED Fall Risk Assessment (Adult) History of falling in the last 3 months, db including since admission No falls in past 3 months (0 pts) Confusion or Disorientation No (0 pts) Intoxicated or Sedated No (0 pts) Impaired Gait No (0 pts) Mobility Assist Device Used No (0 pt) Altered Elimination No (0 pt) Score/Fall Risk Level 0 - 2 = Low Risk Oriented to surroundings, Maintained a safe environment. Abuse screen: Denies threats or abuse. Denies injuries from another. Nutritional screening: No deficits noted. Tuberculosis screening: No symptoms or risk factors identified. Assessment: 09:30 Reassessment: Patient appears in no apparent distress at this time. Patient and/or db family updated on plan of care and expected duration. Pain level reassessed. Patient is alert, oriented x 3, equal unlabored respirations, skin warm/dry/pink. General: Appears in no apparent distress. comfortable, Behavior is calm, cooperative. Pain: Denies pain. Neuro: Level of Consciousness is awake, alert, obeys commands, Oriented to person, place, time, situation. Cardiovascular: Reports palpitations. Respiratory: Airway is patent Respiratory effort is even, unlabored, Respiratory pattern is regular, symmetrical. 11:30 Reassessment: Patient appears in no apparent distress at this time. Patient and/or db family updated on plan of care and expected duration. Pain level reassessed. Patient is alert, oriented x 3, equal unlabored respirations, skin warm/dry/pink. Patient states feeling better. 12:10 Reassessment: Patient appears in no apparent distress at this time. Patient and/or db family updated on plan of care and expected duration. Pain level reassessed. Patient is alert, oriented x 3, equal unlabored respirations, skin warm/dry/pink. DR. VIZCARRA AT PATIENT BEDSIDE. Vital Signs: 09:25 BP 120 / 65; Pulse 81; Resp 18; Temp 97.9; Pulse Ox 98% ; db 09:30 BP 98 / 61; Pulse 81; Resp 18; Pulse Ox 98% on R/A; db 10:12 BP 90 / 52 Supine; Pulse 78; sa1 10:14 BP 89 / 56 Sitting; Pulse 79; sa1 10:16 BP 112 / 67 Standing; Pulse 86; sa1 11:30 BP 104 / 77; Pulse 76; Resp 18; Pulse Ox 99% ; db ED Course: 09:09 Patient arrived in ED. ty 09:11 Farhat Anderson MD is Attending Physician. sp3 09:13 Marietta Alvarez, SON is Primary Nurse. db 09:17 Triage completed. db 09:25 XRAY Chest (1 view) In Process Unspecified. EDMS 09:25 Arm band placed on Patient placed in an exam room. db 09:28 EKG done, by ED staff, reviewed by Farhat Anderson MD. sa1 09:30 Initial lab(s) drawn, by me, sent to lab. Maintain EMS IV. Dressing intact. Good blood db return noted. Site clean \T\ dry. Gauge \T\ site: 20 G LHAND. 10:41 Trudy Vizcarra MD is Hospitalizing Provider. sp3 10:50 Patient has correct armband on for positive identification. Bed in low position. Call db light in reach. Side rails up X 1. Client placed on continuous cardiac and pulse oximetry monitoring. NIBP monitoring applied. hvac operations technician on. Pulse ox on. NIBP on. Pillow given. 13:51 Patient admitted, IV remains in place. intact, No redness/swelling at site. rg5 Administered Medications: 10:55 Drug: Aspirin PO 325 mg PO once Route: PO; db Medication: 09:50 VIS not applicable for this client. db Outcome: 10:41 Decision to Hospitalize by Provider. sp3 13:51 Admitted to Med/surg accompanied by kathia weller 13:51 Condition: stable 13:51 Instructed on the need for admit, 15:28 Patient left the ED. aa5 Signatures: Dispatcher [employer] EDND Ewa Claudio, RN RN aa5 Farhat Anderson MD MD sp3 Marietta Alvarez, RN RN db Alphonse Hebert Rommel, RN RN rg5 Sultan Anson sa1
[2025-04-22] MEDS ORDERED: ASPIRIN 325 MG TAB ONE (10:58)
[2025-04-22] MEDS ORDERED: ACETAMINOPHEN 500 MG TAB PO PRN (12:37)
[2025-04-22 15:44] VITALS: BMI 39.0
[2025-04-22 16:14] VITALS: O2SAT 99
[2025-04-22] MEDS: METOPROLOL TAR 50 MG TAB PO SCH (21:00)
--- NOTE | 2025-04-23 02:18 | P.HP ---
Certification for Inpatient Patient admitted to: Observation With expected LOS: <2 Midnights Patient will require the following post-hospital care: None Practitioner: I am a practitioner with admitting privileges, knowledge of patient current condition, hospital course, and medical plan of care. Services: Services provided to patient in accordance with Admission requirements found in Title 42 Section 412.3 of the Code of Federal Regulations Patient History Date of Service: 04/22/25 Reason for admission: Atrial fibrillation rapid ventricular sponsor History of Present Illness: Patient is 64-year-old gentleman who came to the hospital with palpitation. Patient recently had coronary artery bypass graft surgery as well as aortic valve repair. Patient had a bioprosthetic valve. Patient been following up with local high school home economics teacher, Dr. Milian. Patient started having palpitations and per his high school home economics teacher recommendation he called EMS. Patient was found to be in atrial fibrillation with rapid ventricular response with rate in the 120s. Patient was brought into the ER for further evaluation. Currently patient is feeling better after being given beta-ash therapy. Will get patient admitted to the hospital with cardiology consultation. Continue with antiarrhythmics and anticoagulation. Patient will be admitted to observation hospitalization stay. Allergies nitroglycerin Allergy (Verified 03/06/25 02:07) Itching/Hives/Rash Home Medications: Empagliflozin [Jardiance] 25 mg PO DAILY 03/05/25 Levothyroxine Sodium 200 mcg PO DAILY 03/05/25 Metformin HCl 1,000 mg PO DAILY 03/05/25 Ramipril [Altace] 10 mg PO DAILY 03/05/25 Tirzepatide [Mounjaro] 2.5 mg SQ 1X 03/05/25 Amiodarone HCl [Pacerone] 200 mg PO DAILY 04/22/25 Aspirin 81 mg PO DAILY 04/22/25 Atorvastatin Calcium 40 mg PO BEDTIME 04/22/25 Clopidogrel Bisulfate [Plavix] 75 mg PO DAILY 04/22/25 Cyanocobalamin (Vitamin B-12) [Vitamin B-12] 500 mcg PO DAILY 04/22/25 Ferrous Sulfate [Iron] 325 mg PO DAILY 04/22/25 Furosemide 20 mg PO DAILY 04/22/25 - Past Medical/Surgical History Has patient received pneumonia vaccine in the past: No Diabetic: Yes -: diabetes mellitus -: hypercholesterolemia -: hypothyroidism -: Coronary artery disease -: Aortic valve disease -: triple bypass with aortic valve repair; bioprosthetic aortic valve -: cholecystectomy -: operation on knees - Family History Father Family History: Reviewed- Non-Contributory - Social History Smoking Status: Never smoker Alcohol use: Yes CD- Drugs: No Caffeine use: No Place of Residence: Home Review of Systems 10-point ROS is otherwise unremarkable Physical Examination - Vital Signs Temperature: 97.9 F Blood Pressure: 122/60 Pulse: 60 Respirations: 17 Pulse Ox (%): 97 - Physical Exam General: Alert, In no apparent distress, Oriented x3 HEENT: Atraumatic, PERRLA, Mucous membr. moist/pink, EOMI, Sclerae nonicteric Neck: Supple, 2+ carotid pulse no bruit, No LAD, Without JVD or thyroid abnormal ity Respiratory: Clear to auscultation bilaterally, Normal air movement Cardiovascular: Normal S1 S2, Irregular heart rate/rhythm Gastrointestinal: Normal bowel sounds, Soft and benign, Non-distended, No tenderness Musculoskeletal: No clubbing, No swelling, No tenderness Integumentary: No rashes Neurological: Normal gait, Normal speech, Normal strength at 5/5 x4 extr, Normal tone, Sensation intact, Cranial nerves 3-12 intact, Normal affect Lymphatics: No axilla or inguinal lymphadenopathy - Studies Laboratory Data (last 24 hrs) 04/22/25 04/22/25 04/22/25 09:30 09:30 09:30 WBC 7.60 Hgb 13.5 L Hct 40.6 Plt Count 280 PT 12.9 INR 1.15 Sodium 138 Potassium 4.1 BUN 31 H Creatinine 1.30 Glucose 170 H Magnesium 2.2 Total Bilirubin 0.5 AST 15 ALT 26 Alkaline Phosphatase 79 Assessment & Plan - Problems (Diagnosis) (1) Atrial fibrillation with rapid ventricular response Current Visit: Yes Status: Acute (2) Coronary artery disease involving autologous artery coronary bypass graft Current Visit: Yes Status: Acute (3) History of aortic valve replacement with bioprosthetic valve Current Visit: Yes Status: Acute (4) Type 2 diabetes mellitus Current Visit: Yes Status: Acute (5) Hypothyroidism Current Visit: Yes Status: Acute - Plan Plan: 1. Atrial fibrillation with rapid rate response; continue with medication for rate control and anticoagulation. Cardiology consulted. May need echocardiogram repeated. 2. History of coronary artery disease status post CABG as well as bioprosthetic aortic valve placement; continue with antiplatelet therapy and statin therapy. 3. History of type 2 diabetes; strict blood sugar control 4. History of hypothyroidism; continue levothyroxine 5. GI DVT prophylaxis Discharge Plan: Home Plan to discharge in: 24 Hours - Advance Directives Does patient have a Living Will: No Does patient have a Durable POA for Healthcare: No - Code Status/Comfort Care Code Status Assessed: Yes Code Status: Full Code Critical Care: No Time Spent Managing PTS Care (In Minutes): 45
[2025-04-23] MEDS: LEVOTHYROXINE SOD 0.1 MG TAB PO SCH (05:57)
[2025-04-23 08:03] LABS: Absolute Lymphocytes (CBC) 1.9 K/uL (0.7-4.9); Hematocrit 39.1 % (39.6-49.0); Hemoglobin 13.1 g/dL (13.6-17.9); MCH 31.6 pg (27.0-35.0); MCHC 33.4 g/dL (32.0-36.0); MCV 94.4 fL (80-100); MPV 7.2 fL (7.6-11.3); Nucleated RBC Absolute Count 0.0 (0-0); Nucleated Red Blood Cells % 0.1 % (0-0); RBC Red Blood Cell Count 4.14 M/uL (4.33-5.43); White Blood Count 8.00 thou/uL (4.3-10.9)
[2025-04-23 08:12] LABS: Anion Gap 10.2 mEq/L (5.0-15.0); BUN Blood Urea Nitrogen 25.0 mg/dL (7-18); Glucose Level 94.0 mg/dL (74-106); HDL Cholesterol 41.0 mg/dL (40-60); LDL Cholesterol, Calculated 45.0 mg/dL (<130); LDL Cholesterol,Calc NonReport 45.0; Potassium 4.2 mEq/L (3.5-5.1); Troponin High Sensitivity 46.1 pg/mL (<58.9)
[2025-04-23 08:25] VITALS: BP 118/55; TEMP 97.7
[2025-04-23] MEDS: AMIODARONE HCL 200 MG TAB PO SCH (09:00)
[2025-04-23] MEDS: HOME MED 1 EA UNK (Empagliflozin [Jardiance] 25 MG Tablet) PO SCH (09:00)
[2025-04-23] MEDS ORDERED: ASPIRIN EC 81 MG TAB PO SCH (09:00)
--- NOTE | 2025-04-23 09:43 | P.DS ---
Admission Date: 04/22/25 Discharge Date: 04/24/25 Disposition: ROUTINE DISCHARGE Discharge Condition: GOOD Reason for Admission: Atrial fibrillation rapid ventricular sponsor Brief History of Present Illness: Patient is 64-year-old gentleman who came to the hospital with palpitation. Patient recently had coronary artery bypass graft surgery as well as aortic valve repair. Patient had a bioprosthetic valve. Patient been following up with local kitchen worker, Dr. Milian. Patient started having palpitations and per his kitchen worker recommendation he called EMS. Patient was found to be in atrial fibrillation with rapid ventricular response with rate in the 120s. Patient was brought into the ER for further evaluation. Currently patient is feeling better after being given beta-ash therapy. Will get patient admitted to the hospital with cardiology consultation. Continue with antiarrhythmics and anticoagulation. Cardiology consulted and will sign off at this time. Follow-up with his kitchen worker for echo and event monitor. Heart rate now controlled on Lopressor 25 mg twice daily. Medically optimized for discharge Hospital Course: Physical Examination - Vital Signs Temperature: 97.9 F Blood Pressure: 122/60 Pulse: 60 Respirations: 17 Pulse Ox (%): 97 - Physical Exam General: Alert, In no apparent distress, Oriented x3 HEENT: Atraumatic, PERRLA, Mucous membr. moist/pink, EOMI, Sclerae nonicteric Neck: Supple, 2+ carotid pulse no bruit, No LAD, Without JVD or thyroid abnormality Respiratory: Clear to auscultation bilaterally, Normal air movement Cardiovascular: Normal S1 S2, Irregular heart rate/rhythm Gastrointestinal: Normal bowel sounds, Soft and benign, Non-distended, No tenderness Musculoskeletal: No clubbing, No swelling, No tenderness Integumentary: No rashes Neurological: Normal gait, Normal speech, Normal strength at 5/5 x4 extr, Normal tone, Sensation intact, Cranial nerves 3-12 intact, Normal affect Lymphatics: No axilla or inguinal lymphadenopathy - Studies Laboratory Data (last 24 hrs) 04/22/25 04/22/25 04/22/25 09:30 09:30 09:30 WBC 7.60 Hgb 13.5 L Hct 40.6 Plt Count 280 PT 12.9 INR 1.15 Sodium 138 Potassium 4.1 BUN 31 H Creatinine 1.30 Glucose 170 H Magnesium 2.2 Total Bilirubin 0.5 AST 15 ALT 26 Alkaline Phosphatase 79 Assessment & Plan - Problems (Diagnosis) (1) Atrial fibrillation with rapid ventricular response Current Visit: Yes Status: Acute (2) Coronary artery disease involving autologous artery coronary bypass graft Current Visit: Yes Status: Acute (3) History of aortic valve replacement with bioprosthetic valve Current Visit: Yes Status: Acute (4) Type 2 diabetes mellitus Current Visit: Yes Status: Acute (5) Hypothyroidism Current Visit: Yes Status: Acute - Plan Plan: 1. Atrial fibrillation with rapid rate response; continue with medication for rate control and anticoagulation. Cardiology consulted and agree with discharge. Continue Lopressor twice daily. Scheduled for event monitor with cardiology. Continue aspirin and Plavix. Obtain echo and outpatient cardiol ogist office 2. History of coronary artery disease status post CABG as well as bioprosthetic aortic valve placement; continue with antiplatelet therapy and statin therapy. 3. History of type 2 diabetes; strict blood sugar control 4. History of hypothyroidism; continue levothyroxine 5. GI DVT prophylaxis Discharge Plan: Home Plan to discharge in: 24 Hours - Advance Directives Does patient have a Living Will: No Does patient have a Durable POA for Healthcare: No - Code Status/Comfort Care Code Status Assessed: Yes Code Status: Full Code Critical Care: No Time Spent Managing PTS Care (In Minutes): 45 Vital Signs/Physical Exam: Temp Pulse Resp BP Pulse Ox 97.7 F 57 16 118/55 L 97 04/23/25 08:00 04/23/25 08:00 04/23/25 08:00 04/23/25 08:00 04/23/25 08:00 Laboratory Data at Discharge: WBC 8.00 thou/uL (4.3-10.9) 04/23/25 07:21 Hgb 13.1 g/dL (13.6-17.9) L 04/23/25 07:21 Hct 39.1 % (39.6-49.0) L 04/23/25 07:21 Plt Count 248 thou/uL (152-406) 04/23/25 07:21 PT 12.9 SECONDS (10-13.0) 04/22/25 09:30 INR 1.15 04/22/25 09:30 Sodium 137 mEq/L (136-145) 04/23/25 07:21 Potassium 4.2 mEq/L (3.5-5.1) 04/23/25 07:21 BUN 25 mg/dL (7-18) H 04/23/25 07:21 Creatinine 1.13 mg/dL (0.70-1.30) 04/23/25 07:21 Glucose 94 mg/dL (74-106) 04/23/25 07:21 Magnesium 2.2 mg/dL (1.6-2.4) 04/22/25 09:30 Total Bilirubin 0.5 mg/dL (0.2-1.0) 04/22/25 09:30 AST 15 U/L (15-37) 04/22/25 09:30 ALT 26 U/L (16-61) 04/22/25 09:30 Alkaline Phosphatase 79 U/L (45-117) 04/22/25 09:30 Triglycerides 100 mg/dL (<150) 04/23/25 07:21 Cholesterol 106 mg/dL (<200) 04/23/25 07:21 HDL Cholesterol 41 mg/dL (40-60) 04/23/25 07:21 Cholesterol/HDL Ratio 2.59 04/23/25 07:21 Home Medications: Empagliflozin [Jardiance] 25 mg PO DAILY 03/05/25 Levothyroxine Sodium 200 mcg PO DAILY 03/05/25 Metformin HCl 1,000 mg PO DAILY 03/05/25 Ramipril [Altace] 10 mg PO DAILY 03/05/25 Tirzepatide [Mounjaro] 2.5 mg SQ 1X 03/05/25 Aspirin 81 mg PO DAILY 04/22/25 Atorvastatin Calcium 40 mg PO BEDTIME 04/22/25 Clopidogrel Bisulfate [Plavix] 75 mg PO DAILY 04/22/25 Cyanocobalamin (Vitamin B-12) [Vitamin B-12] 500 mcg PO DAILY 04/22/25 Ferrous Sulfate [Iron] 325 mg PO DAILY 04/22/25 Furosemide 20 mg PO DAILY 04/22/25 Metoprolol Succinate [Toprol Xl*] 25 mg PO BID 6AM 6PM 30 Days #60 tab 04/23/25 New Medications: Metoprolol Succinate [Toprol Xl*] 25 mg PO BID 6AM 6PM 30 Days #60 tab Followup: NONE,NONE [Primary Care Provider] - Keshav Bales MD [ACTIVE - CAN ADMIT] -
[2025-04-23] MEDS: METOPROLOL XL 25 MG TAB PO ONE (09:59)
[2025-04-23] MEDS: METFORMIN HCL 500 MG TAB PO SCH (09:59)
[2025-04-23] MEDS: FUROSEMIDE 20 MG TABLET PO ONE (10:00)
[2025-04-23] MEDS: FERROUS SULFATE 325 MG TAB PO SCH (10:00)
[2025-04-23] MEDS: ASPIRIN EC 81 MG TAB PO SCH (10:00)
[2025-04-23] MEDS: CYANOCOBALAMIN 1,000 MCG TAB PO SCH (10:00)
[2025-04-23] MEDS: CLOPIDOGREL 75 MG TABLET PO SCH (10:01)
--- NOTE | 2025-04-23 10:27 | P.CNS ---
Date of Consult: 04/23/25 Chief Complaint: Atrial fibrillation rapid ventricular sponsor History of Present Illness: Patient with PMH of CAD s/p CABG recently done in [facility] presented with palpitations and low BP, denies chest pain, no VALDOVINOS, no syncope. Allergies nitroglycerin Allergy (Verified 03/06/25 02:07) Itching/Hives/Rash Home medications list reviewed: Yes Home Medications: Empagliflozin [Jardiance] 25 mg PO DAILY 03/05/25 Levothyroxine Sodium 200 mcg PO DAILY 03/05/25 Metformin HCl 1,000 mg PO DAILY 03/05/25 Ramipril [Altace] 10 mg PO DAILY 03/05/25 Tirzepatide [Mounjaro] 2.5 mg SQ 1X 03/05/25 Aspirin 81 mg PO DAILY 04/22/25 Atorvastatin Calcium 40 mg PO BEDTIME 04/22/25 Clopidogrel Bisulfate [Plavix] 75 mg PO DAILY 04/22/25 Cyanocobalamin (Vitamin B-12) [Vitamin B-12] 500 mcg PO DAILY 04/22/25 Ferrous Sulfate [Iron] 325 mg PO DAILY 04/22/25 Furosemide 20 mg PO DAILY 04/22/25 Metoprolol Succinate [Toprol Xl*] 25 mg PO BID 6AM 6PM 30 Days #60 tab 04/23/25 - Past Medical/Surgical History Diabetic: Yes -: diabetes mellitus -: hypercholesterolemia -: hypothyroidism -: Coronary artery disease -: Aortic valve disease -: triple bypass with aortic valve repair; bioprosthetic aortic valve -: cholecystectomy -: operation on knees - Family History Father Family History: Reviewed- Non-Contributory - Social History Smoking Status: Unknown if ever smoked Alcohol use: Yes CD- Drugs: No Caffeine use: No Place of Residence: Home Review of Systems 10-point ROS is otherwise unremarkable Physical Examination Temp Pulse Resp BP Pulse Ox 97.7 F 57 16 118/55 L 97 04/23/25 08:00 04/23/25 10:00 04/23/25 08:00 04/23/25 10:00 04/23/25 08:00 General: Alert, In no apparent distress HEENT: Atraumatic, PERRLA, Mucous membr. moist/pink, EOMI, Sclerae nonicteric Neck: Supple, 2+ carotid pulse no bruit, No LAD, Without JVD or thyroid abnormality Respiratory: Clear to auscultation bilaterally, Normal air movement Cardiovascular: Regular rate/rhythm, Normal S1 S2 Gastrointestinal: Normal bowel sounds, No tenderness Musculoskeletal: No tenderness Integumentary: No rashes Neurological: Normal gait, Normal speech, Normal tone, Normal affect Lymphatics: No axilla or inguinal lymphadenopathy - Problems (1) Palpitations Current Visit: Yes Status: Acute Plan: patient tele did not show any arrhythmia agree with lopressor 25 mg po BID Patient is scheduled for event monitor (2) Coronary artery disease involving autologous artery coronary bypass graft Current Visit: Yes Status: Acute Plan: stable, continue ASA and Plavix (3) History of aortic valve replacement with bioprosthetic valve Current Visit: Yes Status: Acute Plan: outpatient follow up with cardiology for an updated echo
[2025-04-23] MEDS ORDERED: METOPROLOL XL 25 MG TAB PO SCH (18:00)
[2025-04-23] MEDS ORDERED: ATORVASTATIN 40 MG TAB PO SCH (21:00)
== END 2025-04-23 10:52 | disposition home or self-care (01) ==
LOC: ER 08:59 → ERHOLD 12:19 → 2ND 13:48
PROVIDERS: ADMIT Hospitalist; ATTEND Family Medicine
DX: I48.11 Longstanding persistent atrial fibrillation (principal); R00.2 Palpitations; E11.9 Type 2 diabetes mellitus without complications; E03.9 Hypothyroidism, unspecified; I25.10 Atherosclerotic heart disease of native coronary artery without angina pectoris; Z79.01 Long term (current) use of anticoagulants; Z95.1 Presence of aortocoronary bypass graft; Z95.5 Presence of coronary angioplasty implant and graft; Z95.2 Presence of prosthetic heart valve
CPT/HCPCS: 36415; 71045; 80048; 80061; 80076; 82947; 83735; 83880; 84484; 85025; 85610; 93005; 99285; G0378